=== PATIENT | female | born 1940 | race Caucasian/White ===

== ENCOUNTER 2023-11-09 14:50 | Inpatient (IN) | payer OTHER, SELFPAY ==
[2023-11-09] VITALS (10 sets, daily range): BP systolic 97–133; BP diastolic 51–82; PULSE 80–92; RESP 11–20; TEMP 36.6–36.7; O2SAT 96–99; BMI 36.8; BMI 36.7
--- NOTE | ~2023-11-09 | MR_ITS ---
EXAMINATION: MR abdomen wo/w con DATE: 11/12/2023 12:44 CDT INDICATION: Abnormal CAT scan TECHNIQUE: Magnetic resonance imaging (MRI) of the abdomen was performed with and without intravenous contrast. Sequences included coronal T2-weighted SS-FSE, coronal and axial FS 2D-FIESTA, axial STIR FSE, axial T2-weighted SS-FSE, axial T2-weighted FS SS-FSE, axial diffusion-weighted SE, axial dual- echo T1-weighted FSPGR, and axial and coronal T1-weighted LAVA. Postcontrast axial T1-weighted LAVA i mages were obtained in a time course. Postcontrast coronal T1-weighted LAVA images were obtained. COMPARISON: CT examination dated 11/09/2023 FINDINGS: Within the area of prior imaging concern (the periphery of segment 6/7 of the liver) non peripheral a rterial phase enhancement is appreciated which becomes isointense to the liver parenchyma on delayed views, without signal washout. This abnormal focus measures 27 x 18 x 24 mm (anterior to posterior x medial to lateral x cranial to caudal dimension). No additional abnormal contrast enhancement is appreciated within the remainder of the hepatic parenc hyma The liver displays a nodular contour consistent with cirrhosis, but is normal in size measuring 15 cm in longitudinal dimension. The spleen is borderline enlarged, measuring 9.4 cm in longitudinal dimension. Multiple stones are present within the gallbladder. The portal vein is patent. The abdominal aorta is nonaneurysmal. IMPRESSION: 1. Abnormal lesion within segment 6/7 measuring greater than 2 cm which demonstrate nonrim arterial p hase enhancement. In this high-risk patient, MR designates this lesion as a LIRADS 4 - probably HCC for which multidisc iplinary discussion for further workup is recommended (interval imaging versus biopsy for definitive diagnosis) Cholelithiasis. Splenomegaly. Reviewed, dictated and finalized at location A. IMPRESSION: 1. Abnormal lesion within segment 6/7 measuring greater than 2 cm which demonst rate nonrim arterial phase enhancement. In this high-risk patient, MR designates this lesion as a LIRADS 4 - probably H CC for which multidisciplinary discussion for further workup is recommended (in terval imaging versus biopsy for definitive diagnosis) Cholelithiasis. Splenomegaly.
--- NOTE | ~2023-11-09 | CT_ITS ---
EXAMINATION: CT abdomen pelvis w con DATE: 11/09/2023 17:27 INDICATION: Right abdominal pain. TECHNIQUE: Computed tomography (CT) of the abdomen and pelvis was performed with 100 mL Omnipaque 350 intravenous contrast. Automated exposure control and iterative reconstruction technique were employe d. The dose-length product was 1049.89 mGy-cm. COMPARISON: None. FINDINGS: The visualized portions of the lung bases demonstrate mild atelectasis. There is a 6 mm nod ule in left lower lobe. No pleural effusion. Cardiomegaly is noted. No pericardial effusion. There ar e coronary artery calcifications. There is liver surface nodularity, consistent with cirrhosis. There is a 2.5 cm arterial enhancing mass in right hepatic lobe. Calcifications in the spleen are consiste nt with old granulomatous disease. There are gallstones in the gallbladder, which is normal in size. The pancreas and adrenal glands are normal. There are cysts in the kidneys measuring up to 5 mm. Ther e are scattered diverticula in the colon. There is a 3.1 x 2.6 x 2.6 cm abscess in the wall of the si gmoid colon. There is fat stranding around the sigmoid colon. The appendix is normal. There are no di lated loops of bowel. There are no pathologically enlarged lymph nodes. There is no ascites. There is lumbar dextroscoliosis and severe spondylosis. IMPRESSION: 1. Sigmoid diverticulitis with intramural sigmoid abscess. 2. Cirrhosis of the liver. 3. 2.5 cm hyperenhancing mass in right hepatic lobe, which is indeterminate for hepatocellular carcin maximo. 4. 6 mm pulmonary nodule, probably benign. Consider noncontrast low-dose chest CT in 6-12 months. Reviewed, dictated and finalized at location A. IMPRESSION: 1. Sigmoid diverticulitis with intramural sigmoid abscess. 2. Cirrhosis of the liver. 3. 2.5 cm hyperenhancing mass in right hepatic lobe, which is indeterminate for hepatocellular carcinoma. 4. 6 mm pulmonary nodule, probably benign. Consider noncontrast low-dose chest CT in 6-12 months.
[2023-11-09 15:11] LABS: Basophils Absolute Auto 0.1 K/mm3 (0.0-0.1); Basophils Percent Auto 0.6 % (0.2-1.2); Eosinophils Absolute Auto 0.2 K/mm3 (0-0.3); Eosinophils Percent Auto 1.9 % (0-4.4); Hematocrit 42.3 % (37.0-47.0); Hemoglobin 14.2 g/dL (12.0-15.0); Immature Granulocyte Absolute 0.03 K/mm3 (0.00-0.031); Immature Granulocyte Percent A 0.3 % (0-0.5); Lymphocytes Absolute Auto 0.96 K/mm3 (0.9-3.2); Lymphocytes Percent Auto 9.3 % (18.3-44.2); Mean Corpuscular HGB Conc 33.6 g/dl (32-36); Mean Corpuscular Hemoglobin 31.5 pg (26-34); Mean Corpuscular Volume 93.8 fl (80-100); Mean Platelet Volume 10.8 fl (7.4-10.4); Monocytes Absolute Auto 1.1 K/mm3 (0.1-0.6); Monocytes Percent Auto 10.3 % (2.6-8.5); Neutrophils Percent Auto 77.6 % (45.5-73.1); Platelet Count Result 221 k/mm3 (150-375); Red Blood Count 4.51 M/mm3 (4.2-5.4); White Blood Count 10.3 K/mm3 (4.5-10.0)
[2023-11-09 15:16] LABS: Add Urine Microscopic? NO; Appearance Urine Clear (Clear); Bilirubin Urine Negative (Negative); Blood Urine Negative (Negative); Color Urine Yellow (Yellow); Glucose Urine UA 2+ mg/dL (Negative); Ketones Urine Negative (Negative); Leukocyte Esterase Ur Negative LEU/UL (Negative); Nitrate Urine Negative (Negative); Protein Urine Negative (Negative); Specific Grav Ur 1.007 (1.001-1.035); Urobilinogen Urine 0.2 mg/dL (<2.0); pH Urine 7.5 (5.0-9.0)
[2023-11-09 15:24] LABS: Alanine Aminotransferase 16 U/L (6-35); Albumin Level 4.6 g/dL (3.5-5.1); Alkaline Phosphatase 108 U/L (38-126); Anion Gap 9 mmol/L (4-12); Aspartate Amino Transferase 23 U/L (14-36); Bilirubin,Total 0.7 mg/dL (0.2-1.3); Blood Urea Nitrogen 20 mg/dL (7-17); Calcium 9.9 mg/dL (8.4-10.2); Carbon Dioxide 31 mmol/L (22-30); Chloride 94 mmol/L (98-107); Estimated CRCL calculation 38 ml/min; Estimated Glomerular Filt Rate 48; Glucose 114 mg/dL (65-110); Lipase 164 U/L (23-300); Sodium 134 mmol/L (137-145)
--- NOTE | 2023-11-09 16:01 | ED.ABDPAIN ---
HPI - Abdominal Pain General Chief Complaint: Abdominal Pain Stated Complaint: abdominal pain Time Seen by Provider: 11/09/23 16:01 Source: patient and family Mode of arrival: ambulatory History of Present Illness HPI narrative: 83 years old white female came to the ED complaining of right lower quadrant pain for the last 5 days. Associated with diarrhea, on average 4 times a day liquidy/soft. She denies any fever, chills, vomiting, diarrhea or nausea. History of recurrent diverticulitis Related Data Home Medications Medication Instructions Recorded Confirmed CoQ10 100 mg PO HS 11/05/23 11/09/23 allopurinol 300 mg tablet 300 mg PO DAILY 11/05/23 11/09/23 cholecalciferol (vitamin D3) 50 50 mcg PO HS 11/05/23 11/09/23 mcg (2,000 unit) capsule citracal See Rx Instructions .Route .COMPLEX 11/05/23 11/09/23 colchicine 0.6 mg tablet 0.3 mg PO DAILY PRN gout 11/05/23 11/09/23 dapagliflozin propanediol 10 mg 10 mg PO DAILY 11/05/23 11/09/23 tablet (Farxiga) lactobacillus combination no.9 4 4,000 mmu cells PO DAILY 11/05/23 11/09/23 billion cell capsule (Adult 50 Plus Probiotic) magnesium 500 mg PO BID 11/05/23 11/09/23 metformin 500 mg tablet 500 mg PO TID 11/05/23 11/09/23 potassium chloride 10 mEq 10 meq PO DAILY 11/05/23 11/09/23 tablet,extended release pravastatin 40 mg tablet 40 mg PO HS 11/05/23 11/09/23 prednisone 20 mg tablet 20 mg PO DAILY PRN gout 11/05/23 11/09/23 rivaroxaban 20 mg tablet (Xarelto) 20 mg PO HS 11/05/23 11/09/23 spironolactone 25 mg tablet 25 mg PO DAILY 11/05/23 11/09/23 torsemide 20 mg tablet 20 mg PO QAM 11/05/23 11/09/23 metoprolol succinate 100 mg 100 mg PO DAILY 11/06/23 11/09/23 tablet,extended release 24 hr glucosamine sulfate 1,000 mg 1,000 mg PO BID 11/09/23 11/09/23 capsule metoprolol succinate 50 mg 50 mg PO HS 11/09/23 11/09/23 tablet,extended release 24 hr Allergies Allergy/AdvReac Type Severity Reaction Status Date / Time Penicillins Allergy Severe Unknown Verified 11/09/23 18:28 meperidine [From Demerol] AdvReac Intermediate Unknown Verified 11/09/23 18:28 morphine AdvReac Intermediate Unknown Verified 11/09/23 18:28 Sulfa (Sulfonamide AdvReac Intermediate Unknown Verified 11/09/23 18:28 Antibiotics) Review of Systems Review of Systems: All systems reviewed & are unremarkable except as noted in HPI and below PMFSH Past Medical History Medical History BMI 37.0-37.9, adult Breast cancer, left s/p tamoxifen, radiation, and lumpectomy CHF (congestive heart failure) Colon cancer screening Diabetes Diverticulitis Dry eyes Gout HTN (hypertension) Hx of skin malignancy Hyperlipidemia Insomnia On intermediate drug therapy KRIS treated with BiPAP Paroxysmal A-fib Pulmonary hypertension Surgical History Surgical History History of lumpectomy of left breast Hx of breast biopsy Social History Social History Smoking status: Never smoker Alcohol intake: current Substance use: never Substance use type: does not use Do You Feel Safe in your Home?: Yes Lack of Transportation: No Lack of Food: Never True Current Housing: I Have Housing Concerned About Future Housing: No Difficulty Paying Gas/Electric Bills: No Difficulty Paying for Meds: No Currently Unemployed: No Education: Master's Degree or Higher Difficulty w/ Childcare or Family Care: No Spiritual care concerns: No Exam Narrative: General appearance: Well-developed, well-nourished Skin: Normal color Head: Normocephalic, nontraumatic Eyes: Clear conjunctiva ENT: Oropharynx normal, ears normal, nose normal Neck: Supple, nontender Chest and respiratory: Airway patent, no respiratory distress, no accessory muscle use Heart: Regular rate/rhythm Abdomen: Soft, diffuse lower abdominal tenderness, no guarding or bubba
[2023-11-09] MEDS: SODIUM CHLORIDE 0.9% IV 1,000 ML 999 ML IV CONT (16:35)
[2023-11-09 16:55] LABS: INR 1.6; Prothrombin Time 19.6 Seconds (11.1-14.7)
[2023-11-09 16:56] LABS: Partial Thromboplastin Time 39.7 Seconds (22.3-36.8)
[2023-11-09] MEDS: ONDANSETRON INJ 4 MG/2 ML VIAL IV PUSH (18:29)
--- NOTE | 2023-11-09 18:54 | PC.NURSE ---
Report given to Rosa SOLER, all questions answered
--- NOTE | 2023-11-09 19:07 | PM.IMHP ---
H&P: HPI History of Present Illness Date/Time: 11/09/23 19:07 Chief Complaint: Abdominal Pain, Diarrhea Narrative: 83 y/o F presents here with abdominal pain and diarrhea with PMH of diverticulitis, HLD, skin cancer (forehead, s/p excision), left breast cancer (s/p lumpectomy, hormon neha x5 years, and radiation), KRIS, paroxysmal AFib, and pulmonary hypertension. The patient presents here from home for further evaluation of abdominal pain and diarrhea. Initially started feeling fatigued, diarrhea, and weakness on Sunday (10/03). She reports onset approximately 4 days ago of lower abdominal pain, more so on the right. She describes the pain as cramping/knotted, nonradiating, intermittent, aggravated by eating, and no alleviating factors. She estimates she was having liquidy to semi-formed bowel movements per day. Reports mild nausea x1 day, has since resolved. She denies associated fever, chills, body aches, vomiting, nausea, or shortness of breath. She has a history of recurrent diverticulitis with last episode 2-3 years ago and no hx of surgical intervention needed or abscess formation to her knowledge. Initial VS at presentation: 98.1? F, HR 92, RR 20, 133/77, and 98% on RA. ED workup showed: WBC 10.3, no anemia, INR 1.6, sodium 134, creatinine 1.1 and GFR 48, and UA showed 2+ glucose. CT of the abdomen/pelvis showed sigmoid diverticulitis with intramural sigmoid abscess, cirrhosis of the liver, 2.5 cm hyperenhancing mass in the right hepatic lobe, and a 6 mm pulmonary nodule probably benign. Review of Systems Review of Systems: All systems reviewed & are unremarkable except as noted in HPI and below [facility] Past Medical History Medical History (Updated 11/09/23 @ 21:30 by Zoraida Roman APRN) BMI 37.0-37.9, adult Breast cancer, left s/p tamoxifen, radiation, and lumpectomy CHF (congestive heart failure) Colon cancer screening Diabetes Diverticulitis Dry eyes Gout HTN (hypertension) Hx of skin malignancy Hyperlipidemia Insomnia On intermediate frame tender drug therapy KRIS treated with BiPAP Paroxysmal A-fib Pulmonary hypertension Surgical History Surgical History (Updated 11/09/23 @ 21:27 by Zoraida Roman APRN) History of lumpectomy of left breast Hx of breast biopsy Social History Social History Smoking status: Never smoker Alcohol intake: current Substance use: never Substance use type: does not use Do You Feel Safe in your Home?: Yes Lack of Transportation: No Lack of Food: Never True Current Housing: I Have Housing Concerned About Future Housing: No Difficulty Paying Gas/Electric Bills: No Difficulty Paying for Meds: No Currently Unemployed: No Education: Master's Degree or Higher Difficulty w/ Childcare or Family Care: No Spiritual care concerns: No Meds Home Medications and Allergies Home Medications Medication Instructions Recorded Confirmed Type CoQ10 100 mg PO HS 11/05/23 11/09/23 History allopurinol 300 mg tablet 300 mg PO DAILY 11/05/23 11/09/23 History cholecalciferol (vitamin D3) 50 50 mcg PO HS 11/05/23 11/09/23 History mcg (2,000 unit) capsule citracal See Rx Instructions .Route .COMPLEX 11/05/23 11/09/23 History colchicine 0.6 mg tablet 0.3 mg PO DAILY PRN gout 11/05/23 11/09/23 History dapagliflozin propanediol 10 mg 10 mg PO DAILY 11/05/23 11/09/23 History tablet (Farxiga) lactobacillus combination no.9 4 4,000 mmu cells PO DAILY 11/05/23 11/09/23 History billion cell capsule (Adult 50 Plus Probiotic) magnesium 500 mg PO BID 11/05/23 11/09/23 History metformin 500 mg tablet 500 mg PO TID 11/05/23 11/09/23 History potassium chloride 10 mEq 10 meq PO DAILY 11/05/23 11/09/23 History tablet,extended release pravastatin 40 mg tablet 40 mg PO HS 11/05/23 11/09/23 History prednisone 20 mg tablet 20 mg PO DAILY PRN gout 11/05/23 11/09/23 History rivaroxaban 20 mg tablet (Xarelto) 20 m
[2023-11-09] MEDS: metroNIDAZOLE 500 MG/ISO 100ML 500 MG/100 ML BAG 100 MG IVPB (19:24)
--- NOTE | 2023-11-09 20:10 | ADMGEN ---
This patient, Nadja Garcia, was admitted to 2 Medical Room 260-. Patient/family oriented to hospital policies and general routines including ID bracelet, bed and alarms, visiting hours, pain management, procedures, bathroom and other care routines, personal items, smoking policy, room service/diet, and visiting hours. Information on how to activate the Rapid Response Team has been discussed. Patient/Family are encouraged to report perceived risks to care and to ask questions if they do not understand what they are told or what they should do.
[2023-11-09] MEDS: levoFLOXacin 750 MG/D5W 150 ML 750 MG/150 ML BAG 100 MG IVPB (21:01)
[2023-11-09] MEDS: LACTATED RINGERS 1,000 ML 125 ML IV CONT (22:44)
[2023-11-09] MEDS: PRAVASTATIN SODIUM 20 MG TABLET 40 MG PO (22:45)
[2023-11-09] MEDS: RIVAROXABAN 20 MG TABLET PO (22:45)
[2023-11-09] MEDS: MELATONIN 3 MG TABLET PO (23:37)
[2023-11-10] VITALS (11 sets, daily range): BP systolic 87–118; BP diastolic 33–66; PULSE 62–77; RESP 16–20; TEMP 36.4–37.1; O2SAT 94–99
[2023-11-10] MEDS: ACETAMINOPHEN 325 MG TABLET 650 MG PO ×2 (03:40→09:15)
[2023-11-10] MEDS: metroNIDAZOLE 500 MG/ISO 100ML 500 MG/100 ML BAG 100 MG IVPB ×3 (03:41→20:41)
[2023-11-10 05:17] LABS: Basophils Absolute Auto 0.1 K/mm3 (0.0-0.1); Basophils Percent Auto 0.8 % (0.2-1.2); Eosinophils Absolute Auto 0.2 K/mm3 (0-0.3); Eosinophils Percent Auto 2.6 % (0-4.4); Hematocrit 37.2 % (37.0-47.0); Hemoglobin 12.3 g/dL (12.0-15.0); Immature Granulocyte Absolute 0.04 K/mm3 (0.00-0.031); Immature Granulocyte Percent A 0.5 % (0-0.5); Lymphocytes Percent Auto 10.3 % (18.3-44.2); Mean Corpuscular HGB Conc 33.1 g/dl (32-36); Mean Corpuscular Hemoglobin 31.3 pg (26-34); Mean Corpuscular Volume 94.7 fl (80-100); Mean Platelet Volume 11.4 fl (7.4-10.4); Monocytes Percent Auto 12.3 % (2.6-8.5); Neutrophils Absolute Auto 5.7 K/mm3 (1.3-6.7); Neutrophils Percent Auto 73.5 % (45.5-73.1); Platelet Count Result 178 k/mm3 (150-375); Red Blood Count 3.93 M/mm3 (4.2-5.4); Red Cell Distribution Width 14.8 % (11.5-14.5); White Blood Count 7.8 K/mm3 (4.5-10.0)
[2023-11-10 05:25] LABS: Hemoglobin A1C 5.8 % (<5.7)
[2023-11-10 05:31] LABS: Alanine Aminotransferase 13 U/L (6-35); Albumin Level 3.7 g/dL (3.5-5.1); Alkaline Phosphatase 93 U/L (38-126); Anion Gap 7 mmol/L (4-12); Aspartate Amino Transferase 19 U/L (14-36); Bilirubin,Total 0.7 mg/dL (0.2-1.3); Blood Urea Nitrogen 19 mg/dL (7-17); Carbon Dioxide 27 mmol/L (22-30); Chloride 99 mmol/L (98-107); Estimated CRCL calculation 42 ml/min; Estimated Glomerular Filt Rate 53; Glucose 94 mg/dL (65-110); Potassium 3.9 mmol/L (3.4-5.0); Sodium 133 mmol/L (137-145)
[2023-11-10] MEDS: SODIUM CHLORIDE 0.9% IV 500 ML IV CONT (05:58)
[2023-11-10 08:01] LABS: Glucose Point of Care 102 mg/dl (65-105)
--- NOTE | 2023-11-10 08:38 | PM.IMPN ---
Progress Note: A&P Assessment and Plan (1) Diverticulitis large intestine: Qualifiers: Diverticulitis bleeding: without bleeding Diverticulitis complication: with abscess Qualified Code(s): K57.20 - Diverticulitis of large intestine with perforation and abscess without bleeding Code(s): K57.32 - Diverticulitis of large intestine without perforation or abscess without bleeding Status: Acute (2) HTN (hypertension): Qualifiers: Hypertension type: primary hypertension Qualified Code(s): I10 - Essential (primary) hypertension Code(s): I10 - Essential (primary) hypertension Status: Acute (3) Diabetes: Qualifiers: Diabetes mellitus complication status: without complication Diabetes mellitus assistant terminal manager insulin use: without [facility] use Diabetes mellitus type: type 2 Qualified Code(s): E11.9 - Type 2 diabetes mellitus without complications Code(s): E11.9 - Type 2 diabetes mellitus without complications Status: Acute (4) Liver mass: Code(s): R16.0 - Hepatomegaly, not elsewhere classified Status: Acute (5) Pulmonary nodule: Code(s): R91.1 - Solitary pulmonary nodule Status: Acute Plan Diverticulitis large intestine: Qualifiers: Diverticulitis bleeding: without bleeding Diverticulitis complication: with abscess Qualified Code(s): K57.20 - Diverticulitis of large intestine with perforation and abscess without bleeding Code(s): K57.32 - Diverticulitis of large intestine without perforation or abscess without bleeding - CT abdomen/pelvis: 1. Sigmoid diverticulitis with intramural sigmoid abscess. 2. Cirrhosis of the liver. 3. 2.5 cm hyperenhancing mass in right hepatic lobe, which is indeterminate for hepatocellular carcinoma. 4. 6 mm pulmonary nodule, probably benign. Consider noncontrast low-dose chest CT in 6-12 months. - started on Levaquin and Flagyl on 11/08, allergy to PCN and sulfa clear diet - analgesics and antipyretics p.r.n. change 125 mL/hour of LR, to NS 100ml/h because of hyponatremia Monitor I&Os. -[facility] Resume when appropriate. - general surgery consulted, awaiting formal recs hyponatremia, dehydration, CKD stage 3 133 which is trending down Change to normal saline IV 100 mL/hour dehydration is partially corrected Liver mass: Code(s): R16.0 - Hepatomegaly, not elsewhere classified Status: Acute Assessment and Plan: - CT showed a 2.5 cm hyperenhancing mass in the right hepatic lobe which is indeterminate for hepato cellular carcinoma - will need outpatient follow-up, discussed at length with the patient and her daughter Pulmonary nodule: Code(s): R91.1 - Solitary pulmonary nodule Status: Acute Assessment and Plan: - CT showed a 6 mm pulmonary nodule, probably benign. - Consider a non con low-dose chest CT in 6-12 months, defer to primary post-discharge Diabetes: Qualifiers: Diabetes mellitus type: type 2 Diabetes mellitus assistant terminal manager insulin use: without assistant terminal manager use Diabetes mellitus complication status: without complication Qualified Code(s): E11.9 - Type 2 diabetes mellitus without complications Code(s): E11.9 - Type 2 diabetes mellitus without complications Status: Acute Assessment and Plan: hypoglycemia protocol - POC blood glucose ACHS - home medication: hold metformin, continue Farixga - correct regimen ordered - low dose TIDWM, based off TDD - A1C ordered HTN (hypertension): Qualifiers: Hypertension type: primary hypertension Qualified Code(s): I10 - Essential (primary) hypertension Code(s): I10 - Essential (primary) hypertension Status: Acute Assessment and Plan: blood pressure low decrease metoprolol to 50 mg daily p.o. KRIS treated with BiPAP: Code(s): G47.33 - Obstructive sleep apnea (adult) (pediatric) St
[2023-11-10] MEDS: allopurinoL 300 MG TABLET PO (08:53)
[2023-11-10] MEDS: EMPAGLIFLOZIN 25 MG TABLET BY MOUTH (08:53)
[2023-11-10] MEDS: SODIUM CHLORIDE 0.9% IV 1,000 ML 100 ML IV CONT ×2 (10:12→23:30)
[2023-11-10 11:06] LABS: Toxigenic C. Diff NEGATIVE (NEGATIVE)
[2023-11-10 12:04] LABS: Glucose Point of Care 87 mg/dl (65-105)
--- NOTE | 2023-11-10 12:38 | WPDCN ---
Assessment and Plan Assessment and plan (1) Diverticulitis large intestine: Qualifiers: Diverticulitis bleeding: without bleeding Diverticulitis complication: with abscess Qualified Code(s): K57.20 - Diverticulitis of large intestine with perforation and abscess without bleeding Code(s): K57.32 - Diverticulitis of large intestine without perforation or abscess without bleeding Status: Acute Assessment and Plan: Patient has recurrent sigmoid diverticulitis with an intramural abscess which is about 3cm. No free perforation or extra luminal abscess is noted. Patient has had 1 prior admission to the hospital for diverticulitis when she was living in [place]. She has also had multiple other episodes which did not require hospitalization. At this point she seems to be improving. I would continue on IV antibiotics and bowel rest for today. Keep her NPO today except for medications with a sip of water. Tomorrow if she is still feeling well and white blood count remains normal then we can start advancing diet starting with clear liquids. We will hold her Xarelto for now just in case she gets worse and needs any emergent surgery. Will start on some subcutaneous heparin and SCDs. Assuming she resolved with non operative management I would recommend getting a colonoscopy performed in 4 to 6 weeks. If no neoplasm is seen causing the current picture then I would discuss with her and her family the possibility of elective sigmoid colon surgery but she does have multiple medical conditions that may increase morbidity and possibly mortality and so an elective sigmoid colon surgery may or may not be in her best interest. Continue IV antibiotics for now with supportive management. Continue serial abdominal exams. (2) Liver mass: Code(s): R16.0 - Hepatomegaly, not elsewhere classified Status: Acute Assessment and Plan: Right liver lobe mass. Indeterminate for hepatoma at this time. Further workup with dedicated MRI with Eovist contrast to further evaluate the liver mass would be indicated as an outpatient. HPI Data of Consult Date/Time: 11/10/23 12:38 Requesting Physician: Savannah Orozco MD Primary Care Provider: Thomas Antonio MD Consult Narrative Reason for consult: Acute sigmoid diverticulitis with me intramural abscess Narrative: Nadja Garcia is a 83 year old female who was admitted through the emergency room yesterday with having a was 1 week long history of lower abdominal pain which was actually a little worse on the right side. Patient moved to the area from [place] about 2 months ago to be with family. She states she had previously had episodes of diverticulitis and was hospitalized once a couple years ago. She denies any surgical management at that time was treated non operatively. She has not had a colonoscopy in more than 5 years. Her previous colonoscopy showed just some benign polyps. She was not instructed at that time to get another colonoscopy. 3 to 4 days ago she started having some nonbloody diarrhea. The pain worsened and she eventually came to the emergency room where her white blood cell count was 10,300. She had no fever and no tachycardia. There were no signs of sepsis. CT scan abdomen pelvis was then performed showing acute sigmoid diverticulitis without perforation or free pelvic abscess. Patient did have approximately 3cm area of intramural abscess in the sigmoid colon. No free air. Patient was admitted to the [facility] she is allergic to penicillin. Stool was negative for C diff. Today she states her pain is better. She actually had formed bowel movement today. It was nonbloody. She has no nausea. White blood cell count decreased to normal today. Her other medical conditions include prediabetes, hypertension, gout, atrial fibrillation on systemic anticoagulation with Xarelto, secondary pulmonary hypertension. She jatinder
[2023-11-10 17:20] LABS: Glucose Point of Care 90 mg/dl (65-105)
[2023-11-10] MEDS: METOPROLOL SUCCINATE EXT REL 50 MG TABCR PO (18:13)
[2023-11-10 20:09] LABS: Glucose Point of Care 88 mg/dl (65-105)
[2023-11-10] MEDS: PRAVASTATIN SODIUM 20 MG TABLET 40 MG PO (20:52)
[2023-11-10] MEDS: HEPARIN SODIUM 5,000 UNITS/ML VIAL 5000 UNITS SUB-Q (20:52)
[2023-11-10] MEDS: MELATONIN 3 MG TABLET PO (20:52)
[2023-11-11] VITALS (7 sets, daily range): BP systolic 103–125; BP diastolic 58–67; PULSE 82–95; RESP 16–18; TEMP 36.2–36.6; O2SAT 97–99
[2023-11-11 05:05] LABS: Basophils Absolute Auto 0.1 K/mm3 (0.0-0.1); Basophils Percent Auto 0.8 % (0.2-1.2); Eosinophils Absolute Auto 0.1 K/mm3 (0-0.3); Eosinophils Percent Auto 1.8 % (0-4.4); Hematocrit 37.5 % (37.0-47.0); Hemoglobin 11.8 g/dL (12.0-15.0); Immature Granulocyte Absolute 0.03 K/mm3 (0.00-0.031); Immature Granulocyte Percent A 0.4 % (0-0.5); Lymphocytes Absolute Auto 0.93 K/mm3 (0.9-3.2); Lymphocytes Percent Auto 11.7 % (18.3-44.2); Mean Corpuscular HGB Conc 31.5 g/dl (32-36); Mean Corpuscular Hemoglobin 30.5 pg (26-34); Mean Corpuscular Volume 96.9 fl (80-100); Mean Platelet Volume 10.6 fl (7.4-10.4); Monocytes Absolute Auto 0.8 K/mm3 (0.1-0.6); Monocytes Percent Auto 9.6 % (2.6-8.5); Neutrophils Percent Auto 75.7 % (45.5-73.1); Platelet Count Result 170 k/mm3 (150-375); Red Blood Count 3.87 M/mm3 (4.2-5.4); Red Cell Distribution Width 15.1 % (11.5-14.5); White Blood Count 7.9 K/mm3 (4.5-10.0)
[2023-11-11] MEDS: metroNIDAZOLE 500 MG/ISO 100ML 500 MG/100 ML BAG 100 MG IVPB ×3 (05:08→20:42)
[2023-11-11 05:27] LABS: Alanine Aminotransferase 13 U/L (6-35); Albumin Level 3.8 g/dL (3.5-5.1); Alkaline Phosphatase 93 U/L (38-126); Anion Gap 10 mmol/L (4-12); Aspartate Amino Transferase 21 U/L (14-36); Bilirubin,Total 0.5 mg/dL (0.2-1.3); Blood Urea Nitrogen 17 mg/dL (7-17); Calcium 9.1 mg/dL (8.4-10.2); Carbon Dioxide 24 mmol/L (22-30); Chloride 104 mmol/L (98-107); Estimated CRCL calculation 46 ml/min; Estimated Glomerular Filt Rate 60; Glucose 72 mg/dL (65-110); Potassium 4.1 mmol/L (3.4-5.0); Sodium 138 mmol/L (137-145)
[2023-11-11 07:52] LABS: Glucose Point of Care 74 mg/dl (65-105)
--- NOTE | 2023-11-11 08:43 | PM.IMPN ---
Progress Note: A&P Assessment and Plan (1) Diverticulitis large intestine: Qualifiers: Diverticulitis bleeding: without bleeding Diverticulitis complication: with abscess Qualified Code(s): K57.20 - Diverticulitis of large intestine with perforation and abscess without bleeding Code(s): K57.32 - Diverticulitis of large intestine without perforation or abscess without bleeding Status: Acute (2) HTN (hypertension): Qualifiers: Hypertension type: primary hypertension Qualified Code(s): I10 - Essential (primary) hypertension Code(s): I10 - Essential (primary) hypertension Status: Acute (3) Diabetes: Qualifiers: Diabetes mellitus complication status: without complication Diabetes mellitus long term care social worker insulin use: without [facility] use Diabetes mellitus type: type 2 Qualified Code(s): E11.9 - Type 2 diabetes mellitus without complications Code(s): E11.9 - Type 2 diabetes mellitus without complications Status: Acute (4) Liver mass: Code(s): R16.0 - Hepatomegaly, not elsewhere classified Status: Acute (5) Pulmonary nodule: Code(s): R91.1 - Solitary pulmonary nodule Status: Acute Plan Diverticulitis large intestine: Qualifiers: Diverticulitis bleeding: without bleeding Diverticulitis complication: with abscess Qualified Code(s): K57.20 - Diverticulitis of large intestine with perforation and abscess without bleeding Code(s): K57.32 - Diverticulitis of large intestine without perforation or abscess without bleeding - CT abdomen/pelvis: 1. Sigmoid diverticulitis with intramural sigmoid abscess. 2. Cirrhosis of the liver. 3. 2.5 cm hyperenhancing mass in right hepatic lobe, which is indeterminate for hepatocellular carcinoma. 4. 6 mm pulmonary nodule, probably benign. Consider noncontrast low-dose chest CT in 6-12 months. - started on Levaquin and Flagyl on 11/08, allergy to PCN and sulfa clear diet - analgesics and antipyretics p.r.n. change 125 mL/hour of LR, to NS 100ml/h because of hyponatremia Monitor I&Os. -[facility] Resume when appropriate. -general surgery is consulted, appreciate surgical consultation, continue antibiotics and supportive management hyponatremia, dehydration, CKD stage 3 133 which is trending down Change to normal saline IV 100 mL/hour dehydration is partially corrected Liver mass: Code(s): R16.0 - Hepatomegaly, not elsewhere classified Status: Acute Assessment and Plan: - CT showed a 2.5 cm hyperenhancing mass in the right hepatic lobe which is indeterminate for hepato cellular carcinoma - will need outpatient follow-up, discussed at length with the patient and her daughter paroxysmal AFib hold Xarelto now because of possible pending surgical procedure now patient has sinus rhythm follow EKG Pulmonary nodule: Code(s): R91.1 - Solitary pulmonary nodule Status: Acute Assessment and Plan: - CT showed a 6 mm pulmonary nodule, probably benign. - Consider a non con low-dose chest CT in 6-12 months, defer to primary post-discharge Diabetes: Qualifiers: Diabetes mellitus type: type 2 Diabetes mellitus long term care social worker insulin use: without long term care social worker use Diabetes mellitus complication status: without complication Qualified Code(s): E11.9 - Type 2 diabetes mellitus without complications Code(s): E11.9 - Type 2 diabetes mellitus without complications Status: Acute Assessment and Plan: hypoglycemia protocol - POC blood glucose ACHS - home medication: hold metforminand Farixga - correct regimen ordered - low dose TIDWM, based off TDD - A1C ordered HTN (hypertension): Qualifiers: Hypertension type: primary hypertension Qualified Code(s): I10 - Essential (primary) hypertension Code(s): I10 - Essential (primary) hypertension Status: Acute Asses
[2023-11-11] MEDS: allopurinoL 300 MG TABLET PO (08:47)
[2023-11-11] MEDS: TORSEMIDE 20 MG TABLET PO (08:47)
[2023-11-11] MEDS: POTASSIUM CHLORIDE 10 MEQ ER TABLET PO (08:48)
[2023-11-11] MEDS: PANTOPRAZOLE 40 MG TABLET PO (08:48)
[2023-11-11] MEDS: SPIRONOLACTONE 25 MG TABLET PO (08:48)
[2023-11-11] MEDS: METOPROLOL SUCCINATE EXT REL 50 MG TABCR PO (08:48)
[2023-11-11] MEDS: HEPARIN SODIUM 5,000 UNITS/ML VIAL 5000 UNITS SUB-Q ×2 (08:48→20:42)
[2023-11-11] MEDS: SODIUM CHLORIDE 0.9% IV 1,000 ML 100 ML IV CONT (08:48)
--- NOTE | 2023-11-11 08:48 | ECG_ITS ---
Test Date: 2023-11-11 09:13:10 Measurements Intervals [place] Rate: 88 P: 0 MD: 0 QRS: -2 QRSD: 100 T: 31 QT: 393 QTc: 478 Interpretive Statements ATRIAL FIBRILLATION LOW QRS VOLTAGE [QRS DEFLECTION < 0.5/1.0 mV IN LIMB/CHEST LEADS] INCOMPLETE RIGHT BUNDLE BRANCH BLOCK [90+ ms QRS DURATION, TERMINAL R IN V1/V2, 40+ ms S IN I/aVL/V4/V5/V6] ANTEROSEPTAL MYOCARDIAL INFARCTION [40+ ms Q WAVE IN V1-V4], OF INDETERMINATE AGE No previous ECG available for comparison Electronically Signed On 11-11-2023 11:40:07 CDT by Chava Stroud M.D.
[2023-11-11 09:31] LABS: Glucose Point of Care 121 mg/dl (65-105)
--- NOTE | 2023-11-11 11:35 | WPDPN ---
Progress Note: A&P Assessment and Plan (1) Diverticulitis large intestine: Qualifiers: Diverticulitis bleeding: without bleeding Diverticulitis complication: with abscess Qualified Code(s): K57.20 - Diverticulitis of large intestine with perforation and abscess without bleeding Code(s): K57.32 - Diverticulitis of large intestine without perforation or abscess without bleeding Status: Acute Assessment and Plan: Recurrent sigmoid diverticulitis with intramural abscess seems to be resolving with non operative management. Continue IV antibiotics for today. Can go ahead advanced diet to full liquids today as tolerated. Hopefully can advanced to solid food tomorrow and oral antibiotics. Continue supportive management (2) Liver mass: Code(s): R16.0 - Hepatomegaly, not elsewhere classified Status: Acute Assessment and Plan: Patient has questionable right liver mass on initial CT scan done on admission for her diverticulitis. Will get a dedicated MRI of the abdomen and to evaluate the liver with IV contrast. Subjective Date/time seen: 11/11/23 11:35 Interval history: Patient is doing well today. Complaining of any abdominal pain. No nausea. White blood cell count remains normal. Started on clear liquids this morning which she is tolerating. Exam GI: Other: Abdomen is soft and nondistended. Minimal to any tenderness in the lower abdomen. Essentially benign. Objective Data Vital Signs Vital Signs: Vital Signs - 24 hr 11/10/23 12:04 11/10/23 14:00 11/10/23 18:12 Temperature 36.4 C Pulse Rate 77 77 Respiratory Rate 16 16 Blood Pressure 102/64 113/56 L 118/66 Pulse Oximetry 97 99 Oxygen Delivery 11/10/23 18:13 11/10/23 20:48 11/10/23 20:52 Temperature 37.1 C Pulse Rate 75 74 Respiratory Rate 18 Blood Pressure 116/33 L Pulse Oximetry 96 Oxygen Delivery Room Air 11/10/23 22:35 11/11/23 05:59 11/11/23 08:47 Temperature 36.6 C Pulse Rate 72 82 95 Respiratory Rate 18 16 Blood Pressure 122/59 L 125/67 Pulse Oximetry 97 98 99 Oxygen Delivery CPAP 11/11/23 08:48 Temperature Pulse Rate 95 Respiratory Rate Blood Pressure Pulse Oximetry Oxygen Delivery Intake/Output Intake/Output: Intake & Output 11/08/23 11/09/23 11/10/23 11/11/23 23:59 23:59 23:59 23:59 Intake Total 1250 1300 1510 Balance 1250 1300 1510 Meds/Results Medications: Active Medications Generic Name Dose Route Start Last Admin Trade Name Freq PRN Reason Stop Dose Admin Acetaminophen 650 mg 11/09/23 19:31 11/10/23 09:15 Acetaminophen 325 Mg Tablet PO 650 mg Q4H PRN Administration Mild Pain (1-3) or Fever Allopurinol 300 mg 11/10/23 08:00 11/11/23 08:47 Allopurinol 300 Mg Tablet PO 300 mg DAILY@0800 BRITTANY Administration Colchicine 0.3 mg 11/09/23 21:24 Colchicine 0.3 Mg Tablet PO DAILY PRN gout Dextrose 12.5 gm 11/09/23 21:29 Dextrose 50% 25 Gm/50 Ml Syringe IV PUSH PRN PRN Hypoglycemia Protocol Dicyclomine HCl 20 mg 11/09/23 19:31 Dicyclomine Hcl 10 Mg Capsule PO QID PRN Abdominal Cramping Empagliflozin 25 mg 11/10/23 09:00 11/11/23 08:45 Empagliflozin 25 Mg Tablet BY MOUTH Not Given DAILY BRITTANY Glucagon 1 mg 11/09/23 21:29 Glucagon For Inj 1 Mg Vial IM PRN PRN Hypoglycemia Protocol Glucose 15 gm 11/09/23 21:29 Glucose Oral Gel 15 Gm Of Glucse In 37.5 Gm Tube PO PRN PRN Hypoglycemia Protocol Heparin Sodium (Porcine) 5,000 units 11/10/23 21:00 11/11/23 08:48 Heparin Sodium 5,000 Units/Ml Vial SUB-Q 5,000 units Q12HR BRITTANY Administration Metronidazole 500 mg in 100 mls @ 100 mls/hr 11/09/23 20:00 11/11/23 06:08 Flagyl 500 Mg/Iso Soln 100 Ml IVPB Infused Q8H BRITTANY Infusion Levofloxacin/Dextrose 750 mg in 150 mls @ 100 mls/hr 11/09/23 21:00 11/09/23 22:31 Levaquin 750 Mg/D5w 15
[2023-11-11 11:44] LABS: Glucose Point of Care 133 mg/dl (65-105)
[2023-11-11 17:03] LABS: Glucose Point of Care 87 mg/dl (65-105)
[2023-11-11 20:11] LABS: Glucose Point of Care 157 mg/dl (65-105)
[2023-11-11] MEDS: MELATONIN 3 MG TABLET PO (20:42)
[2023-11-11] MEDS: PRAVASTATIN SODIUM 20 MG TABLET 40 MG PO (20:43)
[2023-11-11] MEDS: levoFLOXacin 750 MG/D5W 150 ML 750 MG/150 ML BAG 100 MG IVPB (21:52)
[2023-11-12] MEDS: SODIUM CHLORIDE 0.9% IV 1,000 ML 75 ML IV CONT (01:56)
[2023-11-12] MEDS: metroNIDAZOLE 500 MG/ISO 100ML 500 MG/100 ML BAG 100 MG IVPB ×2 (04:00→12:20)
[2023-11-12 06:00] VITALS: BP 113/62; PULSE 76; RESP 16; TEMP 36.4; O2SAT 100
[2023-11-12 07:01] LABS: Basophils Absolute Auto 0.1 K/mm3 (0.0-0.1); Basophils Percent Auto 0.9 % (0.2-1.2); Eosinophils Absolute Auto 0.2 K/mm3 (0-0.3); Eosinophils Percent Auto 3.7 % (0-4.4); Hematocrit 35.5 % (37.0-47.0); Hemoglobin 11.7 g/dL (12.0-15.0); Immature Granulocyte Absolute 0.02 K/mm3 (0.00-0.031); Immature Granulocyte Percent A 0.4 % (0-0.5); Lymphocytes Absolute Auto 0.82 K/mm3 (0.9-3.2); Lymphocytes Percent Auto 15.3 % (18.3-44.2); Mean Corpuscular Volume 94.2 fl (80-100); Mean Platelet Volume 10.8 fl (7.4-10.4); Monocytes Absolute Auto 0.6 K/mm3 (0.1-0.6); Monocytes Percent Auto 11.2 % (2.6-8.5); Neutrophils Absolute Auto 3.7 K/mm3 (1.3-6.7); Neutrophils Percent Auto 68.5 % (45.5-73.1); Platelet Count Result 170 k/mm3 (150-375); Red Blood Count 3.77 M/mm3 (4.2-5.4); Red Cell Distribution Width 15.1 % (11.5-14.5); White Blood Count 5.4 K/mm3 (4.5-10.0)
[2023-11-12 07:15] LABS: Alanine Aminotransferase 13 U/L (6-35); Albumin Level 3.6 g/dL (3.5-5.1); Alkaline Phosphatase 91 U/L (38-126); Anion Gap 9 mmol/L (4-12); Aspartate Amino Transferase 21 U/L (14-36); Bilirubin,Total 0.5 mg/dL (0.2-1.3); Blood Urea Nitrogen 15 mg/dL (7-17); Calcium 8.6 mg/dL (8.4-10.2); Carbon Dioxide 23 mmol/L (22-30); Chloride 102 mmol/L (98-107); Estimated CRCL calculation 46 ml/min; Estimated Glomerular Filt Rate 60; Glucose 109 mg/dL (65-110); Potassium 3.4 mmol/L (3.4-5.0); Sodium 134 mmol/L (137-145)
--- NOTE | 2023-11-12 07:37 | PM.IMPN ---
Progress Note: A&P Assessment and Plan (1) Diverticulitis large intestine: Qualifiers: Diverticulitis bleeding: without bleeding Diverticulitis complication: with abscess Qualified Code(s): K57.20 - Diverticulitis of large intestine with perforation and abscess without bleeding Code(s): K57.32 - Diverticulitis of large intestine without perforation or abscess without bleeding Status: Acute Assessment and Plan: - did not meet SIRS criteria, HR only - CT abdomen/pelvis: 1. Sigmoid diverticulitis with intramural sigmoid abscess. 2. Cirrhosis of the liver. 3. 2.5 cm hyperenhancing mass in right hepatic lobe, which is indeterminate for hepatocellular carcinoma. 4. 6 mm pulmonary nodule, probably benign. Consider noncontrast low-dose chest CT in 6-12 months. - started on Levaquin and Flagyl on 11/08, allergy to PCN and sulfa - low fiber diet - analgesics and antipyretics p.r.n. - IV fluids: 125 mL/hour of LR, assess daily for appropriateness to discontinue. Monitor I&Os. -hold home Xarelto, at [facility]. Resume when appropriate. - general surgery consulted, awaiting formal recs Continue supportive management. Advance diet as tolerated. (2) Liver mass: Code(s): R16.0 - Hepatomegaly, not elsewhere classified Status: Acute Assessment and Plan: - LFTs WNL - CT showed a 2.5 cm hyperenhancing mass in the right hepatic lobe which is indeterminate for hepato cellular carcinoma - MRI: Abnormal lesion within segment 6/7 measuring greater than 2 cm which demonstrate nonrim arterial phase enhancement. In this high-risk patient, MR designates this lesion as a LIRADS 4 - probably HCC for which multidisciplinary discussion for further workup is recommended (interval imaging versus biopsy for definitive diagnosis) - will need outpatient follow-up, discussed at length with the patient and her daughter (3) Pulmonary nodule: Code(s): R91.1 - Solitary pulmonary nodule Status: Acute Assessment and Plan: - CT showed a 6 mm pulmonary nodule, probably benign. - Consider a non con low-dose chest CT in 6-12 months, defer to primary post-discharge (4) HTN (hypertension): Qualifiers: Hypertension type: primary hypertension Qualified Code(s): I10 - Essential (primary) hypertension Code(s): I10 - Essential (primary) hypertension Status: Acute Assessment and Plan: - chronic, well controlled on home medications - continue home medications: metoprolol (history of AFib) - monitor (5) Diabetes: Qualifiers: Diabetes mellitus complication status: without complication Diabetes mellitus detention insulin use: without detention use Diabetes mellitus type: type 2 Qualified Code(s): E11.9 - Type 2 diabetes mellitus without complications Code(s): E11.9 - Type 2 diabetes mellitus without complications Status: Acute Assessment and Plan: - hypoglycemia protocol - POC blood glucose ACHS - home medication: hold metformin, continue Farixga - correct regimen ordered - low dose TIDWM, based off TDD - A1C 5.8 on 11/09 (6) KRIS treated with BiPAP: Code(s): G47.33 - Obstructive sleep apnea (adult) (pediatric) Status: Acute Assessment and Plan: - continue home BiPAP Time Spent With Patient Time with patient: 25 - 35 minutes Subjective Date/time seen: 11/12/23 07:37 Interval history: 83 y/o F presents here with abdominal pain and diarrhea with PMH of diverticulitis, HLD, skin cancer (forehead, s/p excision), left breast cancer (s/p lumpectomy, hormon neha x5 years, and radiation), KRIS, paroxysmal AFib, and pulmonary hypertension. Patient is pleasant lying comfortably in bed and seen ambulating throughout her room. She is tolerating her full liquid diet well and was advanced to low-fiber diet by surgery. She denies nausea / vomiting increased abdominal pain. Patient also denies chest pain, shortness a breath and palpitations
[2023-11-12 08:26] LABS: Glucose Point of Care 109 mg/dl (65-105)
[2023-11-12 08:34] VITALS: PULSE 76
[2023-11-12] MEDS: PANTOPRAZOLE 40 MG TABLET PO (08:34)
[2023-11-12] MEDS: TORSEMIDE 20 MG TABLET PO (08:34)
[2023-11-12] MEDS: METOPROLOL SUCCINATE EXT REL 50 MG TABCR PO (08:34)
[2023-11-12] MEDS: EMPAGLIFLOZIN 25 MG TABLET BY MOUTH (08:34)
[2023-11-12] MEDS: SPIRONOLACTONE 25 MG TABLET PO (08:34)
[2023-11-12] MEDS: POTASSIUM CHLORIDE 10 MEQ ER TABLET PO (08:35)
[2023-11-12] MEDS: allopurinoL 300 MG TABLET PO (08:35)
[2023-11-12] MEDS: HEPARIN SODIUM 5,000 UNITS/ML VIAL 5000 UNITS SUB-Q ×2 (08:35→21:20)
[2023-11-12 11:41] LABS: Glucose Point of Care 129 mg/dl (65-105)
[2023-11-12 14:00] VITALS: BP 116/72; PULSE 88; RESP 16; TEMP 36.7; O2SAT 99
[2023-11-12 16:45] LABS: Glucose Point of Care 94 mg/dl (65-105)
--- NOTE | 2023-11-12 19:32 | PM.PNGS ---
Progress Note: A&P Assessment and Plan (1) Diverticulitis large intestine: Qualifiers: Diverticulitis bleeding: without bleeding Diverticulitis complication: with abscess Qualified Code(s): K57.20 - Diverticulitis of large intestine with perforation and abscess without bleeding Code(s): K57.32 - Diverticulitis of large intestine without perforation or abscess without bleeding Status: Acute Assessment and Plan: Continues to improve with nonoperative management for recurrent sigmoid diverticulitis with intramural abscess. Will advance to a low fiber diet. If she is tolerating solid foods, then it is okay from a surgical standpoint to transition her to oral antibiotics and discharge home on a low fiber diet. We will have her follow-up with Dr. Ma in 1-2 weeks. (2) Liver mass: Code(s): R16.0 - Hepatomegaly, not elsewhere classified Status: Acute Assessment and Plan: Patient has questionable right liver mass on initial CT scan. MRI of the abdomen pending. Plan I have discussed the patient's case and plan of care with Dr. Ma. Subjective Subjective Date/Time Seen: 11/12/23 19:32 Interval history: Patient denies abdominal pain, nausea, or vomiting. She has had a few loose bowel movements today. She had a headache earlier this morning, but no other issues. Denies blood in stool. Exam GI: Inspection: distended GI Palp: Yes Soft to palpation, No Tenderness to palpation present (GI), No Guarding due to palpation present (GI) and No Rebound tenderness present Auscultation: normal bowel sounds Objective Data Vital Signs Vital Signs: Vital Signs - 24 hr 11/11/23 20:57 11/11/23 20:43 11/11/23 20:40 Temperature 97.1 F L Pulse Rate 90 84 Respiratory Rate 16 Blood Pressure 118/65 Pulse Oximetry 97 97 97 Oxygen Delivery BiPAP CPAP Oxygen Flow Rate 3 11/12/23 02:20 11/12/23 06:00 11/12/23 08:34 Temperature 97.6 F Pulse Rate 76 76 Respiratory Rate 16 Blood Pressure 113/62 Pulse Oximetry 100 Oxygen Delivery CPAP Oxygen Flow Rate 11/12/23 08:35 11/12/23 14:00 Temperature 98.1 F Pulse Rate 88 Respiratory Rate 16 Blood Pressure 116/72 Pulse Oximetry 99 Oxygen Delivery Room Air Oxygen Flow Rate Intake/Output Intake/Output: Intake & Output 11/09/23 11/10/23 11/11/23 11/12/23 23:59 23:59 23:59 23:59 Intake Total 1250 1300 3435 3235 Balance 1250 1300 3435 3235 Meds/Results Medications: Active Medications Generic Name Dose Route Start Last Admin Trade Name Freq PRN Reason Stop Dose Admin Acetaminophen 650 mg 11/09/23 19:31 11/10/23 09:15 Acetaminophen 325 Mg Tablet PO 650 mg Q4H PRN Administration Mild Pain (1-3) or Fever Allopurinol 300 mg 11/10/23 08:00 11/12/23 08:35 Allopurinol 300 Mg Tablet PO 300 mg DAILY@0800 BRITTANY Administration Colchicine 0.3 mg 11/09/23 21:24 Colchicine 0.3 Mg Tablet PO DAILY PRN gout Dextrose 12.5 gm 11/09/23 21:29 Dextrose 50% 25 Gm/50 Ml Syringe IV PUSH PRN PRN Hypoglycemia Protocol Dicyclomine HCl 20 mg 11/09/23 19:31 Dicyclomine Hcl 10 Mg Capsule PO QID PRN Abdominal Cramping Empagliflozin 25 mg 11/10/23 09:00 11/12/23 08:34 Empagliflozin 25 Mg Tablet BY MOUTH 25 mg DAILY BRITTANY Administration Glucagon 1 mg 11/09/23 21:29 Glucagon For Inj 1 Mg Vial IM PRN PRN Hypoglycemia Protocol Glucose 15 gm 11/09/23 21:29 Glucose Oral Gel 15 Gm Of Glucse In 37.5 Gm Tube PO PRN PRN Hypoglycemia Protocol Heparin Sodium (Porcine) 5,000 units 11/10/23 21:00 11/12/23 08:35 Heparin Sodium 5,000 Units/Ml Vial SUB-Q 5,000 units Q12HR BRITTANY Administration Dextrose 1,000 mls @ 100 mls/hr 11/09/23 21:29 Dextrose 5% 1,000 Ml IVPB PRN PRN Hypoglycemia Protocol Insulin Aspart 2 - 5 units 11/10/23 08:00 11/12/23 17:06 Insulin Aspart (*Bkc)
[2023-11-12 21:10] LABS: Glucose Point of Care 151 mg/dl (65-105)
[2023-11-12] MEDS: WATER FOR IRRIGATION, STERILE 1,000 ML BOTTLE 1000 ML (21:19)
[2023-11-12 21:20] VITALS: O2SAT 98
[2023-11-12] MEDS: PRAVASTATIN SODIUM 20 MG TABLET 40 MG PO (21:20)
[2023-11-12] MEDS: MELATONIN 3 MG TABLET PO (21:20)
[2023-11-12] MEDS: metroNIDAZOLE 500 MG TABLET PO (21:20)
[2023-11-12 22:00] VITALS: BP 133/79; PULSE 99; RESP 12; TEMP 36.4; O2SAT 98
[2023-11-13 05:15] VITALS: BP 139/73; PULSE 84; RESP 20; TEMP 36.4; O2SAT 97
[2023-11-13] MEDS: metroNIDAZOLE 500 MG TABLET PO ×2 (05:16→13:16)
--- NOTE | 2023-11-13 05:26 | PC.NURSE ---
0517, patient c/o tightness in chest and upper shoulder blades was aching. Vital signs were stable BP 139/73, P 84, R 20, T 97.5F oral, and pulse ox 97%. Dr. Singh notified about symptoms. Continue monitoring pt of symptoms getting worse. She will up to see patient to assess. Call light in reach, bed alarm put on for fall safety.
[2023-11-13 06:13] LABS: Basophils Absolute Auto 0.1 K/mm3 (0.0-0.1); Eosinophils Absolute Auto 0.2 K/mm3 (0-0.3); Eosinophils Percent Auto 3.7 % (0-4.4); Hematocrit 38.3 % (37.0-47.0); Hemoglobin 12.6 g/dL (12.0-15.0); Immature Granulocyte Absolute 0.04 K/mm3 (0.00-0.031); Immature Granulocyte Percent A 0.6 % (0-0.5); Lymphocytes Absolute Auto 0.95 K/mm3 (0.9-3.2); Lymphocytes Percent Auto 15.3 % (18.3-44.2); Mean Corpuscular HGB Conc 32.9 g/dl (32-36); Mean Corpuscular Hemoglobin 30.4 pg (26-34); Mean Corpuscular Volume 92.5 fl (80-100); Mean Platelet Volume 11.1 fl (7.4-10.4); Monocytes Absolute Auto 0.7 K/mm3 (0.1-0.6); Monocytes Percent Auto 10.5 % (2.6-8.5); Neutrophils Absolute Auto 4.3 K/mm3 (1.3-6.7); Neutrophils Percent Auto 68.9 % (45.5-73.1); Platelet Count Result 215 k/mm3 (150-375); Red Blood Count 4.14 M/mm3 (4.2-5.4); Red Cell Distribution Width 14.9 % (11.5-14.5); White Blood Count 6.2 K/mm3 (4.5-10.0)
[2023-11-13 06:22] LABS: Alanine Aminotransferase 19 U/L (6-35); Albumin Level 4.1 g/dL (3.5-5.1); Alkaline Phosphatase 109 U/L (38-126); Anion Gap 10 mmol/L (4-12); Aspartate Amino Transferase 32 U/L (14-36); Bilirubin,Total 0.4 mg/dL (0.2-1.3); Blood Urea Nitrogen 15 mg/dL (7-17); Calcium 9.1 mg/dL (8.4-10.2); Carbon Dioxide 24 mmol/L (22-30); Chloride 101 mmol/L (98-107); Estimated CRCL calculation 42 ml/min; Estimated Glomerular Filt Rate 53; Glucose 128 mg/dL (65-110); Potassium 3.2 mmol/L (3.4-5.0); Sodium 135 mmol/L (137-145)
[2023-11-13 08:25] LABS: Glucose Point of Care 119 mg/dl (65-105)
[2023-11-13 08:28] VITALS: PULSE 84
[2023-11-13] MEDS: EMPAGLIFLOZIN 25 MG TABLET BY MOUTH (08:28)
[2023-11-13] MEDS: METOPROLOL SUCCINATE EXT REL 50 MG TABCR PO (08:28)
[2023-11-13] MEDS: POTASSIUM CHLORIDE 10 MEQ ER TABLET PO (08:29)
[2023-11-13] MEDS: PANTOPRAZOLE 40 MG TABLET PO (08:29)
[2023-11-13] MEDS: HEPARIN SODIUM 5,000 UNITS/ML VIAL 5000 UNITS SUB-Q (08:29)
[2023-11-13] MEDS: allopurinoL 300 MG TABLET PO (08:29)
[2023-11-13] MEDS: TORSEMIDE 20 MG TABLET PO (08:29)
[2023-11-13] MEDS: SPIRONOLACTONE 25 MG TABLET PO (08:29)
[2023-11-13 12:02] LABS: Glucose Point of Care 114 mg/dl (65-105)
[2023-11-13 14:00] VITALS: BP 111/67; PULSE 94; RESP 20; TEMP 36.3; O2SAT 99
--- NOTE | 2023-11-13 14:54 | WPDPN ---
Progress Note: A&P Assessment and Plan (1) Liver mass: Code(s): R16.0 - Hepatomegaly, not elsewhere classified Status: Acute Assessment and Plan: Patient has a 2.7cm right liver lobe mass near segment 6 and 7. It is suggestive of possible neoplasm. She is high risk patient because she does have cirrhosis. Will refer her to see Surgical Oncology or hepatobiliary surgery [facility] as an outpatient. (2) Diverticulitis large intestine: Qualifiers: Diverticulitis bleeding: without bleeding Diverticulitis complication: with abscess Qualified Code(s): K57.20 - Diverticulitis of large intestine with perforation and abscess without bleeding Code(s): K57.32 - Diverticulitis of large intestine without perforation or abscess without bleeding Status: Acute Assessment and Plan: Resolved with non operative management. We will continue a course of oral antibiotics for another 10 days home. We will see her back in the office in 1 to 2 weeks. Patient stated low-fiber diet for now. Subjective Date/time seen: 11/13/23 14:54 Interval history: Patient is doing well. No abdominal pain. Tolerating low-fiber diet. She is being discharged today for the hospitalist service. That is fine since her diverticulitis has resolved with non operative management. She can be discharged home on oral antibiotics for another 10 days. The MRI of the abdomen yesterday showed that the right lobe liver mass is concerning for possible malignant neoplasm. Had a discussion with the patient today and her daughter and will plan on refer her to Surgical Oncology or hepatobiliary surgeon at [facility]. Exam GI: Other: Soft obese. Nontender. Benign. Objective Data Vital Signs Vital Signs: Vital Signs - 24 hr 11/12/23 22:00 11/12/23 21:20 11/13/23 05:15 Temperature 36.4 C 36.4 C L Pulse Rate 99 84 Respiratory Rate 12 20 Blood Pressure 133/79 139/73 Pulse Oximetry 98 98 97 Oxygen Delivery BiPAP Oxygen Flow Rate 3 11/13/23 08:28 11/13/23 08:30 11/13/23 14:00 Temperature 36.3 C L Pulse Rate 84 94 Respiratory Rate 20 Blood Pressure 111/67 Pulse Oximetry 99 Oxygen Delivery Room Air Oxygen Flow Rate Intake/Output Intake/Output: Intake & Output 11/10/23 11/11/23 11/12/23 11/13/23 23:59 23:59 23:59 23:59 Intake Total 1300 3435 3235 770 Balance 1300 3435 3235 770 Meds/Results Radiology Results: ITS Impressions Abdomen/Pelvis CT 11/09/23 17:31 IMPRESSION: 1. Sigmoid diverticulitis with intramural sigmoid abscess. 2. Cirrhosis of the liver. 3. 2.5 cm hyperenhancing mass in right hepatic lobe, which is indeterminate for hepatocellular carcinoma. 4. 6 mm pulmonary nodule, probably benign. Consider noncontrast low-dose chest CT in 6-12 months. Abdomen MRI 11/12/23 12:41 IMPRESSION: 1. Abnormal lesion within segment 6/7 measuring greater than 2 cm which demonstrate nonrim arterial phase enhancement. In this high-risk patient, MR designates this lesion as a LIRADS 4 - probably HCC for which multidisciplinary discussion for further workup is recommended (interval imaging versus biopsy for definitive diagnosis) Cholelithiasis. Splenomegaly. Labs Labs: Laboratory Results - last 24 hr 11/12/23 11/12/23 11/13/23 16:37 20:58 05:34 WBC 6.2 RBC 4.14 L Hgb 12.6 Hct 38.3 MCV 92.5 MCH 30.4 MCHC 32.9 RDW 14.9 H Plt Count 215 MPV 11.1 H Immature Gran % (Auto) 0.6 H Neut % (Auto) 68.9 Lymph % (Auto) 15.3 L [place] % (Auto) 10.5 H Eos % (Auto) 3.7 Baso % (Auto) 1.0 Lymph # (Auto) 0.95 [place] # (Auto) 0.7 H Eos # (Auto) 0.2 Baso # (Auto) 0.1 Abs Immat Gran (auto) 0.04 H Absolute Neuts (auto) 4.3 Absolute Nucleated RBC 0.000 Nucleated RBC % 0.0 Sodium 135 L Potassium 3.2 L Chloride 101 Carbon Dioxide 24 Anion Gap 10 BUN 15 Creatinine 1.00 Estim Creat Clear C
--- NOTE | 2023-11-13 17:09 | PM.DS ---
DS: Admitting Diagnosis Discharge Date 11/13/23 Admitting Diagnosis Diverticulitis of the large intestine liver mass pulmonary nodule hypertension diabetes mellitus KRIS DS: Discharge Diagnosis Discharge Diagnosis (1) Diverticulitis large intestine: Qualifiers: Diverticulitis bleeding: without bleeding Diverticulitis complication: with abscess Qualified Code(s): K57.20 - Diverticulitis of large intestine with perforation and abscess without bleeding Code(s): K57.32 - Diverticulitis of large intestine without perforation or abscess without bleeding Status: Acute (2) Liver mass: Code(s): R16.0 - Hepatomegaly, not elsewhere classified Status: Acute (3) Pulmonary nodule: Code(s): R91.1 - Solitary pulmonary nodule Status: Acute (4) HTN (hypertension): Qualifiers: Hypertension type: primary hypertension Qualified Code(s): I10 - Essential (primary) hypertension Code(s): I10 - Essential (primary) hypertension Status: Acute (5) Diabetes: Qualifiers: Diabetes mellitus complication status: without complication Diabetes mellitus salvage determiner insulin use: without alf use Diabetes mellitus type: type 2 Qualified Code(s): E11.9 - Type 2 diabetes mellitus without complications Code(s): E11.9 - Type 2 diabetes mellitus without complications Status: Acute (6) KRIS treated with BiPAP: Code(s): G47.33 - Obstructive sleep apnea (adult) (pediatric) Status: Acute DS: Summary Hospital Course Reason for hospitalization: Diverticulitis of the large intestine liver mass pulmonary nodule hypertension diabetes mellitus KRIS Hospital Course: 83 y/o F with PMH of diverticulitis, HLD, skin cancer (forehead, s/p excision), left breast cancer (s/p lumpectomy, hormone neha x5 years, and radiation), KRIS, paroxysmal AFib, and pulmonary hypertension presents to the hospital with abdominal pain and diarrhea. She was not meeting SIRS criteria on admission. A CT abdomen/pelvis showed sigmoid diverticulitis with intramural sigmoid abscess. Patient was started on antibiotics and IV fluids at that time. Surgery was consulted and recommended continued IV antibiotics for now with supportive management. Prior to discharge patient was no longer having abdominal pain and was tolerating a low fat diet. She was discharged home on oral antibiotics to complete the course. The CT also showed Cirrhosis of the liver and 2.5 cm hyperenhancing mass in right hepatic lobe, which is indeterminate for hepatocellular carcinoma. An MRI was obtained and showed an abnormal lesion within segment 6/7 measuring greater than 2 cm which demonstrate nonrim arterial phase enhancement. In this high-risk patient, MR designates this lesion as a LIRADS 4 - probably HCC for which multidisciplinary discussion for further workup is recommended (interval imaging versus biopsy for definitive diagnosis). Patient also had a 6 mm pulmonary nodule, probably benign on the CT. Per radiology, consider noncontrast low-dose chest CT in 6-12 months. These findings were discussed with the patient and her daughter for plan to follow up in the outpatient setting. Surgery referred her to see Surgical Oncology or hepatobiliary surgery [facility] as an outpatient. Prior to discharge patient had no complaints, denying chest pain, shortness of breath, nausea/vomiting and abdominal pain. Patient discharged home in stable condition. She is to follow up with her PCP in 1week and complete her antibiotics as prescribed. Patient will follow up with surgery as scheduled. Status at Discharge Functional status at discharge: uses cane/walker Time Spent with Patient Time attestation: Total time spent providing and/or coordinating discharge services: Time spent: Greater than 30 minutes Exam Narrative: AF HR 94 RR 20 SPO2 99 BP 111/67 General: female in no acute respiratory distress who is nontoxic appearing, lyin
== END 2023-11-13 14:45 | disposition home or self-care (01) | DRG 392 ==
LOC: ANHED 18:47 → ANH2MED 19:13
PROVIDERS: Internal Medicine; Preventive Medicine Aerospace Medicine; Student in an Organized Health Care Education/Training Program; Surgery; Admitting Provider Internal Medicine; Emergency Provider Emergency Medicine; PCP Internal Medicine; Visit Provider Student in an Organized Health Care Education/Training Program
DX: K57.20 Diverticulitis of large intestine with perforation and abscess without bleeding (principal); I13.0 Hypertensive heart and chronic kidney disease with heart failure and stage 1 through stage 4 chronic kidney disease, or unspecified chronic kidney disease; E87.1 Hypo-osmolality and hyponatremia; E11.22 Type 2 diabetes mellitus with diabetic chronic kidney disease; N18.30 Chronic kidney disease, stage 3 unspecified; R16.0 Hepatomegaly, not elsewhere classified; R91.1 Solitary pulmonary nodule; E11.9 Type 2 diabetes mellitus without complications; G47.33 Obstructive sleep apnea (adult) (pediatric); I48.0 Paroxysmal atrial fibrillation; E78.5 Hyperlipidemia, unspecified; I50.9 Heart failure, unspecified; E86.0 Dehydration; Z85.3 Personal history of malignant neoplasm of breast; Z85.828 Personal history of other malignant neoplasm of skin; Z79.01 Long term (current) use of anticoagulants
CPT/HCPCS: 36415; 74177; 74183; 80053; 81003; 82948; 83036; 83605; 83690; 85025; 85610; 85730; 87493; 93005; 96360; 96361; 99285; A9270; A9577; J1644; J1836; J1956; J2405; J7030; J7040; J7120; Q9967

== ENCOUNTER 2023-11-20 10:51 | Outpatient (CLI) | payer OTHER, SELFPAY ==
[2023-11-20 11:44] LABS: Basophils Absolute Auto 0.1 K/mm3 (0.0-0.1); Basophils Percent Auto 0.8 % (0.2-1.2); Eosinophils Absolute Auto 0.1 K/mm3 (0-0.3); Eosinophils Percent Auto 1.4 % (0-4.4); Hematocrit 45.1 % (37.0-47.0); Hemoglobin 14.8 g/dL (12.0-15.0); Immature Granulocyte Absolute 0.06 K/mm3 (0.00-0.031); Immature Granulocyte Percent A 0.7 % (0-0.5); Lymphocytes Absolute Auto 0.96 K/mm3 (0.9-3.2); Lymphocytes Percent Auto 10.9 % (18.3-44.2); Mean Corpuscular HGB Conc 32.8 g/dl (32-36); Mean Corpuscular Volume 94.4 fl (80-100); Mean Platelet Volume 10.9 fl (7.4-10.4); Monocytes Absolute Auto 0.9 K/mm3 (0.1-0.6); Neutrophils Absolute Auto 6.8 K/mm3 (1.3-6.7); Neutrophils Percent Auto 76.2 % (45.5-73.1); Platelet Count Result 307 k/mm3 (150-375); Red Blood Count 4.78 M/mm3 (4.2-5.4); Red Cell Distribution Width 15.5 % (11.5-14.5); White Blood Count 8.8 K/mm3 (4.5-10.0)
[2023-11-20 11:53] LABS: Anion Gap 11 mmol/L (4-12); Blood Urea Nitrogen 36 mg/dL (7-17); Calcium 9.8 mg/dL (8.4-10.2); Carbon Dioxide 28 mmol/L (22-30); Chloride 97 mmol/L (98-107); Estimated Glomerular Filt Rate 36; Glucose 122 mg/dL (65-110); Potassium 3.9 mmol/L (3.4-5.0); Sodium 136 mmol/L (137-145)
== END 2023-11-20 10:52 | disposition home or self-care (01) ==
LOC: ANHLAB 10:55
PROVIDERS: PCP Internal Medicine; Visit Provider Internal Medicine
DX: K57.32 Diverticulitis of large intestine without perforation or abscess without bleeding (principal); R53.1 Weakness; Z79.899 Other long term (current) drug therapy
CPT/HCPCS: 36415; 80048; 85025

== ENCOUNTER 2023-11-27 12:15 | Outpatient (CLI) | payer OTHER, SELFPAY ==
--- NOTE | ~2023-11-27 | PE_ITS ---
EXAMINATION: PET skull to mid thigh DATE: 11/27/2023 14:23 INDICATION: Hepatomegaly, not elsewhere classified. TECHNIQUE: Blood glucose level was 100 mg/dL. 9.635 mCi of 18-fluorodeoxyglucose (18-FDG) was adminis tered i.v. Low dose computed tomography (CT) images were acquired from the base of the brain to the p roximal thighs for attenuation correction and anatomic localization. Automated exposure control was e mployed. Dose-length product (DLP) was 1209 mGy-cm. Positron emission tomography (PET) images were ac quired in the same distribution. COMPARISON: Abdomen MRI 11/12/2023, CT abdomen and pelvis 11/09/2023 FINDINGS: Head/neck: There are likely changes of ocular lens replacement surgeries. There are no pathologically enlarged lymph nodes. Chest: The lungs demonstrate mild atelectasis. There are a few nodules in the lungs measuring up to 5 mm, likely benign. Calcified left hilar lymph nodes are consistent with old granulomatous disease. N o pleural effusion. Cardiomegaly is noted. There are coronary artery calcifications. No pericardial e ffusion. Abdomen/pelvis/proximal thighs: Calcifications in the liver and spleen are consistent with old granul omatous disease. There are gallstones in the gallbladder, which is normal in size. The pancreas, adre nal glands, and kidneys are normal. There is diverticulosis of the colon without evidence of divertic ulitis. The appendix is normal. There are no pathologically enlarged lymph nodes. There is no free in traperitoneal fluid. There is no osseous malignancy. IMPRESSION: 1. No evidence of malignancy. Reviewed, dictated and finalized at location A.
[2023-11-27 12:41] LABS: Glucose Point of Care 100 mg/dl (65-105)
== END 2023-11-27 12:16 | disposition home or self-care (01) ==
PROVIDERS: PCP Internal Medicine; Visit Provider Internal Medicine
DX: R16.0 Hepatomegaly, not elsewhere classified (principal); R91.1 Solitary pulmonary nodule
CPT/HCPCS: 78815; A9552

== ENCOUNTER 2023-12-10 00:08 | Day surgery (SDC) | payer OTHER, SELFPAY ==
[2023-12-05 13:28] VITALS: BMI 35.5
--- NOTE | 2023-12-05 14:26 | PC.NURSE ---
Spoke with PATIENT AND DAUGHTER RAH regarding medication XARELTO. Pt. verbalizes understanding that the last dose of XARETLO is to be taken on _12/06/2023 and the Endoscopist will instruct them when to restart after the procedure.
--- NOTE | 2023-12-05 14:28 | PC.NURSE ---
Verified with office- Dr. Anil bonilla for pt to hold Xarelto for 3 days prior and no need for cardiac clearance.
[2023-12-10 08:18] VITALS: BP 135/71; PULSE 89; RESP 18; TEMP 36.1; O2SAT 98; BMI 35.0
--- NOTE | 2023-12-10 08:35 | P.PNAN_ITS ---
Anes - Initial Pre Proc Eval Procedure: Operation Date: 12/10/23 10:30 Proposed Procedures p Colonoscopy - Edouard Dia DO Date/Time: 12/10/23 08:35 Surgeon: Edouard Dia DO Pre Op Diagnosis: Diverticulitis Patient Data Age: 83 Gender: F Height: 1.6 m Weight: 89.7 kg Last Vital Signs Temp 36.1 C L 12/10/23 08:18 Pulse 89 12/10/23 08:18 Resp 18 12/10/23 08:18 BP 135/71 12/10/23 08:18 Pulse Ox 98 12/10/23 08:18 O2 Del Method Room Air 12/10/23 08:18 Allergies Allergy/AdvReac Type Severity Reaction Status Date / Time Penicillins Allergy Severe Swelling Verified 12/10/23 08:30 of Lip/Tongue/Throat morphine Allergy Intermediate Migraine Verified 12/10/23 08:30 Sulfa (Sulfonamide Allergy Intermediate Rash Verified 12/10/23 08:30 Antibiotics) meperidine [From Demerol] AdvReac Intermediate Gastrointestinal Verified 12/10/23 08:30 Upset Home Medications Medication Instructions Recorded Confirmed Type CoQ10 100 mg PO HS 11/05/23 12/10/23 History allopurinol 300 mg tablet 300 mg PO DAILY 11/05/23 12/10/23 History cholecalciferol (vitamin D3) 50 50 mcg PO HS 11/05/23 12/10/23 History mcg (2,000 unit) capsule citracal See Rx Instructions .Route .COMPLEX 11/05/23 12/10/23 History colchicine 0.6 mg tablet 0.6 mg PO DAILY PRN gout 11/05/23 12/10/23 History dapagliflozin propanediol 10 mg 10 mg PO DAILY 11/05/23 12/10/23 History tablet (Farxiga) lactobacillus combination no.9 4 4,000 mmu cells PO HS 11/05/23 12/10/23 History billion cell capsule (Adult 50 Plus Probiotic) magnesium 500 mg PO BID 11/05/23 12/10/23 History metformin 500 mg tablet 500 mg PO TID 11/05/23 12/10/23 History pravastatin 40 mg tablet 40 mg PO HS 11/05/23 12/10/23 History prednisone 20 mg tablet 20 mg PO DAILY PRN gout 11/05/23 12/10/23 History rivaroxaban 20 mg tablet (Xarelto) 20 mg PO HS 11/05/23 12/10/23 History spironolactone 25 mg tablet 25 mg PO DAILY 11/05/23 12/10/23 History metoprolol succinate 100 mg 100 mg PO DAILY 11/06/23 12/10/23 History tablet,extended release 24 hr glucosamine sulfate 1,000 mg 1,000 mg PO BID 11/09/23 12/10/23 History capsule metoprolol succinate 50 mg 50 mg PO HS 11/09/23 12/10/23 History tablet,extended release 24 hr pantoprazole 40 mg tablet,delayed 40 mg PO QAM #30 tabs 11/13/23 12/10/23 Rx release [place] 3 Fish Oil 1 cap PO DAILY 12/05/23 12/10/23 History mecobalamin (vitamin B12) 1,500 mcg PO DAILY 12/05/23 12/10/23 History metoprolol succinate 50 mg 50 mg PO HS 12/05/23 12/10/23 History tablet,extended release 24 hr multivit with minerals-iron 18 1 tablet PO DAILY 12/05/23 12/10/23 History mg-folic ac 400 mcg-vit K 25 mcg tablet (Adults Multivitamin) potassium chloride 10 mEq 10 meq PO DAILY 12/05/23 12/10/23 History tablet,extended release thiamine HCl (vitamin B1) 100 mg 100 mg PO DAILY 12/05/23 12/10/23 History tablet torsemide 20 mg tablet 40 mg PO QAM 12/05/23 12/10/23 History Patient hx anesthesia problems: none Family hx anesthesia problems: none Results Review: All pre-operative results and documents have been reviewed as part of the pre- operative evaluation. 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 Paroxysmal A-fib Pulmonary hypertension UTI (urinary tract infection) Surgical History Surgical History History of lumpectomy of left breast Hx of breast biopsy Social History Social History Smoking status: Never smoker Alcohol intake: current Substance use: never Substance use type: does not use Do You Feel Safe in your Home?: Yes Lack of Transportation: No Lack of Food: Never True Current Housing: I Have Housing Concerned About Future Housing: No Difficulty Paying Gas/Electric Bills: No Difficulty Paying for Meds: No Currently Unemployed: No Education: Master's Degree or Higher Difficulty w/ Childcare or Family Care: No Living arrangements: with family Spiritual care concerns: No Anes - Eval Final PreProcedure Day of Procedure 12/10/23 08:35 Patient weight: obese Heart: regular rate and rhythm Lungs: clear to auscultation Airway: Mallampati scale class II Neurological: alert and oriented Last oral intake: >/= 8 hours ASA classification: III Emergent: no Anesthetic plan: proceed Anesthesia type and monitoring: general GIVS and standard monitoring Results Review: All pre-operative results and documents have been reviewed as part of the pre- operative evaluation. Informed Consent: The patient's anesthetic plan and its attendant risks and benefits were discussed with the patient/family/POA. Questions were solicited and answers provided to the satisfaction of the patient/family/POA.
[2023-12-10] MEDS: LACTATED RINGERS 1,000 ML 150 ML IV CONT (08:47)
[2023-12-10 08:48] LABS: Glucose Point of Care 102 mg/dl (65-105)
--- NOTE | 2023-12-10 08:48 | P.HP_ITS ---
H&P: HPI History of Present Illness Date/Time: 12/10/23 08:48 Chief Complaint: Diverticulitis Narrative: 83-year-old woman presents for colonoscopy. She was recently hospitalized for diverticulitis has recovered. It has been about 10 years since her last colonoscopy. She denies any hematochezia or melena. Review of Systems Review of Systems: All systems reviewed & are unremarkable except as noted in HPI and below Constitutional: Constitutional: Denies chills, Denies fever(s), Denies headache(s) and Denies weight loss Eyes: Eyes: Denies change in vision ENT: Denies dizziness, Denies headache(s), Denies neck mass and Denies throat swelling Cardiovascular: Cardiovascular: Denies chest pain, Denies lightheadedness and Denies dyspnea Respiratory: Respiratory: Denies cough, Denies dyspnea and Denies wheezing Gastrointestinal: Gastrointestinal: Denies abdominal pain, Denies change in bowel habits, Denies nausea and Denies vomiting Genitourinary: Genitourinary: Denies hematuria and Denies dysuria Musculoskeletal: Musculoskeletal: Reports as per HPI Integumentary/Breasts: Skin/Breast: Reports as per HPI Neurologic: Denies dizziness and Denies headache(s) Allergic/Immunologic: Allergic/Immunologic: Denies throat swelling and Denies wheezing PMFSH Past Medical History Medical History A-fib BMI 35.0-35.9,adult BMI 37.0-37.9, adult Breast cancer, left s/p tamoxifen, radiation, and lumpectomy CHF (congestive heart failure) Colon cancer screening Diabetes Diverticulitis Dry eyes Follow up Frozen shoulder Gout Hospital discharge follow-up HTN (hypertension) Hx of skin malignancy Hyperlipidemia Insomnia 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 KRIS treated with BiPAP Paroxysmal A-fib Pulmonary hypertension UTI (urinary tract infection) Surgical History Surgical History History of lumpectomy of left breast Hx of breast biopsy Social History Social History Smoking status: Never smoker Alcohol intake: current Substance use: never Substance use type: does not use Do You Feel Safe in your Home?: Yes Lack of Transportation: No Lack of Food: Never True Current Housing: I Have Housing Concerned About Future Housing: No Difficulty Paying Gas/Electric Bills: No Difficulty Paying for Meds: No Currently Unemployed: No Education: Master's Degree or Higher Difficulty w/ Childcare or Family Care: No Living arrangements: with family Spiritual care concerns: No Meds Home Medications and Allergies Home Medications Medication Instructions Recorded Confirmed Type CoQ10 100 mg PO HS 11/05/23 12/10/23 History allopurinol 300 mg tablet 300 mg PO DAILY 11/05/23 12/10/23 History cholecalciferol (vitamin D3) 50 50 mcg PO HS 11/05/23 12/10/23 History mcg (2,000 unit) capsule citracal See Rx Instructions .Route .COMPLEX 11/05/23 12/10/23 History colchicine 0.6 mg tablet 0.6 mg PO DAILY PRN gout 11/05/23 12/10/23 History dapagliflozin propanediol 10 mg 10 mg PO DAILY 11/05/23 12/10/23 History tablet (Farxiga) lactobacillus combination no.9 4 4,000 mmu cells PO HS 11/05/23 12/10/23 History billion cell capsule (Adult 50 Plus Probiotic) magnesium 500 mg PO BID 11/05/23 12/10/23 History metformin 500 mg tablet 500 mg PO TID 11/05/23 12/10/23 History pravastatin 40 mg tablet 40 mg PO HS 11/05/23 12/10/23 History prednisone 20 mg tablet 20 mg PO DAILY PRN gout 11/05/23 12/10/23 History rivaroxaban 20 mg tablet (Xarelto) 20 mg PO HS 11/05/23 12/10/23 History spironolactone 25 mg tablet 25 mg PO DAILY 11/05/23 12/10/23 History metoprolol succinate 100 mg 100 mg PO DAILY 11/06/23 12/10/23 History tablet,extended release 24 hr glucosamine sulfate 1,000 mg 1,000 mg PO BID 11/09/23 12/10/23 History capsule metoprolol succinate 50 mg 50 mg PO HS 11/09/23 12/10/23 History tablet,extended release 24 hr pantoprazole 40 mg tablet,delayed 40 mg PO QAM #30 tabs 11/13/23 12/10/23 Rx release [place] 3 Fish Oil 1 cap PO DAILY 12/05/23 12/10/23 History mecobalamin (vitamin B12) 1,500 mcg PO DAILY 12/05/23 12/10/23 History metoprolol succinate 50 mg 50 mg PO HS 12/05/23 12/10/23 History tablet,extended release 24 hr multivit with minerals-iron 18 1 tablet PO DAILY 12/05/23 12/10/23 History mg-folic ac 400 mcg-vit K 25 mcg tablet (Adults Multivitamin) potassium chloride 10 mEq 10 meq PO DAILY 12/05/23 12/10/23 History tablet,extended release thiamine HCl (vitamin B1) 100 mg 100 mg PO DAILY 12/05/23 12/10/23 History tablet torsemide 20 mg tablet 40 mg PO QAM 12/05/23 12/10/23 History Allergies Allergy/AdvReac Type Severity Reaction Status Date / Time Penicillins Allergy Severe Swelling Verified 12/10/23 08:30 of Lip/Tongue/Throat morphine Allergy Intermediate Migraine Verified 12/10/23 08:30 Sulfa (Sulfonamide Allergy Intermediate Rash Verified 12/10/23 08:30 Antibiotics) meperidine [From Demerol] AdvReac Intermediate Gastrointestinal Verified 12/10/23 08:30 Upset Vital Signs Vital Signs - 24 hr 12/10/23 08:18 Temperature 97.0 F L Pulse Rate 89 Respiratory Rate 18 Blood Pressure 135/71 Pulse Oximetry 98 Oxygen Delivery Room Air Exam Const: General: no acute distress and alert Orientation/consciousness: patient oriented x3 HENMT: Head: normocephalic and atraumatic Ears: hearing grossly normal bilaterally Face/Nose/Sinus: Normal nares present Mouth: Yes Normal oral and palatal mucosa present Eyes: Periorbital: periorbital findings normal Sclera: sclerae normal EOM: EOMs intact bilaterally Neck: Neck: normal visual inspection, no lymphadenopathy and trachea midline Chest: Chest palpation & inspection: normal inspection of the chest Resp: Effort & Inspection: normal respiratory effort Auscultation: clear to auscultation bilaterally Cardio: Jugular venous distension: no JVD Rate: regular rate Rhythm: regular rhythm Heart sounds: S1 normal heart sound present and S2 normal heart sound present Peripheral pulses: Peripheral pulses 2+ throughout GI: Inspection: normal to inspection GI Palp: Yes Soft to palpation, No Tenderness to palpation present (GI), No Guarding due to palpation present (GI) and No Rebound tenderness present Percussion: Yes normal to percussion Auscultation: normal bowel sounds : General: Yes no CVA tenderness Back/Spine/Pelvis: Back: no CVA tenderness Neuro: General: patient oriented x3, no focal motor deficits and CN's II-XI intact bilaterally Cognition (Neuro): normal cognition Speech: normal speech Motor exam (neuro): 5/5 motor strength present throughout Extrem: General: capillary refill normal and no clubbing, cyanosis or edema Assessment and Plan Assessment and plan (1) Diverticulitis large intestine: Qualifiers: Diverticulitis bleeding: without bleeding Diverticulitis complication: with abscess Qualified Code(s): K57.20 - Diverticulitis of large intestine with perforation and abscess without bleeding Code(s): K57.32 - Diverticulitis of large intestine without perforation or abscess without bleeding Status: Acute Assessment and Plan: I have recommended colonoscopy. I have discussed the procedure, risks, benefits, and alternatives. Questions were answered. Patient is agreeable to proceed.
[2023-12-10 09:28] VITALS: BP 102/60; PULSE 76; RESP 18; O2SAT 95
[2023-12-10 09:38] VITALS: BP 119/65; PULSE 76; RESP 18; O2SAT 98
[2023-12-10 09:48] VITALS: BP 142/99; PULSE 79; RESP 18; O2SAT 97
== END 2023-12-10 09:57 | disposition home or self-care (01) ==
PROVIDERS: PCP Internal Medicine; Visit Provider Surgery
PROC: 0DJD8ZZ Inspection of Lower Intestinal Tract, Via Natural or Artificial Opening Endoscopic (ICD-10-PCS; CPT 45378; principal; 2023-12-10 10:30)
DX: Z09 Encounter for follow-up examination after completed treatment for conditions other than malignant neoplasm (principal); K57.30 Diverticulosis of large intestine without perforation or abscess without bleeding; E78.5 Hyperlipidemia, unspecified; E11.9 Type 2 diabetes mellitus without complications; I48.0 Paroxysmal atrial fibrillation; I27.20 Pulmonary hypertension, unspecified; I11.0 Hypertensive heart disease with heart failure; I50.9 Heart failure, unspecified; G47.00 Insomnia, unspecified; E66.9 Obesity, unspecified; Z68.35 Body mass index [BMI] 35.0-35.9, adult; Z79.84 Long term (current) use of oral hypoglycemic drugs; Z79.52 Long term (current) use of systemic steroids; Z79.01 Long term (current) use of anticoagulants; Z98.890 Other specified postprocedural states; Z85.3 Personal history of malignant neoplasm of breast; Z85.828 Personal history of other malignant neoplasm of skin; Z87.19 Personal history of other diseases of the digestive system
CPT/HCPCS: 45378; 82948; J2003; J2704; J7120

== ENCOUNTER 2024-01-08 11:56 | Outpatient (CLI) | payer OTHER, SELFPAY ==
[2024-01-08 12:28] LABS: Add Urine Microscopic? NO; Appearance Urine Clear (Clear); Bilirubin Urine Negative (Negative); Blood Urine Negative (Negative); Color Urine Yellow (Yellow); Glucose Urine UA 1+ mg/dL (Negative); Ketones Urine Negative (Negative); Leukocyte Esterase Ur Negative LEU/UL (Negative); Nitrate Urine Negative (Negative); Protein Urine Negative (Negative); Specific Grav Ur 1.007 (1.001-1.035); Urobilinogen Urine 0.2 mg/dL (<2.0); pH Urine 7.5 (5.0-9.0)
== END 2024-01-08 11:57 | disposition home or self-care (01) ==
PROVIDERS: PCP Internal Medicine; Visit Provider Internal Medicine
DX: R35.0 Frequency of micturition (principal)
CPT/HCPCS: 81003

== ENCOUNTER 2024-02-28 10:22 | Outpatient (CLI) | payer OTHER, SELFPAY ==
--- NOTE | ~2024-02-28 | XR_ITS ---
EXAMINATION: XR lumbar spine 6V w bending DATE: 02/28/2024 10:48 INDICATION: Radiculopathy, site unspecified. TECHNIQUE: 7 views of lumbar spine including flexion and extension views were obtained. COMPARISON: CT abdomen and pelvis 11/09/2023 FINDINGS: There is 25 degrees dextroscoliosis of thoracolumbar spine. There is 4 mm retrolisthesis of L2 on L3. The spine is hypomobile with flexion and extension. There is mild chronic anterior wedging of T11-T12 vertebral bodies. There is mildly decreased disc height at T12-L1 and severely decreased disc height from L1-L2 through L5-S1. There is multilevel severe facet joint osteoarthritis. IMPRESSION: 1. Severe lumbar spondylosis. 2. Thoracolumbar dextroscoliosis. Reviewed, dictated and finalized at location B. [employer]
== END 2024-02-28 10:23 | disposition home or self-care (01) ==
PROVIDERS: PCP Internal Medicine; Visit Provider Internal Medicine
DX: M47.816 Spondylosis without myelopathy or radiculopathy, lumbar region (principal); M41.85 Other forms of scoliosis, thoracolumbar region
CPT/HCPCS: 72114

== ENCOUNTER 2024-03-14 10:28 | Outpatient (NON) | payer OTHER, SELFPAY ==
--- OUTSIDE RECORDS SUMMARY | 2024-03-14 11:13 | XMS_ITS | Encounter Summary ---
Author Organization [facility] Healthcare Address [address] [place] [address] Care Team Providers Care Emt Basic Name Role Phone Emily Vigil RN Unavailable [phone] Thomas Antonio MD Primary Care Provider [phone] Yoselyn Nicolas NP Unavailable [phone] Reason for Referral * MRI/CAT/PET Scan (Routine) - Closed Specialty Diagnoses / Procedures Referred By Serenity campbell Referred To Contact Radiology Diagnoses Liver mass Procedures MRI Abdomen W WO Contrast Melissa Albright MD [address] [address] Phone: tel: fax: [address] [address] Referral ID Status Reason Start Date Expiration Date Visits Re quested Visits Authorized [id number] Closed 12/21/2023 01/19/2025 1 1 AL POSITION SYSTEM TECHNICIAN Reason for Visit * MRI/CAT/PET Scan (Routine) - Closed Specialty Diagnoses / Procedures Referred By Contac t Referred To Contact Radiology Diagnoses Liver mass Procedures MRI Abdomen W WO Contrast Melissa Albright MD [address] [place] [address] Phone: tel: fax: [address] [place] [address] Referral ID Status Reason Start Date Expiration Date Visits Re quested Visits Authorized [id number] Closed 12/21/2023 01/19/2025 1 1 Encounter Details Date Type Department Care Team (Latest Contact Info) Description 03/12/2024 9:20 AM GLOBAL POSITION SYSTEM TECHNICIAN - 03/12/2024 11:59 PM GLOBAL POSITION SYSTEM TECHNICIAN Hospital Encounter [facility] Replaced by [facility] [place] [address] Melissa Albright MD [address] [place] [address] Liver mass Discharge Disposition: Discharge to home or self care Social History Tobacco Use Types Packs/Day Years Used Date Smoking Tobacco: Never Smokeless Tobacco: Never Comments Unknown Sex and Gender Information Value Date Recorded Sex Assigned at Not on file Legal Sex Female 5:37 AM GLOBAL POSITION SYSTEM TECHNICIAN Gender Identity Not on file Sexual Orientation Not on file documented as of this encounter Medications at Time of Discharge allopurinoL (ZYLOPRIM) 300 mg tablet Take 1 tablet (300 mg total) by mouth daily amiodarone (PACERONE) 200 mg tablet Take 1 tablet (200 mg total) by mouth daily anastrozole (ARIMIDEX) 1 mg tablet Take 1 tablet (1 mg total) by mouth daily azithromycin (ZITHROMAX) 250 mg tablet TAKE 2 TABLETS BY MOUTH FOR 1 DAY THEN TAKE 1 TABLET BY MOUTH FOR 4 DAYS benzonatate (TESSALON) 100 mg capsule TAKE 1 TO 2 CAPSULES BY MOUTH UP TO THREE TIMES DAILY FOR cough hansa [id number] endoscopy -man-bor 250-40-125 mg-mg-unit tablet Take by mouth 2 (two) times a day calcium carbonate (OS-HANSA) 1,500 mg (600 mg elemental) tablet Take 600 mg by mouth daily calcium carbonate-vitamin D3 1,500 mg (600mg elemental) -800 unit per tablet Take 1 tablet by mouth daily calcium citrate/vitamin D3 (CITRACAL REGULAR ORAL) Take by mouth cephalexin (KEFLEX) 500 mg capsule Take 1 capsule (500 mg total) by mouth 3 (three) times a day cholecalciferol (VITAMIN D-3) 2000 unit capsule Take 1 capsule (2,000 Units total) by mouth daily clobetasoL (TEMOVATE) 0.05 % external solution APPLY TO SCALP TWICE DAILY FOR 2 WEEKS, OKAY TO REPEAT FOR FLARES colchicine (COLCRYS) 0.6 mg tablet cyanocobalamin (Vitamin B-12) 1,000 mcg tablet Take 1 tablet (1,000 mcg total) by mouth daily dexAMETHasone (DECADRON) 6 mg tablet TAKE 1 TABLET BY MOUTH DAILY FOR 2 DAYS FOR THROAT PAIN estrogens, conjugated, (Premarin) vaginal cream Farxiga 10 mg tablet Take 1 tablet (10 mg total) 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 12/18/2022 fluticasone propion-salmetero L (ADVAIR DISKUS) 250-50 mcg/dose diskus inhaler Inhale 1 puff 2 (two) times a day guaiFENesin-codei ne (GUAITUSS AC) liquid 100-10 mg/5 mL TAKE 10mL BY MOUTH EVERY 6 HOURS NEEDED FOR cough ipratropium (ATROVENT) 21 mcg (0.03 %) nasal spray USE 1 TO 2 SPRAYS IN EACH NOSTRIL THREE TIMES DAILY Lactobacillus acidophilus 10 billion cell capsule Take 1 tablet by mouth daily 11/17/2015 levoFLOXacin (LEVAQUIN) 750 mg tablet TAKE 1 TABLET BY MOUTH DAILY FOR 10 DAYS 11/12/2023 magnesium oxide (MAG-OX) 415 mg (250 mg elemental) tablet Take 500 mg by mouth 2 (two) times a day metFORMIN XR (GLUCOPHAGE XR) 500 mg 24 hr tablet Take 1 tablet (500 mg total) by mouth 3 (three) times a day metOLazone (ZAROXOLYN) 2.5 mg tablet metoprolol XL (TOPROL-XL) 100 mg 24 hr tablet Take 1 tablet (100 mg total) by mouth daily 07/24/2023 metoprolol XL (TOPROL-XL) 50 mg extended release tablet TAKE 1 TABLET BY MOUTH DAILY. MAY TAKE AN ADDITIONAL IF ENTERING IN ATRIAL FIBRILLATION metroNIDAZOLE (FLAGYL) 500 mg tablet TAKE 1 TABLET BY MOUTH EVERY 8 HOURS FOR 10 DAYS 11/12/[address] (PROTONIX) 40 mg EC tablet Take 1 tablet (40 mg total) by mouth every morning potassium chloride ER 10 mEq CR tablet 1 tablet/capsule (10 mEq total) NEEDED FOR WEIGHT GAIN 12/02/2021 pravastatin (PRAVACHOL) 40 mg tablet Take 1 tablet (40 mg total) by mouth daily 01/12/2012 predniSONE (DELTASONE) 20 mg tablet Take 1 tablet (20 mg) by mouth as needed sertraline (ZOLOFT) 50 mg tablet Take 1 tablet every day by oral route. 04/28/2010 spironolactone (ALDACTONE) 25 mg tablet Take 1 tablet (25 mg total) by mouth daily 08/21/2016 thiamine (vitamin B-1) 100 mg tablet Take 1 tablet (100 mg total) by mouth daily torsemide (DEMADEX) 20 mg tablet Take 2 tablets (40 mg total) by mouth daily as needed (PRN SWELLING OR WT GAIN OVER 5 LB) 180 tablet 3 01/14/2024 Xarelto 20 mg tablet Take 1 tablet (20 mg total) by mouth daily documented as of this encounter Discharge Disposition Disposition Code Departure Means Destination Discharge to home or self care documented in this encounter Plan of Treatment Not on file documented as of this encounter Procedures Procedure Name Priority Date/Time Associated Diagnosis Comments MRI ABDOMEN W WO CONTRAST Schedule Routine, Read Routine (OP Routine) 03/12/2024 11:55 AM GLOBAL POSITION SYSTEM TECHNICIAN Liver mass documented in this encounter Results * MRI Abdomen W WO Contrast (03/12/2024 11:55 AM GLOBAL POSITION SYSTEM TECHNICIAN) Anatomical Region Laterality Modality Body N/A Magnetic Resonan ce 03/12/2024 12:5 7 PM GLOBAL POSITION SYSTEM TECHNICIAN Impressions 03/12/2024 12:57 PM GLOBAL POSITION SYSTEM TECHNICIAN 1. Cirrhosis with 2.1 cm vague wedge-shaped/triangular-shaped mildly arterially enhancing lesion in the right hepatic lobe, which appears less conspicuous compared to the previous MR. 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 Attention on follow-up study. Electronically signed by: Pratibha Arreaga M.D. Narrative 03/12/2024 12:57 PM GLOBAL POSITION SYSTEM TECHNICIAN EXAMINATION: MAGNETIC RESONANCE IMAGING OF THE ABDOMEN WITH AND WITHOUT CONTRAST HISTORY: Liver lesion, Cirrhosis TECHNIQUE: Magnetic resonance imaging of the abdomen was performed prior to and following the uneventful administration of intravenous Gadolinium contrast. Protocol: Liver Dual Contrast Contrast: Gadoterate 18 mL; Eovist 9 mL COMPARISON: MR abdomen 11/12/2023 FINDINGS: Liver: Cirrhotic liver morphology. No significant steatosis or iron deposition. - Bile ducts: No intrahepatic or extra hepatic biliary ductal dilatation - Focal liver lesions: There is a 2.1 cm vague wedge-shaped/triangular mildly arterially enhancing lesion in the right hepatic lobe, which appears overall less conspicuous/less robustly enhancing compared to previous exam with use of gadoterate contrast, that equilibrates with background liver on subsequent phases of contrast, and is without significant enhancing correlate on 5 minute delay, and is without a definitive correlate on 20 minute hepatobiliary phase after administration of Eovist. There is no T1 or T2 correlate or diffusion correlate. 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 Conventional hepatic arterial anatomy. Gallbladder: Unremarkable Pancreas: Normal Spleen: Normal Adrenals: Unchanged mild thickening of the adrenals Kidneys: Small cysts without suspicious renal lesion or hydronephrosis. Other Findings: No upper abdominal lymphadenopathy or ascites. Degenerative changes in spine Procedure Note Pratibha Arreaga MD - 03/12/2024 EXAMINATION: MAGNETIC RESONANCE IMAGING OF THE ABDOMEN WITH AND WITHOUT CONTRAST HISTORY: Liver lesion, Cirrhosis TECHNIQUE: Magnetic resonance imaging of the abdomen was performed prior to and following the uneventful administration of intravenous Gadolinium contrast. Protocol: Liver Dual Contrast Contrast: Gadoterate 18 mL; Eovist 9 mL COMPARISON: MR abdomen 11/12/2023 FINDINGS: Liver: Cirrhotic liver morphology. No significant steatosis or iron deposition. - Bile ducts: No intrahepatic or extra hepatic biliary ductal dilatation - Focal liver lesions: There is a 2.1 cm vague wedge-shaped/triangular mildly arterially enhancing lesion in the right hepatic lobe, which appears overall less conspicuous/less robustly enhancing compared to previous exam with use of gadoterate contrast, that equilibrates with background liver on subsequent phases of contrast, and is without significant enhancing correlate on 5 minute delay, and is without a definitive correlate on 20 minute hepatobiliary phase after administration of Eovist. There is no T1 or T2 correlate or diffusion correlate. 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 Conventional hepatic arterial anatomy. Gallbladder: Unremarkable Pancreas: Normal Spleen: Normal Adrenals: Unchanged mild thickening of the adrenals Kidneys: Small cysts without suspicious renal lesion or hydronephrosis. Other Findings: No upper abdominal lymphadenopathy or ascites. Degenerative changes in spine IMPRESSION: 1. Cirrhosis with 2.1 cm vague wedge-shaped/triangular-shaped mildly arterially enhancing lesion in the right hepatic lobe, which appears less conspicuous compared to the previous MR. 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 Attention on follow-up study. Electronically signed by: Pratibha Arreaga M.D. Melissa Albright MD [facility] MRI PROCEDURES Final Result documented in this encounter Visit Diagnoses Diagnosis Liver mass Unspecified disorder of liver documented in this encounter Administered Medications Inactive Administered Medications - up to 3 most recent administrations Medication Order MAR Action Action Date Dose Rate Site gadoterate meglumine injection 18 mL 18 mL, intravenous, Once in imaging, contrast, Starting on Sun03/12/24 at 1155, For 1 dose Contrast Given 03/12/2024 11:56 AM GLOBAL POSITION SYSTEM TECHNICIAN 18 mL gadoxetate (EOVIST) injection 9 mL 9 mL, intravenous, Once in imaging, contrast, Starting on Sun03/12/24 at 1155, For 1 dose Contrast Given 03/12/2024 11:56 AM GLOBAL POSITION SYSTEM TECHNICIAN 9 mL documented in this encounter Care Teams Emt Basic Relationship Specialty Start Date End Date Thomas Antonio MD [address] [facility] [address] [facility] [place], [place] [id number] PCP - General Internal Medicine 01/11/24 Emily Vigil RN [address] [facility] [address] [place] [address] 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 [address] [place] [address] Family Medicine 01/11/24 documented as of this encounter
--- OUTSIDE RECORDS SUMMARY | 2024-03-14 11:13 | XMS_ITS | Patient Health Summary ---
Author Organization [facility] Address [address] [place] [address] Care Team Providers Care Dental Sales Representative Name Role Phone Thomas Antonio MD Primary Care Provider [phone] Note from [facility] - [place]non-owned Affiliates and Associated Physician Practices is amultiple site organization consisting of ambulatory clinics and hospital sitesin [place], [place], [place] and [place]. This disclosure is being madepursuant to the Care Everywhere program and may not contain all information available regarding this patient. Last updated 17.[facility] [employer] Allergies * Meperidine(Other) * Morphine(Nausea and/or Vomiting,Unknown) -High Criticality * Penicillins(Unknown) -High Criticality * Sulfa Antibiotics(Swelling,Unknown) -High Criticality Medications * Be aware that medications may not be up to date on this document. Alwaysverify current medications with the patient. * torsemide (Demadex) 20 MG tablet TAKE 2 TABLETS EVERY MORNING AND 2 TABLETS EVERY EVENING NEEDED FOR WEIGHT INCREASE OVER 5 POUNDS * metoprolol succinate XL 24hr (Toprol XL) 100 MG tablet(Started 07/24/2023) Take 1 (one) tablet by mouth once daily * spironolactone (Aldactone) 25 MG tablet TAKE 1 TABLET BY MOUTH EVERY DAY WITH FOOD * metFORMIN ER 24hr (Glucophage XR) 500 MG tablet * potassium chloride ER 10 MEQ tablet * allopurinol (Zyloprim) 300 MG tablet Take 1 (one) tablet by mouth once daily * Farxiga 10 MG tablet(Started 12/18/2022) Take 1 (one) tablet by mouth every morning * pantoprazole EC (Protonix) 40 MG tablet(Started 11/13/2023) Take 1 (one) tablet by mouth every morning * MAGNESIUM PO Take 500 mg by mouth 2 times daily * Glucosamine Sulfate 1000 MG Take 1 capsule by mouth 2 times daily * Cyanocobalamin 1000 MCG Take 1,000 mcg by mouth once daily * Xarelto 20 MG tablet Take 1 (one) tablet by mouth once daily * pravastatin (Pravachol) 40 MG tablet Take 1 (one) tablet by mouth once daily * coenzyme Q10 100 MG capsule Take 100 (one hundred) mg by mouth once daily Social History Tobacco Use Types Packs/Day Years Used Date Smoking Tobacco: Never Smokeless Tobacco: Never Tobacco Cessation:Counseling Given: Not Answered Sex and Gender Information Value Date Recorded Sex Assigned at Not on file Gender Identity Not on file Sexual Orientation Not on file Last Filed Vital Signs Vital Sign Reading Time Taken Comments Blood Pressure 108/71 12/06/2023 8:56 AM CDT Pulse 86 12/06/2023 8:56 AM CDT Temperature 36.7 C (98 F) 12/06/2023 8:56 AM CDT Respiratory Rate - - Oxygen Saturation 96% 12/06/2023 8:56 AM CDT Inhaled Oxygen Concentration - - Weight 92.4 kg (203 lb 9.6 oz) 12/06/2023 8:56 A M CDT Height 160 cm (5' 3 ) 12/06/2023 8:56 AM CDT Body Mass Index 36.07 12/06/2023 8:56 AM CDT Procedures * COLONOSCOPY(Performed 12/10/2023) * ALPHA FETOPROTEIN BLOOD TUMOR MARKER(Performed 12/06/2023) Performed for Liver mass, Need for hepatitis C screening test * PT-INR [facility](Performed 12/06/2023) Performed for Liver mass, Need for hepatitis C screening test * HEPATITIS C ANTIBODY(Performed 12/06/2023) Performed for Liver mass, Need for hepatitis C screening test * COMPREHENSIVE METABOLIC PANEL(Performed 12/06/2023) Performed for Liver mass * CBC W AUTO DIFFERENTIAL(Performed 12/06/2023) Performed for Liver mass * CANCER ANTIGEN (CA) 19-9(Performed 12/06/2023) Performed for Liver mass * CEA BLOOD(Performed 12/06/2023) Performed for Liver mass * CERULOPLASMIN(Performed 12/06/2023) Performed for Liver mass, Need for hepatitis C screening test * HEPATITIS C GENOTYPE(Performed 12/06/2023) Performed for Liver mass, Need for hepatitis C screening test * HEPATITIS B SURFACE ANTIBODY(Performed 12/06/2023) Performed for Liver mass, Need for hepatitis C screening test * HEPATITIS B SURFACE ANTIGEN W RFLX CONFIRMATION(Performed 12/06/2023) Performed for Liver mass, Need for hepatitis C screening test * HEPATITIS B CORE ANTIBODY TOTAL(Performed 12/06/2023) Performed for Liver mass, Need for hepatitis C screening test * HEPATITIS A ANTIBODY(Performed 12/06/2023) Performed for Liver mass, Need for hepatitis C screening test * [id number] BLOOD(Performed 12/06/2023) Performed for Liver mass, Need for hepatitis C screening test Results * COLONOSCOPY (12/10/2023 2:24 PM CLERICAL ASSISTANT) Historical Provider MD SCANNING ONLY * (ABNORMAL) PT-INR [facility] (12/06/2023 9:55 AM CDT) PT 19.6(H) 12.1 - 14.8 Seconds 12/06/2023 10:28 AM CDT [facility] INR 1.7 See Comment 12/06/2023 10:28 AM CDT [facility] Comment:The suggested therap eutic range for standard coumadin (warfarin) therapy is an INR of 2.0-3.0. For high-risk patients (Mechanical Mitral Valve Prosthesis, etc.), the suggested prophylactic therapeutic range is an INR of 2.5-3.5. Blood BLOOD SPECIMEN / Unknown Lab Venipuncture / Unknown 12/06/2023 9:55 AM CDT 12/06/2023 10:01 AM CDT Chio Gonzalez MD LAB - COAGULATION OR DERABLES [address] [address], [facility] [phone] * HEPATITIS C GENOTYPE (12/06/2023 9:55 AM CDT) Hepatitis C Genotype Indeterminate 12/11/2023 11:16 AM CLERICAL ASSISTANT [employer] [facility]) Comment: Hepatitis C GENOTYPING IS INDETERMINATE. This test may be unsuccessful if the HCV RNA viral load is less than log 3.6 or 4000 IU per mL. Repeat testing may be appropriate if and when the viral load becomes greater than log 3.6 or 4000 IU/mL. In addition to low viral load, other conditions, such as PCR inhibitors, viral genetic variation, etc., may cause RT-PCR failure resulting in an indeterminate result. INTERPRETIVE INFORMATION: Hepatitis C Genotyping Hepatitis C viral RNA is tested using reverse jira administrator polymerase chain reaction (RT-PCR) to amplify a specific portion of the 5' untranslated region (5' UTR) of the viral genome. The amplified nucleic acid is sequenced bidirectionally using dye-terminator chemistry (MDVIP). Sequencing data is compared to a database of characterized sequences. Isolates of hepatitis C virus are grouped into six major genotypes (1-6). These genotypes are subtyped according to sequence characteristics. Due to high conservation of the 5' untranslated region of the HCV genome, this test has limitations in differentiating subtype 1a from 1b. Therefore, these subtypes will be reported as 1a or 1b. In rare instances, type 6 virus may be misclassified as type 1. This test was developed and its performance characteristics determined by [facility]. It has not been cleared or approved by the U.S. Food and Drug Administration. This test was performed in a CLIA-certified laboratory and is intended for clinical purposes. Performed By: [facility] [address] [place] [address] [employer] D[employer]: Parker Cope MD, PhD CLIA Number: [id number] Blood BLOOD SPECIMEN / Unknown Lab Venipuncture / Unknown 12/06/2023 9:55 AM CDT 12/06/2023 10:01 AM CDT Chio Gonzalez MD LAB - CHEMISTRY ZACKERY MARCELO [facility] Organization Address City/State/ZIP Co de Phone Number [facility] [employer] [facility]) [address] [place] [address] * CANCER ANTIGEN (CA) 19-9 (12/06/2023 9:55 AM CDT) CA 19-9 15 <=35 U/mL 12/08/2023 6:30 PM CDT [facility] Comment: INTERPRETIVE INFORMATION: Cancer Antigen-GI (CA 19-9) This test uses Natali CA 19-9 electrochemiluminescent immunoassay. Results obtained with different test methods or kits cannot be used interchangeably. CA 19-9 value is useful in monitoring pancreatic, hepatobiliary, gastric, hepatocellular, and colorectal cancer. CA 19-9 value, regardless of level, should not be interpreted as absolute evidence of the presence or absence of malignant disease. Performed By: [place] [address] [employer] D[employer]: Parker Cope MD, PhD CLIA Number: [id number] Blood BLOOD SPECIMEN / Unknown Lab Venipuncture / Unknown 12/06/2023 9:55 AM CDT 12/06/2023 10:01 AM CDT Chio Gonzalez MD LAB - CHEMISTRY ZACKERY MARCELO Performing Organization Address City/[facility]/ZIP Co de Phone Number [facility]) [address] [place] [id number] * CERULOPLASMIN (12/06/2023 9:55 AM CDT) Ceruloplasmin 30 20 - 60 mg/dL 12/06/2023 11:21 AM CDT [facility] Blood BLOOD SPECIMEN / Unknown Lab Venipuncture / Unknown 12/06/2023 9:55 AM CDT 12/06/2023 10:01 AM CDT Chio Gonzalez MD LAB - CHEMISTRY ZACKERY MARCELO [facility] [address] [place] [phone], [facility] [phone] * ALPHA FETOPROTEIN BLOOD TUMOR MARKER (12/06/2023 9:55 AM CDT) Alpha-Fetoprote in Tumor Marker 3.6 <=8.3 ng/mL 12/06/2023 10:54 AM CDT [facility] Comment: AFP values will vary depending on testing procedure used. Results are not comparable across different methods. AFP values obtained by [facility] using an Neville Alinity Immunoassay. Blood BLOOD SPECIMEN / Unknown Lab Venipuncture / Unknown 12/06/2023 9:55 AM CDT 12/06/2023 10:04 AM CDT Chio Gonzalez MD LAB - CHEMISTRY ZACKERY MARCELO [facility] [address] [place] [phone], [facility] [phone] * [id number] BLOOD (12/06/2023 9:55 AM CDT) Pathologist [facility] Oexqn-7-Omzomz ypsin 114 90 - 200 mg/dL 12/06/2023 11:21 AM CDT [facility] Blood BLOOD SPECIMEN / Unknown Lab Venipuncture / Unknown 12/06/2023 9:55 AM CDT 12/06/2023 10:01 AM CDT Chio Gonzalez MD LAB - CHEMISTRY ZACKERY MARCELO [facility] [address] [place] [phone], [facility] [phone] * (ABNORMAL) CBC W/ DIFFERENTIAL (12/06/2023 9:55 AM CDT) Pathologist [facility] WBC 7.2 4.0 - 10.7 x10E9/L 12/06/2023 10:11 AM [facility] RBC Count 4.49 3.90 - 5.20 x10E12/L 12/06/2023 10:11 AM [facility] Hemoglobin 13.6 11.9 - 15.8 g/dL 12/06/2023 10:11 AM [facility] Hematocrit 40.6 34.8 - 46.1 % 12/06/2023 10:11 AM [facility] MCV 90.4 80.0 - 98.0 fL 12/06/2023 10:11 AM [facility] MCH 30.3 26.7 - 33.6 pg 12/06/2023 10:11 AM [facility] MCHC 33.5 31.7 - 36.3 g/dL 12/06/2023 10:11 AM [facility] RDW-CV 15.1(H) 11.3 - 14.8 % 12/06/2023 10:11 AM [facility] Platelet Count 201 150 - 420 x10E9/L 12/06/2023 10:11 AM [facility] MPV 11.1 7.8 - 11.4 fL 12/06/2023 10:11 AM [facility] Neutrophil % 70.6 41.0 - 74.0 % 12/06/2023 10:11 AM [facility] Lymphocyte % 13.5(L) 17.0 - 47.0 % 12/06/2023 10:11 AM [facility] Monocyte % 11.1(H) 3.0 - 11.0 % 12/06/2023 10:11 AM [facility] Eosinophil % 3.6 0.0 - 7.0 % 12/06/2023 10:11 AM [facility] Basophil % 0.8 0.0 - 1.6 % 12/06/2023 10:11 AM [facility] Immature Granulocytes % 0.4 0.0 - 1.0 % 12/06/2023 10:11 AM [facility] Neutrophil Absolute 5.06 1.60 - 7.50 x10E9/L 12/06/2023 10:11 AM [facility] Lymphocyte Absolute 0.97(L) 1.00 - 4.40 x10E9/L 12/06/2023 10:11 AM [facility] Monocyte Absolute 0.80 0.15 - 1.00 x10E9/L 12/06/2023 10:11 AM [facility] Eosinophil Absolute 0.26 0.00 - 0.60 x10E9/L 12/06/2023 10:11 AM [facility] Basophil Absolute 0.06 0.00 - 0.13 x10E9/L 12/06/2023 10:11 AM [facility] Blood BLOOD SPECIMEN / Unknown Lab Venipuncture / Unknown 12/06/2023 9:55 AM CDT 12/06/2023 10:04 AM CDT Chio Gonzalez MD LAB - HEMATOLOGY ORD ERABLES [facility] [address] [place] [address], [facility] [phone] * (ABNORMAL) COMPREHENSIVE METABOLIC PANEL (12/06/2023 9:55 AM CDT) BUN 25 7 - 26 mg/dL 12/06/2023 10:43 AM [facility] Creatinine 0.96 0.56 - 0.96 mg/dL 12/06/2023 10:43 AM [facility] Sodium 138 136 - 145 mmol/L 12/06/2023 10:43 AM [facility] Potassium 3.7 3.5 - 4.5 mmol/L 12/06/2023 10:43 AM [facility] Chloride 97(L) 98 - 107 mmol/L 12/06/2023 10:43 AM [facility] CO2 27 22 - 29 mmol/L 12/06/2023 10:43 AM [facility] Glucose 100(H) 70 - 99 mg/dL 12/06/2023 10:43 AM [facility] Calcium 10.2 8.4 - 10.2 mg/dL 12/06/2023 10:43 AM [facility] Protein Total 7.2 6.0 - 8.3 g/dL 12/06/2023 10:43 AM [facility] Albumin 4.0 3.4 - 5.0 g/dL 12/06/2023 10:43 AM [facility] Bilirubin Total 0.6 0.2 - 1.2 mg/dL 12/06/2023 10:43 AM [facility] Alkaline Phosphatase 81 40 - 150 U/L 12/06/2023 10:43 AM [facility] ALT 17 5 - 55 U/L 12/06/2023 10:43 AM [facility] AST 19 5 - 34 U/L 12/06/2023 10:43 AM CDT [facility] Anion Gap 14 6 - 16 12/06/2023 10:43 AM T [facility] BUN/Creatinine Ratio 26(H) 7 - 23 12/06/2023 10:43 AM [facility] Osmolality Calculated 290 275 - 295 mOsm/kg 12/06/2023 10:43 AM [facility] Albumin/Globulin Ratio 1.3 1.1 - 2.3 12/06/2023 10:43 AM [facility] eGFR by CKD-EPI 59(L) >=90 mL/min/1.7 3 m2 12/06/2023 10:43 AM [facility] Blood BLOOD SPECIMEN / Unknown Lab Venipuncture / Unknown 12/06/2023 9:55 AM CDT 12/06/2023 10:05 AM CDT Chio Gonzalez MD LAB - CHEMISTRY ZACKERY MARCELO Performing Organization Address City/[facility]/ZIP Co de Phone Number [address] [address], [facility] [phone] * HEPATITIS B SURFACE ANTIBODY (12/06/2023 9:55 AM CDT) Hepatitis B Virus Surface Antibody Non-react roslyn Non-react roslyn 12/06/2023 10:57 AM [facility] Comment: < 8 mIU/mL Hepatitis B surface Antibody (HBsAb). Nonreactive for HBsAb - individual is considered not immune to Hepatitis B Virus infection. Hepatitis B Surface Antibody Quantitative 1.0 <8.0 mIU/mL 12/06/2023 10:57 AM [facility] Comment: Hepatitis B Surface Antibody Numeric Result Interpretation: Nonreactive: <8.0 mIU/mL Indeterminate: 8.0 - 12.0 mIU/mL Reactive: >12.0 mIU/mL Blood BLOOD SPECIMEN / Unknown Lab Venipuncture / Unknown 12/06/2023 9:55 AM CDT 12/06/2023 10:01 AM CDT Chio Gonzalez MD LAB - CHEMISTRY ZACKERY MARCELO [address] [place] [address], [place] [phone] * HEPATITIS B CORE ANTIBODY (12/06/2023 9:55 AM CDT) HBc Antibody Total Non-reacti ve Non-reacti ve 12/06/2023 10:57 AM CDT [facility] Blood BLOOD SPECIMEN / Unknown Lab Venipuncture / Unknown 12/06/2023 9:55 AM CDT 12/06/2023 10:01 AM CDT Chio Gonzalez MD LAB - CHEMISTRY ZACKERY MARCELO [address] [address], [place] [phone] * HEPATITIS B SURFACE ANTIGEN W RFLX CONFIRMATION (12/06/2023 9:55 AM CDT) Hepatitis B Virus Surface Antigen Non-reacti ve Non-reacti ve 12/06/2023 10:57 AM CDT [facility] Blood BLOOD SPECIMEN / Unknown Lab Venipuncture / Unknown 12/06/2023 9:55 AM CDT 12/06/2023 10:01 AM CDT Chio Gonzalez MD LAB - CHEMISTRY ZACKERY MARCELO [address] [address], [place] [phone] * HEPATITIS C ANTIBODY ([facility]/External) (12/06/2023 9:55 AM CDT) Hepatitis C Antibody Non-react roslyn Non-reac tive 12/06/2023 10:57 AM CDT [facility] Comment:Hepatitis C Antibody screen indicates no serologic evidence of past or current infection with Hepatitis C Virus. Patients with unexplained liver disease who are immunocompromised or suspected of having acute Hepatitis C infection may benefit from Nucleic Acid Test (AIME) for Hepatitis C Viral RNA to confirm Hepatitis C status. Blood BLOOD SPECIMEN / Unknown Lab Venipuncture / Unknown 12/06/2023 9:55 AM CDT 12/06/2023 10:01 AM CDT Chio Gonzalez MD LAB - CHEMISTRY ZACKERY MARCELO [facility] [address] [place] [address], [place] [phone] * (ABNORMAL) HEPATITIS A ANTIBODY (12/06/2023 9:55 AM CDT) Pathologist [facility] Hepatitis A Virus Antibody Total Positive( A) Negative 12/08/2023 1:03 PM CDT [email or web address] ([facility]) Comment: The positive anti-HAV is consistent with recent or remote Hepatitis A infection or antibody response to HAV vaccination. False positive anti-HAV can occur. Performed By: [facility] [address] [place] [address] [employer]: Parker Cope MD, PhD CLIA Number: [id number] Blood BLOOD SPECIMEN / Unknown Lab Venipuncture / Unknown 12/06/2023 9:55 AM CDT 12/06/2023 10:01 AM CDT Chio Gonzalez MD LAB - CHEMISTRY ZACKERY MARCELO Performing Organization Address City/[facility] Co de Phone Number [facility] [employer] ([facility]) [address] [place], [place] [address] * CEA BLOOD (12/06/2023 9:55 AM CDT) Pathologist [facility] CEA <3.0 <=5.0 ng/mL 12/06/2023 10:51 AM CDT [facility] Comment:CEA values will vary depending on testing procedure used. Results are not comparable across different methods. CEA values obtained by [facility] using an Neville Alinity immunoassay. Blood BLOOD SPECIMEN / Unknown Lab Venipuncture / Unknown 12/06/2023 9:55 AM CDT 12/06/2023 10:05 AM CDT Chio Gonzalez MD LAB - CHEMISTRY ZACKERY MARCELO [facility] [address] [place] [address], [facility] [phone] Care Teams Dental Sales Representative Relationship Specialty Start Date End Date Thomas Antonio MD [address] [place] [address] PCP - General Internal Medicine 12/06/23
--- OUTSIDE RECORDS SUMMARY | 2024-03-14 11:13 | XMS_ITS | Clinical Summary ---
Author Organization [facility] [address] Address [address] [place] [address] Care Team Providers Care Division Plant Engineer Name Role Phone Emily Vigil RN Unavailable [phone] Thomas Antonio MD Primary Care Provider [phone] Yoselyn Nicolas NP Unavailable [phone] Allergies Active Allergy Reactions Criticality Noted Date Comments Adhesive Itching,Rash Medium 12/19/2023 Meperidine Nausea only,Other (See comments),Unknown High 07/16/2015 Other reaction(s): HYPEREMESIS - unknown Morphine Nausea And Vomiting,Unknown High 06/08/2016 Other reaction(s): Nausea and vomitin - Other reaction(s): Nausea and vomitin - Other reaction(s): Nausea and vomitin - Penicillins Anaphylaxis,Unknown High 07/16/2015 Other reaction(s): TONGUE SWELLS - Other reaction(s): TONGUE SWELLS - Other reaction(s): TONGUE SWELLS - Rivaroxaban Other (See comments),Unknown Low 07/16/2015 Reaction: Other - - Sulfa (Sulfonamide Antibiotics) Swelling,Unknown,Ra sh High 07/16/2015 Other reaction(s): TONGUE SWELLS - Other reaction(s): TONGUE SWELLS - Other reaction(s): TONGUE SWELLS - Medications spironolactone (ALDACTONE) 25 mg tablet Take 1 tablet (25 mg total) by mouth daily 7 Active Xarelto 20 mg tablet Take 1 tablet (20 mg total) by mouth daily Active pravastatin (PRAVACHOL) 40 mg tablet Take 1 tablet (40 mg total) by mouth daily 2 Active potassium chloride ER 10 mEq CR tablet 1 tablet/capsule (10 mEq total) NEEDED FOR WEIGHT GAIN 2 Active metoprolol XL (TOPROL-XL) 100 mg 24 hr tablet Take 1 tablet (100 mg total) by mouth daily 4 Active metoprolol XL (TOPROL-XL) 50 mg extended release tablet TAKE 1 TABLET BY MOUTH DAILY. MAY TAKE AN ADDITIONAL IF ENTERING IN ATRIAL FIBRILLATION Active metFORMIN XR (GLUCOPHAGE XR) 500 mg 24 hr tablet Take 1 tablet (500 mg total) by mouth 3 (three) times a day Active Farxiga 10 mg tablet Take 1 tablet (10 mg total) by mouth marble mason before breakfast 3 Active cyanocobalamin (Vitamin B-12) 1,000 mcg tablet Take 1 tablet (1,000 mcg total) by mouth daily Active cholecalciferol (VITAMIN D-3) 2000 unit capsule Take 1 capsule (2,000 Units total) by mouth daily Active allopurinoL (ZYLOPRIM) 300 mg tablet Take 1 tablet (300 mg total) by mouth daily Active magnesium oxide (MAG-OX) 415 mg (250 mg elemental) tablet Take 500 mg by mouth 2 (two) times a day Active pantoprazole DR (PROTONIX) 40 mg EC tablet Take 1 tablet (40 mg total) by mouth every morning Active thiamine (vitamin B-1) 100 mg tablet Take 1 tablet (100 mg total) by mouth daily Active john frr-vge-T0-Zn-c op-man-bor 250-40-125 mg-mg-unit tablet Take by mouth 2 (two) times a day Active amiodarone (PACERONE) 200 mg tablet Take 1 tablet (200 mg total) by mouth daily Active anastrozole (ARIMIDEX) 1 mg tablet Take 1 tablet (1 mg total) by mouth daily Active azithromycin (ZITHROMAX) 250 mg tablet TAKE 2 TABLETS BY MOUTH FOR 1 DAY THEN TAKE 1 TABLET BY MOUTH FOR 4 DAYS Active benzonatate (TESSALON) 100 mg capsule TAKE 1 TO 2 CAPSULES BY MOUTH UP TO THREE TIMES DAILY FOR cough Active calcium carbonate (OS-JOHN) 1,500 mg (600 mg elemental) tablet Take 600 mg by mouth daily Active calcium carbonate-vitam in D3 1,500 mg (600mg elemental) -800 unit per tablet Take 1 tablet by mouth daily Active cephalexin (KEFLEX) 500 mg capsule Take 1 capsule (500 mg total) by mouth 3 (three) times a day Active clobetasoL (TEMOVATE) 0.05 % external solution APPLY TO SCALP TWICE DAILY FOR 2 WEEKS, OKAY TO REPEAT FOR FLARES Active guaiFENesin-cod eine (GUAITUSS AC) liquid 100-10 mg/5 mL TAKE 10mL BY MOUTH EVERY 6 HOURS NEEDED FOR cough Active colchicine (COLCRYS) 0.6 mg tablet Active dexAMETHasone (DECADRON) 6 mg tablet TAKE 1 TABLET BY MOUTH DAILY FOR 2 DAYS FOR THROAT PAIN Active estrogens, conjugated, (Premarin) vaginal cream Active fluticasone propion-salmete roL (ADVAIR DISKUS) 250-50 mcg/dose diskus inhaler Inhale 1 puff 2 (two) times a day Active ipratropium (ATROVENT) 21 mcg (0.03 %) nasal spray USE 1 TO 2 SPRAYS IN EACH NOSTRIL THREE TIMES DAILY Active Lactobacillus acidophilus 10 billion cell capsule Take 1 tablet by mouth daily 6 Active levoFLOXacin (LEVAQUIN) 750 mg tablet TAKE 1 TABLET BY MOUTH DAILY FOR 10 DAYS 4 Active metOLazone (ZAROXOLYN) 2.5 mg tablet Active metroNIDAZOLE (FLAGYL) 500 mg tablet TAKE 1 TABLET BY MOUTH EVERY 8 HOURS FOR 10 DAYS 4 Active predniSONE (DELTASONE) 20 mg tablet Take 1 tablet (20 mg) by mouth as needed Active sertraline (ZOLOFT) 50 mg tablet Take 1 tablet every day by oral route. 1 Active calcium citrate/vitamin D3 (CITRACAL REGULAR ORAL) Take by mouth Ac tive torsemide (DEMADEX) 20 mg tablet Take 2 tablets (40 mg total) by mouth daily as needed (PRN SWELLING OR WT GAIN OVER 5 LB) 180 tablet 3 4 Active Active Problems Problem Noted Date Diagnosed Date Severe obesity 01/14/2024 Anxiety 12/19/2023 Chronic kidney disease 12/19/2023 Disease due to severe acute respiratory syndrome coronavirus 2 (SARS-CoV-2) 12/19/2023 Diverticulitis of sigmoid colon 12/19/2023 Diverticulitis 12/19/2023 Incontinence 12/19/2023 Hemorrhoids 12/19/2023 Neoplasm of breast 12/19/2023 Arthritis 12/19/2023 Osteopenia 12/19/2023 Pneumonia 12/19/2023 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 12/19/2023 Sleep apnea 12/19/2023 Hematologic abnormality 07/06/2022 Bleeding on Coumadin 05/15/2022 Borderline diabetes 05/15/2022 Depressive disorder 05/15/2022 Edema of extremities 05/15/2022 Overview (12/19/2023): Updated per IMO upload [id number] Hypokalemia 05/15/2022 HLD (hyperlipidemia) 05/15/2022 Lower GI bleed 05/15/2022 Migraines 05/15/2022 Osteoarthritis 05/15/2022 Shortness of breath 05/15/2022 Disease of thyroid gland 05/15/2022 Calculus of gallbladder 02/08/2020 Right flank pain 02/08/2020 Gout 12/17/2017 Pulmonary hypertension 04/05/2017 Overview (12/19/2023): I think this is group to pulmonary hypertension secondary to moderate mitral regurgitation, HFpEF and she also has obesity therefore I don't think that primary treatment is going to make sense. Heart failure with preserved left ventricular function (HFpEF) (CMS/[facility]) 04/05/2017 Thyroiditis, unspecified 09/27/2016 Overview (12/19/2023): DX update IMO 11/05 content release Obstructive sleep apnea syndrome 11/17/2015 Multiple pulmonary nodules 09/16/2014 Disorder of lung 08/13/2014 Persistent atrial fibrillation 07/08/2014 Essential hypertension 07/08/2014 Obesity with body mass index 30 or greater 09/05 Diabetes mellitus 11/04/2012 Obstructive sleep apnea syndrome 11/04/2012 Resolved Problems Problem Noted Date Diagnosed Date Resolved Date Dysrhythmia 12/19/2023 01/14/2024 Overview (12/19/2023): a fib Hypercholesterolemia 12/19/2023 024 Varicose veins of both lower extremities 12/19/2023 01/14/2024 Hypertensive disorder 12/19/20232023 SVT (supraventricular tachycardia) 05/15/2022 01/14/2024 Overview (12/19/2023): age 14 Congestive heart failure (CMS/HCC) 06/16/2016 01/14/2024 Acute on chronic diastolic c ongestive heart failure (CMS/HCC) 06/08/2016 01/14/2024 Heart failure 01/21/2015 01/14/2024 Atrial fibrillation (CMS/HCC) 11/04/2012 01/14/2024 Hypertension 11/04/2012 01/14/2024 Obesity 11/04/2012 12/19/2023 Encounters Date Type Department Care Team Description 03/12/2024 2:15 PM TRIMMING CASER Lab [facility] [address] [place] [phone] Liver mass; Cirrhosis of liver without ascites, unspecified hepatic cirrhosis type (HCC) 03/12/2024 9:20 AM TRIMMING CASER - 03/12/2024 11:59 PM TRIMMING CASER Hospital Encounter [facility] Rad[facility] [place] [facility] [address] [place] [phone] Melissa Albright MD Liver mass Discharge Disposition: Discharge to home or self care 03/12/2024 8:30 AM TRIMMING CASER Office Visit [facility] Advanced Medicine 12th [place] [address] [place] [address] Neelam Morrison MD Liver mass (Primary Dx); Alcoholic cirrhosis of liver without ascites (CMS/HCC) (HCC); Cirrhosis of liver without ascites, unspecified hepatic cirrhosis type (HCC) 01/21/2024 1:30 PM TRIMMING CASER Ancillary Procedure [facility] Cardiology [address] [place] [address] Persistent atrial fibrillation (HCC) 01/14/2024 1:30 PM TRIMMING CASER Office Visit [facility] Cardiology [address] [place] [address] Alin Gorman MD Persistent atrial fibrillation (HCC) (Primary Dx); PAF (paroxysmal atrial fibrillation) (CMS/HCC) (HCC); Pulmonary hypertension, unspecified (HCC); Heart failure with preserved left ventricular function (HFpEF) (CMS/HCC) (HCC); Essential hypertension; Mixed hyperlipidemia; Pulmonary hypertension (HCC); Obstructive sleep apnea syndrome; Severe obesity (HCC) 01/14/2024 Telephone [facility] Cardiology [address] [facility] [address] [place] [address] Alin Gorman MD 12/26/[address] [facility] and [facility] Transplant Liver [address] [facility] [address] Mailstop -[phone] [place] [address] Antonieta Campuzano 12/25/[address] [facility] and [facility] Transplant Liver [address] [facility] [address] Mailstop [facility] [place] [address] Antonieta Campuzano 12/25/[address] [facility] and [facility] Transplant Liver [address] [facility] [address] Mailstop [phone] [place] [address] Emily Vigil, RN 12/21/[address] [facility] and [facility] Transplant Liver [address] [facility] [address] Mailstop [facility] [place] [address] Antonieta Campuzano 12/21/[address] [facility] and [facility] Transplant Liver [address] [facility] [address] [place] [address] Emily Vigil, RN 12/20/[address] [facility] [address] [facility] 12th [place] [address] [place] [address] Melissa Albright MD 12/19/2023 3:40 PM TRIMMING CASER Lab [facility] [address] [place] [address] Liver mass 12/19/2023 1:00 PM TRIMMING CASER - 12/19/2023 11:59 PM TRIMMING CASER Hospital Encounter [facility] [address] [place] [address] Neelam Morrison MD Liver mass Discharge Disposition: Discharge to home or self care 12/19/2023 11:00 AM TRIMMING CASER Office Visit [facility] Radiology, Interventional Radiology [address] [facility] [address] [place] [phone] Kane Sweeney MD Diagnosis unknown (Primary Dx); Liver mass; Heart failure, unspecified HF chronicity, unspecified heart failure type (HCC) 12/19/2023 9:30 AM TRIMMING CASER Office Visit [facility] Surgery [address] [facility] 12th [place] [address] [place] [address] Arabella Garg MD Liver mass (Primary Dx); Diverticulitis of large intestine with perforation and abscess without bleeding 12/19/2023 8:30 AM TRIMMING CASER Office [facility] [address] [facility] 12th [place] [address] [place] [address] Melissa Albright MD Liver mass (Primary Dx); Abnormal liver diagnostic imaging from Last 3 Months Medical History Medical History Date Comments Gout Hypertension Heart failure with preserved ejection fraction ( CMS/HCC) (HCC) Paroxysmal A-fib (CMS/HCC) (HCC) Family History Medical History Relation Name Comments Hypertension Brother Family history of hypertension - (Added by TW Conv) Hypertension Daughter Family history of hypertension - (Added by TW Conv) Hypertension Father Family history of hypertension - (Added by TW Conv) Sudden Cardiac Father Family history of sudden cardiac - (Added by TW Conv) Heart failure Mother Family history of heart failure - (Added by TW Conv) Hypertension Mother Family history of pulmonary hypertension - (Added by TW Conv) Relation Name Status Comments Brother Daughter Father Mother Social History Tobacco Use Types Packs/Day Years Used Date Smoking Tobacco: Never Smokeless Tobacco: Never Tobacco Cessation:Counseling Given: Not Answered Comments Unknown Sex and Gender Information Value Date Recorded Sex Assigned at Not on file Legal Sex Female 5:37 AM TRIMMING CASER Gender Identity Not on file Sexual Orientation Not on file Obstetrics History Last Filed Vital Signs Vital Sign Reading Time Taken Comments Blood Pressure 118/76 03/12/2024 8:31 AM TRIMMING CASER Pulse 109 03/12/2024 8:31 AM TRIMMING CASER Temperature 36.2 C (97.1 F) 03/12/2024 8:31 AM TRIMMING CASER Respiratory Rate - - Oxygen Saturation 96% 01/14/2024 1:12 PM TRIMMING CASER Inhaled Oxygen Concentration - - Weight 90.9 kg (200 lb 6.4 oz) 03/12/2024 8:31 A M TRIMMING CASER Height 160 cm (5' 3 ) 03/12/2024 8:31 AM TRIMMING CASER Body Mass Index 35.5 03/12/2024 8:31 AM TRIMMING CASER Plan of Treatment Health Maintenance Due Date Last Done Comments Albumin Creatinine Ratio, Urine 1941 Depression Screening 1941 Fall Risk Assessment 1941 Osteoporosis Screening-Bone Density Scan 1941 Dilated Eye Exam 1941 Foot Exam 1941 Zoster Vaccine (1 of 2) 02/26/1960 DTaP/Tdap/Td Vaccine (1 - Tdap) 08/12/2004 5 Well Visit 65+ 2006 Lipid Panel 08/01/2014 08/01/2013 Pneumococcal vaccine 65+ (4 of 4 - PPSV23 or PCV20) 06/21/2017 06/21/2016, 12/12/2000, 12/01/1991 Hemoglobin A1C 06/17/2024 12/19/2023 eGFR 03/12/2025 03/12/2024, 12/19/2023 Influenza Vaccine Completed 10/03/2023, , 11/20/2016 Procedures Procedure Name Priority Date/Time Associated Diagnosis Comments EGFR Routine 03/12/2024 12:30 PM TRIMMING CASER Liver mass Cirrhosis of liver without ascites, unspecified hepatic cirrhosis type (HCC) DIFFERENTIAL AUTO Routine 03/12/2024 12:30 PM TRIMMING CASER Liver mass Cirrhosis of liver without ascites, unspecified hepatic cirrhosis type (HCC) [id number], TUMOR MARKER Routine 03/12/2024 12:30 PM TRIMMING CASER Liver mass Cirrhosis of liver without ascites, unspecified hepatic cirrhosis type (HCC) BILIRUBIN, DIRECT Routine 03/12/2024 12:30 PM TRIMMING CASER Liver mass Cirrhosis of liver without ascites, unspecified hepatic cirrhosis type (HCC) CBC WITH AUTO DIFFERENTIAL Routine 03/12/2024 12:30 PM TRIMMING CASER Liver mass Cirrhosis of liver without ascites, unspecified hepatic cirrhosis type (HCC) COMPREHENSIVE METABOLIC PANEL Routine 03/12/2024 12:30 PM TRIMMING CASER Liver mass Cirrhosis of liver without ascites, unspecified hepatic cirrhosis type (HCC) PROTIME-INR Routine 03/12/2024 12:30 PM TRIMMING CASER Liver mass Cirrhosis of liver without ascites, unspecified hepatic cirrhosis type (HCC) MRI ABDOMEN W WO CONTRAST Schedule Routine, Read Routine (OP Routine) 03/12/2024 11:55 AM TRIMMING CASER Liver mass HOLTER MONITOR 24 HR Routine 01/21/2024 3:12 PM TRIMMING CASER Persistent atrial fibrillation (HCC) CT CHEST WO CONTRAST Schedule Routine, Read Routine (OP Routine) 12/19/2023 2:53 PM TRIMMING CASER Liver mass EGFR Routine 12/19/2023 1:08 PM TRIMMING CASER Liver mass DIFFERENTIAL AUTO Routine 12/19/2023 1:08 PM TRIMMING CASER Liver mass CANCER ANTIGEN 19-9 Routine 12/19/2023 1:08 PM TRIMMING CASER Liver mass JAYNA QUALITATIVE WITH REFLEX TO JAYNA QUANTITATIVE Routine 12/19/2023 1:08 PM TRIMMING CASER Liver mass [id number] Routine 12/19/2023 1:08 PM TRIMMING CASER Liver mass CBC WITH AUTO DIFFERENTIAL Routine 12/19/2023 1:08 PM TRIMMING CASER Liver mass COMPREHENSIVE METABOLIC PANEL Routine 12/19/2023 1:08 PM TRIMMING CASER Liver mass PROTIME-INR Routine 12/19/2023 1:08 PM TRIMMING CASER Liver mass IRON PROFILE W/ IBC Routine 12/19/2023 1:08 PM TRIMMING CASER Liver mass HEMOCHROMATOSIS HFE GENE ANALYSIS Routine 12/19/2023 1:08 PM TRIMMING CASER Liver mass FERRITIN Routine 12/19/2023 1:08 PM TRIMMING CASER Liver mass THYROID FUNCTION CASCADE Routine 024 1:08 PM TRIMMING CASER Liver mass SMOOTH MUSCLE ANTIBODY, QUANTITATIVE Routine 12/19/2023 1:08 PM TRIMMING CASER Liver mass PHOSPHATIDYLETHANOL Routine 12/19/2023 1:08 PM TRIMMING CASER Liver mass [id number], TUMOR MARKER Routine 12/19/2023 1:08 PM TRIMMING CASER Liver mass MITOCHONDRIAL ANTIBODIES, QUALITATIVE Routine 12/19/2023 1:08 PM TRIMMING CASER Liver mass HEMOGLOBIN A1C Routine 12/19/2023 1:08 PM TRIMMING CASER Liver mass SERUM LIPID PANEL Routine 08/01/2013 9:43 PM CDT from Last 3 Months or Most Recently Relevant to Health Maintenance Results * (ABNORMAL) eGFR (03/12/2024 12:30 PM TRIMMING CASER) eGFR 40(L) >=60 mL/min/1. 73 m2 Comment: Interpretive Data Reference Interval Normal >/= 90 mL/min/1.73m2 Mildly decreased* 60 - 89 mL/min/1.73m2 Mildly to moderately decreased 45 - 59 mL/min/1.73m2 Moderately to severely decreased 30 - 44 mL/min/1.73m2 Severely decreased 15 - 29 mL/min/1.73m2 Kidney Failure < 15 mL/min/1.73m2 *Relative to young adult level Estimated glomerular filtration rate is determined by the 2020 CKD-EPI equation recommended by the National Kidney Foundation (A Unifying Approach to GFR Estimation: Recommendations of the NKF-ASK Task Force on Reassessing the Inclusion of Race in Diagnosing Kidney Disease, JASN 2020). The CKD-EPI equation should not be used for patients with unstable renal function and has not been validated in children and those over 70. Current interpretive data was last reviewed 2020. Blood 03/12/2024 12:3 0 PM TRIMMING CASER 03/12/2024 12:50 PM TRIMMING CASER us Neelam Morrison MD LAB BLOOD ORDERABLES Final Result [facility] [address] [facility] [place] [address] * Differential, auto (03/12/2024 12:30 PM TRIMMING CASER) Pathologist [facility] Neutrophil abs 4.8 1.5 - 6.5 K/cumm Imm gran abs 0.0 0.0 - 0.1 K/cumm [facility] Lymphocyte abs 1.4 0.8 - 3.3 K/cumm [facility] Monocyte abs 0.8 0.2 - 0.8 K/cumm [facility] Eosinophil abs 0.3 0.0 - 0.5 K/cumm [facility] Basophil abs 0.1 0.0 - 0.1 K/cumm [facility] Neutrophil pct 65.7 % [facility] Comment: Interpretive Data Percent cell count reference ranges are not reported, since discordance with absolute values may lead to misinterpretation of CBC data. Current Interpretive Data was last revised on 2017. Imm gran pct 0.3 % [facility] Comment: Interpretive Data Percent cell count reference ranges are not reported, since discordance with absolute values may lead to misinterpretation of CBC data. Current Interpretive Data was last revised on 2017. Lymphocyte pct 18.5 % [facility] Comment: Interpretive Data Percent cell count reference ranges are not reported, since discordance with absolute values may lead to misinterpretation of CBC data. Current Interpretive Data was last revised on 2017. Monocyte pct 11.2 % [facility] Comment: Interpretive Data Percent cell count reference ranges are not reported, since discordance with absolute values may lead to misinterpretation of CBC data. Current Interpretive Data was last revised on 2017. Eosinophil pct 3.5 % [facility] Comment: Interpretive Data Percent cell count reference ranges are not reported, since discordance with absolute values may lead to misinterpretation of CBC data. Current Interpretive Data was last revised on 2017. Basophil pct 0.8 % [facility] Comment: Interpretive Data Percent cell count reference ranges are not reported, since discordance with absolute values may lead to misinterpretation of CBC data. Current Interpretive Data was last revised on 2017. Blood 03/12/2024 12:3 0 PM TRIMMING CASER 03/12/2024 12:50 PM TRIMMING CASER Neelam Morrison MD LAB BLOOD ORDERABLES Final Result [facility] [address] [facility] [place] [address] * CBC with auto differential (03/12/2024 12:30 PM TRIMMING CASER) WBC 7.3 3.8 - 9.9 K/cumm Hgb 14.5 11.9 - 15.5 g/dL [facility] Hct 42.7 35.6 - 45.5 % [facility] Plt 221 150 - 400 K/cumm [facility] MPV 10.9 9.1 - 12.3 fL [facility] RBC 4.76 3.90 - 5.20 M/cumm [facility] MCV 89.7 81.3 - 96.4 fL [facility] MCH 30.5 27.1 - 33.3 pg [facility] MCHC 34.0 32.3 - 35.7 g/dL [facility] RDW CV 14.3 11.1 - 14.9 % [facility] RDW SD 46.5 35.7 - 48.1 fL [facility] NRBC abs 0.00 0.00 - 0.01 K/cumm [facility] Blood 03/12/2024 12:3 0 PM TRIMMING CASER 03/12/2024 12:50 PM TRIMMING CASER Neelam Morrison MD LAB BLOOD ORDERABLES Final Result Performing Organization Address [facility] de Phone Number [facility] [place] [address] * [id number], Tumor Marker (03/12/2024 12:30 PM TRIMMING CASER) [facility] alpha Fetoprotein <2.0 <=8.3 ng/mL Comment: Interpretive Data The Natali AFP assay procedure was used. Results from different manufacturers or methods may not be comparable. Serial testing should be performed using the same method. 0-1 month. AFP concentrations may reach or exceed 100,000 ng/mL after depending on gestational age and weight. 1-3 months 50 1000 ng/ml 3-6 months 10 500 ng/ml 6-12 months 3.0 100 ng/ml >1 year 0.0 8.3 ng/ml References Tiana Y. et al. J. Ped Surg 1978;13:155-156 Eloise Louie et al. Clin Chem Lab Med 2018;57:783-797 Christel Pratt et al. Clin Chem 2014;9766-2369. Current interpretive data was last revised 2021. Blood 03/12/2024 12:3 0 PM TRIMMING CASER 03/12/2024 12:50 PM TRIMMING CASER Neelam Morrison MD LAB BLOOD ORDERABLES Final Result Performing Organization Address [facility] Co de Phone Number [facility] Department [place] [address] * (ABNORMAL) Protime-INR (03/12/2024 12:30 PM TRIMMING CASER) [facility] PT 22.9(H) 9.7 - 13.0 sec INR 2.09(H) 0.90 - 1.20 [facility] Comment: Interpretive data Oral anticoagulant therapeutic ranges: Venous thromboembolism prophylaxis or treatment: 2.0-3.0 CARDIOLOGY Standard range: 2.0-3.0 High-intensity range: 2.5-3.5 Refer to indication-specific guidelines for appropriate target ranges for prosthetic heart valve replacement. Current interpretive data was last revised on 2019. Blood 03/12/2024 12:3 0 PM TRIMMING CASER 03/12/2024 12:40 PM TRIMMING CASER Neelam Morrison MD LAB BLOOD ORDERABLES Final Result Performing Organization Address [facility] Co de Phone Number [facility] [place] [address] * Bilirubin, direct (03/12/2024 12:30 PM TRIMMING CASER) [facility] Bilirubin, direct 0.3 0.1 - 0.3 mg/dL Blood 03/12/2024 12:3 0 PM TRIMMING CASER 03/12/2024 12:50 PM TRIMMING CASER Neelam Morrison MD LAB BLOOD ORDERABLES Final Result Performing Organization Address [facility] Co de Phone Number [facility] [place] [address] * (ABNORMAL) Comprehensive metabolic panel (03/12/2024 12:30 PM TRIMMING CASER) [facility] Sodium 137 135 - 145 mmol/L Potassium, pl 4.3 3.3 - 4.9 mmol/L [facility] Chloride 96(L) 97 - 110 mmol/L [facility] CO2 31 22 - 32 mmol/L [facility] Anion gap 10 2 - 15 mmol/L [facility] BUN 27(H) 6 - 25 mg/dL [facility] Creatinine 1.31(H) 0.60 - 1.10 mg/dL [facility] Glucose 106 70 - 199 mg/dL [facility] Comment: Interpretive Data Fasting glucose >/= 126 mg/dl is diagnostic for diabetes. Fasting is defined as no caloric intake for at least 8 hours. Fasting glucose between 100 mg/dl to 125 mg/dl is diagnostic of prediabetes. In a patient with classic symptoms of hyperglycemia or hyperglycemic crisis, a random glucose >/= 200 mg/dl is diagnostic for diabetes. In the absence of unequivocal hyperglycemia, results should be confirmed by repeat testing. The classification and Diagnosis of Diabetes Diabetes Care 2021; 46: S19-S40. Current interpretive data was last revised 2022. Calcium 10.4(H) 8.5 - 10.3 mg/dL [facility] Bilirubin, total 0.7 0.1 - 1.2 mg/dL [facility] Protein, pl 7.9 6.5 - 8.5 g/dL [facility] Albumin 4.6 3.5 - 5.0 g/dL [facility] Alk phos 143(H) 40 - 130 Units/L [facility] ALT 20 7 - 45 Units/L [facility] AST 23 10 - 45 Units/L [facility] Blood 03/12/2024 12:3 0 PM TRIMMING CASER 03/12/2024 12:50 PM TRIMMING CASER us Neelam Morrison MD LAB BLOOD ORDERABLES Final Result [facility] [place] [address] * MRI Abdomen W WO Contrast (03/12/2024 11:55 AM TRIMMING CASER) Anatomical Region Laterality Modality Body N/A Magnetic Resonan ce 03/12/2024 12:5 7 PM TRIMMING CASER Impressions 03/12/2024 12:57 PM TRIMMING CASER 1. Cirrhosis with 2.1 cm vague wedge-shaped/triangular-shaped mildly arterially enhancing lesion in the right hepatic lobe, which appears less conspicuous compared to the previous MR. 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 Attention on follow-up study. Electronically signed by: Pratibha Arreaga M.D. Narrative 03/12/2024 12:57 PM TRIMMING CASER EXAMINATION: MAGNETIC RESONANCE IMAGING OF THE ABDOMEN [...] by: Pratibha Arreaga M.D. Melissa Albright MD IM MRI PROCEDURES Final Result * 24 HR Holter Monitor (01/21/2024 3:12 PM TRIMMING CASER) Anatomical Region Laterality Modality Electrocardiogra phy Narrative 02/14/2024 2:26 PM TRIMMING CASER Images from the original result were not included. 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 Date of Interpretation: 02/14/24 Type of Monitor: 24 Hour Monitor Date of the Study / Enrollment Period: 01/21/2024 to 01/22/2024 Indication: Persistent atrial fibrillation Quality of the Study: Average. Total analysis time of 24 hours. Interpretation: Predominant rhythm is atrial fibrillation with a burden of 100%. The average heart rate was 85 beats per minute. The minimum heart rate was 43 beats per minute. The maximum heart rate was 126 beats per minute. No evidence of SVT, pauses, heart block, or ventricular tachycardia. The PVC burden is <1%. Patient reported no symptoms during the monitoring period. Conclusions: Atrial fibrillation with a burden of 100%. Average heart rate of 85 beats per minute. PVC burden <1%. No patient reported symptoms. Tiffanie Marroquin M.D., [facility] 02/14/24 Procedure Note Tiffanie Marroquin MD - 02/14/2024 Images from the original note were not included. 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 Date of Interpretation: 02/14/24 Type of Monitor: 24 Hour Monitor Date of the Study / Enrollment Period: 01/21/2024 to 01/22/2024 Indication: Persistent atrial fibrillation Quality of the Study: Average. Total analysis time of 24 hours. Interpretation: Predominant rhythm is atrial fibrillation with a burden of 100%. Theaverage heart rate was 85 beats per minute. The minimum heart rate was 43beats per minute. The maximum heart rate was 126 beats per minute. No evidence of SVT, pauses, heart block, or ventricular tachycardia. The PVC burden is <1%. Patient reported no symptoms during the monitoring period. Conclusions: Atrial fibrillation with a burden of 100%. Average heart rate of 85 beatsper minute. PVC burden <1%. No patient reported symptoms. Tiffanie Marroquin M.D., [facility] 02/14/24 Alin Gorman MD [facility] CARD[facility]AC SERVICES PROCEDURES Final Result * CT Chest WO Contrast (12/19/2023 2:53 PM TRIMMING CASER) Anatomical Region Laterality Modality Body N/A Computed Tomogra phy 12/19/2023 3:40 PM TRIMMING CASER Impressions 12/19/2023 7:43 PM TRIMMING CASER Scattered small (sub-6 mm) pulmonary nodules in both lungs which are indeterminate. Dictated by: Chao Calles M.D. The radiology attending physician has personally reviewed this study, and had reviewed and/or edited this written report and agrees with it. Electronically signed by: Lexx Mike M.D. Narrative 12/19/2023 7:43 PM TRIMMING CASER EXAMINATION: Computed tomography of the chest without intravenous contrast HISTORY: 83-year-old woman with newly identified hepatic segment 7 lesion TECHNIQUE: Transaxial computed tomographic images of the chest were obtained without intravenous contrast according to the standard protocol. COMPARISON: None FINDINGS: Central airways are clear. No pleural effusion or pneumothorax. No pulmonary edema or consolidation. Mild bibasilar atelectasis. There are multiple sub-6 mm pulmonary nodules in both lungs. For example, there is a 5 mm pulmonary nodule in the left lower lobe (series 3, image 103). Heart size is normal and no pericardial effusion. The aorta and main pulmonary artery are normal in course and caliber. Mild atherosclerotic calcifications of the aortic arch and of the coronary arteries. No supraclavicular, axillary, hilar, or mediastinal lymphadenopathy. Small calcified nodule in the right thyroid. Partially imaged upper abdomen reveals no acute process. Cirrhotic morphology of the liver. Known hepatic segment 7 lesion is better characterized on the recent MR exam. Scattered calcified granulomas in the liver and spleen. No suspicious osseous lesion. Procedure Note Lexx Mike MD - 12/19/2023 EXAMINATION: Computed tomography of the chest without intravenous contrast HISTORY: 83-year-old woman with newly identified hepatic segment 7 lesion TECHNIQUE: Transaxial computed tomographic images of the chest were obtained without intravenous contrast according to the standard protocol. COMPARISON: None FINDINGS: Central airways are clear. No pleural effusion or pneumothorax. No pulmonary edema or consolidation. Mild bibasilar atelectasis. There are multiple sub-6 mm pulmonary nodules in both lungs. For example, there is a 5 mm pulmonary nodule in the left lower lobe (series 3, image 103). Heart size is normal and no pericardial effusion. The aorta and main pulmonary artery are normal in course and caliber. Mild atherosclerotic calcifications of the aortic arch and of the coronary arteries. No supraclavicular, axillary, hilar, or mediastinal lymphadenopathy. Small calcified nodule in the right thyroid. Partially imaged upper abdomen reveals no acute process. Cirrhotic morphology of the liver. Known hepatic segment 7 lesion is better characterized on the recent MR exam. Scattered calcified granulomas in the liver and spleen. No suspicious osseous lesion. IMPRESSION: Scattered small (sub-6 mm) pulmonary nodules in both lungs which are indeterminate. Dictated by: Chao Calles M.D. The radiology attending physician has personally reviewed this study, and had reviewed and/or edited this written report and agrees with it. Electronically signed by: Lexx Mike M.D. us Neelam Morrison MD IMG CT PROCEDURES Fi nal Result * Phosphatidylethanol (12/19/2023 1:08 PM TRIMMING CASER) PHOSPHATIDYLETHANOL Negative . [facility] Comment: ADDITIONAL INFORMATION This report is intended for use in clinical monitoring and management of patients. It is not intended for use in employment-related testing. This test was developed and its performance characteristics determined by [facility] in a manner consistent with CLIA requirements. This test has not been cleared or approved by the U.S. Food and Drug Administration. Test Performed by: [place] [address] Stock Drier Tender: Geovani Price Ph.D.; CLIA# [id number] PEth 16:0/18:1 (POPEth)by LC-MS/MS <10 Cutoff: 10 ng/mL [facility] Comment: Phosphatidylethanol (PEth) homologues result interpretation PEth 16:0/18:1 (POPEth) Less than 10 ng/mL: Not detected 10 - 19 ng/mL: Abstinence or light alcohol consumption (<2 drinks per day for several days a week) 20 - 200 ng/mL: Moderate alcohol consumption (up to 4 drinks per day for several days a week) Greater than 200 ng/mL: Heavy alcohol consumption or chronic alcohol use (at least 4 drinks per day several days a week) (Reference: Ángel Garcia and Renny Fields 2018 J. Forensic Sci) Phosphatidylethanol 16:0/18:2 (PLPEth) by LC-MS/MS <10 Cutoff: 10 ng/mL [facility] Comment: PEth 16:0/18:2 (PLPEth) Reference ranges are not well established Blood 12/19/2023 1:08 PM TRIMMING CASER 12/19/2023 2:01 PM TRIMMING CASER Result [facility] Melissa Albright MD LAB BLOOD ORDERABLES Final Resul t Performing Organization Address [facility] Co de Phone Number [facility] Department [place] [address] [facility] * JAYNA ab ql w/rflx to JAYNA qn (12/19/2023 1:08 PM TRIMMING CASER) JAYNA Negative Comment: Interpretive Data Normal range for JAYNA Qualitative Antibody = Negative. 1. JAYNA is performed using indirect immunofluorescence against HEp-2 cells 2. JAYNA titers are performed on all positive qualitative results. 3. A significantly positive JAYNA result is defined as a positive nuclear fluorescence at a titer of 1:80 or greater. 4. 15% of normal people above age 65 have significantly positive JAYNA results. 5% or less of normal people age 65 or under have significantly positive JAYNA results. Current interpretive data was last revised on 2019. Blood 12/19/2023 1:08 PM TRIMMING CASER 12/19/2023 1:33 PM TRIMMING CASER Result [facility] us Melissa Albright MD LAB BLOOD ORDERABLES Final Resul t Performing Organization Address [facility] de Phone Number [facility] Department [place] [address] * Smooth muscle antibody, quantitative (12/19/2023 1:08 PM TRIMMING CASER) Anti-smooth muscle, quant Negative Negative Comment: Interpretive Data Negative: Titers equal to or less than 1:20. Titers greater than 1:20 may be present in acute viral hepatitis, lupoid hepatitis, infectious mononucleosis, and malignancy. Titers greater than 1:80 highly suggestive of chronic active hepatitis. Current interpretive data was last revised on 2014. Blood 12/19/2023 1:08 PM TRIMMING CASER 12/19/2023 1:33 PM TRIMMING CASER Result [facility] us Melissa Albright MD LAB BLOOD ORDERABLES Final Resul t Performing Organization Address [facility] de Phone Number [facility] Department [place] [address] * (ABNORMAL) eGFR (12/19/2023 1:08 PM TRIMMING CASER) eGFR 48(L) >=60 mL/min/1. 73 m2 Comment: Interpretive Data Reference Interval Normal >/= 90 mL/min/1.73m2 Mildly decreased* 60 - 89 mL/min/1.73m2 Mildly to moderately decreased 45 - 59 mL/min/1.73m2 Moderately to severely decreased 30 - 44 mL/min/1.73m2 Severely decreased 15 - 29 mL/min/1.73m2 Kidney Failure < 15 mL/min/1.73m2 *Relative to young adult level Estimated glomerular filtration rate is determined by the 2020 CKD-EPI equation recommended by the National Kidney Foundation (A Unifying Approach to GFR Estimation: Recommendations of the NKF-ASK Task Force on Reassessing the Inclusion of Race in Diagnosing Kidney Disease, JASN 2020). The CKD-EPI equation should not be used for patients with unstable renal function and has not been validated in children and those over 70. Current interpretive data was last reviewed 2020. Blood 12/19/2023 1:08 PM TRIMMING CASER 12/19/2023 1:40 PM TRIMMING CASER us Melissa Albright MD LAB BLOOD ORDERABLES Final Resul t Performing Organization Address [facility] Co de Phone Number [facility] Department [place] [address] * Differential, auto (12/19/2023 1:08 PM TRIMMING CASER) Neutrophil abs 4.6 1.5 - 6.5 K/cumm Imm gran abs 0.0 0.0 - 0.1 K/cumm [facility] Lymphocyte abs 1.3 0.8 - 3.3 K/cumm [facility] Monocyte abs 0.7 0.2 - 0.8 K/cumm [facility] Eosinophil abs 0.2 0.0 - 0.5 K/cumm [facility] Basophil abs 0.1 0.0 - 0.1 K/cumm [facility] Neutrophil pct 67.0 % [facility] Comment: Interpretive Data Percent cell count reference ranges are not reported, since discordance with absolute values may lead to misinterpretation of CBC data. Current Interpretive Data was last revised on 2017. Imm gran pct 0.3 % [facility] Comment: Interpretive Data Percent cell count reference ranges are not reported, since discordance with absolute values may lead to misinterpretation of CBC data. Current Interpretive Data was last revised on 2017. Lymphocyte pct 18.7 % [facility] Comment: Interpretive Data Percent cell count reference ranges are not reported, since discordance with absolute values may lead to misinterpretation of CBC data. Current Interpretive Data was last revised on 2017. Monocyte pct 10.0 % [facility] Comment: Interpretive Data Percent cell count reference ranges are not reported, since discordance with absolute values may lead to misinterpretation of CBC data. Current Interpretive Data was last revised on 2017. Eosinophil pct 2.7 % [facility] Comment: Interpretive Data Percent cell count reference ranges are not reported, since discordance with absolute values may lead to misinterpretation of CBC data. Current Interpretive Data was last revised on 2017. Basophil pct 1.3 % [facility] Comment: Interpretive Data Percent cell count reference ranges are not reported, since discordance with absolute values may lead to misinterpretation of CBC data. Current Interpretive Data was last revised on 2017. Blood 12/19/2023 1:08 PM TRIMMING CASER 12/19/2023 1:33 PM TRIMMING CASER us Melissa Albright MD LAB BLOOD ORDERABLES Final Resul t [facility] [place] [address] * Thyroid Function [place] (12/19/2023 1:08 PM TRIMMING CASER) TSH 2.78 0.30 - 4.20 mcIUnit/mL Blood 12/19/2023 1:08 PM TRIMMING CASER 12/19/2023 1:33 PM TRIMMING CASER Result Negro Albright MD LAB BLOOD ORDERABLES Final Resul t Performing Organization Address [facility] de Phone Number [facility] Department [place] [address] * Mitochondrial antibodies, qualitative (12/19/2023 1:08 PM TRIMMING CASER) [facility] Anti-mitochond rial Negative Negative Blood 12/19/2023 1:08 PM TRIMMING CASER 12/19/2023 1:33 PM TRIMMING CASER Result Negro Albright MD LAB BLOOD ORDERABLES Final Resul t Performing Organization Address [facility] de Phone Number [facility] Department [place] [address] * Iron profile w/ IBC (12/19/2023 1:08 PM TRIMMING CASER) [facility] Iron 72 35 - 145 mcg/dL TIBC 259 250 - 400 mcg/dL [facility] Transferrin saturation 28 20 - 50 % [facility] Blood 12/19/2023 1:08 PM TRIMMING CASER 12/19/2023 1:33 PM TRIMMING CASER Result Negro Albright MD LAB BLOOD ORDERABLES Final Resul t Performing Organization Address [facility] de Phone Number [facility] [place] [address] * (ABNORMAL) CBC with auto differential (12/19/2023 1:08 PM TRIMMING CASER) [facility] WBC 6.8 3.8 - 9.9 K/cumm Hgb 13.9 11.9 - 15.5 g/dL [facility] Hct 42.7 35.6 - 45.5 % [facility] Plt 219 150 - 400 K/cumm [facility] MPV 11.1 9.1 - 12.3 fL [facility] RBC 4.60 3.90 - 5.20 M/cumm [facility] MCV 92.8 81.3 - 96.4 fL [facility] MCH 30.2 27.1 - 33.3 pg [facility] MCHC 32.6 32.3 - 35.7 g/dL [facility] RDW CV 15.1(H) 11.1 - 14.9 % [facility] RDW SD 50.7(H) 35.7 - 48.1 fL [facility] NRBC abs 0.00 0.00 - 0.01 K/cumm [facility] Blood 12/19/2023 1:08 PM TRIMMING CASER 12/19/2023 1:33 PM TRIMMING CASER us Melissa Albright MD LAB BLOOD ORDERABLES Final Resul t [facility] [place] [address] * Hemochromatosis HFE Gene Analysis (12/19/2023 1:08 PM TRIMMING CASER) HFE Genotype Negative [facility] HFE p.C282Y Negative [facility] HFE p.H63D Negative [facility] HFE Interpretation This genotype suggests low risk of hereditary hemochromatosis (HH) but does not rule out diagnosis or risk for HH. Approximately 6% of Caucasians with HH in [place] have this genotype. The frequency in other ethnicities may vary. Correlation of clinical findings and family history with genotype results is recommended for establishing a diagnosis of HH. HH is an autosomal recessive disorder of iron metabolism that results in iron overload and potential organ failure. It is one of the most common genetic disorders in individuals of - ancestry, with an estimated carrier frequency of 10%. HH is associated with variants in the HFE gene. Most individuals with HH (60-90%) are homozygous for the p.C282Y variant. A smaller percentage of affected individuals are either compound heterozygous for the p.C282Y and p.H63D variants (3%-8%), or homozygous for the p.H63D variant (2%). Genetic counseling is recommended for discussion of the clinical implications of this result. [facility] HFE Specimen Whole Blood [facility] HFE Result Review Final report reviewed by: Rebecca Newton BA, [facility]) Brewery Technician, on 12/21/2023 13:03:29 TRIMMING CASER. [facility] Comment: Interpretive Data Method: This assay detects the two variants in the HFE gene, p.C282Y ([id number]: c.845G>A) and p.H63D (NM_000410.2: c.187C>G), that are commonly associated with HH. The variants are detected by a multiplex PCR based assay performed on the [employer] Xtract 7500 Fast Dx Real-Time PCR instrument. Limitations: Bone Marrow transplants from allogenic donors may interfere with interpretation of test results. Alternative specimen types including cultured fibroblasts may be necessary for accurate testing results. This assay does not rule out the presence of other disease-causing mutations in the HFE gene or in other genes associated with HH. Since genetic variation and additional factors can affect the accuracy of genotyping, these results should be interpreted in the context of clinical findings, family history, and other laboratory testing (e.g. serum transferrin-iron saturation and serum ferritin). This test was developed and its performance characteristics determined by the [facility] at [facility] in a manner consistent with CLIA requirements. This test has not been cleared or approved by the U.S. Food and Drug Administration. References: Navjot KJ, Franko LC, Lucho CC, et al. Fqsx-ojrwgwxv-cafvemu disease in HFE hereditary hemochromatosis. N Engl J Med. 2008;358:221 3 0. Ladnon BR, Eagle PC, Archie KV, et al. Diagnosis and management of hemochromatosis: 2011 practice guideline by the [place] Association for the Study of Liver Diseases. Hepatology. 2011;54:328 4 3. Robby TOPHER, Douglas CQ, Alex RT. HFE gene: structure, function, mutations, and associated iron abnormalities. Gene. 2015;574:179 9 2. Angel CAMACHO, Erasmo RITCHIE, Babatunde LB, et al. Clinical and biochemical abnormalities in people heterozygous for hemochromatosis. N Engl J Med. 1996;335:1799 8 05. Yen PA, Basil UPTON, Randall SARMIENTO, Luis Enrique Alvarez D, Stefanie E, Mimi SalazarK. A population- based study of the biochemical and clinical expression of the H63D hemochromatosis mutation. Gastroenterology. 2002;122:646 5 1. Franko GUAMAN, Marge NA, Shon BRANHAM, et al. HFE C282Y/H63D compound heterozygotes are at low risk of hemochromatosis-related morbidity. Hepatology. 2009;50:94 1 01. Edis BORJAS, Dario G, Gage W. HFE gene and hereditary hemochromatosis: a HuGE review. Human Genome Epidemiology. Am J Epidemiol. 2001 Sep 05; 154(3):193-206. Sahil A, Reagan C, Chas L, et al. Two novel nonsense mutations of HFE gene in five unrelated [place] patients with hemochromatosis. Gastroenterology. 2000;119:441 5 . Zeynep EP, Francesco BA, Arvizu EL, et al. Screening for hereditary hemochromatosis: a systematic review for the U.S. Preventive Services Task Force. [employer] Marker Med. 2006;145:209 2 3. This test was performed at: [facility], [facility], [facility]#[id number], Tonya Ames, Ph.D., [place], [address], [place] Current interpretive data was last revised 2021. Blood 12/19/2023 1:08 PM TRIMMING CASER 12/19/2023 2:25 PM TRIMMING CASER Melissa Albright MD LAB GENETIC TESTING Final Result [facility] Department [place] [address] [facility] * Putki-4-qexoanzxqhy (12/19/2023 1:08 PM TRIMMING CASER) alpha-1 antitrypsin 112 90 - 200 mg/dL Blood 12/19/2023 1:08 PM TRIMMING CASER 12/19/2023 1:33 PM TRIMMING CASER Melissa Albright MD LAB BLOOD ORDERABLES Final Resul t Performing Organization Address [facility] de Phone Number [place] [address] * Cancer antigen 19-9 (12/19/2023 1:08 PM TRIMMING CASER) CA 19-9 ag 17.3 <=35.0 units/mL Comment: Interpretive Data The Natali CA 19-9 assay procedure was used. Results from different manufacturers or methods may not be comparable. Serial testing should be performed using the same method. Blood 12/19/2023 1:08 PM TRIMMING CASER 12/19/2023 1:33 PM TRIMMING CASER Melissa Albright MD LAB BLOOD ORDERABLES Final Resul t Performing Organization Address [facility] Phone Number [facility] [place] [address] * [id number], Tumor Marker (12/19/2023 1:08 PM TRIMMING CASER) alpha Fetoprotein 3.1 <=8.3 ng/mL Comment: Interpretive Data The Natali AFP assay procedure was used. Results from different manufacturers or methods may not be comparable. Serial testing should be performed using the same method. 0-1 month. AFP concentrations may reach or exceed 100,000 ng/mL after depending on gestational age and weight. 1-3 months 50 1000 ng/ml 3-6 months 10 500 ng/ml 6-12 months 3.0 100 ng/ml >1 year 0.0 8.3 ng/ml References Tiana Y. et al. J. Ped Surg 1978;13:155-156 Eloise Louie et al. Clin Chem Lab Med 2018;57:783-797 Christel Pratt et al. Clin Chem 2014;3148-6598. Current interpretive data was last revised 2021. Blood 12/19/2023 1:08 PM TRIMMING CASER 12/19/2023 1:33 PM TRIMMING CASER Melissa Albright MD LAB BLOOD ORDERABLES Final Resul t Performing Organization Address [facility] de Phone Number [facility] Department [place] [address] * (ABNORMAL) Protime-INR (12/19/2023 1:08 PM TRIMMING CASER) PT 15.6(H) 9.7 - 13.0 sec INR 1.43(H) 0.90 - 1.20 [facility] Comment: Interpretive data Oral anticoagulant therapeutic ranges: Venous thromboembolism prophylaxis or treatment: 2.0-3.0 CARDIOLOGY Standard range: 2.0-3.0 High-intensity range: 2.5-3.5 Refer to indication-specific guidelines for appropriate target ranges for prosthetic heart valve replacement. Current interpretive data was last revised on 2019. Blood 12/19/2023 1:08 PM TRIMMING CASER 12/19/2023 1:33 PM TRIMMING CASER Melissa Albright MD LAB BLOOD ORDERABLES Final Resul t Performing Organization Address [facility] de Phone Number [facility] Department [place] [address] * (ABNORMAL) Hemoglobin A1c (12/19/2023 1:08 PM TRIMMING CASER) Hgb A1C 5.9(H) 4.0 - 5.6 % Estimated Average Glucose 123 mg/dL [facility] Comment: The ADA recommends reporting an estimated Average Glucose (eAG) with all Hemoglobin A1c results using the equation derived from a study of 507 normal and diabetic adults. Minority populations were underrepresented and children were not included. (Diabetes Care 2020; 43(S1): S66-S76). The eAG is not equivalent to a fasting glucose. Blood 12/19/2023 1:08 PM TRIMMING CASER 12/19/2023 1:33 PM TRIMMING CASER Melissa Albright MD LAB BLOOD ORDERABLES Final Resul t Performing Organization Address City/[facility]/ZIP Co de Phone Number [facility] [place] [address] * Ferritin (12/19/2023 1:08 PM TRIMMING CASER) Pathologist [facility] Ferritin 130 13 - 150 ng/mL Blood 12/19/2023 1:08 PM TRIMMING CASER 12/19/2023 1:33 PM TRIMMING CASER Melissa Albright MD LAB BLOOD ORDERABLES Final Resul t Performing Organization Address [facility] de Phone Number [facility] [place] [address] * (ABNORMAL) Comprehensive metabolic panel (12/19/2023 1:08 PM TRIMMING CASER) [facility] Sodium 142 135 - 145 mmol/L Potassium, pl 4.4 3.3 - 4.9 mmol/L [facility] Chloride 98 97 - 110 mmol/L [facility] CO2 31 22 - 32 mmol/L [facility] Anion gap 13 2 - 15 mmol/L [facility] BUN 24 6 - 25 mg/dL [facility] Creatinine 1.15(H) 0.60 - 1.10 mg/dL [facility] Glucose 95 70 - 199 mg/dL [facility] Comment: Interpretive Data Fasting glucose >/= 126 mg/dl is diagnostic for diabetes. Fasting is defined as no caloric intake for at least 8 hours. Fasting glucose between 100 mg/dl to 125 mg/dl is diagnostic of prediabetes. In a patient with classic symptoms of hyperglycemia or hyperglycemic crisis, a random glucose >/= 200 mg/dl is diagnostic for diabetes. In the absence of unequivocal hyperglycemia, results should be confirmed by repeat testing. The classification and Diagnosis of Diabetes Diabetes Care 2021; 46: S19-S40. Current interpretive data was last revised 2022. Calcium 10.7(H) 8.5 - 10.3 mg/dL [facility] Bilirubin, total 0.4 0.1 - 1.2 mg/dL [facility] Protein, pl 7.4 6.5 - 8.5 g/dL [facility] [place] Albumin 4.4 3.5 - 5.0 g/dL [facility] Alk phos 104 40 - 130 Units/L [facility] ALT 20 7 - 45 Units/L [facility] AST 20 10 - 45 Units/L [facility] Blood 12/19/2023 1:08 PM TRIMMING CASER 12/19/2023 1:33 PM TRIMMING CASER us Melissa Albright MD LAB BLOOD ORDERABLES Final Resul t [facility] [place] [address] * Serum lipid panel (08/01/2013 9:43 PM CDT) Cholesterol 126 0 - 200 mg/dl HISTORICAL RESULTS Comment: Interpretive Data Desirable: <200 mg/dL Borderline high: 200-239 mg/dL High: >240 mg/dL Literature Reference: National Cholesterol Education Program (NCEP) Expert Panel on Detection, Evaluation, and Treatment of High Blood Cholesterol in Adults (Adult Treatment Panel III). Circulation 2004; 110:227. Current interpretive data was last revised on 2005. Triglycerides 73 0 - 150 mg/dl HISTORICAL RESULTS Comment: Interpretive Data Desirable: < 150 mg/dL Borderline High: 150 - 199 mg/dL High: > 200 mg/dL Literature Reference: See Cholesterol Current interpretive data was last revised on 06. HDL 58 40 - 199 mg/dl HISTORICAL RESULTS Comment: Interpretive Data Less than 40 mg/dL - low; A major risk factor for heart disease. Greater than or equal to 60 mg/dL - High; considered protective of heart disease. Literature Reference: See Cholesterol Current interpretive data was last revised on 2007. LDL 53 0 - 129 mg/dl HISTORICAL RESULTS Comment: Interpretive Data Optimal: < 100 mg/dL Near Optimal: 100 - 129 mg/dL Borderline High: 130 - 159 mg/dL High: > 160 mg/dL Literature Reference: See Cholesterol Current interpretive data was last revised on 06. Non-HDL cholesterol, calculated 68 mg/dl HISTORICAL RESULTS Comment: Interpretive Data When triglycerides are >200 mg/dL, non-HDL C is a secondary target of therapy, with a goal 30 mg/dL higher than the identified LDL-C goal. Reference: See Cholesterol Reference. Current interpretive data was last revised 2011. Serum 08/01/2013 9:43 PM CDT Errol Rowland MD LAB BLOOD ORDERABLES Final R esult HISTORICAL RESULTS from Last 3 Months or Most Recently Relevant to Health Maintenance Insurance [facility] Advance Directives For more information, please contact: [phone] Documents on File Type Date Recorded Patient Home Care Administrator Expl anation ADVANCE DIRECTIVE 12/17/2023 7:15 PM Aydt [email or web address] Care Teams Division Plant Engineer Relationship Specialty Start Date End Date Thomas Antonio MD [address] [facility] [address] [place], [place] [id number] PCP - General Internal Medicine 01/11/24 Emily Vigil, RN [address] [address] Furnace Stock Inspector 11/26/23 Yoselyn Nicolas NP [address] [place] [address] [address] [place] [address] Family Medicine 01/11/24
--- OUTSIDE RECORDS SUMMARY | 2024-03-14 11:13 | XMS_ITS | Continuity of Care Document ---
Author Organization [facility] Address [address] [place] [address] Phone Care Team Providers Care Admissions Manager Rn Name Role Phone No Information Unavailable Unavailable Medications Medication Instructions Dosage Effective Dates (start - stop) Status Comments Voltaren Gel/3 Pack Apply 2g to affected Hand 4 x's daily - Active Medrol Dose Pack DIRECTED - Active flector patch APPLY ONE EVERY 12 HOURS TO AFFECTED AREA - Active Medrol Dose Pack DIRECTED - Active DARVOCET-N 100 100-650 MGTABLET Take 1 tablet by mouth qhs - Active Ultram 50 mg Tab Take 1 or 2 tablets by mouth every 4-6 hrs prn for pain. - Active Procedures Procedure Date X-ray exam of foot, complete Partial removal of foot bone Revision of hand/foot nerve Revision of hand/foot nerve PA At Surgery PA At Surgery PA At Surgery Surgical Boot/shoe, Each Walker,Folding Gait training therapy Office/outpatient visit,est, mod 2010 Office/outpatient visit,est, mod 2010 [facility], W/O Joint(s), Prefabricated, Inclu tamar Fittin Ultrasonic guide needle plcmnt S/I Mar- Office/outpatient visit,est, mod 2010 X-ray exam of foot, complete Office/outpatient visit,est, low 2010 Physical Tx excercises each 15 min Ultrasound, each 15 minutes Electrical Muscle Stimulation 0 Manual therapy 1+ regions, ea 15 mn Ultrasound, each 15 minutes Electrical Muscle Stimulation 0 Physical Tx excercises each 15 min Ultrasound, each 15 minutes Electrical Muscle Stimulation 0 Manual therapy 1+ regions, ea 15 mn Ultrasound, each 15 minutes Physical therapy evaluation Ultrasound, each 15 minutes Electrical Muscle Stimulation 0 Electrical Muscle Stimulation 0 Ultrasound, each 15 minutes Physical Tx excercises each 15 min Ultrasound, each 15 minutes Electrical Muscle Stimulation 0 Office/outpatient visit,est, mod 2009 X-ray exam of finger(s),2+ views 2009 Office/outpatient visit,est, mod 2008 Drain/inject major jointor bursa 2008 Kenalog Office/outpatient visit,est, min 2008 Physical Tx excercises each 15 min Ultrasound, each 15 minutes Physical Tx excercises each 15 min Ultrasound, each 15 minutes Physical Tx excercises each 15 min Ultrasound, each 15 minutes Physical Tx excercises each 15 min Ultrasound, each 15 minutes Physical Tx excercises each 15 min Ultrasound, each 15 minutes Physical therapy evaluation Physical Tx excercises each 15 min Office/outpatient visit,est, mod 2008 Drain/inject major jointor bursa 2008 Kenalog X-ray exam of pelvis, 1-2 views 009 X-ray exam of hip, 1 view Electrical Muscle Stimulation Feb-13-200 9 Physical Tx excercises each 15 min Feb-1 -2008 Electrical Muscle Stimulation Feb-16-200 9 Physical Tx excercises each 15 min b-1 -2008 Electrical Muscle Stimulation Feb-18-200 9 Physical Tx excercises each 15 min b1 -2008 Electrical Muscle Stimulation Feb-20-200 9 Ultrasound, each 15 minutes Ultrasound, each 15 minutes Ultrasound, each 15 minutes Electrical Muscle Stimulation Feb-11-200 9 Physical Tx excercises each 15 min Physical therapy evaluation Ultrasound, each 15 minutes Ultrasound, each 15 minutes Ultrasound, each 15 minutes Ultrasound, each 15 minutes Manual therapy 1+ regions, ea 15 mn Ultrasound, each 15 minutes Manual therapy 1+ regions, ea 15 mn Ultrasound, each 15 minutes Manual therapy 1+ regions, ea 15 mn Ultrasound, each 15 minutes Manual therapy 1+ regions, ea 15 mn Ultrasound, each 15 minutes Manual therapy 1+ regions, ea 15 mn Ultrasound, each 15 minutes Manual therapy 1+ regions, ea 15 mn Ultrasound, each 15 minutes Manual therapy 1+ regions, ea 15 mn Ultrasound, each 15 minutes Office/outpatient visit,est, mod 2007 Biofreeze Roll On Office/outpatient visit,est, mod 2007 Inject tndn sheath/lgmnt/gangl cyst Kenalog Manual therapy 1+ regions, ea 15 mn Ultrasound, each 15 minutes Biofreeze Roll On Manual therapy 1+ regions, ea 15 mn Ultrasound, each 15 minutes Manual therapy 1+ regions, ea 15 mn Ultrasound, each 15 minutes Manual therapy 1+ regions, ea 15 mn Ultrasound, each 15 minutes Manual therapy 1+ regions, ea 15 mn Ultrasound, each 15 minutes Manual therapy 1+ regions, ea 15 mn Ultrasound, each 15 minutes Manual therapy 1+ regions, ea 15 mn Ultrasound, each 15 minutes Manual therapy 1+ regions, ea 15 mn Ultrasound, each 15 minutes Physical therapy evaluation Ultrasound, each 15 minutes Drain/inject major jointor bursa 2006 Kenalog X-ray exam of pelvis, 1-2 views 007 X-ray exam of hip, 1 view Tendon sheath incision, finger 05 Office consultation, moderate-high X-ray exam of finger(s),2+ views 2004 Advance Directives Directive Yes / No Effective Date File Name No Information Encounters Encounter Description Practice Location Reason(s) For Visit Diagnoses Date Provider Providers Copied on Encounter [facility], [address] [place] [address], [id number], tel:[phone] No Information June-0 1 No Information [facility], [address] [place] [address], [id number], tel:[phone] [facility] No Information 1 Juanjo Negron. [address] [place] [address], [id number], . tel:[phone] Referring Provider: Steven Galvez, [facility] [address], [place], [address] . tel:[phone] [facility], [address] [place] [address], [id number], tel:[phone] [facility] No Information [address], [place], [place], [id number], . tel:[phone] [facility], [address] [place] [address], [id number], tel:[phone] [facility] No Information Apr-1 5- 1 Jimmy Blanco [address], [place], [place], [id number], . tel:[phone] Referring Provider: Steven Galvez, [address], [place], [address] . tel:[phone] [facility], [address] [place] [address], [id number], tel:[phone] [facility] No Information Apr-0 8-201 1 Jimmy Blanco [address], [place], [place], [id number], . tel:[phone] Office/outpat ient visit,[facility], [facility], [address] [place] [address], [id number], tel:[phone] [facility] No Information Mar-1 0- 1 Jimmy Blanco [address], [place], [place], [id number], [place]. tel:[phone] Referring Provider: [address], [place], [address]. tel:[phone] Office/outpat ient visit,[facility], [address] [place] [address], [id number], tel:[phone] [facility] No Information Mar-0 3-201 1 Alice Bowman. [address], [place], [id number], [place]. tel:[phone] Referring Provider: [address], [place], [address]. tel:[phone] [facility], [address] [place] [address], [id number], tel:[phone] [facility] No Information Mar-0 3-201 1 Jeffrey De. [address] [place] [address], [id number], . tel:[phone] Referring Provider: Santino Yan, [address] [place] [address], [id number] . tel:[phone] [facility], [address] [place] [address], [id number], tel:[phone] [facility] No Information 1 Sandra Miller. [address] [place] [address], [id number], . tel:[phone] Referring Provider: Lelia Mitchell, [address], [place], [address]. tel:[phone] Office/outpat ient visit,est, [facility], [address] [place] [address], [id number], tel:[phone] [facility] No Information 1 [facility]. [facility] [address], [place], [place], [id number], . tel:[phone] Referring Provider: Lelia Mitchell, [address], [place], [address]. tel:[phone] Office/outpat ient visit,est, [facility], [address] [place] [address], [id number], tel:[phone] [facility] No Information 1 Jeffrey De. [address] [place] [address], [id number], . tel:[phone] Referring Provider: Lelia Mitchell, [address], [place], [address]. tel:[phone] [facility], [address] [place] [address], [id number], tel:[phone] [facility] No Information 0 Jeffrey De. [address] [place] [address], [id number], . tel:[phone] [facility], [address] [place] [address], [id number], tel:[phone] [facility] No Information Dec-1 0-201 0 Jeffrey Santino. [address] [place] [address], [id number], . tel:[phone] Office/outpat ient visit,[facility], [facility], [address] [place] [address], [id number], tel:[phone] [facility] No Information Dec-0 8-201 0 Alice Bowman. [address], [place], [id number], [place]. tel:[phone] Referring Provider: [address], [place], [address]. tel:[phone] Office/outpat ient visit,[facility], [facility], [address] [place] [address], [id number], tel:[phone] [facility] No Information Nov-0 7-200 9 Nichol Wise. [address] [place] [address], [id number], [place]. tel:[phone] Referring Provider: [address], [place], [address]. tel:[phone] Office/outpat ient visit,[facility], [facility], [address] [place] [address], [id number], tel:[phone] [facility] No Information Oct-0 9-200 9 Nicholbrenton Wise. [address] [place] [address], [id number], . tel:[phone] Referring Provider: [address], [place], [address]. tel:[phone] [facility], [address] [place] [address], [id number], tel:[phone] [facility] No Information Sep-2 7-200 9 Melyssa Garner. [address] [place] [address], [id number], . tel:[phone] [facility], [address] [place] [address], [id number], tel:[phone] [facility] No Information 9 Melyssa Garner. [address] [place] [address], [id number], . tel:[phone] [facility], [address] [place] [address], [id number], tel:[phone] [facility] No Information 0 200 9 Melyssa Garner. [address] [place] [address], [id number], . tel:[phone] [facility], [address] [place] [address], [id number], tel:[phone] [facility] No Information 9 Melyssa Garner. [address] [place] [address], [id number], . tel:[phone] Office/outpat ient visit,est, mod [facility], [address] [place] [address], [id number], tel:[phone] [facility] No Information 9 Nichol Wise. [address] [place] [address], [id number], . tel:[phone] Referring Provider: Lelia Mitchell, [address], [place], [address]. tel:[phone] [facility], [address] [place] [address], [id number], tel:[phone] [facility] No Information 9 Cipriano Acevedo. [address], [place], [address], [place]. tel:[phone] Referring Provider: Lexx Cardoso, [address], [place], [address]. tel:[phone] [facility], [address] [place] [address], [id number], [place] tel:[phone] [facility] No Information 9 Cipriano Acevedo. [address] [place], [address], [place]. tel:[phone] Referring Provider: Lexx Cardoso, [address], [place], [address]. tel:[phone] [facility], [address] [place] [address], [id number], tel:[phone] [facility] No Information 9 Cipriano Acevedo. [address] [place], [address], [place]. tel:[phone] Referring Provider: Lexx Cardoso, [address] [place] [address] [address], [place], [address]. tel:[phone] [facility], [address] [place] [address], [id number], tel:[phone] [facility] No Information Sep-2 200 8 Melyssa Garner. [address] [place] [address], [id number], [place]. tel:[phone] [facility], [address] [place] [address], [id number], tel:[phone] [facility] No Information Oct-1 200 8 Melyssa Garner. [address] [place] [address], [id number], . tel:[phone] [facility], [address] [place] [address], [id number], tel:[phone] [facility] No Information Sep-0 3200 8 Cota Curtis. [address] [place], [address], [place]. tel:[phone] Referring Provider: Pascual Salazar, [address] [place] [address], [id number] . tel:[phone] Office/outpat ient visit,est, mod [facility], [address] [place] [address], [id number], [place] tel:[phone] [facility] No Information 7200 8 Golz Pascual. [address] [place] [address], [id number], . tel:[phone] [facility], [address] [place] [address], [id number], tel:[phone] [facility] No Information 8 Golz Pascual. [address] [place] [address], [id number], [place]. tel:[phone] [facility], [address] [place] [address], [id number], tel:[phone] [facility] No Information 8 Jesus Pammela. [address] [place] [address], [id number], . tel:[phone] Office/outpat ient visit,est, mod [facility], [address] [place] [address], [id number], tel:[phone] [facility] No Information 2200 8 Golz Pascual. [address] [place] [address], [id number], . tel:[phone] [facility], [address] [place] [address], [id number], tel:[phone] [facility] No Information 200 7 Golz Pascual. [address] [place] [address], [id number], [place]. tel:[phone] [facility], [address] [place] [address], [id number], tel:[phone] [facility] No Information 2 7 Jesus Pammela. [address] [place] [address], [id number], . tel:[phone] [facility], [address] [place] [address], [id number], tel:[phone] [facility] No Information 200 7 Melyssa Garner. [address] [place] [address], [id number], . tel:[phone] [facility], [address] [place] [address], [id number], tel:[phone] [facility] No Information Jan-0 4-200 7 Melyssa Garner. [address] [place] [address], [id number], . tel:[phone] [facility], [address] [place] [address], [id number], tel:[phone] [facility] No Information 200 7 Melyssa Garner. [address] [place] [address], [id number], . tel:[phone] [facility], [address] [place] [address], [id number], tel:[phone] [facility] No Information 0200 7 Melyssa Garner. [address] [place] [address], [id number], [place]. tel:[phone] [facility], [address] [place] [address], [id number], tel:[phone] [facility] No Information 7 Nichol Wise. [address] [place] [address], [id number], . tel:[phone] [facility], [address] [place] [address], [id number], tel:[phone] [facility] No Information 5 Jeffrey De. [address] [place] [address], [id number], . tel:[phone] Office consultation, moderate-high [facility], [address] [place] [address], [id number], tel:[phone] [facility] No Information 200 5 Narayan Schafer. [address] , [place], [address], [place]. tel:[phone] Family History Family Member Type Diagnosis Age At Onset No Information Payers Payer name Insurance type Covered green party ID Mark storey(s[id number] Social History Type Description Quantity Date Captured Comments Sex Female Smoking Status No Information Chief Complaint And Reason For Visit No Information Reason For Referral Reason For Referral No Information History Of Present Illness Encounter Date Complaint History Of Prese nt Illness No Information Functional Status Date Functional Assessmen t No Information Instructions Date Instruction Additional Infor mation No Information Assessments Type Assessment Date No Information Patient Care Teams Name Effective Dates (start - stop) Status Members No Information
--- OUTSIDE RECORDS SUMMARY | 2024-03-14 11:13 | XMS_ITS | Referral Summary ---
Author Organization [facility] Address [address] [facility] [place] [address] Care Team Providers Care Hand Tube Bender Name Role Phone Thomas Antonio MD Primary Care Provider [phone] Source Comments [facility],non-owned Affiliates and Associated Physician Practices is amultiple site organization consisting of ambulatory clinics and hospital sitesin [place], [place], [place]. This disclosure is being madepursuant to the Care Everywhere program and may not contain all information available regarding this patient. Last updated 17.[facility] Allergies Active Allergy Reactions Criticality Noted Date Comments Meperidine Other 12/06/2023 unknown Morphine Nausea and/or Vomiting,Unknown High 06/08/2016 Other reaction(s): Nausea and vomitin - Other reaction(s): Nausea and vomitin - Penicillins Unknown High 07/16/2015 Other reaction(s): TONGUE SWELLS - Other reaction(s): TONGUE SWELLS - Sulfa Antibiotics Swelling,Unknown High 07/16/2015 Other reaction(s): TONGUE SWELLS - Medications * Be aware that medications may not be up to date on this document. Alwaysverify current medications with the patient. Medication Sig Dispensed Refills Start Date End Date Status torsemide (Demadex) 20 MG tablet TAKE 2 TABLETS EVERY MORNING AND 2 TABLETS EVERY EVENING NEEDED FOR WEIGHT INCREASE OVER 5 POUNDS Active metoprolol succinate XL 24hr (Toprol XL) 100 MG tablet Take 1 (one) tablet by mouth once daily 07/24/2023 Active spironolactone (Aldactone) 25 MG tablet TAKE 1 TABLET BY MOUTH EVERY DAY WITH FOOD Active metFORMIN ER 24hr (Glucophage XR) 500 MG tablet Active potassium chloride ER 10 MEQ tablet Active allopurinol (Zyloprim) 300 MG tablet Take 1 (one) tablet by mouth once daily Active Farxiga 10 MG tablet Take 1 (one) tablet by mouth every morning 12/18/2022 Active pantoprazole EC (Protonix) 40 MG tablet Take 1 (one) tablet by mouth every morning 11/13/2023 Active MAGNESIUM PO Take 500 mg by mouth 2 times daily Active Glucosamine Sulfate 1000 MG Take 1 capsule by mouth 2 times daily Active Cyanocobalamin 1000 MCG Take 1,000 mcg by mouth once daily Active Xarelto 20 MG tablet Take 1 (one) tablet by mouth once daily Active pravastatin (Pravachol) 40 MG tablet Take 1 (one) tablet by mouth once daily Active coenzyme Q10 100 MG capsule Take 100 (one hundred) mg by mouth once daily Active Social History Tobacco Use Types Packs/Day Years [...] Mass Index 36.07 12/06/2023 8:56 AM CDT Plan of Treatment Not on file Care Teams Hand Tube Bender Relationship Specialty Start Date End Date Thomas Antonio MD [address] [facility] [address] [place] [address] PCP - General Internal Medicine 12/06/23
--- OUTSIDE RECORDS SUMMARY | 2024-03-14 11:13 | XMS_ITS | Encounter Summary ---
Author Organization [facility] Address [facility] [place] [address] Care Team Providers Care Publishing Systems Analyst Name Role Phone Valentin Mitchell MD Primary Care Provider [phone] Vasquez Akins MD Unavailable Unavailable Encounter Details Date Type Department Care Team (Late st Contact Info) Description 03/16/2015 Abstract [facility] [address] [place] [address] Mary Ríos MD Social History Tobacco Use Types Packs/Day Years Used Date Smoking Tobacco: Never Alcohol Use Standard Drinks/Week Comments No 0 (1 standard drink = 0.6 oz pur e alcohol) Comments Unknown Sex and Gender Information Value Date Recorded Sex Assigned at Not on file Legal Sex Female 9:47 PM CDT Gender Identity Not on file Sexual Orientation Not on file Occupation Industry Job Start Date Job 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 Not on file Not on file No t on file documented as of this encounter Plan of Treatment Not on file documented as of this encounter Visit Diagnoses Not on filedocumented in this encounter Care Teams Publishing Systems Analyst Relationship Specialty Start Date End Date Valentin Mitchell MD [address] [place] [address] PCP - General INTERNAL MEDICINE 06/08/16 Vasquez Akins MD [facility] [place] [address] Kehinde Buttonholer Electrophysiology 02/13/17 documented as of this encounter
--- OUTSIDE RECORDS SUMMARY | 2024-03-14 11:13 | XMS_ITS ---
Author Organization [facility] [address] [place] [address] Care Team Providers Care Assistant Fitness Manager Name Role Phone Emily Vigil RN Unavailable [phone] Thomas Antonio MD Primary Care Provider [phone] Yoselyn Nicolas NP Unavailable [phone] Transplant Episode Liver Candidate [facility] ([place], [place]) - [facility] Evaluation began on 11/27/2023 Marked as Active on 11/27/2023 Reason: Evaluation - Hepatoma Liver CoordinatorEmily Vigil RN Fax: N/A Email: N/A Scores Score Value Updated Expires Exceptions/[place]clave sons CPRA Not available UNOS MELD Not available MELD (Calc) 17 03/12/2024 [place] Organ Diagnosis Organ Primary Contributory Liver Other, Specify - liver mass Care Team Name Role Phone Fax Email Emily Vigil RN Liver Coordinator [phone] N/A N/A Antonieta Campuzano Primary Parts Department Supervisor N/A N/A N/A Emily Ann RN Secondary Coordinator N/A N/A N/A Anne-Marie Cummings Pharmaceutical Sales Specialist [phone] N/A N/A Events Pre-Transplant Referred: 11/26/2023 Evaluation began: 11/27/2023 Appointments (02/12/2024 - 04/11/2024) When With Visit Type Description 03/12/2024 Radiology - Anais Albright MRI Imaging Visit Li calista mass 03/12/2024 Transplant - Martin Morrison Return Liver mass (Primary Dx); Alcoholic cirrhosis of liver without ascites (CMS/HCC) (HCC); Cirrhosis of liver without ascites, unspecified hepatic cirrhosis type (HCC)
--- OUTSIDE RECORDS SUMMARY | 2024-03-14 11:13 | XMS_ITS ---
Author Organization [facility] [address] [place] [address] Care Team Providers Care Blurb Writer Name Role Phone Emily Vigil RN Unavailable [phone] Thomas Antonio MD Primary Care Provider [phone] Yoselyn Nicolas NP Unavailable [phone] Active Problems Problem Noted Date Diagnosed Date [...] 05/15/2022 Overview (12/19/2023): Updated per IMO upload [id number] Hypokalemia 05/15/2022 HLD (hyperlipidemia) 05/15/2022 Lower GI [...] failure with preserved left ventricular function (HFpEF) ([facility]) 04/05/2017 Thyroiditis, unspecified 09/27/2016 Overview (12/19/2023): DX update IMO 11/05 content release Obstructive sleep apnea syndrome 11/17/2015 Multiple pulmonary nodules 09/16/2014 Disorder of lung 08/13/2014 Persistent atrial fibrillation 07/08/2014 Essential hypertension 07/08/2014 Obesity with body mass index 30 or greater 09/05 Diabetes mellitus 11/04/2012 Obstructive sleep apnea syndrome 11/04/2012 Current Oncology Plans No current plan information found. Past Plans No past plan information found. Radiation Treatments * No radiation treatments are documented for this patient in Epic. Treatments may have been administered in another system. Lifetime Dose Tracking * Chemical Lifetime Dose Automatic Entry Manual Entr y DLP 258 mGycm 258 mGycm 0 mGycm Resolved Problems Problem Noted Date Diagnosed Date Resolved Date Dysrhythmia 12/19/2023 01/14/2024 Overview (12/19/2023): a fib Hypercholesterolemia 12/19/2023 024 Varicose veins of both lower extremities 12/19/2023 01/14/2024 Hypertensive disorder 12/19/20232023 SVT (supraventricular tachycardia) 05/15/2022 01/14/2024 Overview (12/19/2023): age 14 Congestive heart failure ([facility]) 06/16/2016 01/14/2024 Acute on chronic diastolic c ongestive heart failure ([facility]) 06/08/2016 01/14/2024 Heart failure 01/21/2015 01/14/2024 Atrial fibrillation (CMS/HCC) 11/04/2012 01/14/2024 Hypertension 11/04/2012 01/14/2024 Obesity 11/04/2012 12/19/2023
--- OUTSIDE RECORDS SUMMARY | 2024-03-14 11:13 | XMS_ITS | Clinical Summary ---
Author Organization [facility] Address [facility] [place] [address] Care Team Providers Care Precision Dancer Name Role Phone Valentin Mitchell MD Primary Care Provider [phone] Vasquez Akins MD Unavailable Unavailable Allergies Active Allergy Reactions Criticality Noted Date Comments Meperidine Unknown 07/16/2015 Morphine Nausea and Vomiting 06/08/2016 Other reaction(s): Nausea and vomitin - Penicillins Unknown 07/16/2015 Sulfa Antibiotics Unknown 07/16/2015 Rivaroxaban Unknown 07/16/2015 - Medications Multiple Vitamins-Minera ls (CENTRUM SILVER) Tab Take 1 tablet by mouth daily. 09/02/2010 Active pravastatin (PRAVACHOL) 40 MG tablet Take 1 tablet by mouth daily. 01/12/2012 Active sertraline (ZOLOFT) 50 MG tablet Take 1 tablet by mouth daily. 04/28/2010 Active Coenzyme Q10 (CO Q-10) 100 MG Cap Active probiotic capsule Take 1 capsule by mouth 3 (three) times daily with meals. Active calcium carb-cholecalci ferol (CALTRATE 600+D) 600-800 MG-UNIT tablet Take 1 tablet by mouth daily. Active furosemide 40 MG tablet Takes 1 tablet twice a day 90 tablet 3 11/14/2016 Active spironolactone 25 MG tablet Take 1 tablet (25 mg total) by mouth daily. 11/14/2016 Active omega-3 fatty acid 1000 MG capsule Take 1 capsule (1,000 mg total) by mouth 2 (two) times daily. 11/14/2016 Active lisinopril 5 MG tablet Take 1 tablet (5 mg total) by mouth daily. 90 tablet 3 12/26/2016 Active warfarin 6 MG tablet Take 6 mg by mouth daily. Active Magnesium 500 MG Tab Take by mouth 2 (two) times daily. Active Active Problems Problem Noted Date Diagnosed Date Atrial fibrillation, persistent ([facility] ) 07/04/2016 Long-term (current) use of anticoagulants 2016 Acute on chronic diastolic c ongestive heart failure ([facility]) 06/08/2016 SVT (supraventricular tachycardia) ([facility]) Overview (06/07/2016): age 14 Obstructive sleep apnea sergo letty with bilevel positive airway pressure (BiPAP) Obesity OA (osteoarthritis) Migraines HTN (hypertension) HLD (hyperlipidemia) Depression Bleeding on Coumadin Borderline diabetes Persistent atrial fibrillation ([facility]) CHF (congestive heart failure) ([facility]) Atrial fibrillation ([facility]) Family History Medical History Relation Comments Sudden Father Relation Status Comments Father Social History Tobacco Use Types Packs/Day Years Used Date Smoking Tobacco: Never Smokeless Tobacco: Never Alcohol Use Standard Drinks/Week Comments No 0 (1 standard drink = 0.6 oz pur e alcohol) Comments Unknown Sex and Gender Information Value Date Recorded Sex Assigned at Not on file Legal Sex Female 9:47 PM CDT Gender Identity Not on file Sexual Orientation Not on file Occupation Industry Job Start Date Job End Date 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 Not on file Not on file No t on file Last Filed Vital Signs Vital Sign Reading Time Taken Comments Blood Pressure 108/68 02/23/2017 10:17 AM SEWING ROOM SUPERVISOR Pulse 83 02/23/2017 10:17 AM SEWING ROOM SUPERVISOR Temperature - - Respiratory Rate 18 12/26/2016 9:26 AM SEWING ROOM SUPERVISOR Oxygen Saturation 97% 02/23/2017 10:17 AM SEWING ROOM SUPERVISOR Inhaled Oxygen Concentration - - Weight 112.5 kg (248 lb) 02/23/2017 10:17 AM SEWING ROOM SUPERVISOR Height 162.6 cm (5' 4 ) 02/23/2017 10:17 AM SEWING ROOM SUPERVISOR Body Mass Index 42.57 02/23/2017 10:17 AM SEWING ROOM SUPERVISOR Plan of Treatment Health Maintenance Due Date Last Done Comments Pneumococcal Vaccine: 65+ Ye ars (1 of 2 - PCV) 1946 DTaP, Tdap and Td Vaccines ( 1 - Tdap) 02/26/1960 Zoster Vaccines (1 of 2) 1991 Dexa Scan (General) 2006 RSV Immunization or 60+ Years (1 - 1-dose 75+ series) 02/26/2016 COVID-19 Vaccine ( - 2023-2 5 season) 2023 Influenza Adult (#1) 2023 Meningococcal B Vaccine Aged Out No l onger eligible based on patient's age to complete this topic Meningococcal Vaccine Aged Out No екатерина molina eligible based on patient's age to complete this topic RSV Immunizations Under 20 Months Aged Out No longer eligible based on patient's age to complete this topic Insurance [employer] OPEN ACCESS [facility] Care Teams Precision Dancer Relationship Specialty Start Date End Date Valentin Mitchell MD [address] [place] [address] PCP - General INTERNAL MEDICINE 06/08/16 Vasquez Akins MD [address] [place] [address] Kehinde Certified Income Tax Preparer Electrophysiology 02/13/17
--- OUTSIDE RECORDS SUMMARY | 2024-03-14 11:13 | XMS_ITS | Clinical Summary ---
Author Organization [facility] [employer] [facility] [employer] Address [address] [facility] [place] [address] Care Team Providers Care Surveillance Monitor Name Role Phone Thomas Antonio MD Primary Care Provider [phone] Source Comments [facility] [employer] [facility] [employer],non-owned Affiliates and Associated Physician Practices is amultiple site organization consisting of ambulatory clinics and hospital sitesin [place] and [place]. This disclosure is being madepursuant to the Care Everywhere program and may not contain all information available regarding this patient. Last updated 17.[facility] [employer] [facility] [employer] Allergies Active Allergy Reactions Criticality Noted Date [...] 12/06/2023 8:56 AM CDT Plan of Treatment Health Maintenance Due Date Last Done Comments BONE DENSITY TESTING 1941 DTAP/TDAP/TD VACCINES (1 - Tdap) 02/26/1960 PNEUMOCOCCAL VACCINE 50+ (1 of 1 - PCV) 1991 ZOSTER VACCINE (1 of 2) 1991 Respiratory Syncytial Virus (RSV) Vaccine Pt: or over 60 yrs (1 - 1-dose 75+ series) 02/26/2016 COVID-19 VACCINE ( - 2023-2 5 season) 2023 INFLUENZA VACCINE (#1) 2023 11/06/2019 DEPRESSION SCREENING 02/06/2024 HEPATITIS B VACCINE Aged Out No longe r eligible based on patient's age to complete this topic HIB VACCINE Aged Out No longer eligi ble based on patient's age to complete this topic HPV VACCINE Aged Out No longer eligi ble based on patient's age to complete this topic MENINGOCOCCAL (Group B) VACCINE Aged Out No longer eligible based on patient's age to complete this topic MENINGOCOCCAL VACCINE Aged Out No екатерина molina eligible based on patient's age to complete this topic Care Teams Surveillance Monitor Relationship Specialty Start Date End Date Thomas Antonio MD [address] [facility] [address] [place] [address] PCP - General Internal Medicine 12/06/23
--- OUTSIDE RECORDS SUMMARY | 2024-03-14 11:14 | XMS_ITS | Referral Summary ---
Author Organization [facility] [address] [place] [address] Care Team Providers Care Scrap Sorter Name Role Phone Emily Vigil RN Unavailable [phone] Thomas Antonio MD Primary Care Provider [phone] Yoselyn Nicolas NP Unavailable [phone] Encounters Date Type Department Care Team Description 03/12/2024 2:15 PM CRYSTAL GRINDER Lab [facility] Advanced [facility] ([facility]) [address] [place] [phone] Liver mass; Cirrhosis of liver without ascites, unspecified hepatic cirrhosis type (HCC) 03/12/2024 9:20 AM CRYSTAL GRINDER - 03/12/2024 11:59 PM CRYSTAL GRINDER Hospital Encounter [facility]iology [facility] ([facility]) [address] [place] [address] Melissa Albright MD Liver mass Discharge Disposition: Discharge to home or self care 03/12/2024 8:30 AM CRYSTAL GRINDER Office Visit [facility] Gasteroenterology [address] [place] [address] Advanced Medicine 12th [place] [address] [place] [address] Neelam Morrison MD Liver mass (Primary Dx); Alcoholic cirrhosis of liver without ascites (CMS/HCC) (HCC); Cirrhosis of liver without ascites, unspecified hepatic cirrhosis type (HCC) 01/21/2024 1:30 PM CRYSTAL GRINDER Ancillary Procedure [facility] Cardiology [address] [facility] [address] [place] [address] Persistent atrial fibrillation (HCC) 01/14/2024 Telephone [facility] Cardiology [address] [facility] [facility] [address] [place] [address] Alin Gorman MD 01/14/2024 1:30 PM CRYSTAL GRINDER Office Visit [facility] Cardiology [address] [place] [address] [address] [place] [address] Alin Gorman MD Persistent atrial fibrillation (HCC) (Primary Dx); PAF (paroxysmal atrial fibrillation) (CMS/HCC) (HCC); Pulmonary hypertension, unspecified (HCC); Heart failure with preserved left ventricular function (HFpEF) (CMS/HCC) (HCC); Essential hypertension; Mixed hyperlipidemia; Pulmonary hypertension (HCC); Obstructive sleep apnea syndrome; Severe obesity (HCC) 12/26/2023 Telephone [facility] Transplant Liver [address] [facility] [address] [facility] [place] [address] Antonieta Campuzano 12/25/2023 Telephone [facility] Transplant Liver [address] [facility] [address] [facility] [place] [address] Antonieta Campuzano 12/25/2023 Documentation [facility] Transplant Liver [address] [facility] [address] [facility] [place] [address] Emily Vigil, RN 12/21/2023 Telephone [facility] Transplant Liver [address] [facility] [address] [place] [address] Antonieta Campuzano 12/21/2023 Telephone [facility] Transplant Liver [address] [facility] [address] [place] [address] Emiyl Vigil, RN 12/20/2023 Telephone [facility] Gasteroenterology [address] [place] [address] 12th [place] [address] [place] [address] Melissa Albrihgt MD 12/19/2023 3:40 PM CRYSTAL GRINDER Lab [facility] ([facility]) [address] [place] [address] Liver mass 12/19/2023 9:30 AM CRYSTAL GRINDER Office Visit [facility] Surgery [address] [place] [address] 12th [place] [address] [place] [address] Arabella Garg MD Liver mass (Primary Dx); Diverticulitis of large intestine with perforation and abscess without bleeding 12/19/2023 8:30 AM CRYSTAL GRINDER Office Visit [facility] Gasteroenterology [address] [place] [address] 12th [place] [address] [place] [address] Melissa Albright MD Liver mass (Primary Dx); Abnormal liver diagnostic imaging 12/19/2023 11:00 AM CRYSTAL GRINDER Office Visit [facility] Radiology, Interventional Radiology [address] [facility] [address] [place] [address] Kane Sweeney MD Diagnosis unknown (Primary Dx); Liver mass; Heart failure, unspecified HF chronicity, unspecified heart failure type (HCC) 12/19/2023 1:00 PM CRYSTAL GRINDER - 12/19/2023 11:59 PM CRYSTAL GRINDER Hospital Encounter [facility] ([facility]) [address] [place] [address] Neelam Morrison MD Liver mass Discharge Disposition: Discharge to home or self care from Last 3 Months Allergies Active Allergy Reactions Criticality Noted Date [...] 1 tablet (10 mg total) 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 3 Active cyanocobalamin (Vitamin B-12) [...] mg total) by mouth daily Active john [id number]-c op-man-bor 250-40-125 mg-mg-unit tablet Take by mouth [...] 05/15/2022 Overview (12/19/2023): Updated per IMO upload [id number] Hypokalemia 05/15/2022 HLD (hyperlipidemia) 05/15/2022 Lower GI [...] with preserved left ventricular function (HFpEF) (CMS/HCC) 04/05/2017 Thyroiditis, unspecified 09/27/2016 Overview (12/19/2023): DX [...] Overview (12/19/2023): age 14 Congestive heart failure ([facility]) 06/16/2016 01/14/2024 Acute on chronic diastolic c ongestive heart failure ([facility]) 06/08/2016 01/14/2024 Heart failure 01/21/2015 01/14/2024 Atrial fibrillation ([facility]) 11/04/2012 01/14/2024 Hypertension 11/04/2012 01/14/2024 Obesity 11/04/2012 12/19/2023 Social History Tobacco Use Types Packs/Day Years Used Date Smoking Tobacco: Never Smokeless Tobacco: Never Tobacco Cessation:Counseling Given: Not Answered Comments Unknown Sex and Gender Information Value Date Recorded Sex Assigned at Not on file Legal Sex Female 5:37 AM CRYSTAL GRINDER Gender Identity Not on file Sexual Orientation Not on file Last Filed Vital Signs Vital Sign Reading Time Taken Comments Blood Pressure 118/76 03/12/2024 8:31 AM CRYSTAL GRINDER Pulse 109 03/12/2024 8:31 AM CRYSTAL GRINDER Temperature 36.2 C (97.1 F) 03/12/2024 8:31 AM CRYSTAL GRINDER Respiratory Rate - - Oxygen Saturation 96% 01/14/2024 1:12 PM CRYSTAL GRINDER Inhaled Oxygen Concentration - - Weight 90.9 kg (200 lb 6.4 oz) 03/12/2024 8:31 A M CRYSTAL GRINDER Height 160 cm (5' 3 ) 03/12/2024 8:31 AM CRYSTAL GRINDER Body Mass Index 35.5 03/12/2024 8:31 AM CRYSTAL GRINDER Plan of Treatment Not on file Procedures Procedure Name Priority Date/Time Associated Diagnosis Comments EGFR Routine 03/12/2024 12:30 PM CRYSTAL GRINDER Liver mass Cirrhosis of liver without ascites, unspecified hepatic cirrhosis type (HCC) DIFFERENTIAL AUTO Routine 03/12/2024 12:30 PM CRYSTAL GRINDER Liver mass Cirrhosis of liver without ascites, unspecified hepatic cirrhosis type (HCC) [id number], TUMOR MARKER Routine 03/12/2024 12:30 PM CRYSTAL GRINDER Liver mass Cirrhosis of liver without ascites, unspecified hepatic cirrhosis type (HCC) BILIRUBIN, DIRECT Routine 03/12/2024 12:30 PM CRYSTAL GRINDER Liver mass Cirrhosis of liver without ascites, unspecified hepatic cirrhosis type (HCC) CBC WITH AUTO DIFFERENTIAL Routine 03/12/2024 12:30 PM CRYSTAL GRINDER Liver mass Cirrhosis of liver without ascites, unspecified hepatic cirrhosis type (HCC) COMPREHENSIVE METABOLIC PANEL Routine 03/12/2024 12:30 PM CRYSTAL GRINDER Liver mass Cirrhosis of liver without ascites, unspecified hepatic cirrhosis type (HCC) PROTIME-INR Routine 03/12/2024 12:30 PM CRYSTAL GRINDER Liver mass Cirrhosis of liver without ascites, unspecified hepatic cirrhosis type (HCC) MRI ABDOMEN W WO CONTRAST Schedule Routine, Read Routine (OP Routine) 03/12/2024 11:55 AM CRYSTAL GRINDER Liver mass HOLTER MONITOR 24 HR Routine 01/21/2024 3:12 PM CRYSTAL GRINDER Persistent atrial fibrillation (HCC) CT CHEST WO CONTRAST Schedule Routine, Read Routine (OP Routine) 12/19/2023 2:53 PM CRYSTAL GRINDER Liver mass EGFR Routine 12/19/2023 1:08 PM CRYSTAL GRINDER Liver mass DIFFERENTIAL AUTO Routine 12/19/2023 1:08 PM CRYSTAL GRINDER Liver mass CANCER ANTIGEN 19-9 Routine 12/19/2023 1:08 PM CRYSTAL GRINDER Liver mass JAYNA QUALITATIVE WITH REFLEX TO JAYNA QUANTITATIVE Routine 12/19/2023 1:08 PM CRYSTAL GRINDER Liver mass [id number] Routine 12/19/2023 1:08 PM CRYSTAL GRINDER Liver mass CBC WITH AUTO DIFFERENTIAL Routine 12/19/2023 1:08 PM CRYSTAL GRINDER Liver mass COMPREHENSIVE METABOLIC PANEL Routine 12/19/2023 1:08 PM CRYSTAL GRINDER Liver mass PROTIME-INR Routine 12/19/2023 1:08 PM CRYSTAL GRINDER Liver mass IRON PROFILE W/ IBC Routine 12/19/2023 1:08 PM CRYSTAL GRINDER Liver mass HEMOCHROMATOSIS HFE GENE ANALYSIS Routine 12/19/2023 1:08 PM CRYSTAL GRINDER Liver mass FERRITIN Routine 12/19/2023 1:08 PM CRYSTAL GRINDER Liver mass THYROID FUNCTION CASCADE Routine 024 1:08 PM CRYSTAL GRINDER Liver mass SMOOTH MUSCLE ANTIBODY, QUANTITATIVE Routine 12/19/2023 1:08 PM CRYSTAL GRINDER Liver mass PHOSPHATIDYLETHANOL Routine 12/19/2023 1:08 PM CRYSTAL GRINDER Liver mass [id number], TUMOR MARKER Routine 12/19/2023 1:08 PM CRYSTAL GRINDER Liver mass MITOCHONDRIAL ANTIBODIES, QUALITATIVE Routine 12/19/2023 1:08 PM CRYSTAL GRINDER Liver mass HEMOGLOBIN A1C Routine 12/19/2023 1:08 PM CRYSTAL GRINDER Liver mass SERUM LIPID PANEL Routine 08/01/2013 9:43 PM CDT from Last 3 Months or Most Recently Relevant to Health Maintenance Results * (ABNORMAL) eGFR (03/12/2024 12:30 PM CRYSTAL GRINDER) Pathologist [facility] eGFR 40(L) >=60 mL/min/1. 73 m2 Comment: [...] Inclusion of Race in Diagnosing Kidney Disease, [employer]UES[employer]cides 2020). The CKD-EPI equation should not be used for patients with unstable renal function and has not been validated in children and those over 70. Current interpretive data was last reviewed 2020. Blood 03/12/2024 12:3 0 PM CRYSTAL GRINDER 03/12/2024 12:50 PM CRYSTAL GRINDER us Neelam Morrison MD LAB BLOOD ORDERABLES Final Result [facility] [place] [address] * Differential, auto (03/12/2024 12:30 PM CRYSTAL GRINDER) Pathologist [facility] Neutrophil abs 4.8 1.5 - 6.5 K/cumm Imm gran abs 0.0 0.0 - 0.1 K/cumm [facility] Lymphocyte abs 1.4 0.8 - 3.3 K/cumm [facility] Monocyte abs 0.8 0.2 - 0.8 K/cumm [facility] Eosinophil abs 0.3 0.0 - 0.5 K/cumm [facility] Basophil abs 0.1 0.0 - 0.1 K/cumm [facility] Neutrophil pct 65.7 % [facility] Comment: Interpretive Data Percent cell count reference ranges are not reported, since discordance with absolute values may lead to misinterpretation of CBC data. Current Interpretive Data was last revised on 2017. Imm gran pct 0.3 % [facility] Comment: Interpretive Data Percent cell count reference ranges are not reported, since discordance with absolute values may lead to misinterpretation of CBC data. Current Interpretive Data was last revised on 2017. Lymphocyte pct 18.5 % [facility] Comment: Interpretive Data Percent cell count reference ranges are not reported, since discordance with absolute values may lead to misinterpretation of CBC data. Current Interpretive Data was last revised on 2017. Monocyte pct 11.2 % [facility] Comment: Interpretive Data Percent cell count reference ranges are not reported, since discordance with absolute values may lead to misinterpretation of CBC data. Current Interpretive Data was last revised on 2017. Eosinophil pct 3.5 % [facility] Comment: Interpretive Data Percent cell count reference ranges are not reported, since discordance with absolute values may lead to misinterpretation of CBC data. Current Interpretive Data was last revised on 2017. Basophil pct 0.8 % [facility] Comment: Interpretive Data Percent cell count reference ranges are not reported, since discordance with absolute values may lead to misinterpretation of CBC data. Current Interpretive Data was last revised on 2017. Blood 03/12/2024 12:3 0 PM CRYSTAL GRINDER 03/12/2024 12:50 PM CRYSTAL GRINDER us Neelam Morrison MD LAB BLOOD ORDERABLES Final Result [facility] Department [place] [address] * CBC with auto differential (03/12/2024 12:30 PM CRYSTAL GRINDER) WBC 7.3 3.8 - 9.9 K/cumm Hgb 14.5 11.9 - 15.5 g/dL [facility] Hct 42.7 35.6 - 45.5 % [facility] Plt 221 150 - 400 K/cumm [facility] MPV 10.9 9.1 - 12.3 fL [facility] RBC 4.76 3.90 - 5.20 M/cumm [facility] MCV 89.7 81.3 - 96.4 fL [facility] MCH 30.5 27.1 - 33.3 pg [facility] MCHC 34.0 32.3 - 35.7 g/dL [facility] RDW CV 14.3 11.1 - 14.9 % [facility] RDW SD 46.5 35.7 - 48.1 fL [facility] NRBC abs 0.00 0.00 - 0.01 K/cumm [facility] Blood 03/12/2024 12:3 0 PM CRYSTAL GRINDER 03/12/2024 12:50 PM CRYSTAL GRINDER Neelam Morrison MD LAB BLOOD ORDERABLES Final Result [facility] [place] [address] * [id number]-[id number], Tumor Marker (03/12/2024 12:30 PM CRYSTAL GRINDER) alpha Fetoprotein <2.0 <=8.3 ng/mL Comment: Interpretive [...] >1 year 0.0 8.3 ng/ml References Tiana Yu et al. J. Ped Surg 1978;13:155-156 Eloise Louie et al. Clin Chem Lab Med 2018;57:783-797 Christel Pratt et al. Clin Chem 2014;6628-5525. Current interpretive data was last revised 2021. Blood 03/12/2024 12:3 0 PM CRYSTAL GRINDER 03/12/2024 12:50 PM CRYSTAL GRINDER Neelam Morrison MD LAB BLOOD ORDERABLES Final Result Performing Organization Address [facility] Co de Phone Number [facility] [place] [address] * (ABNORMAL) Protime-INR (03/12/2024 12:30 PM CRYSTAL GRINDER) PT 22.9(H) 9.7 - 13.0 sec INR 2.09(H) 0.90 - 1.20 [facility] Comment: Interpretive data Oral anticoagulant therapeutic ranges: Venous thromboembolism prophylaxis or treatment: 2.0-3.0 CARDIOLOGY Standard range: 2.0-3.0 High-intensity range: 2.5-3.5 Refer to indication-specific guidelines for appropriate target ranges for prosthetic heart valve replacement. Current interpretive data was last revised on 2019. Blood 03/12/2024 12:3 0 PM CRYSTAL GRINDER 03/12/2024 12:40 PM CRYSTAL GRINDER us Neelam Morrison MD LAB BLOOD ORDERABLES Final Result Performing Organization Address [facility] Co de Phone Number [facility] Department [place] [address] * Bilirubin, direct (03/12/2024 12:30 PM CRYSTAL GRINDER) Bilirubin, direct 0.3 0.1 - 0.3 mg/dL Blood 03/12/2024 12:3 0 PM CRYSTAL GRINDER 03/12/2024 12:50 PM CRYSTAL GRINDER Neelam Morrison MD LAB BLOOD ORDERABLES Final Result Performing Organization Address [facility] Co de Phone Number [facility] [place] [address] * (ABNORMAL) Comprehensive metabolic panel (03/12/2024 12:30 PM CRYSTAL GRINDER) Sodium 137 135 - 145 mmol/L Potassium, pl 4.3 3.3 - 4.9 mmol/L [facility] Chloride 96(L) 97 - 110 mmol/L [facility] CO2 31 22 - 32 mmol/L [facility] Anion gap 10 2 - 15 mmol/L [facility] BUN 27(H) 6 - 25 mg/dL [facility] Creatinine 1.31(H) 0.60 - 1.10 mg/dL [facility] Glucose 106 70 - 199 mg/dL [facility] Comment: Interpretive Data Fasting glucose >/= 126 [...] 2022. Calcium 10.4(H) 8.5 - 10.3 mg/dL [facility] Bilirubin, total 0.7 0.1 - 1.2 mg/dL [facility] Protein, pl 7.9 6.5 - 8.5 g/dL [facility] Albumin 4.6 3.5 - 5.0 g/dL [facility] Alk phos 143(H) 40 - 130 Units/L [facility] ALT 20 7 - 45 Units/L [facility] AST 23 10 - 45 Units/L [facility] Blood 03/12/2024 12:3 0 PM CRYSTAL GRINDER 03/12/2024 12:50 PM CRYSTAL GRINDER Neelam Morrison MD LAB BLOOD ORDERABLES Final Result [facility] [place] [address] * MRI Abdomen W WO Contrast (03/12/2024 11:55 AM CRYSTAL GRINDER) Anatomical Region Laterality Modality Body N/A Magnetic Resonan ce 03/12/2024 12:5 7 PM CRYSTAL GRINDER Impressions 03/12/2024 12:57 PM CRYSTAL GRINDER 1. Cirrhosis with 2.1 cm vague wedge-shaped/triangular-shaped mildly arterially enhancing lesion in the right hepatic lobe, which appears less conspicuous compared to the previous MR. 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 Attention on follow-up study. Electronically signed by: Pratibha Arreaga M.D. Narrative 03/12/2024 12:57 PM CRYSTAL GRINDER EXAMINATION: MAGNETIC RESONANCE IMAGING OF THE ABDOMEN [...] 24 HR Holter Monitor (01/21/2024 3:12 PM CRYSTAL GRINDER) Anatomical Region Laterality Modality Electrocardiogra phy Narrative 02/14/2024 2:26 PM CRYSTAL GRINDER Images from the original result were not included. AMBULATORY CHANNELER INSOLE REPORT Patient Name: Nadja Garcia Date of [...] No patient reported symptoms. Tiffanie Marroquin M.D., MERGED WITH [facility] 02/14/24 Procedure Note Tiffanie Marroquin MD - 02/14/2024 Images from the original note were not included. AMBULATORY CHANNELER INSOLE REPORT Patient Name: Nadja Garcia Date of [...] No patient reported symptoms. Tiffanie Marroquin M.D., [facility]ED WITH [facility] 02/14/24 Alin Gorman MD CV CARDIAC SERVICES PROCEDURES Final Result * CT Chest WO Contrast (12/19/2023 2:53 PM CRYSTAL GRINDER) Anatomical Region Laterality Modality Body N/A Computed Tomogra phy 12/19/2023 3:40 PM CRYSTAL GRINDER Impressions 12/19/2023 7:43 PM CRYSTAL GRINDER Scattered small (sub-6 mm) pulmonary nodules in both lungs which are indeterminate. Dictated by: Chao Calles M.D. The radiology attending physician has personally reviewed this study, and had reviewed and/or edited this written report and agrees with it. Electronically signed by: Lexx Mike M.D. Narrative 12/19/2023 7:43 PM CRYSTAL GRINDER EXAMINATION: Computed tomography of the chest without [...] Lexx Mike M.D. us Neelam Morrison MD IM CT PROCEDURES Fi nal Result * Phosphatidylethanol (12/19/2023 1:08 PM CRYSTAL GRINDER) PHOSPHATIDYLETHANOL Negative . [facility] Comment: ADDITIONAL INFORMATION This report is intended for use in clinical monitoring and management of patients. It is not intended for use in employment-related testing. This test was developed and its performance characteristics determined by [facility] in a manner consistent with CLIA requirements. This test has not been cleared or approved by the U.S. Food and Drug Administration. Test Performed by: [facility] [address] [place] [address] Freezer Machine Operator: Geovani Price Ph.D.; CLIA# [id number] PEth 16:0/18:1 (POPEth)by LC-MS/MS <10 Cutoff: 10 ng/mL [facility] Comment: Phosphatidylethanol (PEth) homologues result interpretation PEth [...] (PLPEth) by LC-MS/MS <10 Cutoff: 10 ng/mL [facility] Comment: PEth 16:0/18:2 (PLPEth) Reference ranges are not well established Blood 12/19/2023 1:08 PM CRYSTAL GRINDER 12/19/2023 2:01 PM CRYSTAL GRINDER Melissa Albright MD LAB BLOOD ORDERABLES Final Resul t Performing Organization Address [facility] de Phone Number [facility] [place] [address] [place] ref Lab * JAYNA ab ql w/rflx to JAYNA qn (12/19/2023 1:08 PM CRYSTAL GRINDER) JAYNA Negative Comment: Interpretive Data Normal range [...] revised on 2019. Blood 12/19/2023 1:08 PM CRYSTAL GRINDER 12/19/2023 1:33 PM CRYSTAL GRINDER Melissa Albright MD LAB BLOOD ORDERABLES Final Resul t Performing Organization Address [facility] de Phone Number [facility] [place] [address] * Smooth muscle antibody, quantitative (12/19/2023 1:08 PM CRYSTAL GRINDER) Anti-smooth muscle, quant Negative Negative Comment: Interpretive Data Negative: Titers equal to or less than 1:20. Titers greater than 1:20 may be present in acute viral hepatitis, lupoid hepatitis, infectious mononucleosis, and malignancy. Titers greater than 1:80 highly suggestive of chronic active hepatitis. Current interpretive data was last revised on 2014. Blood 12/19/2023 1:08 PM CRYSTAL GRINDER 12/19/2023 1:33 PM CRYSTAL GRINDER Melissa Albright MD LAB BLOOD ORDERABLES Final Resul t TAWANDA [facility] [place] [address] * (ABNORMAL) eGFR (12/19/2023 1:08 PM CRYSTAL GRINDER) eGFR 48(L) >=60 mL/min/1. 73 m2 Comment: [...] last reviewed 2020. Blood 12/19/2023 1:08 PM CRYSTAL GRINDER 12/19/2023 1:40 PM CRYSTAL GRINDER Melissa Albright MD LAB BLOOD ORDERABLES Final Resul t [facility]DA RICHEY [facility] [place] [address] * Differential, auto (12/19/2023 1:08 PM CRYSTAL GRINDER) Neutrophil abs 4.6 1.5 - 6.5 K/cumm Imm gran abs 0.0 0.0 - 0.1 K/cumm [facility] Lymphocyte abs 1.3 0.8 - 3.3 K/cumm [facility] Monocyte abs 0.7 0.2 - 0.8 K/cumm [facility] Eosinophil abs 0.2 0.0 - 0.5 K/cumm [facility] Basophil abs 0.1 0.0 - 0.1 K/cumm [facility] Neutrophil pct 67.0 % [facility] Comment: Interpretive Data Percent cell count reference ranges are not reported, since discordance with absolute values may lead to misinterpretation of CBC data. Current Interpretive Data was last revised on 2017. Imm gran pct 0.3 % [facility] Comment: Interpretive Data Percent cell count reference ranges are not reported, since discordance with absolute values may lead to misinterpretation of CBC data. Current Interpretive Data was last revised on 2017. Lymphocyte pct 18.7 % [facility] Comment: Interpretive Data Percent cell count reference ranges are not reported, since discordance with absolute values may lead to misinterpretation of CBC data. Current Interpretive Data was last revised on 2017. Monocyte pct 10.0 % [facility] Comment: Interpretive Data Percent cell count reference ranges are not reported, since discordance with absolute values may lead to misinterpretation of CBC data. Current Interpretive Data was last revised on 2017. Eosinophil pct 2.7 % [facility] Comment: Interpretive Data Percent cell count reference ranges are not reported, since discordance with absolute values may lead to misinterpretation of CBC data. Current Interpretive Data was last revised on 2017. Basophil pct 1.3 % [facility] Comment: Interpretive Data Percent cell count reference ranges are not reported, since discordance with absolute values may lead to misinterpretation of CBC data. Current Interpretive Data was last revised on 2017. Blood 12/19/2023 1:08 PM CRYSTAL GRINDER 12/19/2023 1:33 PM CRYSTAL GRINDER Result Negro Albright MD LAB BLOOD ORDERABLES Final Resul t Performing Organization Address [facility] Co de Phone Number [facility] [place] [address] * Thyroid Function [place] (12/19/2023 1:08 PM CRYSTAL GRINDER) TSH 2.78 0.30 - 4.20 mcIUnit/mL Blood 12/19/2023 1:08 PM CRYSTAL GRINDER 12/19/2023 1:33 PM CRYSTAL GRINDER Result Negro Albright MD LAB BLOOD ORDERABLES Final Resul t Performing Organization Address [facility] de Phone Number [facility] [place] [address] * Mitochondrial antibodies, qualitative (12/19/2023 1:08 PM CRYSTAL GRINDER) Anti-mitochond rial Negative Negative Blood 12/19/2023 1:08 PM CRYSTAL GRINDER 12/19/2023 1:33 PM CRYSTAL GRINDER Result Negro Albright MD LAB BLOOD ORDERABLES Final Resul t Performing Organization Address [facility] de Phone Number [facility] [place] [address] * Iron profile w/ IBC (12/19/2023 1:08 PM CRYSTAL GRINDER) Pathologist [facility] Iron 72 35 - 145 mcg/dL TIBC 259 250 - 400 mcg/dL [facility] Transferrin saturation 28 20 - 50 % [facility] Blood 12/19/2023 1:08 PM CRYSTAL GRINDER 12/19/2023 1:33 PM CRYSTAL GRINDER Result Negro Albright MD LAB BLOOD ORDERABLES Final Resul t Performing Organization Address [facility] Co de Phone Number [facility] Department [place] [address] * (ABNORMAL) CBC with auto differential (12/19/2023 1:08 PM CRYSTAL GRINDER) Pathologist [facility] WBC 6.8 3.8 - 9.9 K/cumm Hgb 13.9 11.9 - 15.5 g/dL [facility] Hct 42.7 35.6 - 45.5 % [facility] Plt 219 150 - 400 K/cumm [facility] MPV 11.1 9.1 - 12.3 fL [facility] RBC 4.60 3.90 - 5.20 M/cumm [facility] MCV 92.8 81.3 - 96.4 fL [facility] MCH 30.2 27.1 - 33.3 pg [facility] MCHC 32.6 32.3 - 35.7 g/dL [facility] RDW CV 15.1(H) 11.1 - 14.9 % [facility] RDW SD 50.7(H) 35.7 - 48.1 fL [facility] NRBC abs 0.00 0.00 - 0.01 K/cumm [facility] Blood 12/19/2023 1:08 PM CRYSTAL GRINDER 12/19/2023 1:33 PM CRYSTAL GRINDER Melissa Albright MD LAB BLOOD ORDERABLES Final Resul t Performing Organization Address [facility] Co de Phone Number [facility] [place] [address] * Hemochromatosis HFE Gene Analysis (12/19/2023 1:08 PM CRYSTAL GRINDER) HFE Genotype Negative [facility] HFE p.C282Y Negative [facility] HFE p.H63D Negative [facility] HFE Interpretation This genotype suggests low risk [...] of the clinical implications of this result. [facility] HFE Specimen Whole Blood [facility] HFE Result Review Final report reviewed by: Rebecca Newton BA, MB([facility]) Director Community Organization, on 12/21/2023 13:03:29 CRYSTAL GRINDER. [facility] Comment: Interpretive Data Method: This assay detects the two variants in the HFE gene, p.C282Y (NM_[id number]: c.845G>A) and p.H63D ([id number]: c.187C>G), that are commonly associated with HH. The variants are detected by a multiplex PCR based assay performed on the [employer] 7500 Fast Dx Real-Time PCR instrument. Limitations: [...] determined by the Molecular Diagnostics Laboratory at [facility] in a manner consistent with CLIA requirements. This test has not been cleared or approved by the U.S. Food and Drug Administration. References: Navjot IBRAHIM, Franko LC, Lucho CC, et al. Tdja-affpjtsb-clhkfzn disease in HFE hereditary hemochromatosis. N Engl J Med. 2008;358:221 3 0. Landon BR, Eagle PC, Archie KV, et al. Diagnosis and management of hemochromatosis: 2011 practice guideline by the [employer] Association for the Study of Liver Diseases. Hepatology. 2011;54:328 4 3. Robby TOPHER, Misael CQ, Alex RT. HFE gene: structure, function, mutations, and associated iron abnormalities. Gene. 2015;574:179 9 2. Angel FranciscoJ, Erasmo RITCHIE, Babatunde BENTON, et al. Clinical and biochemical abnormalities in people heterozygous for hemochromatosis. N Engl J Med. 1996;335:1799 8 05. Yen PA, Basil LW, Randall DJ, Luis Enrique Alvarez D, Stefanie E, Mimi SalazarK. A population- based study of the biochemical and clinical expression of the H63D hemochromatosis mutation. Gastroenterology. 2002;122:646 5 1. Franko LC, Marge NA, Shon GW, et al. HFE C282Y/H63D compound heterozygotes are at low risk of hemochromatosis-related morbidity. Hepatology. 2009;50:94 1 01. Edis EH, Dario G, Gage W. HFE gene and hereditary hemochromatosis: a HuGE review. Human Genome Epidemiology. Am J Epidemiol. 2001 Aug ; 154(3):193-206. Sahil A, Reagan C, Chas L, et al. Two novel nonsense mutations of HFE gene in five unrelated [place] patients with hemochromatosis. Gastroenterology. 2000;119:441 5 . Zeynep EP, Francesco BA, Arvizu EL, et al. Screening for hereditary hemochromatosis: a systematic review for the U.S. Preventive Services Task Force. [employer] Strategist Med. 2006;145:209 2 3. This test was performed at: [facility], [facility]#[id number], Tonya Ames, Ph.D., [place], [address], [place] Current interpretive data was last revised 2021. Blood 12/19/2023 1:08 PM CRYSTAL GRINDER 12/19/2023 2:25 PM CRYSTAL GRINDER Result Negro Albright MD LAB GENETIC TESTING Final Result Performing Organization Address [facility] Co de Phone Number [facility] [place] [address] [facility] * [id number] (12/19/2023 1:08 PM CRYSTAL GRINDER) alpha-1 antitrypsin 112 90 - 200 mg/dL Blood 12/19/2023 1:08 PM CRYSTAL GRINDER 12/19/2023 1:33 PM CRYSTAL GRINDER Result Negro Albright MD LAB BLOOD ORDERABLES Final Resul t Performing Organization Address [facility] Phone Number [facility] [place] [address] * Cancer antigen 19-9 (12/19/2023 1:08 PM CRYSTAL GRINDER) CA 19-9 ag 17.3 <=35.0 units/mL Comment: Interpretive Data The Natali CA 19-9 assay procedure was used. Results from different manufacturers or methods may not be comparable. Serial testing should be performed using the same method. Blood 12/19/2023 1:08 PM CRYSTAL GRINDER 12/19/2023 1:33 PM CRYSTAL GRINDER Result Negro Albright MD LAB BLOOD ORDERABLES Final Resul t Performing Organization Address [facility] Co de Phone Number [facility] [place] [address] * Rafub-8-Hgoiaqyxhgb, Tumor Marker (12/19/2023 1:08 PM CRYSTAL GRINDER) alpha Fetoprotein 3.1 <=8.3 ng/mL Comment: Interpretive [...] >1 year 0.0 8.3 ng/ml References Tiana Yu et al. J. Ped Surg 1978;13:155-156 Eloise Louie et al. Clin Chem Lab Med 2018;57:783-797 Christel Pratt et al. Clin Chem 2014;3933-9274. Current interpretive data was last revised 2021. Blood 12/19/2023 1:08 PM CRYSTAL GRINDER 12/19/2023 1:33 PM CRYSTAL GRINDER Melissa Albright MD LAB BLOOD ORDERABLES Final Resul t Performing Organization Address [facility] de Phone Number [facility] [place] [address] * (ABNORMAL) Protime-INR (12/19/2023 1:08 PM CRYSTAL GRINDER) PT 15.6(H) 9.7 - 13.0 sec INR 1.43(H) 0.90 - 1.20 [facility] Comment: Interpretive data Oral anticoagulant therapeutic ranges: Venous thromboembolism prophylaxis or treatment: 2.0-3.0 CARDIOLOGY Standard range: 2.0-3.0 High-intensity range: 2.5-3.5 Refer to indication-specific guidelines for appropriate target ranges for prosthetic heart valve replacement. Current interpretive data was last revised on 2019. Blood 12/19/2023 1:08 PM CRYSTAL GRINDER 12/19/2023 1:33 PM CRYSTAL GRINDER us Melissa Albright MD LAB BLOOD ORDERABLES Final Resul t Performing Organization Address [facility] de Phone Number [facility] [place] [address] * (ABNORMAL) Hemoglobin A1c (12/19/2023 1:08 PM CRYSTAL GRINDER) [facility] Hgb A1C 5.9(H) 4.0 - 5.6 % Estimated Average Glucose 123 mg/dL [facility] Comment: The ADA recommends reporting an estimated Average Glucose (eAG) with all Hemoglobin A1c results using the equation derived from a study of 507 normal and diabetic adults. Minority populations were underrepresented and children were not included. (Diabetes Care 2020; 43(S1): S66-S76). The eAG is not equivalent to a fasting glucose. Blood 12/19/2023 1:08 PM CRYSTAL GRINDER 12/19/2023 1:33 PM CRYSTAL GRINDER us Melissa Albright MD LAB BLOOD ORDERABLES Final Resul t Performing Organization Address City/[facility]/ZIP Co de Phone Number [facility] [place] [address] * Ferritin (12/19/2023 1:08 PM CRYSTAL GRINDER) [facility] Ferritin 130 13 - 150 ng/mL Blood 12/19/2023 1:08 PM CRYSTAL GRINDER 12/19/2023 1:33 PM CRYSTAL GRINDER us Melissa Albright MD LAB BLOOD ORDERABLES Final Resul t Performing Organization Address [facility] Co de Phone Number [facility] [place] [address] * (ABNORMAL) Comprehensive metabolic panel (12/19/2023 1:08 PM CRYSTAL GRINDER) [facility] Sodium 142 135 - 145 mmol/L Potassium, pl 4.4 3.3 - 4.9 mmol/L [facility] Chloride 98 97 - 110 mmol/L [facility] CO2 31 22 - 32 mmol/L [facility] Anion gap 13 2 - 15 mmol/L [facility] BUN 24 6 - 25 mg/dL [facility] Creatinine 1.15(H) 0.60 - 1.10 mg/dL [facility] Glucose 95 70 - 199 mg/dL [facility] Comment: Interpretive Data Fasting glucose >/= 126 [...] 2022. Calcium 10.7(H) 8.5 - 10.3 mg/dL [facility] Bilirubin, total 0.4 0.1 - 1.2 mg/dL [facility] Protein, pl 7.4 6.5 - 8.5 g/dL [facility] Albumin 4.4 3.5 - 5.0 g/dL [facility] Alk phos 104 40 - 130 Units/L [facility] ALT 20 7 - 45 Units/L [facility] AST 20 10 - 45 Units/L [facility] Blood 12/19/2023 1:08 PM CRYSTAL GRINDER 12/19/2023 1:33 PM CRYSTAL GRINDER us Melissa Albright MD LAB BLOOD ORDERABLES Final Resul t [facility] [place] [address] * Serum lipid panel (08/01/2013 9:43 PM CDT) [facility] Cholesterol 126 0 - 200 mg/dl HISTORICAL [...] revised 2011. Serum 08/01/2013 9:43 PM CDT us Errol Rowland MD LAB BLOOD ORDERABLES Final R esult HISTORICAL RESULTS from Last 3 Months or Most Recently Relevant to Health Maintenance Insurance [facility] Advance Directives For more information, please contact: [phone] Documents on File Type Date Recorded Patient Correspondence Section Supervisor Expl anation ADVANCE DIRECTIVE 12/17/2023 7:15 PM Robbie _[email or web address]_Living Will.pdf Care Teams Scrap Sorter Relationship Specialty Start Date End Date Thomas Antonio MD [address] [place] [address] PCP - General Internal Medicine 01/11/24 Emily Vigil, RN [address] [address] Car Dropper 11/26/23 Yoselyn Nicolas NP [facility] [address] [place] [address] Family Medicine 01/11/24
--- OUTSIDE RECORDS SUMMARY | 2024-03-14 11:14 | XMS_ITS | Clinical Summary ---
Author Organization [facility] Address [address] [place] [address] Care Team Providers Care Bpm Architect Name Role Phone Ugo Villa MD Primary Care Provider [phone] Source Comments PLEASE NOTE, if this patient is a minor, it may be UNLAWFUL to discuss sensitive information that is contained in these records (such as FAMILY PLANNING, MENTAL HEALTH or SUBSTANCE ABUSE) with the minor patient's parent or other person without the patient's specific authorization.[facility] Active Problems Problem Noted Date Diagnosed Date Right flank pain (Problem) 02/08/2020 Gallstone (Problem) 02/08/2020 Covid-19 (Problem) 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 (Problem) Gout (Problem) Atrial fibrillation (Problem) Congestive heart failure (disorder) (Problem) Hypertensive disorder (Problem) Diverticulitis of sigmoid colon (Problem) Sleep apnea (Problem) Diverticulitis (Problem) Incontinence (Problem) Depressive disorder (Problem) Osteoarthritis (Problem) Varicose veins of bilateral lower limbs (Problem ) Osteopenia (Problem) Chronic kidney disease (Problem) Hemorrhoids (Problem) Pulmonary hypertension (Problem) Immunizations Name Administration Dates Next Due INFLUENZA, SEASONAL, INJECTABLE 11/06/2019 Social History Tobacco Use Types Packs/Day Years Used Date Smoking Tobacco: Never Assessed Social Connections Answer Date Recorded Connectedness 0 10/22/2023 Financial Resource Strain Answer Date R ecorded Financial Resource Strain 0 2023 Stress Answer Date Recorded Stress 0 06/25/2023 Physical Activity Answer Date Recorded Physical Activity 0 06/25/2023 Food Insecurity Answer Date Recorded Food 0 11/01/2023 Transportation Needs Answer Date Record ed Transportation 0 06/25/2023 Housing Stability Answer Date Recorded Housing 0 06/25/2023 Safety and Environment Answer Date Joce rded Safety 0 06/25/2023 Utilities Answer Date Recorded Utilities 0 06/25/2023 Employment Answer Date Recorded Stress 0 10/22/2023 Comments Unknown Sex and Gender Information Value Date Recorded Sex Assigned at Not on file Legal Sex Female 7:35 PM PDT Gender Identity Female 07/29/2023 6:28 PM PDT Sexual Orientation Not on file Last Filed Vital Signs Vital Sign Reading Time Taken Comments Blood Pressure 139/76 02/19/2021 1:15 PM PST Pulse 112 02/19/2021 1:15 PM PST Temperature 36.3 C (97.3 F) 02/19/2021 1:15 PM PST Respiratory Rate 22 02/19/2021 1:15 PM PST Oxygen Saturation 96% 02/19/2021 1:15 PM PST Inhaled Oxygen Concentration - - Weight 104.5 kg (230 lb 6.1 oz) 02/19/2021 1:15 PM PST Height 165.1 cm (5' 5 ) 02/19/2021 1:15 PM PST Body Mass Index 38.34 02/19/2021 1:15 PM PST Plan of Treatment Health Maintenance Due Date Last Done Comments Depression Monitoring 1941 Tobacco Screening 1941 Advanced Care Planning 1941 Imm-DTaP/Tdap/Td (1 - Tdap) 02/26/1960 Imm-Pneumococcal 65+ (1 of 2 - PCV) 02/26/1960 Imm-Zoster, Recombinant (1 of 2) 1991 Bone Density Screening 2006 Falls Prevention 2006 Dza-DARRT-90 ( season) 2023 021, 03/30/2020 Imm-Influenza (#1) 2023 11/06/2019 Alcohol and Drug Screen 02/06/2024 Insurance [employer] Care Teams Bpm Architect Relationship Specialty Start Date End Date Ugo Villa MD [address] [place] [address] PCP - General 07/29/23
[2024-03-14 11:57] LABS: Toxigenic C. Diff NEGATIVE (NEGATIVE)
== END 2024-03-14 10:29 | disposition home or self-care (01) ==
LOC: ANHLAB 10:29
PROVIDERS: PCP Internal Medicine; Visit Provider Internal Medicine
DX: R19.7 Diarrhea, unspecified (principal)
CPT/HCPCS: 83993; 87045; 87177; 87209; 87427; 87449; 87493; 89055

== ENCOUNTER 2024-04-07 15:34 | Outpatient (CLI) | payer OTHER, SELFPAY ==
[2024-04-07 15:59] LABS: Add Urine Microscopic? NO; Appearance Urine Clear (Clear); Bilirubin Urine Negative (Negative); Blood Urine Negative (Negative); Color Urine Yellow (Yellow); Glucose Urine UA 2+ mg/dL (Negative); Ketones Urine Negative (Negative); Leukocyte Esterase Ur Negative LEU/UL (Negative); Nitrate Urine Negative (Negative); Protein Urine Negative (Negative); Specific Grav Ur 1.019 (1.001-1.035); Urobilinogen Urine 0.2 mg/dL (<2.0)
[2024-04-07 16:32] LABS: Influenza A QL RT-PCR Negative (Negative); Influenza B QL RT-PCR Negative (Negative); SARS-CoV-2 RNA PCR Negative (Negative)
== END 2024-04-07 15:35 | disposition home or self-care (01) ==
LOC: ANHLAB 15:38
PROVIDERS: PCP Internal Medicine; Visit Provider Internal Medicine
DX: R50.9 Fever, unspecified (principal)
CPT/HCPCS: 81003; 87636

== ENCOUNTER 2024-04-23 15:11 | Outpatient (CLI) | payer OTHER, SELFPAY ==
[2024-04-23 16:06] LABS: Hemoglobin A1C 5.9 % (<5.7)
[2024-04-23 16:31] LABS: Alanine Aminotransferase 18 U/L (6-35); Albumin Level 4.6 g/dL (3.5-5.1); Alkaline Phosphatase 116 U/L (38-126); Anion Gap 8 mmol/L (4-12); Aspartate Amino Transferase 24 U/L (14-36); Bilirubin,Total 0.6 mg/dL (0.2-1.3); Blood Urea Nitrogen 28 mg/dL (7-17); Calcium 9.9 mg/dL (8.4-10.2); Carbon Dioxide 33 mmol/L (22-30); Chloride 96 mmol/L (98-107); Cholesterol 156 mg/dL (0-200); Estimated Glomerular Filt Rate 43; Glucose 97 mg/dL (65-110); HDL Direct 62 mg/dL; Potassium 4.2 mmol/L (3.4-5.0); Sodium 137 mmol/L (137-145); Triglycerides 98 mg/dL (<150); Uric Acid 4.9 mg/dL (2.5-7.5)
--- OUTSIDE RECORDS SUMMARY | 2024-04-23 16:45 | XMS_ITS | Clinical Summary ---
Author Organization [facility] Address [address] [place] [address] Care Team Providers Care Manager Treasury Name Role Phone Ugo Villa MD Primary Care Provider + [phone] Source Comments PLEASE NOTE, if this patient [...] Bone Density Screening 2006 Falls Prevention 2006 Evq-TQLKR-90 ( season) 2023 021, 03/30/2020 Imm-Influenza (#1) 2023 11/06/2019 Alcohol and Drug Screen 02/06/2024 Insurance [employer] Care Teams Manager Treasury Relationship Specialty Start Date End Date Ugo Villa MD [address] [place] [address] PCP - General 07/29/23
--- OUTSIDE RECORDS SUMMARY | 2024-04-23 16:45 | XMS_ITS | Referral Summary ---
Author Organization [facility] [address] [place] [address] Care Team Providers Care Tissue Inserter Name Role Phone Thomas Antonio MD Primary Care Provider [phone] Yoselyn Nicolas FIELD MECHANICAL METER TESTER Unavailable [phone] Encounters Date Type Department Care Team Description 03/20/2024 Telephone [facility] Transplant Liver [address] [facility] [address] Mailstop [id number] [place] [address] Emily Vigil RN 03/17/2024 Telephone [facility] Gastroenterology [address] [place] [address] [facility] 12th [place] [address] [place] [address] Rosa Everett LPN 03/12/2024 2:15 PM AIRCRAFT GENERAL REPAIR MECHANIC Lab [facility] ([facility]) [address] [place] [id number] Liver mass; Cirrhosis of liver without ascites, unspecified hepatic cirrhosis type (HCC) 03/12/2024 9:20 AM AIRCRAFT GENERAL REPAIR MECHANIC - 03/12/2024 11:59 PM AIRCRAFT GENERAL REPAIR MECHANIC Hospital Encounter [facility]) [address] [place] [address] Melissa Albright MD Liver mass Discharge Disposition: Discharge to home or self care 03/12/2024 8:30 AM AIRCRAFT GENERAL REPAIR MECHANIC Office Visit [facility] Gasteroenterology [address] [place] [address] 12th [place] [address] [place] [address] Neelam Morrison MD Liver mass (Primary Dx); Alcoholic cirrhosis of liver without ascites (HCC); Cirrhosis of liver without ascites, unspecified hepatic cirrhosis type (HCC) from Last 3 Months Allergies Active Allergy [...] 1 tablet (10 mg total) by mouth data collection associate before breakfast 3 Active cyanocobalamin (Vitamin B-12) [...] mg total) by mouth daily Active john [id number] op-man-bor 250-40-125 mg-mg-unit tablet Take by mouth [...] 05/15/2022 Overview (12/19/2023): Updated per IMO upload [id number] Hypokalemia 05/15/2022 HLD (hyperlipidemia) 05/15/2022 Lower GI [...] failure with preserved left ventricular function (HFpEF) 04/05/2017 Thyroiditis, unspecified 09/27/2016 Overview (12/19/2023): DX [...] Overview (12/19/2023): age 14 Congestive heart failure 06/16/201610/2023 Acute on chronic diastolic c ongestive heart failure 06/08/2016 01/14/2024 Heart failure 01/21/2015 01/14/2024 Atrial fibrillation 11/04/2012 01/14/20 24 Hypertension 11/04/2012 01/14/2024 Obesity 11/04/2012 12/19/2023 Social History Tobacco Use Types Packs/Day Years Used Date Smoking Tobacco: Never Smokeless Tobacco: Never Tobacco Cessation:Counseling Given: Not Answered Comments Unknown Sex and Gender Information Value Date Recorded Sex Assigned at Not on file Legal Sex Female 5:37 AM AIRCRAFT GENERAL REPAIR MECHANIC Gender Identity Not on file Sexual Orientation Not on file Last Filed Vital Signs Vital Sign Reading Time Taken Comments Blood Pressure 118/76 03/12/2024 8:31 AM AIRCRAFT GENERAL REPAIR MECHANIC Pulse 109 03/12/2024 8:31 AM AIRCRAFT GENERAL REPAIR MECHANIC Temperature 36.2 C (97.1 F) 03/12/2024 8:31 AM AIRCRAFT GENERAL REPAIR MECHANIC Respiratory Rate - - Oxygen Saturation 96% 01/14/2024 1:12 PM AIRCRAFT GENERAL REPAIR MECHANIC Inhaled Oxygen Concentration - - Weight 90.9 kg (200 lb 6.4 oz) 03/12/2024 8:31 A M AIRCRAFT GENERAL REPAIR MECHANIC Height 160 cm (5' 3 ) 03/12/2024 8:31 AM AIRCRAFT GENERAL REPAIR MECHANIC Body Mass Index 35.5 03/12/2024 8:31 AM AIRCRAFT GENERAL REPAIR MECHANIC Plan of Treatment Not on file Procedures Procedure Name Priority Date/Time Associated Diagnosis Comments EGFR Routine 03/12/2024 12:30 PM AIRCRAFT GENERAL REPAIR MECHANIC Liver mass Cirrhosis of liver without ascites, unspecified hepatic cirrhosis type (HCC) DIFFERENTIAL AUTO Routine 03/12/2024 12: 30 PM AIRCRAFT GENERAL REPAIR MECHANIC Liver mass Cirrhosis of liver without ascites, unspecified hepatic cirrhosis type (HCC) [id number], TUMOR MARKER Routine 03/12/2024 12:30 PM AIRCRAFT GENERAL REPAIR MECHANIC Liver mass Cirrhosis of liver without ascites, unspecified hepatic cirrhosis type (HCC) BILIRUBIN, DIRECT Routine 03/12/2024 12: 30 PM AIRCRAFT GENERAL REPAIR MECHANIC Liver mass Cirrhosis of liver without ascites, unspecified hepatic cirrhosis type (HCC) CBC WITH AUTO DIFFERENTIAL Routine 03/12/2024 12:30 PM AIRCRAFT GENERAL REPAIR MECHANIC Liver mass Cirrhosis of liver without ascites, unspecified hepatic cirrhosis type (HCC) COMPREHENSIVE METABOLIC PANEL Routine 03/12/2024 12:30 PM AIRCRAFT GENERAL REPAIR MECHANIC Liver mass Cirrhosis of liver without ascites, unspecified hepatic cirrhosis type (HCC) PROTIME-INR Routine 03/12/2024 12:30 PM AIRCRAFT GENERAL REPAIR MECHANIC Liver mass Cirrhosis of liver without ascites, unspecified hepatic cirrhosis type (HCC) MRI ABDOMEN W WO CONTRAST Schedule Routine, Read Routine (OP Routine) 03/12/2024 11:55 AM AIRCRAFT GENERAL REPAIR MECHANIC Liver mass HEMOGLOBIN A1C Routine 12/19/2023 1:08 PM AIRCRAFT GENERAL REPAIR MECHANIC Liver mass SERUM LIPID PANEL Routine 08/01/2013 9:4 3 PM CDT from Last 3 Months or Most Recently Relevant to Health Maintenance Results * (ABNORMAL) eGFR (03/12/2024 12:30 PM AIRCRAFT GENERAL REPAIR MECHANIC) eGFR 40(L) >=60 mL/min/1. 73 m2 Comment: [...] reviewed 2020. Blood 03/12/2024 12:3 0 PM AIRCRAFT GENERAL REPAIR MECHANIC 03/12/2024 12:50 PM AIRCRAFT GENERAL REPAIR MECHANIC us Neelam Morrison MD LAB BLOOD ORDERABLES Final Result [facility] Department of [place] [address] * Differential, auto (03/12/2024 12:30 PM AIRCRAFT GENERAL REPAIR MECHANIC) Neutrophil abs 4.8 1.5 - 6.5 K/cumm Imm gran abs 0.0 0.0 - 0.1 K/cumm [facility] Lymphocyte abs 1.4 0.8 - 3.3 K/cumm [facility] Monocyte abs 0.8 0.2 - 0.8 K/cumm [facility] Eosinophil abs 0.3 0.0 - 0.5 K/cumm [facility] Basophil abs 0.1 0.0 - 0.1 K/cumm [facility] Neutrophil pct 65.7 % [facility] Comment: Interpretive Data Percent cell count reference ranges are not reported, since discordance with absolute values may lead to misinterpretation of CBC data. Current Interpretive Data was last revised on 2017. Imm gran pct 0.3 % [facility] Comment: Interpretive Data Percent cell count reference ranges are not reported, since discordance with absolute values may lead to misinterpretation of CBC data. Current Interpretive Data was last revised on 2017. Lymphocyte pct 18.5 % [facility] Comment: Interpretive Data Percent cell count reference ranges are not reported, since discordance with absolute values may lead to misinterpretation of CBC data. Current Interpretive Data was last revised on 2017. Monocyte pct 11.2 % [facility] Comment: Interpretive Data Percent cell count reference ranges are not reported, since discordance with absolute values may lead to misinterpretation of CBC data. Current Interpretive Data was last revised on 2017. Eosinophil pct 3.5 % [facility] Comment: Interpretive Data Percent cell count reference ranges are not reported, since discordance with absolute values may lead to misinterpretation of CBC data. Current Interpretive Data was last revised on 2017. Basophil pct 0.8 % [facility] Comment: Interpretive Data Percent cell count reference ranges are not reported, since discordance with absolute values may lead to misinterpretation of CBC data. Current Interpretive Data was last revised on 2017. Blood 03/12/2024 12:3 0 PM AIRCRAFT GENERAL REPAIR MECHANIC 03/12/2024 12:50 PM AIRCRAFT GENERAL REPAIR MECHANIC Neelam Morrison MD LAB BLOOD ORDERABLES Final Result Performing Organization Address [facility] Co de Phone Number [facility] [place] [address] * CBC with auto differential (03/12/2024 12:30 PM AIRCRAFT GENERAL REPAIR MECHANIC) [facility] WBC 7.3 3.8 - 9.9 K/cumm Hgb 14.5 11.9 - 15.5 g/dL [facility] Hct 42.7 35.6 - 45.5 % [facility] Plt 221 150 - 400 K/cumm [facility] MPV 10.9 9.1 - 12.3 fL [facility] RBC 4.76 3.90 - 5.20 M/cumm [facility] MCV 89.7 81.3 - 96.4 fL [facility] MCH 30.5 27.1 - 33.3 pg [facility] MCHC 34.0 32.3 - 35.7 g/dL [facility] RDW CV 14.3 11.1 - 14.9 % [facility] RDW SD 46.5 35.7 - 48.1 fL [facility] NRBC abs 0.00 0.00 - 0.01 K/cumm [facility] Blood 03/12/2024 12:3 0 PM AIRCRAFT GENERAL REPAIR MECHANIC 03/12/2024 12:50 PM AIRCRAFT GENERAL REPAIR MECHANIC Neelam Morrison MD LAB BLOOD ORDERABLES Final Result Performing Organization Address [facility] Co de Phone Number [facility] Department [place] [address] * [id number], Tumor Marker (03/12/2024 12:30 PM AIRCRAFT GENERAL REPAIR MECHANIC) [facility] alpha Fetoprotein <2.0 <=8.3 ng/mL Comment: Interpretive [...] 2018;57:[id number] Christel Pratt et al. Clin Chem 2014;5124-4280. Current interpretive data was last revised 2021. Blood 03/12/2024 12:3 0 PM AIRCRAFT GENERAL REPAIR MECHANIC 03/12/2024 12:50 PM AIRCRAFT GENERAL REPAIR MECHANIC Neelam Morrison MD LAB BLOOD ORDERABLES Final Result Performing Organization Address [facility] de Phone Number [facility] [employer] [address] * (ABNORMAL) Protime-INR (03/12/2024 12:30 PM AIRCRAFT GENERAL REPAIR MECHANIC) PT 22.9(H) 9.7 - 13.0 sec INR 2.09(H) 0.90 - 1.20 [facility] Comment: Interpretive data Oral anticoagulant therapeutic ranges: Venous thromboembolism prophylaxis or treatment: 2.0-3.0 CARDIOLOGY Standard range: 2.0-3.0 High-intensity range: 2.5-3.5 Refer to indication-specific guidelines for appropriate target ranges for prosthetic heart valve replacement. Current interpretive data was last revised on 2019. Blood 03/12/2024 12:3 0 PM AIRCRAFT GENERAL REPAIR MECHANIC 03/12/2024 12:40 PM AIRCRAFT GENERAL REPAIR MECHANIC Neelam Morrison MD LAB BLOOD ORDERABLES Final Result Performing Organization Address [facility] de Phone Number [facility] [employer] [address] * Bilirubin, direct (03/12/2024 12:30 PM AIRCRAFT GENERAL REPAIR MECHANIC) Bilirubin, direct 0.3 0.1 - 0.3 mg/dL Blood 03/12/2024 12:3 0 PM AIRCRAFT GENERAL REPAIR MECHANIC 03/12/2024 12:50 PM AIRCRAFT GENERAL REPAIR MECHANIC Neelam Morrison MD LAB BLOOD ORDERABLES Final Result [facility] [place] [address] * (ABNORMAL) Comprehensive metabolic panel (03/12/2024 12:30 PM AIRCRAFT GENERAL REPAIR MECHANIC) Pathologist [facility] Sodium 137 135 - 145 mmol/L Potassium, pl 4.3 3.3 - 4.9 mmol/L [facility] Chloride 96(L) 97 - 110 mmol/L [facility] CO2 31 22 - 32 mmol/L [facility] Anion gap 10 2 - 15 mmol/L [facility] BUN 27(H) 6 - 25 mg/dL [facility] Creatinine 1.31(H) 0.60 - 1.10 mg/dL [facility] Glucose 106 70 - 199 mg/dL [facility] Comment: Interpretive Data Fasting glucose >/= [...] classification and Diagnosis of Diabetes Diabetes Care 202; 46: S19-S40. Current interpretive data was last revised 2022. Calcium 10.4(H) 8.5 - 10.3 mg/dL [facility] Bilirubin, total 0.7 0.1 - 1.2 mg/dL [facility] Protein, pl 7.9 6.5 - 8.5 g/dL [facility] Albumin 4.6 3.5 - 5.0 g/dL [facility] Alk phos 143(H) 40 - 130 Units/L [facility] ALT 20 7 - 45 Units/L [facility] AST 23 10 - 45 Units/L [facility] Blood 03/12/2024 12:3 0 PM AIRCRAFT GENERAL REPAIR MECHANIC 03/12/2024 12:50 PM AIRCRAFT GENERAL REPAIR MECHANIC us Neelam Morrison MD LAB BLOOD ORDERABLES Final Result [facility] [place] [address] * MRI Abdomen W WO Contrast (03/12/2024 11:55 AM AIRCRAFT GENERAL REPAIR MECHANIC) Anatomical Region Laterality Modality Body N/A Magnetic Resonan ce 03/12/2024 12:5 7 PM AIRCRAFT GENERAL REPAIR MECHANIC Impressions 03/12/2024 12:57 PM AIRCRAFT GENERAL REPAIR MECHANIC 1. Cirrhosis with 2.1 cm vague wedge-shaped/triangular-shaped mildly arterially enhancing lesion in the right hepatic lobe, which appears less conspicuous compared to the previous MR. 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 Attention on follow-up study. Electronically signed by: Pratibha Arreaga M.D. Narrative 03/12/2024 12:57 PM AIRCRAFT GENERAL REPAIR MECHANIC EXAMINATION: MAGNETIC RESONANCE IMAGING OF THE ABDOMEN [...] by: Pratibha Arreaga M.D. Melissa Albright MD IMG MRI PROCEDURES Final Result * (ABNORMAL) Hemoglobin A1c (12/19/2023 1:08 PM AIRCRAFT GENERAL REPAIR MECHANIC) Pathologist [facility] Hgb A1C 5.9(H) 4.0 - 5.6 % Estimated Average Glucose 123 mg/dL [facility] Comment: The ADA recommends reporting an estimated Average Glucose (eAG) with all Hemoglobin A1c results using the equation derived from a study of 507 normal and diabetic adults. Minority populations were underrepresented and children were not included. (Diabetes Care 2020; 43(S1): S66-S76). The eAG is not equivalent to a fasting glucose. Blood 12/19/2023 1:08 PM AIRCRAFT GENERAL REPAIR MECHANIC 12/19/2023 1:33 PM AIRCRAFT GENERAL REPAIR MECHANIC Melissa Albright MD LAB BLOOD ORDERABLES Final Resul t [facility] [place] [address] * Serum lipid panel (08/01/2013 9:43 PM CDT) Pathologist [facility] Cholesterol 126 0 - 200 mg/dl HISTORICAL [...] Most Recently Relevant to Health Maintenance Insurance [facility] Advance Directives For more information, please contact: [phone] Documents on File Type Date Recorded Patient Corrosion Engineer Expl anation ADVANCE DIRECTIVE 12/17/2023 7:15 PM Robbie _[email or web address]_Living [email or web address].pdf Care Teams Tissue Inserter Relationship Specialty Start Date End Date Thomas Antonio MD [address] [facility] [address] [facility] [address] [place] [address] PCP - General Internal Medicine 01/11/24 Yoselyn Nicolas NP [address] [place] [address] [address] [place] [address] Family Medicine 01/11/24
--- OUTSIDE RECORDS SUMMARY | 2024-04-23 16:45 | XMS_ITS ---
Author Organization [facility] [address] [place] [address] Care Team Providers Care Quill Collector Name Role Phone Thomas Antonio MD Primary Care Provider [phone] Yoselyn Nicolas ABRASIVE WATER JET CUTTER OPERATOR Unavailable [phone] Active Problems Problem Noted Date Diagnosed [...] 05/15/2022 Overview (12/19/2023): Updated per IMO upload [id number] Hypokalemia 05/15/2022 HLD (hyperlipidemia) 05/15/2022 Lower GI [...] 11/04/2012 Obstructive sleep apnea syndrome 11/04/2012 Current Treatment and Therapy Plans No current plan information found. Past Treatment and Therapy Plans No past plan information found. Lifetime Dose Tracking * Chemical Lifetime Dose [...]
--- OUTSIDE RECORDS SUMMARY | 2024-04-23 16:45 | XMS_ITS | Continuity of Care Document ---
Author Organization [facility] Address [address] [place] [address] Phone Care Team Providers Care Office Worker Name Role Phone No Information Unavailable Unavailable [...] Diagnoses Date Provider Providers Copied on Encounter [facility], [address] [place] [address], [id number], tel:[phone] No Information June-0 1 No Information [facility], [address] [place] [address], [id number], tel:[phone] [place] [facility] No Information 1 Juanjo Negron. [address] [place] [address], [id number], . tel:[phone] Referring Provider: Steven Galvez, [facility] [address], [place], [address] . tel:[phone] [facility], [address] [place] [address], [id number], tel:[phone] [facility] No Information [address], [place], [place], [id number], . tel:[phone] [facility], [address] [place] [address], [id number], tel:[phone] [facility] No Information Apr-1 5- 1 Jimmy Blanco [address], [place], [place], [id number], . tel:[phone] Referring Provider: Steven Galvez, [address], [place], [address] . tel:[phone] [facility], [address] [place] [address], [id number], tel:[phone] [facility] No Information Apr-0 8-201 1 Jimmy Blanco [address], [place], [place], [id number], . tel:[phone] Office/outpat ient visit,[facility], [facility], [address] [place] [address], [id number], tel:[phone] [place] [facility] No Information Mar-1 0- 1 Jimmy Blanco [address], [place], [place], [id number], [place]. tel:[phone] Referring Provider: [address], [place], [address]. tel:[phone] Office/outpat ient visit,[facility], [address] [place] [address], [id number], tel:[phone] [facility] No Information Mar-0 3-201 1 Alice Bowman. [address] [place] [place], [place], [id number], [place]. tel:[phone] Referring Provider: [address], [place], [address]. tel:[phone] [facility], [address] [place] [address], [id number], tel:[phone] [facility] No Information Mar-0 3-201 1 Jeffrey De. [address] [place] [address], [id number], . tel:[phone] Referring Provider: Santino Yan, [address] [place] [address], [id number] . tel:[phone] [facility], [address] [place] [address], [id number], tel:[phone] [place] [facility] No Information 1 Sandra Miller. [address] [place] [address], [id number], . tel:[phone] Referring Provider: Lelia Mitchell, [address], [place], [address]. tel:[phone] Office/outpat ient visit,est, [facility], [address] [place] [address], [id number], tel:[phone] [place] [facility] No Information 1 [employer] [facility] [address], [place], [place], [id number], . tel:[phone] Referring Provider: Lelia Mitchell, [address], [place], [address]. tel:[phone] Office/outpat ient visit,est, [facility], [address] [place] [address], [id number], tel:[phone] [facility] No Information 1 Jeffrey De. [address] [place] [address], [id number], . tel:[phone] Referring Provider: Lelia Mitchell, [address], [place], [address]. tel:[phone] [facility], [address] [place] [address], [id number], tel:[phone] [place] [facility] No Information 0 Jeffrey De. [address] [place] [address], [id number], . tel:[phone] [facility], [address] [place] [address], [id number], tel:[phone] [place] [facility] No Information Dec-1 0-201 0 Jeffrey Santino. [address] [place] [address], [id number], . tel:[phone] Office/outpat ient visit,[facility], [facility], [address] [place] [address], [id number], tel:[phone] [facility] No Information Dec-0 8-201 0 Alice Bowman. [address], [place], [id number], [place]. tel:[phone] Referring Provider: Tanya [address], [place], [address]. tel:[phone] Office/outpat ient visit,[facility], [facility], [address] [place] [address], [id number], tel:[phone] [place] [facility] No Information Nov-0 7-200 9 Nichol Wise. [address] [place] [address], [id number], [place]. tel:[phone] Referring Provider: Tanya [address], [place], [address]. tel:[phone] Office/outpat ient visit,[facility], [facility], [address] [place] [address], [id number], tel:[phone] [place] [facility] No Information Oct-0 9-200 9 Nicholbrenton Wise. [address] [place] [address], [id number], . tel:[phone] Referring Provider: T[address], [place], [address]. tel:[phone] [facility], [address] [place] [address], [id number], tel:[phone] [place] [facility] No Information Sep-2 7-200 9 Melyssa Garner. [address] [place] [address], [id number], . tel:[phone] [facility], [address] [place] [address], [id number], tel:[phone] [place] [facility] No Information 9 Melyssa Garner. [address] [place] [address], [id number], . tel:[phone] [facility], [address] [place] [address], [id number], tel:[phone] [place] [facility] No Information 0 200 9 Melyssa Garner. [address] [place] [address], [id number], . tel:[phone] [facility], [address] [place] [address], [id number], tel:[phone] [place] [facility] No Information 9 Melyssa Garner. [address] [place] [address], [id number], . tel:[phone] Office/outpat ient visit,est, mod [facility], [address] [place] [address], [id number], tel:[phone] [facility] No Information 9 Nichol Wise. [address] [place] [address], [id number], . tel:[phone] Referring Provider: Lelia Mitchell, [address], [place], [address]. tel:[phone] [facility], [address] [place] [address], [id number], tel:[phone] [place] [facility] No Information 9 Cipriano Acevedo. [address], [place], [address], [place]. tel:[phone] Referring Provider: Lexx Cardoso, [address], [place], [address]. tel:[phone] [facility], [address] [place] [address], [id number], [place] tel:[phone] [place] [facility] No Information 9 Cipriano Acevedo. [address] [place], [address], [place]. tel:[phone] Referring Provider: Lexx Cardoso, [address], [place], [address]. tel:[phone] [facility], [address] [place] [address], [id number], tel:[phone] [place] [facility] No Information 9 Cipriano Acevedo. [address] [place], [address], [place]. tel:[phone] Referring Provider: Lexx Cardoso, [address] [place] [address] [address], [place], [address]. tel:[phone] [facility], [address] [place] [address], [id number], tel:[phone] [place] [facility] No Information Sep-2 200 8 Melyssa Garner. [address] [place] [address], [id number], [place]. tel:[phone] [facility], [address] [place] [address], [id number], tel:[phone] [place] [facility] No Information Oct-1 200 8 Melyssa Garner. [address] [place] [address], [id number], . tel:[phone] [facility], [address] [place] [address], [id number], tel:[phone] [place] [facility] No Information Sep-0 3200 8 Cota Curtis. [address] [place], [address], [place]. tel:[phone] Referring Provider: Pascual Salazar, [address] [place] [address], [id number] . tel:[phone] Office/outpat ient visit,est, mod [facility], [address] [place] [address], [id number], [place] tel:[phone] [place] [facility] No Information 7200 8 Golz Pascual. [address] [place] [address], [id number], . tel:[phone] [facility], [address] [place] [address], [id number], tel:[phone] [facility] No Information 8 Golz Pascual. [address] [place] [address], [id number], [place]. tel:[phone] [facility], [address] [place] [address], [id number], tel:[phone] [facility] No Information 8 Jesus Pammela. [address] [place] [address], [id number], . tel:[phone] Office/outpat ient visit,est, mod [facility], [address] [place] [address], [id number], tel:[phone] [place] [facility] No Information 2200 8 Golz Pascual. [address] [place] [address], [id number], . tel:[phone] [facility], [address] [place] [address], [id number], tel:[phone] [place] [facility] No Information 200 7 Golz Pascual. [address] [place] [address], [id number], [place]. tel:[phone] [facility], [address] [place] [address], [id number], tel:[phone] [facility] No Information 2 7 Jesus Pammela. [address] [place] [address], [id number], . tel:[phone] [facility], [address] [place] [address], [id number], tel:[phone] [place] [facility] No Information 200 7 Melyssa Garner. [address] [place] [address], [id number], . tel:[phone] [facility], [address] [place] [address], [id number], tel:[phone] [place] [facility] No Information Jan-0 4-200 7 Melyssa Garner. [address] [place] [address], [id number], . tel:[phone] [facility], [address] [place] [address], [id number], tel:[phone] [place] [facility] No Information 200 7 Melyssa Garner. [address] [place] [address], [id number], . tel:[phone] [facility], [address] [place] [address], [id number], tel:[phone] [place] [facility] No Information 0200 7 Melyssa Garner. [address] [place] [address], [id number], [place]. tel:[phone] [facility], [address] [place] [address], [id number], tel:[phone] [place] [facility] No Information 7 Nichol Wise. [address] [place] [address], [id number], . tel:[phone] [facility], [address] [place] [address], [id number], tel:[phone] [facility] No Information 5 Jeffrey De. [address] [place] [address], [id number], . tel:[phone] Office consultation, moderate-high [facility], [address] [place] [address], [id number], tel:[phone] [facility] No Information 200 5 Narayan Schafer. [address] , [place], [address], [place]. tel:[phone] Family History Family Member Type Diagnosis Age At Onset No Information Payers Payer name Insurance type Covered libertarian ID Mark storey(s) [id number] Social History Type Description Quantity Date Captured [...]
--- OUTSIDE RECORDS SUMMARY | 2024-04-23 16:45 | XMS_ITS | Clinical Summary ---
Author Organization [facility] [address] [place] [address] Care Team Providers Care Fountain Vending Mechanic Name Role Phone Thomas Antonio MD Primary Care Provider [phone] Yoselyn Nicolas TELEVISION JOURNALIST Unavailable [phone] Allergies Active Allergy Reactions Criticality Noted [...] 1 tablet (10 mg total) by mouth welding operator before breakfast 3 Active cyanocobalamin (Vitamin B-12) [...] mg total) by mouth daily Active john [id number] op-man-bor 250-40-125 mg-mg-unit tablet Take by mouth [...] 05/15/2022 Overview (12/19/2023): Updated per IMO upload [id number] Hypokalemia 05/15/2022 HLD (hyperlipidemia) 05/15/2022 Lower GI [...] 24 Hypertension 11/04/2012 01/14/2024 Obesity 11/04/2012 12/19/2023 Encounters Date Type Department Care Team Description 03/20/2024 Telephone [facility] Transplant Liver [address] [facility] [address] [id number] [place] [address] Emily Vigil RN 03/17/2024 Telephone [facility] Gastroenterology [address] [place] [address] Medicine 12th [place] [address] [place] [address] Rosa Everett LPN 03/12/2024 2:15 PM ANTISQUEAK CHALKER Lab [facility] [address] [place] [phone] Liver mass; Cirrhosis of liver without ascites, unspecified hepatic cirrhosis type (HCC) 03/12/2024 9:20 AM ANTISQUEAK CHALKER - 03/12/2024 11:59 PM ANTISQUEAK CHALKER Hospital Encounter [facility] Radiology [facility] [address] [place] [address] Melissa Albright MD Liver mass Discharge Disposition: Discharge to home or self care 03/12/2024 8:30 AM ANTISQUEAK CHALKER Office Visit [facility] Gasteroenterology [address] [place] [address] Medicine 12th [place] [address] [place] [address] Neelam Morrison MD Liver mass (Primary Dx); Alcoholic cirrhosis of liver without ascites (HCC); Cirrhosis of liver without ascites, unspecified hepatic cirrhosis type (HCC) from Last 3 Months Medical History Medical History Date Comments Gout Hypertension Heart failure with preserved ejection fraction ( HCC) Paroxysmal A-fib (HCC) Family History Medical History Relation Name [...] on file Legal Sex Female 5:37 AM ANTISQUEAK CHALKER Gender Identity Not on file Sexual Orientation Not on file Obstetrics History Last Filed Vital Signs Vital Sign Reading Time Taken Comments Blood Pressure 118/76 03/12/2024 8:31 AM ANTISQUEAK CHALKER Pulse 109 03/12/2024 8:31 AM ANTISQUEAK CHALKER Temperature 36.2 C (97.1 F) 03/12/2024 8:31 AM ANTISQUEAK CHALKER Respiratory Rate - - Oxygen Saturation 96% 01/14/2024 1:12 PM ANTISQUEAK CHALKER Inhaled Oxygen Concentration - - Weight 90.9 kg (200 lb 6.4 oz) 03/12/2024 8:31 A M ANTISQUEAK CHALKER Height 160 cm (5' 3 ) 03/12/2024 8:31 AM ANTISQUEAK CHALKER Body Mass Index 35.5 03/12/2024 8:31 AM ANTISQUEAK CHALKER Plan of Treatment Health Maintenance Due Date Last Done Comments Albumin Creatinine Ratio, Urine 1941 Depression Screening 1941 Fall Risk Assessment 1941 Osteoporosis Screening-Bone Density Scan 1941 Dilated Eye Exam 1941 Foot Exam 1941 Zoster Vaccine (1 of 2) 02/26/1960 DTaP/Tdap/Td Vaccine (1 - Tdap) 08/12/2004 5 Well Visit 65+ 2006 Lipid Panel 08/01/2014 08/01/2013 Pneumococcal vaccine 65+ (4 of 4 - PCV20 or PCV21) 06/21/2021 06/21/2016, 12/12/2000, 12/01/1991 Hemoglobin A1C 06/17/2024 12/19/2023 eGFR 03/12/2025 03/12/2024, 12/19/2023 Influenza Vaccine Completed 10/03/2023, , 11/20/2016 Procedures Procedure Name Priority Date/Time Associated Diagnosis Comments EGFR Routine 03/12/2024 12:30 PM ANTISQUEAK CHALKER Liver mass Cirrhosis of liver without ascites, unspecified hepatic cirrhosis type (HCC) DIFFERENTIAL AUTO Routine 03/12/2024 12: 30 PM ANTISQUEAK CHALKER Liver mass Cirrhosis of liver without ascites, unspecified hepatic cirrhosis type (HCC) [id number], TUMOR MARKER Routine 03/12/2024 12:30 PM ANTISQUEAK CHALKER Liver mass Cirrhosis of liver without ascites, unspecified hepatic cirrhosis type (HCC) BILIRUBIN, DIRECT Routine 03/12/2024 12: 30 PM ANTISQUEAK CHALKER Liver mass Cirrhosis of liver without ascites, unspecified hepatic cirrhosis type (HCC) CBC WITH AUTO DIFFERENTIAL Routine 03/12/2024 12:30 PM ANTISQUEAK CHALKER Liver mass Cirrhosis of liver without ascites, unspecified hepatic cirrhosis type (HCC) COMPREHENSIVE METABOLIC PANEL Routine 03/12/2024 12:30 PM ANTISQUEAK CHALKER Liver mass Cirrhosis of liver without ascites, unspecified hepatic cirrhosis type (HCC) PROTIME-INR Routine 03/12/2024 12:30 PM ANTISQUEAK CHALKER Liver mass Cirrhosis of liver without ascites, unspecified hepatic cirrhosis type (HCC) MRI ABDOMEN W WO CONTRAST Schedule Routine, Read Routine (OP Routine) 03/12/2024 11:55 AM ANTISQUEAK CHALKER Liver mass HEMOGLOBIN A1C Routine 12/19/2023 1:08 PM ANTISQUEAK CHALKER Liver mass SERUM LIPID PANEL Routine 08/01/2013 9:4 3 PM CDT from Last 3 Months or Most Recently Relevant to Health Maintenance Results * (ABNORMAL) eGFR (03/12/2024 12:30 PM ANTISQUEAK CHALKER) [facility] eGFR 40(L) >=60 mL/min/1. 73 m2 Comment: [...] reviewed 2020. Blood 03/12/2024 12:3 0 PM ANTISQUEAK CHALKER 03/12/2024 12:50 PM ANTISQUEAK CHALKER us Neelam Morrison MD LAB BLOOD ORDERABLES Final Result [facility] [place] [address] * Differential, auto (03/12/2024 12:30 PM ANTISQUEAK CHALKER) [facility] Neutrophil abs 4.8 1.5 - 6.5 K/cumm Imm gran abs 0.0 0.0 - 0.1 K/cumm [facility] Lymphocyte abs 1.4 0.8 - 3.3 K/cumm [facility] Monocyte abs 0.8 0.2 - 0.8 K/cumm [facility] Eosinophil abs 0.3 0.0 - 0.5 K/cumm [facility] Basophil abs 0.1 0.0 - 0.1 K/cumm [facility] Neutrophil pct 65.7 % [facility] Comment: Interpretive Data Percent cell count reference ranges are not reported, since discordance with absolute values may lead to misinterpretation of CBC data. Current Interpretive Data was last revised on 2017. Imm gran pct 0.3 % [facility] Comment: Interpretive Data Percent cell count reference ranges are not reported, since discordance with absolute values may lead to misinterpretation of CBC data. Current Interpretive Data was last revised on 2017. Lymphocyte pct 18.5 % [facility] Comment: Interpretive Data Percent cell count reference ranges are not reported, since discordance with absolute values may lead to misinterpretation of CBC data. Current Interpretive Data was last revised on 2017. Monocyte pct 11.2 % [facility] Comment: Interpretive Data Percent cell count reference ranges are not reported, since discordance with absolute values may lead to misinterpretation of CBC data. Current Interpretive Data was last revised on 2017. Eosinophil pct 3.5 % [facility] Comment: Interpretive Data Percent cell count reference ranges are not reported, since discordance with absolute values may lead to misinterpretation of CBC data. Current Interpretive Data was last revised on 2017. Basophil pct 0.8 % [facility] Comment: Interpretive Data Percent cell count reference ranges are not reported, since discordance with absolute values may lead to misinterpretation of CBC data. Current Interpretive Data was last revised on 2017. Blood 03/12/2024 12:3 0 PM ANTISQUEAK CHALKER 03/12/2024 12:50 PM ANTISQUEAK CHALKER us Neelam Morrison MD LAB BLOOD ORDERABLES Final Result [facility] [place] [address] * CBC with auto differential (03/12/2024 12:30 PM ANTISQUEAK CHALKER) WBC 7.3 3.8 - 9.9 K/cumm Hgb 14.5 11.9 - 15.5 g/dL [facility] Hct 42.7 35.6 - 45.5 % [facility] Plt 221 150 - 400 K/cumm [facility] MPV 10.9 9.1 - 12.3 fL [facility] RBC 4.76 3.90 - 5.20 M/cumm [facility] MCV 89.7 81.3 - 96.4 fL [facility] MCH 30.5 27.1 - 33.3 pg [facility] MCHC 34.0 32.3 - 35.7 g/dL [facility] RDW CV 14.3 11.1 - 14.9 % [facility] RDW SD 46.5 35.7 - 48.1 fL [facility] NRBC abs 0.00 0.00 - 0.01 K/cumm [facility] Blood 03/12/2024 12:3 0 PM ANTISQUEAK CHALKER 03/12/2024 12:50 PM ANTISQUEAK CHALKER Neelam Morrison MD LAB BLOOD ORDERABLES Final Result [facility] [place] [address] * [id number], Tumor Marker (03/12/2024 12:30 PM ANTISQUEAK CHALKER) alpha Fetoprotein <2.0 <=8.3 ng/mL Comment: Interpretive [...] ng/ml >1 year 0.0 8.3 ng/ml References Tsjose Y. et al. J. Ped Surg 1978;13:155-156 Eloise SJulio et al. Clin Chem Lab Med 2018;57:783-797 Christel Pratt et al. Clin Chem 2014;0741-8452. Current interpretive data was last revised 2021. Blood 03/12/2024 12:3 0 PM ANTISQUEAK CHALKER 03/12/2024 12:50 PM ANTISQUEAK CHALKER Neelam Morrison MD LAB BLOOD ORDERABLES Final Result Performing Organization Address [facility] Co de Phone Number [facility] Department [place] [address] * (ABNORMAL) Protime-INR (03/12/2024 12:30 PM ANTISQUEAK CHALKER) PT 22.9(H) 9.7 - 13.0 sec INR 2.09(H) 0.90 - 1.20 [facility] Comment: Interpretive data Oral anticoagulant therapeutic ranges: Venous thromboembolism prophylaxis or treatment: 2.0-3.0 CARDIOLOGY Standard range: 2.0-3.0 High-intensity range: 2.5-3.5 Refer to indication-specific guidelines for appropriate target ranges for prosthetic heart valve replacement. Current interpretive data was last revised on 2019. Blood 03/12/2024 12:3 0 PM ANTISQUEAK CHALKER 03/12/2024 12:40 PM ANTISQUEAK CHALKER Neelam Morrison MD LAB BLOOD ORDERABLES Final Result Performing Organization Address [facility] Co de Phone Number [facility] [place] [address] * Bilirubin, direct (03/12/2024 12:30 PM ANTISQUEAK CHALKER) Bilirubin, direct 0.3 0.1 - 0.3 mg/dL Blood 03/12/2024 12:3 0 PM ANTISQUEAK CHALKER 03/12/2024 12:50 PM ANTISQUEAK CHALKER Neelam Morrison MD LAB BLOOD ORDERABLES Final Result Performing Organization Address [facility] Co de Phone Number [facility] [place] [address] * (ABNORMAL) Comprehensive metabolic panel (03/12/2024 12:30 PM ANTISQUEAK CHALKER) Sodium 137 135 - 145 mmol/L Potassium, pl 4.3 3.3 - 4.9 mmol/L [facility] Chloride 96(L) 97 - 110 mmol/L [facility] CO2 31 22 - 32 mmol/L [facility] Anion gap 10 2 - 15 mmol/L [facility] BUN 27(H) 6 - 25 mg/dL [facility] Creatinine 1.31(H) 0.60 - 1.10 mg/dL [facility] Glucose 106 70 - 199 mg/dL [facility] Comment: Interpretive Data Fasting glucose >/= 126 [...] 2022. Calcium 10.4(H) 8.5 - 10.3 mg/dL [facility] Bilirubin, total 0.7 0.1 - 1.2 mg/dL [facility] Protein, pl 7.9 6.5 - 8.5 g/dL [facility] Albumin 4.6 3.5 - 5.0 g/dL [facility] Alk phos 143(H) 40 - 130 Units/L [facility] ALT 20 7 - 45 Units/L [facility] AST 23 10 - 45 Units/L [facility] Blood 03/12/2024 12:3 0 PM ANTISQUEAK CHALKER 03/12/2024 12:50 PM ANTISQUEAK CHALKER us Neelam Morrison MD LAB BLOOD ORDERABLES Final Result [facility] [place] [address] * MRI Abdomen W WO Contrast (03/12/2024 11:55 AM ANTISQUEAK CHALKER) Anatomical Region Laterality Modality Body N/A Magnetic Resonan ce 03/12/2024 12:5 7 PM ANTISQUEAK CHALKER Impressions 03/12/2024 12:57 PM ANTISQUEAK CHALKER 1. Cirrhosis with 2.1 cm vague wedge-shaped/triangular-shaped mildly arterially enhancing lesion in the right hepatic lobe, which appears less conspicuous compared to the previous MR. 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 Attention on follow-up study. Electronically signed by: Pratibha Arreaga M.D. Narrative 03/12/2024 12:57 PM ANTISQUEAK CHALKER EXAMINATION: MAGNETIC RESONANCE IMAGING OF THE ABDOMEN [...] by: Pratibha Arreaga M.D. Melissa Albright MD [facility] MRI PROCEDURES Final Result * (ABNORMAL) Hemoglobin A1c (12/19/2023 1:08 PM ANTISQUEAK CHALKER) Hgb A1C 5.9(H) 4.0 - 5.6 % Estimated Average Glucose 123 mg/dL [facility] Comment: The ADA recommends reporting an estimated Average Glucose (eAG) with all Hemoglobin A1c results using the equation derived from a study of 507 normal and diabetic adults. Minority populations were underrepresented and children were not included. (Diabetes Care 2020; 43(S1): S66-S76). The eAG is not equivalent to a fasting glucose. Blood 12/19/2023 1:08 PM ANTISQUEAK CHALKER 12/19/2023 1:33 PM ANTISQUEAK CHALKER us Melissa Albright MD LAB BLOOD ORDERABLES Final Resul t [facility] [place] [address] * Serum lipid panel (08/01/2013 9:43 PM [...] Most Recently Relevant to Health Maintenance Insurance [facility] Advance Directives For more information, please contact: [phone] Documents on File Type Date Recorded Patient Geology Technician Expl anation ADVANCE DIRECTIVE 12/17/2023 7:15 PM Robbie _[email or web address] [email or web address] Care Teams Fountain Vending Mechanic Relationship Specialty Start Date End Date Thomas Antonio MD [address] [place] [address] PCP - General Internal Medicine 01/11/24 Yoselyn Nicolas NP [facility] [address] [place] [address] Family Medicine 01/11/24
--- OUTSIDE RECORDS SUMMARY | 2024-04-23 16:45 | XMS_ITS | Clinical Summary ---
Author Organization [facility] Address [facility] [place] [address] Care Team Providers Care Fire Engine Pump Operator Name Role Phone Valentin Mitchell MD Primary Care Provider [phone] Vasquez Akins MD Unavailable Unavailable Allergies Active [...] Noted Date Diagnosed Date Atrial fibrillation, persistent ([facility] ) 07/04/2016 Long-term (current) use of anticoagulants 2016 Acute on chronic diastolic c ongestive heart failure ([facility]) 06/08/2016 SVT (supraventricular tachycardia) ([facility]) Overview (06/07/2016): age 14 Obstructive sleep apnea sergo letty with bilevel positive airway pressure (BiPAP) Obesity OA (osteoarthritis) Migraines HTN (hypertension) HLD (hyperlipidemia) Depression Bleeding on Coumadin Borderline diabetes Persistent atrial fibrillation ([facility]) CHF (congestive heart failure) ([facility]) Atrial fibrillation ([facility]) Family History Medical History Relation Comments Sudden [...] Job Start Date Job 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 Not on file No t on file Last Filed Vital Signs Vital Sign Reading Time Taken Comments Blood Pressure 108/68 02/23/2017 10:17 AM HEADING SAW OPERATOR Pulse 83 02/23/2017 10:17 AM HEADING SAW OPERATOR Temperature - - Respiratory Rate 18 12/26/2016 9:26 AM HEADING SAW OPERATOR Oxygen Saturation 97% 02/23/2017 10:17 AM HEADING SAW OPERATOR Inhaled Oxygen Concentration - - Weight 112.5 kg (248 lb) 02/23/2017 10:17 AM HEADING SAW OPERATOR Height 162.6 cm (5' 4 ) 02/23/2017 10:17 AM HEADING SAW OPERATOR Body Mass Index 42.57 02/23/2017 10:17 AM HEADING SAW OPERATOR Plan of Treatment Health Maintenance Due Date [...] patient's age to complete this topic Insurance [employer] OPEN ACCESS [facility] Care Teams Fire Engine Pump Operator Relationship Specialty Start Date End Date Valentin Mitchell MD [address] [place] [address] PCP - General INTERNAL MEDICINE 06/08/16 Vasquez Akins MD [address] [place] [address] Kehinde Food Safety Director Electrophysiology 02/13/17
--- OUTSIDE RECORDS SUMMARY | 2024-04-23 16:45 | XMS_ITS | Encounter Summary ---
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
--- OUTSIDE RECORDS SUMMARY | 2024-04-23 16:45 | XMS_ITS | Clinical Summary ---
Author Organization [facility] Address [address] [facility] [place] [address] Care Team Providers Care Escapement Maker Name Role Phone Thomas Antonio MD Primary Care Provider [phone] [facility],non-owned Affiliates and Associated Physician Practices is amultiple site organization consisting of ambulatory clinics and hospital sitesin [place], [place], [place] and [place]. This disclosure is being madepursuant to the Care Everywhere program and may not contain all information available regarding this patient. Last updated 17.[facility] Allergies Active Allergy Reactions Criticality Noted Date [...] to complete this topic MENINGOCOCCAL (Group B) VACC INE SHARED DECISION-MAKING Aged Out No longer eligibl e based on patient's age to complete this topic MENINGOCOCCAL GROUPS A/C/Y/W VACCINE Aged Out No longer eligible b ased on patient's age to complete this topic Care Teams Escapement Maker Relationship Specialty Start Date End Date Thomas Antonio MD [address] [facility] [address] [place] [address] PCP - General Internal Medicine 12/06/23
[2024-04-23 16:48] LABS: LDL Cholesterol Direct 54 mg/dL
[2024-04-24 04:59] LABS: GGT 37 U/L (3-65)
== END 2024-04-23 15:12 | disposition home or self-care (01) ==
PROVIDERS: PCP Internal Medicine; Visit Provider Internal Medicine
DX: Z00.00 Encounter for general adult medical examination without abnormal findings (principal); I48.20 Chronic atrial fibrillation, unspecified; F41.9 Anxiety disorder, unspecified; E11.9 Type 2 diabetes mellitus without complications; I10 Essential (primary) hypertension; M10.9 Gout, unspecified; Z68.35 Body mass index [BMI] 35.0-35.9, adult; Z79.899 Other long term (current) drug therapy
CPT/HCPCS: 36415; 80053; 80061; 82977; 83036; 84550

== ENCOUNTER 2024-05-19 14:20 | Outpatient (CLI) | payer OTHER, SELFPAY ==
--- NOTE | ~2024-05-19 | CT_ITS ---
CT Scan of the Chest without Contrast: Clinical Indication: Pulmonary nodule Technique: Contiguous sections were acquired throughout the chest without intravenous contrast. Dose reduction technique was used on this scan by utilizing automated exposure control and iterative recon struction technique. The dose-length product (DLP) was 189.23 mGy-cm. Findings: There is no evidence of any significant mediastinal, hilar or axillary lymphadenopathy. Calcified lef t hilar lymph nodes are present. There are mild coronary artery calcifications. There is no evidence of pleural or pericardial effusion. 2 mm nodule present in the superior segment right lower lobe adjacent to the fissure (axial image 48) . 5 mm right upper lobe nodule noted near the fissure (axial image 62). 3 mm right lower lobe nodule present (axial image 72). 5 mm left lower lobe nodule present (axial image 85). Images through the upper abdomen reveal no abnormalities. Impression: Subcentimeter pulmonary nodules, as above. According to Fleischner Society criteria, for a low-risk p atient, no further follow-up required. For a high-risk patient, consider one-year follow-up exam. Reviewed, dictated and finalized at location . Impression: Subcentimeter pulmonary nodules, as above. According to Fleischner Society gavin bean, for a low-risk patient, no further follow-up required. For a high-risk pa tient, consider one-year follow-up exam.
--- OUTSIDE RECORDS SUMMARY | 2024-05-19 16:06 | XMS_ITS | Clinical Summary ---
Author Organization [facility] [address] [place] [address] Care Team Providers Care Dragline Mechanic Name Role Phone Thomas Antonio MD Primary Care Provider [phone] Yoselyn Nicolas COMMUNITY HE[facility] NURSE STAFF Unavailable [phone] Allergies Active Allergy Reactions Criticality Noted [...] tablet (25 mg total) by mouth daily 08/22/19 17 Active Xarelto 20 mg tablet Take 1 tablet (20 mg total) by mouth daily Active pravastatin (PRAVACHOL) 40 mg tablet Take 1 tablet (40 mg total) by mouth daily 01/12/20 12 Active potassium chloride ER 10 mEq CR tablet 1 tablet/capsule (10 mEq total) NEEDED FOR WEIGHT GAIN 12/03/19 22 Active metoprolol XL (TOPROL-XL) 100 mg 24 hr tablet Take 1 tablet (100 mg total) by mouth daily 07/24/19 24 Active metoprolol XL (TOPROL-XL) 50 mg extended release tablet TAKE 1 TABLET BY MOUTH DAILY. MAY TAKE AN ADDITIONAL IF ENTERING IN ATRIAL FIBRILLATION Active metFORMIN XR (GLUCOPHAGE XR) 500 mg 24 hr tablet Take 1 tablet (500 mg total) by mouth 3 (three) times a day Active Farxiga 10 mg tablet Take 1 tablet (10 mg total) by mouth hotel supplies salesperson before breakfast 12/19/19 23 Active cyanocobalamin (Vitamin B-12) 1,000 mcg tablet [...] mg total) by mouth daily Active john [id number] op-man-bor 250-40-125 mg-mg-unit tablet Take by mouth [...] capsule Take 1 tablet by mouth daily 11/17/19 16 Active levoFLOXacin (LEVAQUIN) 750 mg tablet TAKE 1 TABLET BY MOUTH DAILY FOR 10 DAYS 11/12/19 24 Active metOLazone (ZAROXOLYN) 2.5 mg tablet Active metroNIDAZOLE (FLAGYL) 500 mg tablet TAKE 1 TABLET BY MOUTH EVERY 8 HOURS FOR 10 DAYS 11/12/19 24 Active predniSONE (DELTASONE) 20 mg tablet Take 1 tablet (20 mg) by mouth as needed Active calcium citrate/vitamin D3 (CITRACAL REGULAR ORAL) Take by mouth Ac tive torsemide (DEMADEX) 20 mg tablet Take 2 tablets (40 mg total) by mouth daily as needed (PRN SWELLING OR WT GAIN OVER 5 LB) 180 tablet 3 01/14/[address] (CYMBALTA) 30 mg capsule Take 1 capsule (30 mg total) by mouth daily 04/24/19 25 Active ALPRAZolam (XANAX) 0.25 mg tablet Take by mouth 3 (three) times a day as needed 03/27/19 25 Active sertraline (ZOLOFT) 50 mg tablet Take 1 tablet every day by oral route. 04/29/19 11 025 Discontin ued(Patie nt Reported) Active Problems Problem Noted Date Diagnosed Date [...] 05/15/2022 Overview (12/19/2023): Updated per IMO upload [id number] Hypokalemia 05/15/2022 HLD (hyperlipidemia) 05/15/2022 Lower GI [...] Encounters Date Type Department Care Team Description 05/19/2024 1:45 PM CDT Office Visit [facility] [address] [place] [address] Alin Gorman MD Persistent atrial fibrillation (HCC) (Primary Dx); Pulmonary hypertension (HCC); Heart failure with preserved left ventricular function (HFpEF) (HCC); Essential hypertension; Mixed hyperlipidemia 03/20/2024 Telephone [facility] Trans[facility] Liver [address] Mailstop [phone] [place] [address] Emily Vigil, KARLENE 03/17/2024 Telephone [facility] [address] [facility] 12th [place] [address] [place] [phone] Rosa Everett LPN 03/12/2024 2:15 PM SENIOR INTERNAL AUDITOR Lab [facility] [address] [place] [id number] Liver mass; Cirrhosis of liver without ascites, unspecified hepatic cirrhosis type (HCC) 03/12/2024 9:20 AM SENIOR INTERNAL AUDITOR - 03/12/2024 11:59 PM SENIOR INTERNAL AUDITOR Hospital Encounter [facility] [address] [place] [address] Melissa Albright MD Liver mass Discharge Disposition: Discharge to home or self care 03/12/2024 8:30 AM SENIOR INTERNAL AUDITOR Office Visit [facility] [address] [facility] [address]th [place] [address] [place] [address] Neelam Morrison MD Liver mass (Primary Dx); [...] on file Legal Sex Female 5:37 AM SENIOR INTERNAL AUDITOR Gender Identity Not on file Sexual Orientation Not on file Obstetrics History Last Filed Vital Signs Vital Sign Reading Time Taken Comments Blood Pressure 100/62 05/19/2024 1:54 PM CDT Pulse 86 05/19/2024 1:54 PM CDT Temperature 36.2 C (97.1 F) 03/12/2024 8:31 AM SENIOR INTERNAL AUDITOR Respiratory Rate - - Oxygen Saturation 97% 05/19/2024 1:54 PM CDT Inhaled Oxygen Concentration - - Weight 91.4 kg (201 lb 8 oz) 05/19/2024 1:54 PM CDT Height 160 cm (5' 3 ) 05/19/2024 1:54 PM CDT Body Mass Index 35.69 05/19/2024 1:54 PM CDT Plan of Treatment Health Maintenance Due [...] Diagnosis Comments EGFR Routine 03/12/2024 12:30 PM SENIOR INTERNAL AUDITOR Liver mass Cirrhosis of liver without ascites, unspecified hepatic cirrhosis type (HCC) DIFFERENTIAL AUTO Routine 03/12/2024 12: 30 PM SENIOR INTERNAL AUDITOR Liver mass Cirrhosis of liver without ascites, unspecified hepatic cirrhosis type (HCC) [id number], TUMOR MARKER Routine 03/12/2024 12:30 PM SENIOR INTERNAL AUDITOR Liver mass Cirrhosis of liver without ascites, unspecified hepatic cirrhosis type (HCC) BILIRUBIN, DIRECT Routine 03/12/2024 12: 30 PM SENIOR INTERNAL AUDITOR Liver mass Cirrhosis of liver without ascites, unspecified hepatic cirrhosis type (HCC) CBC WITH AUTO DIFFERENTIAL Routine 03/12/2024 12:30 PM SENIOR INTERNAL AUDITOR Liver mass Cirrhosis of liver without ascites, unspecified hepatic cirrhosis type (HCC) COMPREHENSIVE METABOLIC PANEL Routine 03/12/2024 12:30 PM SENIOR INTERNAL AUDITOR Liver mass Cirrhosis of liver without ascites, unspecified hepatic cirrhosis type (HCC) PROTIME-INR Routine 03/12/2024 12:30 PM SENIOR INTERNAL AUDITOR Liver mass Cirrhosis of liver without ascites, unspecified hepatic cirrhosis type (HCC) MRI ABDOMEN W WO CONTRAST Schedule Routine, Read Routine (OP Routine) 03/12/2024 11:55 AM SENIOR INTERNAL AUDITOR Liver mass HEMOGLOBIN A1C Routine 12/19/2023 1:08 PM SENIOR INTERNAL AUDITOR Liver mass SERUM LIPID PANEL Routine 08/01/2013 9:4 3 PM CDT from Last 3 Months or Most Recently Relevant to Health Maintenance Results * (ABNORMAL) eGFR (03/12/2024 12:30 PM SENIOR INTERNAL AUDITOR) eGFR 40(L) >=60 mL/min/1. 73 m2 Comment: [...] Inclusion of Race in Diagnosing Kidney Disease, TRUESN 2020). The CKD-EPI equation should not be used for patients with unstable renal function and has not been validated in children and those over 70. Current interpretive data was last reviewed 2020. Blood 03/12/2024 12:3 0 PM SENIOR INTERNAL AUDITOR 03/12/2024 12:50 PM SENIOR INTERNAL AUDITOR us Neelam Morrison MD LAB BLOOD ORDERABLES Final Result [facility] [place] [address] * Differential, auto (03/12/2024 12:30 PM SENIOR INTERNAL AUDITOR) Neutrophil abs 4.8 1.5 - 6.5 K/cumm Imm gran abs 0.0 0.0 - 0.1 K/cumm [facility] Lymphocyte abs 1.4 0.8 - 3.3 K/cumm [facility] Monocyte abs 0.8 0.2 - 0.8 K/cumm [facility] Eosinophil abs 0.3 0.0 - 0.5 K/cumm [facility] Basophil abs 0.1 0.0 - 0.1 K/cumm [facility] Neutrophil pct 65.7 % [facility] Comment: Interpretive Data Percent cell count reference ranges are not reported, since discordance with absolute values may lead to misinterpretation of CBC data. Current Interpretive Data was last revised on 2017. Imm gran pct 0.3 % [facility] Comment: Interpretive Data Percent cell count reference ranges are not reported, since discordance with absolute values may lead to misinterpretation of CBC data. Current Interpretive Data was last revised on 2017. Lymphocyte pct 18.5 % [facility] Comment: Interpretive Data Percent cell count reference ranges are not reported, since discordance with absolute values may lead to misinterpretation of CBC data. Current Interpretive Data was last revised on 2017. Monocyte pct 11.2 % [facility] Comment: Interpretive Data Percent cell count reference ranges are not reported, since discordance with absolute values may lead to misinterpretation of CBC data. Current Interpretive Data was last revised on 2017. Eosinophil pct 3.5 % [facility] Comment: Interpretive Data Percent cell count reference ranges are not reported, since discordance with absolute values may lead to misinterpretation of CBC data. Current Interpretive Data was last revised on 2017. Basophil pct 0.8 % [facility] Comment: Interpretive Data Percent cell count reference ranges are not reported, since discordance with absolute values may lead to misinterpretation of CBC data. Current Interpretive Data was last revised on 2017. Blood 03/12/2024 12:3 0 PM SENIOR INTERNAL AUDITOR 03/12/2024 12:50 PM SENIOR INTERNAL AUDITOR Neelam Morrison MD LAB BLOOD ORDERABLES Final Result Performing Organization Address [facility] de Phone Number [facility] [place] [address] * CBC with auto differential (03/12/2024 12:30 PM SENIOR INTERNAL AUDITOR) [facility] WBC 7.3 3.8 - 9.9 K/cumm Hgb 14.5 11.9 - 15.5 g/dL [facility] Hct 42.7 35.6 - 45.5 % [facility] Plt 221 150 - 400 K/cumm [facility] MPV 10.9 9.1 - 12.3 fL [facility] RBC 4.76 3.90 - 5.20 M/cumm [facility] MCV 89.7 81.3 - 96.4 fL [facility] MCH 30.5 27.1 - 33.3 pg [facility] MCHC 34.0 32.3 - 35.7 g/dL [facility] RDW CV 14.3 11.1 - 14.9 % [facility] RDW SD 46.5 35.7 - 48.1 fL [facility] NRBC abs 0.00 0.00 - 0.01 K/cumm [facility] Blood 03/12/2024 12:3 0 PM SENIOR INTERNAL AUDITOR 03/12/2024 12:50 PM SENIOR INTERNAL AUDITOR Neelam Morrison MD LAB BLOOD ORDERABLES Final Result Performing Organization Address [facility] Co de Phone Number [facility] [place] [address] * [id number], Tumor Marker (03/12/2024 12:30 PM SENIOR INTERNAL AUDITOR) [facility] alpha Fetoprotein <2.0 <=8.3 ng/mL Comment: Interpretive [...] et al. J. Ped Surg 1978;13:155-156 Eloise Kincaid. et al. Clin Chem Lab Med 2018;57:783-797 Christel Pratt et al. Clin Chem 2014;3515-6332. Current interpretive data was last revised 2021. Blood 03/12/2024 12:3 0 PM SENIOR INTERNAL AUDITOR 03/12/2024 12:50 PM SENIOR INTERNAL AUDITOR Neelam Morrison MD LAB BLOOD ORDERABLES Final Result Performing Organization Address [facility] de Phone Number [facility] [place] [address] * (ABNORMAL) Protime-INR (03/12/2024 12:30 PM SENIOR INTERNAL AUDITOR) PT 22.9(H) 9.7 - 13.0 sec INR 2.09(H) 0.90 - 1.20 [facility] Comment: Interpretive data Oral anticoagulant therapeutic ranges: Venous thromboembolism prophylaxis or treatment: 2.0-3.0 CARDIOLOGY Standard range: 2.0-3.0 High-intensity range: 2.5-3.5 Refer to indication-specific guidelines for appropriate target ranges for prosthetic heart valve replacement. Current interpretive data was last revised on 2019. Blood 03/12/2024 12:3 0 PM SENIOR INTERNAL AUDITOR 03/12/2024 12:40 PM SENIOR INTERNAL AUDITOR us Neelam Morrison MD LAB BLOOD ORDERABLES Final Result Performing Organization Address [facility] Co de Phone Number [facility] [place] [address] * Bilirubin, direct (03/12/2024 12:30 PM SENIOR INTERNAL AUDITOR) Bilirubin, direct 0.3 0.1 - 0.3 mg/dL Blood 03/12/2024 12:3 0 PM SENIOR INTERNAL AUDITOR 03/12/2024 12:50 PM SENIOR INTERNAL AUDITOR Neelam Morrison MD LAB BLOOD ORDERABLES Final Result [facility] [address] [facility] [place] [address] * (ABNORMAL) Comprehensive metabolic panel (03/12/2024 12:30 PM SENIOR INTERNAL AUDITOR) Pathologist [facility] Sodium 137 135 - 145 mmol/L Potassium, pl 4.3 3.3 - 4.9 mmol/L [facility] Chloride 96(L) 97 - 110 mmol/L [facility] CO2 31 22 - 32 mmol/L [facility] Anion gap 10 2 - 15 mmol/L [facility] BUN 27(H) 6 - 25 mg/dL [facility] Creatinine 1.31(H) 0.60 - 1.10 mg/dL [facility] Glucose 106 70 - 199 mg/dL [facility] Comment: Interpretive Data Fasting glucose >/= [...] 2022. Calcium 10.4(H) 8.5 - 10.3 mg/dL [facility] Bilirubin, total 0.7 0.1 - 1.2 mg/dL [facility] Protein, pl 7.9 6.5 - 8.5 g/dL [facility] Albumin 4.6 3.5 - 5.0 g/dL [facility] Alk phos 143(H) 40 - 130 Units/L [facility] ALT 20 7 - 45 Units/L [facility] AST 23 10 - 45 Units/L [facility] Blood 03/12/2024 12:3 0 PM SENIOR INTERNAL AUDITOR 03/12/2024 12:50 PM SENIOR INTERNAL AUDITOR us Neelam Morrison MD LAB BLOOD ORDERABLES Final Result [facility] [place] [address] * MRI Abdomen W WO Contrast (03/12/2024 11:55 AM SENIOR INTERNAL AUDITOR) Anatomical Region Laterality Modality Body N/A Magnetic Resonan ce 03/12/2024 12:5 7 PM SENIOR INTERNAL AUDITOR Impressions 03/12/2024 12:57 PM SENIOR INTERNAL AUDITOR 1. Cirrhosis with 2.1 cm vague wedge-shaped/triangular-shaped mildly arterially enhancing lesion in the right hepatic lobe, which appears less conspicuous compared to the previous MR. 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 Attention on follow-up study. Electronically signed by: Pratibha Arreaga M.D. Narrative 03/12/2024 12:57 PM SENIOR INTERNAL AUDITOR EXAMINATION: MAGNETIC RESONANCE IMAGING OF THE ABDOMEN [...] * (ABNORMAL) Hemoglobin A1c (12/19/2023 1:08 PM SENIOR INTERNAL AUDITOR) Hgb A1C 5.9(H) 4.0 - 5.6 % Estimated Average Glucose 123 mg/dL [facility] Comment: The ADA recommends reporting an estimated Average Glucose (eAG) with all Hemoglobin A1c results using the equation derived from a study of 507 normal and diabetic adults. Minority populations were underrepresented and children were not included. (Diabetes Care 2020; 43(S1): S66-S76). The eAG is not equivalent to a fasting glucose. 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
--- OUTSIDE RECORDS SUMMARY | 2024-05-19 16:06 | XMS_ITS | Encounter Summary ---
Author Organization [facility] Healthcare Address [address] [place] [address] Care Team Providers Care Fluorescent Lighting Model Maker Name Role Phone Thomas Antonio MD Primary Care Provider [phone] Yoselyn Nicolas SECURITY INSTALLER Unavailable [phone] Reason for Visit * Reason Comments Follow-up 4 mo f/u. Benitoter renée itor 01/21/24 Atrial Fibrillation Encounter Details Date Type Department Care Team (Latest Contact Info) Description 05/19/2024 1:45 PM CDT Office Visit [facility] Cardiology [address] [place] [address] Alin Gorman MD [address] [address] Persistent atrial fibrillation (HCC) (Primary Dx); Pulmonary hypertension (HCC); Heart failure with preserved left ventricular function (HFpEF) (HCC); Essential hypertension; Mixed hyperlipidemia Social History Tobacco Use Types Packs/Day Years Used Date Smoking Tobacco: Never Smokeless Tobacco: Never Comments Unknown Sex and Gender Information Value Date Recorded Sex Assigned at Not on file 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 Gender Identity Not on file Sexual Orientation Not on file documented as of this encounter Last Filed Vital Signs Vital Sign Reading Time Taken Comments Blood Pressure 100/62 05/19/2024 1:54 PM CDT Pulse 86 05/19/2024 1:54 PM CDT Temperature - - Respiratory Rate - - Oxygen Saturation 97% 05/19/2024 1:54 PM CDT Inhaled Oxygen Concentration - - Weight 91.4 kg (201 lb 8 oz) 05/19/2024 1:54 PM CDT Height 160 cm (5' 3 ) 05/19/2024 1:54 PM CDT Body Mass Index 35.69 05/19/2024 1:54 PM CDT documented in this encounter Progress Notes * Alin Gorman MD - 05/19/2024 1:45 PM CDT [facility] DATE OF VISIT: 05/19/2024 CHIEF COMPLAINT Chief Complaint Patient presents with Follow-up 4 mo f/u. Holter monitor 01/21/24 Atrial Fibrillation HPI Nadja Garcia is a 84 y.o. female with past history of persistent atrial fibrillation, mild aortic stenosis, dyslipidemia, hypertension and chronic diastolic heart failure. Also history of pulmonary hypertension uses oxygen at night. She is here accompanied by her daughter Apparently she moved from [place] to here 4 months ago. Back in October her PCP increased metoprolol from 100 daily to 150 daily and since that time she is feeling extremely tired and wiped out. She mentioned that in the past her metoprolol was increased and she felt the same and then metoprolol was reduced. Was hospitalized to [facility] November 2023 with diverticulitis. She ambulates with a walker. Denies chest pain, shortness of breath, lower extremity edema, dizziness or syncope. Never smoked and does not drink. 05/19/2024-returns for follow-up appointment. Accompanied by her daughter. Denies chest pain, shortness of breath, dizziness, syncope, lower extremity edema. Lost 5 lb compared to last visit since she moved to assisted living facility and getting more physical therapy and eating less snacks. She takes Toprol-XL at 100 mg rather than 150 mg daily because 150 mg daily made her feel tired and fatigued. MEDICAL HISTORY Past Medical History: Diagnosis Date Gout Heart failure with preserved ejection fraction (HCC) Hypertension Paroxysmal A-fib (HCC) History reviewed. No pertinent surgical history. 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UD[facility]C Frequency of Alcohol Consumption: Not on file Average Number of Drinks: Not on file Frequency of Binge Drinking: Weekly Family History Problem Relation Age of Onset Sudden Cardiac Father Family history of sudden cardiac - (Added by TW Conv) Heart failure Mother Family history of heart failure - (Added by TW Conv) Hypertension Mother Family history of hypertension - (Added by TW Conv) Hypertension Father Family history of hypertension - (Added by TW Conv) Hypertension Brother Family history of hypertension - (Added by TW Conv) Hypertension Daughter Family history of hypertension - (Added by TW Conv) Hypertension Mother Family history of pulmonary hypertension - (Added by TW Conv) MEDICATIONS Current Outpatient Medications Medication Sig Dispense Refill allopurinoL (ZYLOPRIM) 300 mg tablet Take 1 [...] TO THREE TIMES DAILY FOR cough hansa [id number] 250-40-125 mg-mg-unit tablet Take by mouth 2 (two) times a day calcium carbonate (OS-HANSA) 1,500 mg (600 mg elemental) tablet Take 600 mg by mouth daily calcium carbonate-vitamin D3 1,500 mg (600mg elemental) -800 unit per tablet Take 1 tablet by mouthdaily cephalexin (KEFLEX) 500 mg capsule Take 1 [...] 1 tablet (10 mg total) by mouth claim agent before breakfast fluticasone propion-salmeteroL (ADVAIR DISKUS) 250-50 mcg/dose diskus inhaler Inhale 1 puff 2 (two)times a day guaiFENesin-codeine (GUAITUSS AC) liquid 100-10 mg/5 mL TAKE 10mL BY MOUTH EVERY 6 HOURS NEEDED FOR cough ipratropium (ATROVENT) 21 mcg (0.03 %) nasal spray USE 1 TO 2 SPRAYS IN EACH NOSTRIL THREE TIMES DAILY Lactobacillus acidophilus 10 billion cell capsule Take 1 tablet by mouth daily levoFLOXacin (LEVAQUIN) 750 mg tablet TAKE 1 TABLET BY MOUTH DAILY FOR 10 DAYS magnesium oxide (MAG-OX) 415 mg (250 mg elemental) tablet Take 500 mg by mouth 2 (two) times a day metFORMIN XR (GLUCOPHAGE XR) 500 mg 24 hr tablet Take 1 tablet (500 mg total) by mouth 3 (three) times a day metOLazone (ZAROXOLYN) 2.5 mg tablet metoprolol XL (TOPROL-XL) 100 mg 24 hr tablet Take 1 tablet (100 mg total) by mouth daily metoprolol XL (TOPROL-XL) 50 mg extended release tablet TAKE 1 TABLET BY MOUTH DAILY. MAY TAKE AN ADDITIONAL IF ENTERING IN ATRIAL FIBRILLATION metroNIDAZOLE (FLAGYL) 500 mg tablet TAKE 1 TABLET BY MOUTH EVERY 8 HOURS FOR [address] (PROTONIX) 40 mg EC tablet Take 1 tablet (40 mg total) by mouth every morning potassium chloride ER 10 mEq CR tablet 1 tablet/capsule (10 mEq total) NEEDED FOR WEIGHT GAIN pravastatin (PRAVACHOL) 40 mg tablet Take 1 tablet (40 mg total) by mouth daily predniSONE (DELTASONE) 20 mg tablet Take 1 tablet (20 mg) by mouth as needed sertraline (ZOLOFT) 50 mg tablet Take 1 tablet every day by oral route. spironolactone (ALDACTONE) 25 mg tablet Take 1 tablet (25 mg total) by mouth daily thiamine (vitamin B-1) 100 mg tablet Take 1 tablet (100 mg total) by mouth daily torsemide (DEMADEX) 20 mg tablet TAKE 2 TABLETS EVERY MORNING AND 2 TABLETS EVERY EVENING NEEDEDFOR WEIGHT INCREASE OVER 5 POUNDS Xarelto 20 mg tablet Take 1 tablet (20 mg total) by mouth daily No current facility-administered medications for this visit. ALLERGIES Allergies Allergen Reactions Meperidine Nausea only, Other (See comments) and Unknown Other reaction(s): HYPEREMESIS - unknown Morphine Nausea And Vomiting and Unknown Other reaction(s): Nausea and vomitin - Other reaction(s): Nausea and vomitin - Other reaction(s): Nausea and vomitin - Penicillins Anaphylaxis and Unknown Other reaction(s): TONGUE SWELLS - Other reaction(s): TONGUE SWELLS - Other reaction(s): TONGUE SWELLS - Sulfa (Sulfonamide Antibiotics) Swelling, Unknown and Rash Other reaction(s): TONGUE SWELLS - Other reaction(s): TONGUE SWELLS - Other reaction(s): TONGUE SWELLS - Adhesive Itching and Rash Rivaroxaban Other (See comments) and Unknown Reaction: Other - - REVIEW OF SYSTEMS Review of Systems Constitutional: Positive for malaise/fatigue and weight loss. Negative for chills and fever. HENT: Negative for congestion and sore throat. Eyes: Negative for blurred vision and double vision. Cardiovascular: Negative for chest pain, claudication, dyspnea on exertion, leg swelling, near-syncope, orthopnea, palpitations, paroxysmal nocturnal dyspnea and syncope. Respiratory: Negative for cough, hemoptysis, shortness of breath, snoring, sputum production and wheezing. Endocrine: Negative for cold intolerance and polyuria. Hematologic/Lymphatic: Negative for bleeding problem. Does not bruise/bleed easily. Skin: Negative for itching and rash. Musculoskeletal: Positive for back pain and joint pain. Negative for joint swelling. Gastrointestinal: Negative for abdominal pain, diarrhea, nausea and vomiting. Genitourinary: Negative for dysuria, frequency and hematuria. Neurological: Positive for loss of balance. Negative for focal weakness, headaches and light-headedness. Psychiatric/Behavioral: Negative for depression. The patient is not nervous/anxious. Allergic/Immunologic: Negative for environmental allergies and hives. PHYSICAL EXAM Vitals BP 100/62 (BP Location: Left arm, Patient Position: Sitting) Pulse 86 Ht 160 cm (5' 3 ) Wt 91.4 kg (201 lb 8 oz) SpO2 97% BMI 35.69 kg/m?? Body mass index is 35.69 kg/m??. Physical Exam Constitutional: General: She is not in acute distress. Appearance: She is well-developed. HENT: Head: Normocephalic and atraumatic. Right Ear: External ear normal. Left Ear: External ear normal. Eyes: General: No scleral icterus. Left eye: No discharge. Conjunctiva/sclera: Conjunctivae normal. Neck: Thyroid: No thyromegaly. Cardiovascular: Rate and Rhythm: Normal rate. Rhythm irregular. Heart sounds: Normal heart sounds. No murmur heard. No friction rub. No gallop. Pulmonary: Effort: Pulmonary effort is normal. No respiratory distress. Breath sounds: Normal breath sounds. No wheezing or rales. Abdominal: General: There is no distension. Palpations: Abdomen is soft. Tenderness: There is no abdominal tenderness. Musculoskeletal: General: No tenderness or deformity. Cervical back: Normal range of motion and neck supple. Right lower leg: No edema. Left lower leg: No edema. Skin: General: Skin is warm. Findings: No erythema or rash. Neurological: Mental Status: She is alert and oriented to person, place, and time. Motor: No abnormal muscle tone. Psychiatric: Mood and Affect: Mood normal. LABS AND OTHER DIAGNOSTIC TESTS Lab Results Component Value Date WBC 7.3 03/12/2024 HGB 14.5 03/12/2024 HCT 42.7 03/12/2024 MCV 89.7 03/12/2024 Chemistry Component Value Date/Time SODIUM 137 03/12/2024 1230 POTASSIUM 4.3 03/12/2024 1230 CHLORIDE 96 (L) 03/12/2024 1230 CO2 31 03/12/2024 1230 BUNSER 27 (H) 03/12/2024 1230 CREATININE 1.31 (H) 03/12/2024 1230 GLUCOSE 106 03/12/2024 1230 Component Value Date/Time CALCIUM 10.4 (H) 03/12/2024 1230 ALKPHOS 143 (H) 03/12/2024 1230 AST 23 03/12/2024 1230 ALT 20 03/12/2024 1230 BILITOT 0.7 03/12/2024 1230 Lab Results Component Value Date CHOL 126 08/01/2013 Lab Results Component Value Date HDL 58 08/01/2013 No results found for: LDLCALC Lab Results Component Value Date TRIG 73 08/01/2013 No results found for: CHOLHDL Echo November 2023 ejection fraction 70%, normal LV wall thickness, moderate left atrial enlargement, severe right atrial enlargement, [id number] mitral regurgitation, mild aortic stenosis with valve area 1.66 cm2 and mean gradient 6 mm Hg, moderate tricuspid regurgitation, RVSP 52. Mild pulmonic regurgitation ASSESSMENT Diagnoses and all orders for this visit: Persistent atrial fibrillation (HCC) (Primary) Pulmonary hypertension (HCC) Heart failure with preserved left ventricular function (HFpEF) (HCC) Essential hypertension Mixed hyperlipidemia PLAN/RECOMMENDATIONS In regards to persistent atrial fibrillation, she is known to have chronic atrial fibrillation. Reports previous 2 ablations. Continue Xarelto. T 24 hour monitor showed heart rate 85 beats per minuteat average. Continue Toprol-XL at 100 mg daily. 150 mg daily could not be tolerated due to feeling tired. Echocardiogram done November 2023 showed moderate left atrial and severe right atrial enlargement and ejection fraction 70%. In regards to hypertension, blood pressure is controlled 100/62. Continue Toprol-XL. Continue spironolactone. In regards to chronic diastolic heart failure, appears to be compensated. Continue spironolactone and torsemide 40 mg daily. Continue Farxiga. In regards to pulmonary hypertension , moderate. Follows up with Pulmonary. Regards to hyperlipidemia, continue pravastatin. In regards to sleep apnea she uses CPAP at night and uses oxygen at night. Follow up with Pulmonary. Follow up in the office in in 6 months. Alin Gorman MD documented in this encounter Plan of Treatment Not on file documented as of this encounter Visit Diagnoses Diagnosis Persistent atrial fibrillation (HCC)- Primary Atrial fibrillation Pulmonary hypertension (HCC) Other chronic pulmonary heart diseases Heart failure with preserved left ventricular function (HFpEF) (HCC) Essential hypertension Unspecified essential hypertension Mixed hyperlipidemia documented in this encounter Discontinued Medications Medication Sig Discontinue Reason Start Date End Da te sertraline (ZOLOFT) 50 mg tablet Take 1 tablet every day by oral route. Patient Reported 04/28/2010 05/19/2024 documented as of this encounter Historical Medications * This list may reflect changes made after this encounter. ALPRAZolam (XANAX) 0.25 mg tablet Take by mouth 3 (three) times a day as needed 03/27/2024 DULoxetine (CYMBALTA) 30 mg capsule Take 1 capsule (30 mg total) by mouth daily 04/23/2024 added in this encounter Care Teams Fluorescent Lighting Model Maker Relationship Specialty Start Date End Date Thomas Antonio MD [address] [facility] [address] [facility] [address] [place] [address] PCP - General Internal Medicine 01/11/24 Yoselyn Nicolas NP [address] [place] [address] [address] [place] [address] Family Medicine 01/11/24 documented as of this encounter
--- OUTSIDE RECORDS SUMMARY | 2024-05-19 16:06 | XMS_ITS | Continuity of Care Document ---
Author Organization [facility] Address [address] [place] [address] Phone Care Team Providers Care Resistor Tester Name Role Phone No Information Unavailable Unavailable [...] Diagnoses Date Provider Providers Copied on Encounter [facility], [address] [place] [address], [id number], tel:[phone] No Information June-0 1 No Information [facility], [address] [place] [address], [id number], tel:[phone] [facility] No Information 1 Juanjo Negron. [address] [place] [address], [id number], . tel:[phone] Referring Provider: Steven Galvez, [facility] [address], [place], [address] . tel:[phone] [facility], [address] [place] [address], [id number], tel:[phone] [facility] No Information [address], [place], [place], [id number], . tel:[phone] [facility], [address] [place] [address], [id number], tel:[phone] [facility] No Information Apr-1 5- 1 Jimmy Blanco [address], [place], [place], [id number], . tel:[phone] Referring Provider: Steven Galvez, [address], [place], [address] . tel:[phone] [facility], [address] [place] [address], [id number], tel:[phone] [facility] No Information Apr-0 8-201 1 Jimmy Blanco [address], [place], [place], [id number], . tel:[phone] Office/outpat ient visit,[facility], [facility], [address] [place] [address], [id number], tel:[phone] [facility] No Information Mar-1 0- 1 Jimmy Blanco [address], [place], [place], [id number], [place]. tel:[phone] Referring Provider: [address], [place], [address]. tel:[phone] Office/outpat ient visit,[facility], [address] [place] [address], [id number], tel:[phone] [facility] No Information Mar-0 3-201 1 Alice Bowman. [address] [place], [place], [id number], [place]. tel:[phone] Referring Provider: [address], [place], [address]. tel:[phone] [facility], [address] [place] [address], [id number], tel:[phone] [facility] No Information Mar-0 3-201 1 Jeffrey De. [address] [place] [address], [id number], . tel:[phone] Referring Provider: Santino Yan, [address] [place] [address], [address] . tel:[phone] [facility], [address] [place] [address], [id number], tel:[phone] [facility] No Information 1 Sandra Miller. [address] [place] [address], [id number], . tel:[phone] Referring Provider: Lelia Mitchell, [address], [place], [address]. tel:[phone] Office/outpat ient visit,est, [facility], [address] [place] [address], [id number], tel:[phone] [facility] No Information 1 [facility]. [facility] [address], [place], [place], [id number], . tel:[phone] Referring Provider: Lelia Mitchell, [address], [place], [address]. tel:[phone] Office/outpat ient visit,est, [facility], [address] [place] [address], [id number], tel:[phone] [facility] No Information 1 Jeffrey De. [address] [place] [address], [id number], . tel:[phone] Referring Provider: Lelia Mitchell, [address], [place], [address]. tel:[phone] [facility], [address] [place] [address], [id number], tel:[phone] [facility] No Information 0 Jeffrey De. [address] [place] [address], [id number], . tel:[phone] [facility], [address] [place] [address], [id number], tel:[phone] [facility] No Information Dec-1 0-201 0 Jeffrey Santino. [address] [place] [address], [id number], . tel:[phone] Office/outpat ient visit,[facility], [facility], [address] [place] [address], [id number], tel:[phone] [facility] No Information Dec-0 8-201 0 Alice Bowman. [address] [place], [place], [id number], [place]. tel:[phone] Referring Provider: Tanya [address], [place], [address]. tel:[phone] Office/outpat ient visit,[facility], [facility], [address] [place] [address], [id number], tel:[phone] [facility] No Information Nov-0 7-200 9 Nichol Wise. [address] [place] [address], [id number], [place]. tel:[phone] Referring Provider: Tanya [address], [place], [address]. tel:[phone] Office/outpat ient visit,[facility], [facility], [address] [place] [address], [id number], tel:[phone] [facility] No Information Oct-0 9-200 9 Nicholbrenton Wise. [address] [place] [address], [id number], . tel:[phone] Referring Provider: Tanya [address], [place], [address]. tel:[phone] [facility], [address] [place] [address], [id number], tel:[phone] [facility] No Information Sep-2 7-200 9 Melyssa Garner. [address] [place] [address], [id number], . tel:[phone] [facility], [address] [place] [address], [id number], tel:[phone] [facility] No Information 9 Melyssa Garner. [address] [place] [address], [id number], . tel:[phone] [facility], [address] [place] [address], [id number], tel:[phone] [facility] No Information 0 200 9 Melyssa Garner. [address] [place] [address], [id number], . tel:[phone] [facility], [address] [place] [address], [id number], tel:[phone] [facility] No Information 9 Melyssa Garner. [address] [place] [address], [id number], . tel:[phone] Office/outpat ient visit,est, mod [facility], [address] [place] [address], [id number], tel:[phone] [facility] No Information 9 Nichol Wise. [address] [place] [address], [id number], . tel:[phone] Referring Provider: Lelia Mitchell, [address], [place], [address]. tel:[phone] [facility], [address] [place] [address], [id number], tel:[phone] [facility] No Information 9 Cipriano Acevedo. [address], [place], [address], [place]. tel:[phone] Referring Provider: Lexx Cardoso, [address], [place], [address]. tel:[phone] [facility], [address] [place] [address], [id number], [place] tel:[phone] [facility] No Information 9 Cipriano Acevedo. [address] [place], [address], [place]. tel:[phone] Referring Provider: Lexx Cardoso, [address], [place], [address]. tel:[phone] [facility], [address] [place] [address], [id number], tel:[phone] [facility] No Information 9 Cipriano Acevedo. [address] [place], [address], [place]. tel:[phone] Referring Provider: Lexx Cardoso, [address] [place] [address] [address], [place], [address]. tel:[phone] [facility], [address] [place] [address], [id number], tel:[phone] [facility] No Information Sep-2 200 8 Melyssa Garner. [address] [place] [address], [id number], [place]. tel:[phone] [facility], [address] [place] [address], [id number], tel:[phone] [facility] No Information Oct-1 200 8 Melyssa Garner. [address] [place] [address], [id number], . tel:[phone] [facility], [address] [place] [address], [id number], tel:[phone] [facility] No Information Sep-0 3200 8 Cota Curtis. [address] [place], [address], [place]. tel:[phone] Referring Provider: Pascual Salazar, [address] [place] [address], [id number] . tel:[phone] Office/outpat ient visit,est, mod [facility], [address] [place] [address], [id number], [place] tel:[phone] [facility] No Information 7200 8 Golz Pascual. [address] [place] [address], [id number], . tel:[phone] [facility], [address] [place] [address], [id number], tel:[phone] [facility] No Information 8 Golz Pascual. [address] [place] [address], [id number], [place]. tel:[phone] [facility], [address] [place] [address], [id number], tel:[phone] [facility] No Information 8 Jesus Pammela. [address] [place] [address], [id number], . tel:[phone] Office/outpat ient visit,est, mod [facility], [address] [place] [address], [id number], tel:[phone] [facility] No Information 2200 8 Golz Pascual. [address] [place] [address], [id number], . tel:[phone] [facility], [address] [place] [address], [id number], tel:[phone] [facility] No Information 200 7 Golz Pascual. [address] [place] [address], [id number], [place]. tel:[phone] [facility], [address] [place] [address], [id number], tel:[phone] [facility] No Information 2 7 Jesus Pammela. [address] [place] [address], [id number], . tel:[phone] [facility], [address] [place] [address], [id number], tel:[phone] [facility] No Information 200 7 Melyssa Garner. [address] [place] [address], [id number], . tel:[phone] [facility], [address] [place] [address], [id number], tel:[phone] [facility] No Information Jan-0 4-200 7 Melyssa Garner. [address] [place] [address], [id number], . tel:[phone] [facility], [address] [place] [address], [id number], tel:[phone] [facility] No Information 200 7 Melyssa Garner. [address] [place] [address], [id number], . tel:[phone] [facility], [address] [place] [address], [id number], tel:[phone] [facility] No Information 0200 7 Melyssa Garner. [address] [place] [address], [id number], [place]. tel:[phone] [facility], [address] [place] [address], [id number], tel:[phone] [facility] No Information 7 Nichol Wise. [address] [place] [address], [id number], . tel:[phone] [facility], [address] [place] [address], [id number], tel:[phone] [facility] No Information 5 Jeffrey De. [address] [place] [address], [id number], . tel:[phone] Office consultation, moderate-high [facility], [address] [place] [address], [id number], tel:[phone] [facility] No Information 200 5 Narayan Schafer. [address] , [place], [address], [place]. tel:[phone] Family History Family Member Type Diagnosis Age At Onset No Information Payers Payer name Insurance type Covered alliance party ID Mark storey(s) [facility] [id number] Social History Type Description Quantity Date Captured [...]
--- OUTSIDE RECORDS SUMMARY | 2024-05-19 16:06 | XMS_ITS | Clinical Summary ---
Author Organization [facility] Address [facility] [place] [address] Care Team Providers Care Guideman Name Role Phone Valentin Mitchell MD Primary Care Provider [phone] Vasquez Akins MD Unavailable Unavailable Allergies Active [...] Noted Date Diagnosed Date Atrial fibrillation, persistent ([facility] ) 07/04/2016 Long-term (current) use of anticoagulants 2016 Acute on chronic diastolic c ongestive heart failure ([facility]) 06/08/2016 SVT (supraventricular tachycardia) ([facility]) Overview (06/07/2016): age 14 Obstructive sleep apnea sergo letty with bilevel positive airway pressure (BiPAP) Obesity OA (osteoarthritis) Migraines HTN (hypertension) HLD (hyperlipidemia) Depression Bleeding on Coumadin Borderline diabetes Persistent atrial fibrillation ([facility]) CHF (congestive heart failure) ([facility]) Atrial fibrillation ([facility]) Family History Medical History Relation Comments Sudden [...] Job Start Date Job 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 Not on file No t on file Last Filed Vital Signs Vital Sign Reading Time Taken Comments Blood Pressure 108/68 02/23/2017 10:17 AM GUIDANCE SERVICES COORDINATOR Pulse 83 02/23/2017 10:17 AM GUIDANCE SERVICES COORDINATOR Temperature - - Respiratory Rate 18 12/26/2016 9:26 AM GUIDANCE SERVICES COORDINATOR Oxygen Saturation 97% 02/23/2017 10:17 AM GUIDANCE SERVICES COORDINATOR Inhaled Oxygen Concentration - - Weight 112.5 kg (248 lb) 02/23/2017 10:17 AM GUIDANCE SERVICES COORDINATOR Height 162.6 cm (5' 4 ) 02/23/2017 10:17 AM GUIDANCE SERVICES COORDINATOR Body Mass Index 42.57 02/23/2017 10:17 AM GUIDANCE SERVICES COORDINATOR Plan of Treatment Health Maintenance Due Date Last Done Comments Pneumococcal Vaccine: 50+ Ye ars (1 of 2 - PCV) 1947 DTaP, Tdap and Td Vaccines ( 1 - Tdap) 02/26/1960 Zoster Vaccines (1 of 2) 1991 Dexa Scan (General) 2006 RSV Immunization or 60+ Years (1 - 1-dose 75+ series) 02/26/2016 COVID-19 Vaccine (1 - 2023-2 5 season) 2023 Meningococcal B Vaccine Aged Out No l onger eligible based on patient's age to complete this topic Meningococcal Vaccine Aged Out No екатерина molina eligible based on patient's age to complete this topic RSV Immunizations Under 20 Months Aged Out No longer eligible based on patient's age to complete this topic Insurance [employer] OPEN ACCESS [facility] Care Teams Guideman Relationship Specialty Start Date End Date Valentin Mitchell MD [address] [place] [address] PCP - General INTERNAL MEDICINE 06/08/16 Vasquez Akins MD [address] [place] [address] Kehinde [employer] Fighter Pilot Electrophysiology 02/13/17
--- OUTSIDE RECORDS SUMMARY | 2024-05-19 16:06 | XMS_ITS ---
Author Organization [facility] [address] [place] [address] Care Team Providers Care Luncheonette Operator Name Role Phone Thomas Antonio MD Primary Care Provider [phone] Yoselyn Nicolas PHOTO BOOTH OPERATOR Unavailable [phone] Active Problems Problem Noted Date Diagnosed [...] 05/15/2022 Overview (12/19/2023): Updated per IMO upload [id number] Hypokalemia 05/15/2022 HLD (hyperlipidemia) 05/15/2022 Lower GI [...]
--- OUTSIDE RECORDS SUMMARY | 2024-05-19 16:06 | XMS_ITS | Encounter Summary ---
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
--- OUTSIDE RECORDS SUMMARY | 2024-05-19 16:06 | XMS_ITS | Clinical Summary ---
Author Organization [facility] Address [address] [facility] [place] [address] Care Team Providers Care Messenger Floorperson Name Role Phone Thomas Antonio MD Primary Care Provider [phone] Source Comments [facility],non-owned Affiliates and Associated Physician Practices is amultiple site organization consisting of ambulatory clinics and hospital sitesin [place], [place], [place] and [place]. This disclosure is being madepursuant to the Care Everywhere program and may not contain all information available regarding this patient. Last updated 17.[facility] Allergies Active Allergy Reactions Criticality Noted Date [...] document. Alwaysverify current medications with the patient. torsemide (Demadex) 20 MG tablet TAKE 2 [...] at Not on file Legal Sex Female 7:39 AM CDT Gender Identity Not on file Sexual [...] VACCINE ( - 2023-2 5 season) 2023 DEPRESSION SCREENING 02/06/2024 INFLUENZA VACCINE (Season Ended) 2024 11/06/19 20 HEPATITIS B VACCINE Aged Out No longe [...] patient's age to complete this topic Insurance [employer] Care Teams Messenger Floorperson Relationship Specialty Start Date End Date Thomas Antonio MD [address] [facility] [address] [place] [id number] PCP - General Internal Medicine 12/06/23
--- OUTSIDE RECORDS SUMMARY | 2024-05-19 16:07 | XMS_ITS | Referral Summary ---
Author Organization [facility] [address] [place] [address] Care Team Providers Care Supervisor Area Name Role Phone Thomas Antonio MD Primary Care Provider [phone] Yoselyn Nicolas CARROTER Unavailable [phone] Encounters Date Type Department Care Team Description 05/19/2024 1:45 PM CDT Office Visit [facility] Cardiology [address] [place] [phone] Alin Gorman MD Persistent atrial fibrillation (HCC) (Primary Dx); Pulmonary hypertension (HCC); Heart failure with preserved left ventricular function (HFpEF) (HCC); Essential hypertension; Mixed hyperlipidemia 03/20/2024 Telephone [facility] Transplant Liver [address] Mailstop [phone] [place] [address] Emily Vigil RN 03/17/2024 Telephone [facility] Gastroenterology [address] [facility] [address] Advanced Medicine 12th [place] [address] [place] [phone] Rosa Everett LPN 03/12/2024 2:15 PM DIGITAL PHOTOGRAPHIC PRINTER Lab [facility] [address] [place] [address] Liver mass; Cirrhosis of liver without ascites, unspecified hepatic cirrhosis type (HCC) 03/12/2024 9:20 AM DIGITAL PHOTOGRAPHIC PRINTER - 03/12/2024 11:59 PM DIGITAL PHOTOGRAPHIC PRINTER Hospital Encounter [facility] Radiology [facility] [address] [place] [address] Melissa Albright MD Liver mass Discharge Disposition: Discharge to home or self care 03/12/2024 8:30 AM DIGITAL PHOTOGRAPHIC PRINTER Office Visit [facility] Gasteroenterology [address] [facility] Advanced Medicine 12th [place] [address] [place] [address] Neelam Morrison MD Liver mass (Primary Dx); [...] 1 tablet (10 mg total) by mouth contract project manager before breakfast 12/19/19 23 Active cyanocobalamin (Vitamin [...] mg total) by mouth daily Active john [id number] op-man-[id number] 250-40-125 mg-mg-unit tablet Take by mouth [...] by oral route. 04/29/19 11 025 Discontin ued(Nu nt Reported) Active Problems Problem Noted Date [...] 05/15/2022 Overview (12/19/2023): Updated per IMO upload [id number] Hypokalemia 05/15/2022 HLD (hyperlipidemia) 05/15/2022 Lower GI [...] on file Legal Sex Female 5:37 AM DIGITAL PHOTOGRAPHIC PRINTER Gender Identity Not on file Sexual Orientation Not on file Last Filed Vital Signs Vital Sign Reading Time Taken Comments Blood Pressure 100/62 05/19/2024 1:54 PM CDT Pulse 86 05/19/2024 1:54 PM CDT Temperature 36.2 C (97.1 F) 03/12/2024 8:31 AM DIGITAL PHOTOGRAPHIC PRINTER Respiratory Rate - - Oxygen Saturation 97% 05/19/2024 1:54 PM CDT Inhaled Oxygen Concentration - - Weight 91.4 kg (201 lb 8 oz) 05/19/2024 1:54 PM CDT Height 160 cm (5' 3 ) 05/19/2024 1:54 PM CDT Body Mass Index 35.69 05/19/2024 1:54 PM CDT Plan of Treatment Not on file Procedures Procedure Name Priority Date/Time Associated Diagnosis Comments EGFR Routine 03/12/2024 12:30 PM DIGITAL PHOTOGRAPHIC PRINTER Liver mass Cirrhosis of liver without ascites, unspecified hepatic cirrhosis type (HCC) DIFFERENTIAL AUTO Routine 03/12/2024 12: 30 PM DIGITAL PHOTOGRAPHIC PRINTER Liver mass Cirrhosis of liver without ascites, unspecified hepatic cirrhosis type (HCC) [id number], TUMOR MARKER Routine 03/12/2024 12:30 PM DIGITAL PHOTOGRAPHIC PRINTER Liver mass Cirrhosis of liver without ascites, unspecified hepatic cirrhosis type (HCC) BILIRUBIN, DIRECT Routine 03/12/2024 12: 30 PM DIGITAL PHOTOGRAPHIC PRINTER Liver mass Cirrhosis of liver without ascites, unspecified hepatic cirrhosis type (HCC) CBC WITH AUTO DIFFERENTIAL Routine 03/12/2024 12:30 PM DIGITAL PHOTOGRAPHIC PRINTER Liver mass Cirrhosis of liver without ascites, unspecified hepatic cirrhosis type (HCC) COMPREHENSIVE METABOLIC PANEL Routine 03/12/2024 12:30 PM DIGITAL PHOTOGRAPHIC PRINTER Liver mass Cirrhosis of liver without ascites, unspecified hepatic cirrhosis type (HCC) PROTIME-INR Routine 03/12/2024 12:30 PM DIGITAL PHOTOGRAPHIC PRINTER Liver mass Cirrhosis of liver without ascites, unspecified hepatic cirrhosis type (HCC) MRI ABDOMEN W WO CONTRAST Schedule Routine, Read Routine (OP Routine) 03/12/2024 11:55 AM DIGITAL PHOTOGRAPHIC PRINTER Liver mass HEMOGLOBIN A1C Routine 12/19/2023 1:08 PM DIGITAL PHOTOGRAPHIC PRINTER Liver mass SERUM LIPID PANEL Routine 08/01/2013 9:4 3 PM CDT from Last 3 Months or Most Recently Relevant to Health Maintenance Results * (ABNORMAL) eGFR (03/12/2024 12:30 PM DIGITAL PHOTOGRAPHIC PRINTER) eGFR 40(L) >=60 mL/min/1. 73 m2 Comment: [...] reviewed 2020. Blood 03/12/2024 12:3 0 PM DIGITAL PHOTOGRAPHIC PRINTER 03/12/2024 12:50 PM DIGITAL PHOTOGRAPHIC PRINTER Neelam Morrison MD LAB BLOOD ORDERABLES Final Result [facility] [place] [address] * Differential, auto (03/12/2024 12:30 PM DIGITAL PHOTOGRAPHIC PRINTER) Neutrophil abs 4.8 1.5 - 6.5 K/cumm Imm gran abs 0.0 0.0 - 0.1 K/cumm [facility] Lymphocyte abs 1.4 0.8 - 3.3 K/cumm [facility] Monocyte abs 0.8 0.2 - 0.8 K/cumm [facility] Eosinophil abs 0.3 0.0 - 0.5 K/cumm [facility] Basophil abs 0.1 0.0 - 0.1 K/cumm [facility] Neutrophil pct 65.7 % [facility] Comment: Interpretive Data Percent cell count reference ranges are not reported, since discordance with absolute values may lead to misinterpretation of CBC data. Current Interpretive Data was last revised on 2017. Imm gran pct 0.3 % [facility] Comment: Interpretive Data Percent cell count reference ranges are not reported, since discordance with absolute values may lead to misinterpretation of CBC data. Current Interpretive Data was last revised on 2017. Lymphocyte pct 18.5 % [facility] Comment: Interpretive Data Percent cell count reference ranges are not reported, since discordance with absolute values may lead to misinterpretation of CBC data. Current Interpretive Data was last revised on 2017. Monocyte pct 11.2 % [facility] Comment: Interpretive Data Percent cell count reference ranges are not reported, since discordance with absolute values may lead to misinterpretation of CBC data. Current Interpretive Data was last revised on 2017. Eosinophil pct 3.5 % [facility] Comment: Interpretive Data Percent cell count reference ranges are not reported, since discordance with absolute values may lead to misinterpretation of CBC data. Current Interpretive Data was last revised on 2017. Basophil pct 0.8 % [facility] Comment: Interpretive Data Percent cell count reference ranges are not reported, since discordance with absolute values may lead to misinterpretation of CBC data. Current Interpretive Data was last revised on 2017. Blood 03/12/2024 12:3 0 PM DIGITAL PHOTOGRAPHIC PRINTER 03/12/2024 12:50 PM DIGITAL PHOTOGRAPHIC PRINTER Neelam Morrison MD LAB BLOOD ORDERABLES Final Result [facility] Department [place] [address] * CBC with auto differential (03/12/2024 12:30 PM DIGITAL PHOTOGRAPHIC PRINTER) WBC 7.3 3.8 - 9.9 K/cumm Hgb 14.5 11.9 - 15.5 g/dL [facility] Hct 42.7 35.6 - 45.5 % [facility] Plt 221 150 - 400 K/cumm [facility] MPV 10.9 9.1 - 12.3 fL [facility] RBC 4.76 3.90 - 5.20 M/cumm [facility] MCV 89.7 81.3 - 96.4 fL [facility] MCH 30.5 27.1 - 33.3 pg [facility] MCHC 34.0 32.3 - 35.7 g/dL [facility] RDW CV 14.3 11.1 - 14.9 % [facility] RDW SD 46.5 35.7 - 48.1 fL [facility] NRBC abs 0.00 0.00 - 0.01 K/cumm [facility] Blood 03/12/2024 12:3 0 PM DIGITAL PHOTOGRAPHIC PRINTER 03/12/2024 12:50 PM DIGITAL PHOTOGRAPHIC PRINTER Neelam Morrison MD LAB BLOOD ORDERABLES Final Result Performing Organization Address [facility] de Phone Number TAWANDA [facility] Department [place] [address] * [id number], Tumor Marker (03/12/2024 12:30 PM DIGITAL PHOTOGRAPHIC PRINTER) Pathologist [facility] alpha Fetoprotein <2.0 <=8.3 ng/mL Comment: Interpretive [...] al. Clin Chem Lab Med 2018;[id number] Christel Manzo. et al. Clin Chem [id number]. Current interpretive data was last revised 2021. Blood 03/12/2024 12:3 0 PM DIGITAL PHOTOGRAPHIC PRINTER 03/12/2024 12:50 PM DIGITAL PHOTOGRAPHIC PRINTER Neelam Morrison MD LAB BLOOD ORDERABLES Final Result Performing Organization Address [facility] de Phone Number [facility] [place] [address] * (ABNORMAL) Protime-INR (03/12/2024 12:30 PM DIGITAL PHOTOGRAPHIC PRINTER) Pathologist [facility] PT 22.9(H) 9.7 - 13.0 sec INR 2.09(H) 0.90 - 1.20 [facility] Comment: Interpretive data Oral anticoagulant therapeutic ranges: Venous thromboembolism prophylaxis or treatment: 2.0-3.0 CARDIOLOGY Standard range: 2.0-3.0 High-intensity range: 2.5-3.5 Refer to indication-specific guidelines for appropriate target ranges for prosthetic heart valve replacement. Current interpretive data was last revised on 2019. Blood 03/12/2024 12:3 0 PM DIGITAL PHOTOGRAPHIC PRINTER 03/12/2024 12:40 PM DIGITAL PHOTOGRAPHIC PRINTER Neelam Morrison MD LAB BLOOD ORDERABLES Final Result [facility] Department [place] [address] * Bilirubin, direct (03/12/2024 12:30 PM DIGITAL PHOTOGRAPHIC PRINTER) Bilirubin, direct 0.3 0.1 - 0.3 mg/dL Blood 03/12/2024 12:3 0 PM DIGITAL PHOTOGRAPHIC PRINTER 03/12/2024 12:50 PM DIGITAL PHOTOGRAPHIC PRINTER Neelam Morrison MD LAB BLOOD ORDERABLES Final Result Performing Organization Address [facility] Co de Phone Number [facility] [place] [address] * (ABNORMAL) Comprehensive metabolic panel (03/12/2024 12:30 PM DIGITAL PHOTOGRAPHIC PRINTER) Sodium 137 135 - 145 mmol/L Potassium, pl 4.3 3.3 - 4.9 mmol/L [facility] Chloride 96(L) 97 - 110 mmol/L [facility] CO2 31 22 - 32 mmol/L [facility] Anion gap 10 2 - 15 mmol/L [facility] BUN 27(H) 6 - 25 mg/dL [facility] Creatinine 1.31(H) 0.60 - 1.10 mg/dL [facility] Glucose 106 70 - 199 mg/dL [facility] Comment: Interpretive Data Fasting glucose >/= 126 [...] 2022. Calcium 10.4(H) 8.5 - 10.3 mg/dL [facility] Bilirubin, total 0.7 0.1 - 1.2 mg/dL [facility] Protein, pl 7.9 6.5 - 8.5 g/dL [facility] Albumin 4.6 3.5 - 5.0 g/dL [facility] Alk phos 143(H) 40 - 130 Units/L [facility] ALT 20 7 - 45 Units/L [facility] AST 23 10 - 45 Units/L [facility] Blood 03/12/2024 12:3 0 PM DIGITAL PHOTOGRAPHIC PRINTER 03/12/2024 12:50 PM DIGITAL PHOTOGRAPHIC PRINTER us Neelam Morrison MD LAB BLOOD ORDERABLES Final Result [facility] [place] [address] * MRI Abdomen W WO Contrast (03/12/2024 11:55 AM DIGITAL PHOTOGRAPHIC PRINTER) Anatomical Region Laterality Modality Body N/A Magnetic Resonan ce 03/12/2024 12:5 7 PM DIGITAL PHOTOGRAPHIC PRINTER Impressions 03/12/2024 12:57 PM DIGITAL PHOTOGRAPHIC PRINTER 1. Cirrhosis with 2.1 cm vague wedge-shaped/triangular-shaped mildly arterially enhancing lesion in the right hepatic lobe, which appears less conspicuous compared to the previous MR. 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 Attention on follow-up study. Electronically signed by: Pratibha Arreaga M.D. Narrative 03/12/2024 12:57 PM DIGITAL PHOTOGRAPHIC PRINTER EXAMINATION: MAGNETIC RESONANCE IMAGING OF THE ABDOMEN [...] study. Electronically signed by: Pratibha Arreaga M.D. us Melissa Albright MD IMG MRI PROCEDURES Final Result * (ABNORMAL) Hemoglobin A1c (12/19/2023 1:08 PM DIGITAL PHOTOGRAPHIC PRINTER) Pathologist [facility] Hgb A1C 5.9(H) 4.0 - 5.6 % [...] a fasting glucose. Blood 12/19/2023 1:08 PM DIGITAL PHOTOGRAPHIC PRINTER 12/19/2023 1:33 PM DIGITAL PHOTOGRAPHIC PRINTER Melissa Albright MD LAB BLOOD ORDERABLES Final Resul t [facility] [place] [address] * Serum lipid panel (08/01/2013 9:43 PM [...] Most Recently Relevant to Health Maintenance Insurance [facility] Advance Directives For more information, please contact: [phone] Documents on File Type Date Recorded Patient Shared Services Representative Expl anation ADVANCE DIRECTIVE 12/17/2023 7:15 PM Robbie _[email or web address]_Living Will.pdf Care Teams Supervisor Area Relationship Specialty Start Date End Date Thomas Antonio MD [address] [facility] [address] [facility] [address] [place] [address] PCP - General Internal Medicine 01/11/24 Yoselyn Nicolas NP [address] [place] [address] [address] [place] [address] Family Medicine 01/11/24
--- OUTSIDE RECORDS SUMMARY | 2024-05-19 16:07 | XMS_ITS | Clinical Summary ---
Author Organization [facility] Address [address] [place] [address] Care Team Providers Care Manager Order Name Role Phone Ugo Villa MD Primary Care Provider [phone] Source Comments PLEASE NOTE, if this patient [...] (Problem) Hemorrhoids (Problem) Pulmonary hypertension (Problem) Immunizations Immunization Administration Dates Next Due INFLUENZA, SEASONAL, INJECTABLE [...] Bone Density Screening 2006 Falls Prevention 2006 [id number] ( season) 2023 021, 03/30/2020 Imm-Influenza (#1) 2023 11/06/2019 Alcohol and Drug Screen 02/06/2024 Insurance [employer] Care Teams Manager Order Relationship Specialty Start Date End Date Ugo Villa MD [address] [place] [address] PCP - General 07/29/23
== END 2024-05-19 14:21 | disposition home or self-care (01) ==
PROVIDERS: PCP Internal Medicine; Visit Provider Internal Medicine
DX: R91.1 Solitary pulmonary nodule (principal)
CPT/HCPCS: 71250

== ENCOUNTER 2024-06-21 14:23 | Emergency (ER) | payer OTHER, SELFPAY ==
--- NOTE | ~2024-06-21 | CT_ITS ---
CT abdomen pelvis w con Ordering provider: Colette Conrad PA-C History: 84 years Female with . abd pain, diarrhea, hx diverticulitis . Comparison: None. Technique: CT abdomen and pelvis with IV and without oral contrast. Automated exposure control and it erative reconstruction technique were employed. The dose-length product was 801.13 mGy-cm. 100 mL Omn ipaque 350 was given IV. Findings: VISUALIZED LOWER CHEST: Nodule is seen in the left lower lobe unchanged from previous examination.. UPPER ABDOMINAL ORGANS: Liver: Liver cirrhosis is seen. Focal enhancing areas are seen in the dome of the liver segment #8 wh ich measures 4.2 x 2.5 cm and in segment #5 which measures 2.3 x 2.4 cm. Gallbladder : Cholelithiasis. Spleen: Normal. Stomach/duodenum: Normal. Pancreas: Normal. Adrenals: Prominent left adrenal gland. Kidneys: Tiny bilateral renal cysts. PELVIC ORGANS: The bladder is normal. BOWEL AND MESENTERY: Colon: No evidence of diverticulitis. Fecal material is loaded in the colon. Normal appendix. Small Bowel: Normal. No obstruction. Peritoneum/mesentery: No free air or free fluid. No mesenteric lymphadenopathy. RETROPERITONEUM: Mild atheromatous disease of the abdominal aorta. No retroperitoneal lymphadenopat hy. MUSCULOSKELETAL: Superficial soft tissues: The superficial soft tissues are normal. Bones: Age appropriate degenerative changes of the spine. Dextroscoliosis. IMPRESSION: 1. No evidence of diverticulitis, appendicitis or intestinal obstruction. 2. Nodule in the left lower lobe unchanged. Enhancing areas in the liver which are slightly more pro minent than the previous study. Hepatocellular CA cannot be excluded. Further evaluation advised. 3. Liver cirrhosis. 4. Constipation. Reviewed, dictated and finalized at location A. IMPRESSION: 1. No evidence of diverticulitis, appendicitis or intestinal obstruction. 2. Nodule in the left lower lobe unchanged. Enhancing areas in the liver which are slightly more prominent than the previous study. Hepatocellular CA cannot be excluded. Further evaluation advised. 3. Liver cirrhosis. 4. Constipation.
--- OUTSIDE RECORDS SUMMARY | 2024-06-21 14:25 | XMS_ITS | Continuity of Care Document ---
Author Organization [facility] Address [address] [place] [address] Phone Care Team Providers Care Hand Crocheter Name Role Phone No Information Unavailable Unavailable [...] Diagnoses Date Provider Providers Copied on Encounter [facility], [address] [place] [address], [id number], tel:[phone] No Information June-[address] [facility], [address] [place] [address], [id number], tel:[phone] [facility] No Information 1 Juanjo Negron. [address] [place] [address], [id number], . tel:[phone] Referring Provider: Steven Galvez, [facility] [address], [place], [address] . tel:[phone] [facility], [address] [place] [address], [id number], tel:[phone] [facility] No Information [address], [place], [place], [id number], . tel:[phone] [facility], [address] [place] [address], [id number], tel:[phone] [facility] No Information Apr-1 5- 1 Jimmy Blanco [address], [place], [place], [id number], . tel:[phone] Referring Provider: Steven Galvez, [address], [place], [address] . tel:[phone] [facility], [address] [place] [address], [id number], tel:[phone] [facility] No Information Apr-0 8-201 1 Jimmy Blanco [address], [place], [place], [id number], . tel:[phone] Office/outpat ient visit,[facility], [facility], [address] [place] [address], [id number], tel:[phone] [facility] No Information Mar-1 0- 1 Jimmy Blanco [address], [place], [place], [id number], [place]. tel:[phone] Referring Provider: Tanya [address], [place], [address]. tel:[phone] Office/outpat ient visit,[facility], [address] [place] [address], [id number], tel:[phone] [facility] No Information Mar-0 3-201 1 Alice Bowman. [address] [place], [place], [id number], [place]. tel:[phone] Referring Provider: T[address], [place], [address]. tel:[phone] [facility], [address] [place] [address], [id number], tel:[phone] [facility] No Information Mar-0 3-201 1 Jeffrey De. [address] [place] [address], [id number], . tel:[phone] Referring Provider: Santino Yan, [address] [place] [address], [address] . tel:[phone] [facility], [address] [place] [address], [id number], tel:[phone] [facility] No Information 1 Snadra Miller. [address] [place] [address], [id number], . tel:[phone] Referring Provider: Lelia Mitchell, [address], [place], [address]. tel:[phone] Office/outpat ient visit,est, [facility], [address] [place] [address], [id number], tel:[phone] [facility] No Information 1 [facility]. [facility] [address], [place], [place], [id number], . tel:[phone] Referring Provider: Lelia Mitchell, [address], [place], [address]. tel:[phone] Office/outpat ient visit,est, [facility], [address] [place] [address], [id number], tel:[phone] [facility] No Information 1 Jeffrey De. [address] [place] [address], [id number], . tel:[phone] Referring Provider: Lelia Mitchell, [address], [place], [address]. tel:[phone] [facility], [address] [place] [address], [id number], tel:[phone] [facility] No Information 0 Jeffrey De. [address] [place] [address], [id number], . tel:[phone] [facility], [address] [place] [address], [id number], tel:[phone] [facility] No Information Dec-1 0-201 0 Jeffrey Santino. [address] [place] [address], [id number], . tel:[phone] Office/outpat ient visit,[facility], [facility], [address] [place] [address], [id number], tel:[phone] [facility] No Information Dec-0 8-201 0 Alice Bowman. [address], [place], [id number], [place]. tel:[phone] Referring Provider: Tanya [address], [place], [address]. tel:[phone] Office/outpat ient visit,[facility], [facility], [address] [place] [address], [id number], tel:[phone] [facility] No Information Nov-0 7-200 9 Nichol Wise. [address] [place] [address], [id number], [place]. tel:[phone] Referring Provider: Tanya [address], [place], [address]. tel:[phone] Office/outpat ient visit,[facility], [facility], [address] [place] [address], [id number], tel:[phone] [facility] No Information Oct-0 9-200 9 Nicholbrenton Wise. [address] [place] [address], [id number], . tel:[phone] Referring Provider: Tanya [address], [place], [address]. tel:[phone] [facility], [address] [place] [address], [id number], tel:[phone] [facility] No Information Sep-2 7-200 9 Melyssa Garner. [address] [place] [address], [id number], . tel:[phone] [facility], [address] [place] [address], [id number], tel:[phone] [facility] No Information 9 Melyssa Garner. [address] [place] [address], [id number], . tel:[phone] [facility], [address] [place] [address], [id number], tel:[phone] [facility] No Information 0 200 9 Melyssa Garner. [address] [place] [address], [id number], . tel:[phone] [facility], [address] [place] [address], [id number], tel:[phone] [facility] No Information 9 Melyssa Garner. [address] [place] [address], [id number], . tel:[phone] Office/outpat ient visit,est, mod [facility], [address] [place] [address], [id number], tel:[phone] [facility] No Information 9 Nichol Wise. [address] [place] [address], [id number], . tel:[phone] Referring Provider: Lelia Mitchell, [address], [place], [address]. tel:[phone] [facility], [address] [place] [address], [id number], tel:[phone] [facility] No Information 9 Cipriano Acevedo. [address], [place], [address], [place]. tel:[phone] Referring Provider: Lexx Cardoso, [address], [place], [address]. tel:[phone] [facility], [address] [place] [address], [id number], [place] tel:[phone] [facility] No Information 9 Cipriano Acevedo. [address] [place], [address], [place]. tel:[phone] Referring Provider: Lexx Cardoso, [address], [place], [address]. tel:[phone] [facility], [address] [place] [address], [id number], tel:[phone] [facility] No Information 9 Cipriano Acevedo. [address] [place], [address], [place]. tel:[phone] Referring Provider: Lexx Cardoso, [address] [place] [address] [address], [place], [address]. tel:[phone] [facility], [address] [place] [address], [id number], tel:[phone] [facility] No Information Sep-2 200 8 Melyssa Garner. [address] [place] [address], [id number], [place]. tel:[phone] [facility], [address] [place] [address], [id number], tel:[phone] [facility] No Information Oct-1 200 8 Melyssa Garner. [address] [place] [address], [id number], . tel:[phone] [facility], [address] [place] [address], [id number], tel:[phone] [facility] No Information Sep-0 3200 8 Cota Curtis. [address] [place], [address], [place]. tel:[phone] Referring Provider: Pascual Salazar, [address] [place] [address], [id number] . tel:[phone] Office/outpat ient visit,est, mod [facility], [address] [place] [address], [id number], [place] tel:[phone] [facility] No Information 7200 8 Golz Pascual. [address] [place] [address], [id number], . tel:[phone] [facility], [address] [place] [address], [id number], tel:[phone] [facility] No Information 8 Golz Pascual. [address] [place] [address], [id number], [place]. tel:[phone] [facility], [address] [place] [address], [id number], tel:[phone] [facility] No Information 8 Jesus Pammela. [address] [place] [address], [id number], . tel:[phone] Office/outpat ient visit,est, mod [facility], [address] [place] [address], [id number], tel:[phone] [facility] No Information 2200 8 Golz Pascual. [address] [place] [address], [id number], . tel:[phone] [facility], [address] [place] [address], [id number], tel:[phone] [facility] No Information 200 7 Golz Pascual. [address] [place] [address], [id number], [place]. tel:[phone] [facility], [address] [place] [address], [id number], tel:[phone] [facility] No Information 2 7 Jesus Pammela. [address] [place] [address], [id number], . tel:[phone] [facility], [address] [place] [address], [id number], tel:[phone] [facility] No Information 200 7 Melyssa Garner. [address] [place] [address], [id number], . tel:[phone] [facility], [address] [place] [address], [id number], tel:[phone] [facility] No Information Jan-0 4-200 7 Melyssa Garner. [address] [place] [address], [id number], . tel:[phone] [facility], [address] [place] [address], [id number], tel:[phone] [facility] No Information 200 7 Melyssa Garner. [address] [place] [address], [id number], . tel:[phone] [facility], [address] [place] [address], [id number], tel:[phone] [facility] No Information 0200 7 Melyssa Garner. [address] [place] [address], [id number], [place]. tel:[phone] [facility], [address] [place] [address], [id number], tel:[phone] [facility] No Information 7 Nichol Wies. [address] [place] [address], [id number], . tel:[phone] [facility], [address] [place] [address], [id number], tel:[phone] [facility] No Information 5 Jeffrey De. [address] [place] [address], [id number], . tel:[phone] Office consultation, moderate-high [facility], [address] [place] [address], [id number], tel:[phone] [facility] No Information 200 5 Narayan Schafer. [address] , [place], [address], [place]. tel:[phone] Family History Family Member Type Diagnosis Age At Onset No Information Payers Payer name Insurance type Covered constitution party ID Mark storey(s) [facility] [place] [facility] [place] [id number] Social History Type Description Quantity Date Captured [...]
--- OUTSIDE RECORDS SUMMARY | 2024-06-21 14:25 | XMS_ITS | Encounter Summary ---
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
--- OUTSIDE RECORDS SUMMARY | 2024-06-21 14:25 | XMS_ITS | Clinical Summary ---
Author Organization [facility] Address [facility] [place] [address] Care Team Providers Care Car Attendant Name Role Phone Valentin Mitchell MD Primary Care Provider [phone] Vasquez Akins MD Unavailable Unavailable Allergies Active [...] Noted Date Diagnosed Date Atrial fibrillation, persistent ([facility] ) 07/04/2016 Long-term (current) use of anticoagulants 2016 Acute on chronic diastolic c ongestive heart failure ([facility]) 06/08/2016 SVT (supraventricular tachycardia) ([facility]) Overview (06/07/2016): age 14 Obstructive sleep apnea sergo letty with bilevel positive airway pressure (BiPAP) Obesity OA (osteoarthritis) Migraines HTN (hypertension) HLD (hyperlipidemia) Depression Bleeding on Coumadin Borderline diabetes Persistent atrial fibrillation ([facility]) CHF (congestive heart failure) ([facility]) Atrial fibrillation ([facility]) Family History Medical History Relation Comments [...] 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 Not on file No t on file Last Filed Vital Signs Vital Sign Reading Time Taken Comments Blood Pressure 108/68 02/23/2017 10:17 AM COUNSELING PSYCHOLOGIST Pulse 83 02/23/2017 10:17 AM COUNSELING PSYCHOLOGIST Temperature - - Respiratory Rate 18 12/26/2016 9:26 AM COUNSELING PSYCHOLOGIST Oxygen Saturation 97% 02/23/2017 10:17 AM COUNSELING PSYCHOLOGIST Inhaled Oxygen Concentration - - Weight 112.5 kg (248 lb) 02/23/2017 10:17 AM COUNSELING PSYCHOLOGIST Height 162.6 cm (5' 4 ) 02/23/2017 10:17 AM COUNSELING PSYCHOLOGIST Body Mass Index 42.57 02/23/2017 10:17 AM COUNSELING PSYCHOLOGIST Plan of Treatment Health Maintenance Due Date Last Done Comments DTaP, Tdap and Td Vaccines ( 1 - Tdap) 02/26/1960 Pneumococcal Vaccine: 50+ Ye ars (1 of 2 - PCV) 02/26/1960 Zoster Vaccines (1 of 2) 1991 [...] patient's age to complete this topic Insurance [employer] [facility] Care Teams Car Attendant Relationship Specialty Start Date End Date Valentin Mitchell MD [address] [place] [address] PCP - General INTERNAL MEDICINE 06/08/16 Vasquez Akins MD [address] [place] [address] Kehinde Spare Fixer Electrophysiology 02/13/17
--- OUTSIDE RECORDS SUMMARY | 2024-06-21 14:25 | XMS_ITS ---
Author Organization [facility] [address] [place] [address] Care Team Providers Care Track Laying Supervisor Name Role Phone Thomas Antonio MD Primary Care Provider Yoselyn Nicolas GEOPHYSICAL E LOGGER Unavailable [phone] Active Problems Problem Noted Date Diagnosed [...] 05/15/2022 Overview (12/19/2023): Updated per IMO upload [id number] Hypokalemia 05/15/2022 HLD (hyperlipidemia) 05/15/2022 Lower GI [...]
--- OUTSIDE RECORDS SUMMARY | 2024-06-21 14:25 | XMS_ITS | Clinical Summary ---
Author Organization [facility] Address [address] [place] [address] Care Team Providers Care Hydraulic Repairer Name Role Phone Ugo Villa MD Primary Care Provider [phone] Source Comments PLEASE NOTE, if this patient [...] Bone Density Screening 2006 Falls Prevention 2006 [id number] ( season) 2023 021, 03/30/2020 Imm-Influenza (#1) 2023 11/06/2019 Alcohol and Drug Screen 02/06/2024 Insurance [employer] Care Teams Hydraulic Repairer Relationship Specialty Start Date End Date Ugo Villa MD [address] [place] [address] PCP - General 07/29/23
--- OUTSIDE RECORDS SUMMARY | 2024-06-21 14:25 | XMS_ITS | Clinical Summary ---
Author Organization [facility] [employer] Address [address] [facility] [place] [address] Care Team Providers Care Tax Consultant Name Role Phone Thomas Antonio MD Primary Care Provider [phone] Source Comments [facility] [employer],non-owned Affiliates and Associated Physician Practices is amultiple site organization consisting of ambulatory clinics and hospital sitesin [place], [place], [place] and [place]. This disclosure is being madepursuant to the Care Everywhere program and may not contain all information available regarding this patient. Last updated 17.[facility] [employer] Allergies Active Allergy Reactions Criticality Noted Date [...] age to complete this topic Insurance [facility] Address: [facility] [id number] [place] [id number] Care Teams Tax Consultant Relationship Specialty Start Date End Date Thomas Antonio MD [address] [place] [address] PCP - General Internal Medicine 12/06/23
--- OUTSIDE RECORDS SUMMARY | 2024-06-21 14:25 | XMS_ITS | Referral Summary ---
Author Organization [facility] [address] Address [facility] [place] [address] Care Team Providers Care Assembler Filters Name Role Phone Thomas Antonio MD Primary Care Provider [phone] Yoselyn Nicolas BEHAVIORAL SCIENCES INSTRUCTOR Unavailable [phone] Encounters Date Type Department Care Team Description 05/21/2024 3:15 PM CDT Procedure visit [facility] Otolaryngology [address] [facility] Medical Office Building [address] [place] [address] Santino Fields Au.D. 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); Evaluation of hearing impairment 05/19/2024 1:45 PM CDT Office Visit [facility] Cardiology [address] [place] [address] Alin Gorman MD Persistent atrial fibrillation (HCC) (Primary Dx); Pulmonary hypertension (HCC); Heart failure with preserved left ventricular function (HFpEF) (HCC); Essential hypertension; Mixed hyperlipidemia from Last 3 Months Allergies Active Allergy [...] 1 tablet (10 mg total) by mouth early childhood education coordinator before breakfast 3 Active cyanocobalamin (Vitamin B-12) [...] (100 mg total) by mouth daily Active hansa [id number]-[id number]-Zn-c op-man-bor 250-40-125 mg-mg-unit tablet Take by mouth [...] TIMES DAILY FOR cough Active calcium carbonate (OS-HANSA) 1,500 mg (600 mg [...] 5 LB) 180 tablet [address] (CYMBALTA) 30 mg capsule Take 1 capsule (30 mg total) by mouth daily 5 Active ALPRAZolam (XANAX) 0.25 mg tablet Take by mouth 3 (three) times a day as needed 5 Active Active Problems Problem Noted Date Diagnosed [...] 05/15/2022 Overview (12/19/2023): Updated per IMO upload [id number] Hypokalemia 05/15/2022 HLD (hyperlipidemia) 05/15/2022 Lower GI [...] on file Legal Sex Female 5:37 AM INSOLVENCY CONSULTANT Gender Identity Not on file Sexual Orientation Not on file Last Filed Vital Signs Vital Sign Reading Time Taken Comments Blood Pressure 100/62 05/19/2024 1:54 PM CDT Pulse 86 05/19/2024 1:54 PM CDT Temperature 36.2 C (97.1 F) 03/12/2024 8:31 AM INSOLVENCY CONSULTANT Respiratory Rate - - Oxygen Saturation 97% 05/19/2024 1:54 PM CDT Inhaled Oxygen Concentration - - Weight 91.4 kg (201 lb 8 oz) 05/19/2024 1:54 PM CDT Height 160 cm (5' 3 ) 05/19/2024 1:54 PM CDT Body Mass Index 35.69 05/19/2024 1:54 PM CDT Plan of Treatment Not on file Procedures Procedure Name Priority Date/Time Associated Diagnosis Comments AUDBASE RESULTS 05/21/2024 2:57 PM CDT EGFR Routine 03/12/2024 12:30 PM INSOLVENCY CONSULTANT Liver mass Cirrhosis of liver without ascites, unspecified hepatic cirrhosis type (HCC) HEMOGLOBIN A1C Routine 12/19/2023 1:08 PM INSOLVENCY CONSULTANT Liver mass SERUM LIPID PANEL Routine 08/01/2013 9:4 3 PM CDT from Last 3 Months or Most Recently Relevant to Health Maintenance Results * AudBase Results (05/21/2024 2:57 PM CDT) us Provider Scanning AUDIOLOGY SERVICES ORDERABLES Final Result * (ABNORMAL) eGFR (03/12/2024 12:30 PM INSOLVENCY CONSULTANT) eGFR 40(L) >=60 mL/min/1. 73 m2 Comment: [...] reviewed 2020. Blood 03/12/2024 12:3 0 PM INSOLVENCY CONSULTANT 03/12/2024 12:50 PM INSOLVENCY CONSULTANT Neelam Morrison MD LAB BLOOD ORDERABLES Final Result Performing Organization Address [facility] de Phone Number [facility] [place] [address] * (ABNORMAL) Hemoglobin A1c (12/19/2023 1:08 PM INSOLVENCY CONSULTANT) Hgb A1C 5.9(H) 4.0 - 5.6 % Estimated Average Glucose 123 mg/dL [facility] Comment: The ADA recommends reporting an estimated Average Glucose (eAG) with all Hemoglobin A1c results using the equation derived from a study of 507 normal and diabetic adults. Minority populations were underrepresented and children were not included. (Diabetes Care 2020; 43(S1): S66-S76). The eAG is not equivalent to a fasting glucose. Blood 12/19/2023 1:08 PM INSOLVENCY CONSULTANT 12/19/2023 1:33 PM INSOLVENCY CONSULTANT Melissa Albright MD LAB BLOOD ORDERABLES Final Resul t Performing Organization Address [facility] [place] [address] * Serum lipid panel (08/01/2013 9:43 PM [...] MD LAB BLOOD ORDERABLES Final R esult Performing Organization Address City/State/[facility] Co de Phone Number HISTORICAL RESULTS from Last 3 Months or Most Recently Relevant to Health Maintenance Insurance [facility] Advance Directives For more information, please contact: [phone] Documents on File Type Date Recorded Patient Facilities Maintenance Technician Expl anation ADVANCE DIRECTIVE 12/17/2023 7:15 PM Beanangie _[email or web address] Care Teams Assembler Filters Relationship Specialty Start Date End Date Thomas Antonio MD [address] [facility] [address] [facility] [address] [place] [address] PCP - General Internal Medicine 01/11/24 Yoselyn Nicolas NP [facility] [address] [place] [address] Family Medicine 01/11/24
--- OUTSIDE RECORDS SUMMARY | 2024-06-21 14:25 | XMS_ITS | Clinical Summary ---
Author Organization [facility] [address] [place] [address] Care Team Providers Care Subcontract Manager Name Role Phone Thomas Antonio MD Primary Care Provider [phone] Yoselyn Nicolas CREEL CLERK Unavailable [phone] Allergies Active Allergy Reactions Criticality Noted [...] 1 tablet (10 mg total) by mouth fleet salesperson before breakfast 3 Active cyanocobalamin (Vitamin B-12) [...] mg total) by mouth daily Active john [id number]-[id number]-Zn-c op-man-bor 250-40-125 mg-mg-unit tablet Take by mouth [...] 05/15/2022 Overview (12/19/2023): Updated per IMO upload [id number] Hypokalemia 05/15/2022 HLD (hyperlipidemia) 05/15/2022 Lower GI [...] Description 05/21/2024 3:15 PM CDT Procedure visit [facility] Otolaryngology [id number] [place] [address] Medical Office Building [address] [place] [address] Santino Fields Au.D. 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); Evaluation of hearing impairment 05/19/2024 1:45 PM CDT Office Visit [facility] Cardiology [address] [place] [address] Alin Gorman MD Persistent atrial fibrillation (HCC) (Primary Dx); Pulmonary hypertension (HCC); Heart failure with preserved left ventricular function (HFpEF) (HCC); Essential hypertension; Mixed hyperlipidemia from Last 3 Months Medical History Medical [...] on file Legal Sex Female 5:37 AM SKEIN YARN DYER Gender Identity Not on file Sexual Orientation Not on file Obstetrics History Last Filed Vital Signs Vital Sign Reading Time Taken Comments Blood Pressure 100/62 05/19/2024 1:54 PM CDT Pulse 86 05/19/2024 1:54 PM CDT Temperature 36.2 C (97.1 F) 03/12/2024 8:31 AM SKEIN YARN DYER Respiratory Rate - - Oxygen Saturation 97% [...] PM CDT EGFR Routine 03/12/2024 12:30 PM SKEIN YARN DYER Liver mass Cirrhosis of liver without ascites, unspecified hepatic cirrhosis type (HCC) HEMOGLOBIN A1C Routine 12/19/2023 1:08 PM SKEIN YARN DYER Liver mass SERUM LIPID PANEL Routine 08/01/2013 9:4 3 PM CDT from Last 3 Months or Most Recently Relevant to Health Maintenance Results * AudBase Results (05/21/2024 2:57 PM CDT) us Provider Scanning AUDIOLOGY SERVICES ORDERABLES Final Result * (ABNORMAL) eGFR (03/12/2024 12:30 PM SKEIN YARN DYER) eGFR 40(L) >=60 mL/min/1. 73 m2 Comment: [...] reviewed 2020. Blood 03/12/2024 12:3 0 PM SKEIN YARN DYER 03/12/2024 12:50 PM SKEIN YARN DYER Neelam Morrison MD LAB BLOOD ORDERABLES Final Result [facility] Department [place] [address] * (ABNORMAL) Hemoglobin A1c (12/19/2023 1:08 PM SKEIN YARN DYER) Hgb A1C 5.9(H) 4.0 - 5.6 % [...] a fasting glucose. Blood 12/19/2023 1:08 PM SKEIN YARN DYER 12/19/2023 1:33 PM SKEIN YARN DYER us Melissa Albright MD LAB BLOOD ORDERABLES Final Resul t TAWANDA [facility] Department [place] [address] * Serum lipid panel (08/01/2013 9:43 PM [...] Most Recently Relevant to Health Maintenance Insurance [facility] Advance Directives For more information, please contact: [phone] Documents on File Type Date Recorded Patient Registered Travel Nurse Expl anation ADVANCE DIRECTIVE 12/17/2023 7:15 PM Aydt [email or web address] Care Teams Subcontract Manager Relationship Specialty Start Date End Date Thomas Antonio MD [address] [place] [address] PCP - General Internal Medicine 01/11/24 Yoselyn Nicolas NP [address] [place] [address] [address] [place] [address] Family Medicine 01/11/24
[2024-06-21 15:32] VITALS: BP 109/71; PULSE 100; RESP 18; TEMP 37.2; O2SAT 97
--- NOTE | 2024-06-21 15:58 | ED_ITS ---
HPI - Abdominal Pain General Chief Complaint: Abdominal Pain <Colette Conrad PA-C - Last Filed: 06/21/24 23:03> Stated Complaint: LLQ pain & diarrhea <Colette Conrad PA-C - Last Filed: 06/21/24 23:03> Time Seen by Provider: 06/21/24 15:58 <Colette Conrad PA-C - Last Filed: 06/21/24 23:03> Focused HPI: This is a 84 year old female that presents to the ER for diarrhea. Ongoing over the last couple of days. Reports right lower abdominal pain, history of diverticulitis with abscess. Reports generalized weakness. Denies fever, vomiting, dysuria. GENERAL: Elderly, well-nourished, and in no acute distress. HEAD: Normocephalic, atraumatic. CHEST: Clear to auscultation. No respiratory distress. HEART: Regular rate and rhythm. NEURO: Alert and oriented x3. Patient screened in triage and initial orders placed. Additional care and disposition to be based upon diagnostic testing and treatment. <Colette Conrad PA-C - Last Filed: 06/21/24 23:03> History of Present Illness HPI narrative: agree with HPI <Hannah Corrigan MD - Last Filed: 06/21/24 21:31> Related Data Home Medications: Home Medications Medication Instructions Recorded Confirmed Last Taken Type CoQ10 100 mg PO HS 11/05/23 05/21/24 12/09/23 History cholecalciferol (vitamin D3) 50 50 mcg PO HS 11/05/23 05/21/24 12/09/23 History mcg (2,000 unit) capsule citracal See Rx Instructions .Route .COMPLEX 11/05/23 05/21/24 12/09/23 History colchicine 0.6 mg tablet 0.6 mg PO DAILY PRN gout 11/05/23 05/21/24 12/09/23 History lactobacillus combination no.9 4 4,000 mmu cells PO HS 11/05/23 05/21/24 12/09/23 History billion cell capsule (Adult 50 Plus Probiotic) magnesium 500 mg PO BID 11/05/23 05/21/24 12/09/23 History prednisone 20 mg tablet 20 mg PO DAILY PRN gout 11/05/23 05/21/24 Unknown History glucosamine sulfate 1,000 mg 1,000 mg PO BID 11/09/23 05/21/24 12/09/23 History capsule [place] 3 Fish Oil 1 cap PO DAILY 12/05/23 05/21/24 12/09/23 History mecobalamin (vitamin B12) 1,500 mcg PO DAILY 12/05/23 05/21/24 12/09/23 History multivit with minerals-iron 18 1 tablet PO DAILY 12/05/23 05/21/24 12/09/23 History mg-folic ac 400 mcg-vit K 25 mcg tablet (Adults Multivitamin) thiamine HCl (vitamin B1) 100 mg 100 mg PO DAILY 12/05/23 05/21/24 12/09/23 History tablet <Colette Conrad PA-C - Last Filed: 06/21/24 23:03> Allergies/Adverse Reactions: Allergies Allergy/AdvReac Type Severity Reaction Status Date / Time Penicillins Allergy Severe Swelling Verified 06/21/24 19:25 of Lip/Tongue/Throat morphine Allergy Intermediate Migraine Verified 05/21/24 13:16 Sulfa (Sulfonamide Allergy Intermediate Rash Verified 06/21/24 19:25 Antibiotics) meperidine (From Demerol) AdvReac Intermediate Gastrointestinal Verified 06/21/24 19:25 Upset <Colette Conrad PA-C - Last Filed: 06/21/24 23:03> PMFSH Past Medical History Medical History: Medical History A-fib BMI 35.0-35.9,adult BMI 37.0-37.9, adult Breast cancer, left s/p tamoxifen, radiation, and lumpectomy CHF (congestive heart failure) Colon cancer screening Diabetes Diverticulitis Dry eyes Encounter for routine adult health examination without abnormal findings Follow up Frozen shoulder Gout Hospital discharge follow-up HTN (hypertension) Hx of skin malignancy Hyperlipidemia Insomnia Non-healing skin lesion of nose On joint 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 KRIS treated with BiPAP Paroxysmal A-fib Pulmonary hypertension UTI (urinary tract infection) <Colette Conrad PA-C - Last Filed: 06/21/24 23:03> Surgical History Surgical History: Surgical History History of lumpectomy of left breast Hx of breast biopsy <Colette Conrad PA-C - Last Filed: 06/21/24 23:03> Social History Social History: Social History Smoking status: Never smoker Alcohol intake: current Substance use: never Substance use type: does not use Do You Feel Safe in your Home?: Yes Lack of Transportation: No Lack of Food: Never True Current Housing: I Have Housing Concerned About Future Housing: No Difficulty Paying Gas/Electric Bills: No Difficulty Paying for Meds: No Currently Unemployed: No Education: Master's Degree or Higher Difficulty w/ Childcare or Family Care: No Living arrangements: with family Spiritual care concerns: No <Colette Conrad PA-C - Last Filed: 06/21/24 23:03> Exam 2 Narrative: EXAMINATION OF ORGAN SYSTEMS/BODY AREAS: Constitutional: Vital signs per nursing GENERAL:[No acute distress, non-toxic appearing.] HEAD: Normal with no signs of head trauma. EYES: EOMI, conjunctiva normal ENT: Hearing grossly intact LUNGS: Nonlabored breathing. HEART: [Regular rate and rhythm] ABD: [Soft], [nontender to palpation] EXT: Normal range of motion SKIN: [No rashes or lesions.] NEURO: [Alert and oriented x 3. No gross focal sensory or strength deficits.] PSYCH: Normal affect <Hannah Corrigan MD - Last Filed: 06/21/24 21:31> Course Vital Signs Vital signs: Vital Signs Temperature 98.9 F 06/21/24 15:32 Pulse Rate 100 06/21/24 15:32 Respiratory Rate 18 06/21/24 15:32 Blood Pressure 109/71 06/21/24 15:32 Pulse Oximetry 97 06/21/24 15:32 Temperature 97.6 F 06/21/24 19:33 Pulse Rate 79 06/21/24 22:14 Respiratory Rate 19 06/21/24 22:14 Blood Pressure 105/67 06/21/24 22:14 Pulse Oximetry 100 06/21/24 22:14 Oxygen Delivery Room Air 06/21/24 19:28 <Colette Conrad PA-C - Last Filed: 06/21/24 23:03> Vital Signs Temperature 98.9 F 06/21/24 15:32 Pulse Rate 100 06/21/24 15:32 Respiratory Rate 18 06/21/24 15:32 Blood Pressure 109/71 06/21/24 15:32 Pulse Oximetry 97 06/21/24 15:32 Temperature 97.6 F 06/21/24 19:33 Pulse Rate 79 06/21/24 22:14 Respiratory Rate 19 06/21/24 22:14 Blood Pressure 105/67 06/21/24 22:14 Pulse Oximetry 100 06/21/24 22:14 Oxygen Delivery Room Air 06/21/24 19:28 <Hannah Corrigan MD - Last Filed: 06/21/24 21:31> MDM - Abdominal Pain MDM Narrative Medical decision making narrative: Patient has been having diarrhea for last 3 days, with some slight right sided abdominal discomfort has history of diverticulitis and sent here by PCP to rule out diverticulitis. She has no nausea or vomiting, is well-appearing here without significant abdominal tenderness. CT here thankfully negative for acute abnormality, though she does have some enhancing areas in liver that may be change from prior. I discussed this with patient/family; they are aware and follow with liver specialist at [facility] and will follow up with them and PCP. Will give 1L IVF given elev BUN:Cr indicating possible dehydration. She has gatorade/pedialyte at home and will drink that, and I did add on immodium in addition to her bismuth she is taking for diarrhea. Return precautions discussed. <Hannah Corrigan MD - Last Filed: 06/21/24 21:31> Lab Data Result diagrams: 06/21/24 17:39 06/21/24 17:39 <Colette Conrad PA-C - Last Filed: 06/21/24 23:03> Labs: Lab Results 06/21/24 06/21/24 Range/Units 17:39 19:31 WBC 7.2 (4.5-10.0) K/mm3 RBC 4.63 (4.2-5.4) M/mm3 Hgb 13.9 (12.0-15.0) g/dL Hct 44.2 (37.0-47.0) % MCV 95.5 (80-100) fl MCH 30.0 (26-34) pg MCHC 31.4 L (32-36) g/dl RDW 14.8 H (11.5-14.5) % Plt Count 211 (150-375) k/mm3 MPV 11.1 H (7.4-10.4) fl Immature Gran % (Auto) 0.4 (0-0.5) % Neut % (Auto) 66.6 (45.5-73.1) % Lymph % (Auto) 17.8 L (18.3-44.2) % [place] % (Auto) 11.6 H (2.6-8.5) % Eos % (Auto) 2.9 (0-4.4) % Baso % (Auto) 0.7 (0.2-1.2) % Lymph # (Auto) 1.28 (0.9-3.2) K/mm3 [place] # (Auto) 0.8 H (0.1-0.6) K/mm3 Eos # (Auto) 0.2 (0-0.3) K/mm3 Baso # (Auto) 0.1 (0.0-0.1) K/mm3 Abs Immat Gran (auto) 0.03 (0.00-0.031) K/mm3 Absolute Neuts (auto) 4.8 (1.3-6.7) K/mm3 Absolute Nucleated RBC 0.000 (0.0-0.012) K/mm3 Nucleated RBC % 0.0 (0.0-0.2) % Sodium 136 L (137-145) mmol/L Potassium 4.1 (3.4-5.0) mmol/L Chloride 94 L (98-107) mmol/L Carbon Dioxide 33 H (22-30) mmol/L Anion Gap 9 (4-12) mmol/L BUN 52 H D (7-17) mg/dL Creatinine 1.25 H (0.7-1.0) mg/dL Estim Creat Clear Calc 32 ml/min Estimated GFR 41 L (59 - ) Glucose 93 (65-110) mg/dL Calcium 9.8 (8.4-10.2) mg/dL Total Bilirubin 0.7 (0.2-1.3) mg/dL AST 37 H (14-36) U/L ALT 25 (6-35) U/L Alkaline Phosphatase 91 (38-126) U/L Total Protein 8.0 (6.3-8.2) g/dL Albumin 4.9 (3.5-5.1) g/dL Lipase 253 (23-300) U/L Urine Color Yellow (Yellow) Urine Appearance Clear (Clear) Urine pH 6.0 (5.0-9.0) Ur Specific [place] 1.012 (1.001-1.035) Urine Protein Negative (Negative) mg/dL Urine Glucose (UA) 1+ H (Negative) mg/dL Urine Ketones Negative (Negative) mg/dL Ur Blood (Man) Negative (Negative) Urine Nitrate Negative (Negative) Urine Bilirubin Negative (Negative) Urine Urobilinogen 0.2 (<2.0) mg/dL Leukocyte Esterase Rfl Negative (Negative) MARII/UL <Colette Conrad PA-C - Last Filed: 06/21/24 23:03> Lab Results 06/21/24 06/21/24 Range/Units 17:39 19:31 WBC 7.2 (4.5-10.0) K/mm3 RBC 4.63 (4.2-5.4) M/mm3 Hgb 13.9 (12.0-15.0) g/dL Hct 44.2 (37.0-47.0) % MCV 95.5 (80-100) fl MCH 30.0 (26-34) pg MCHC 31.4 L (32-36) g/dl RDW 14.8 H (11.5-14.5) % Plt Count 211 (150-375) k/mm3 MPV 11.1 H (7.4-10.4) fl Immature Gran % (Auto) 0.4 (0-0.5) % Neut % (Auto) 66.6 (45.5-73.1) % Lymph % (Auto) 17.8 L (18.3-44.2) % [place] % (Auto) 11.6 H (2.6-8.5) % Eos % (Auto) 2.9 (0-4.4) % Baso % (Auto) 0.7 (0.2-1.2) % Lymph # (Auto) 1.28 (0.9-3.2) K/mm3 [place] # (Auto) 0.8 H (0.1-0.6) K/mm3 Eos # (Auto) 0.2 (0-0.3) K/mm3 Baso # (Auto) 0.1 (0.0-0.1) K/mm3 Abs Immat Gran (auto) 0.03 (0.00-0.031) K/mm3 Absolute Neuts (auto) 4.8 (1.3-6.7) K/mm3 Absolute Nucleated RBC 0.000 (0.0-0.012) K/mm3 Nucleated RBC % 0.0 (0.0-0.2) % Sodium 136 L (137-145) mmol/L Potassium 4.1 (3.4-5.0) mmol/L Chloride 94 L (98-107) mmol/L Carbon Dioxide 33 H (22-30) mmol/L Anion Gap 9 (4-12) mmol/L BUN 52 H D (7-17) mg/dL Creatinine 1.25 H (0.7-1.0) mg/dL Estim Creat Clear Calc 32 ml/min Estimated GFR 41 L (59 - ) Glucose 93 (65-110) mg/dL Calcium 9.8 (8.4-10.2) mg/dL Total Bilirubin 0.7 (0.2-1.3) mg/dL AST 37 H (14-36) U/L ALT 25 (6-35) U/L Alkaline Phosphatase 91 (38-126) U/L Total Protein 8.0 (6.3-8.2) g/dL Albumin 4.9 (3.5-5.1) g/dL Lipase 253 (23-300) U/L Urine Color Yellow (Yellow) Urine Appearance Clear (Clear) Urine pH 6.0 (5.0-9.0) Ur Specific [place] 1.012 (1.001-1.035) Urine Protein Negative (Negative) mg/dL Urine Glucose (UA) 1+ H (Negative) mg/dL Urine Ketones Negative (Negative) mg/dL Ur Blood (Man) Negative (Negative) Urine Nitrate Negative (Negative) Urine Bilirubin Negative (Negative) Urine Urobilinogen 0.2 (<2.0) mg/dL Leukocyte Esterase Rfl Negative (Negative) MARII/UL <Hannah Corrigan MD - Last Filed: 06/21/24 21:31> Imaging Data Radiologist's impression: ITS Impressions Abdomen/Pelvis CT 06/21/24 19:52 IMPRESSION: 1. No evidence of diverticulitis, appendicitis or intestinal obstruction. 2. Nodule in the left lower lobe unchanged. Enhancing areas in the liver which are slightly more prominent than the previous study. Hepatocellular CA cannot be excluded. Further evaluation advised. 3. Liver cirrhosis. 4. Constipation. <Colette Conrad PA-C - Last Filed: 06/21/24 23:03> ITS Impressions Abdomen/Pelvis CT 06/21/24 19:52 IMPRESSION: 1. No evidence of diverticulitis, appendicitis or intestinal obstruction. 2. Nodule in the left lower lobe unchanged. Enhancing areas in the liver which are slightly more prominent than the previous study. Hepatocellular CA cannot be excluded. Further evaluation advised. 3. Liver cirrhosis. 4. Constipation. <Hannah Corrigan MD - Last Filed: 06/21/24 21:31> Discharge Plan Discharge Clinical Impression: Dehydration Diarrhea Qualifiers: Diarrhea type: unspecified type Qualified Code(s): R19.7 - Diarrhea, unspecified <Colette Conrad PA-C - Last Filed: 06/21/24 23:03> Patient Disposition: Home <Colette Conrad PA-C - Last Filed: 06/21/24 23:03> Condition: Stable <Colette Conrad PA-C - Last Filed: 06/21/24 23:03> Instructions: Acute Diarrhea (ED) <Colette Conrad PA-C - Last Filed: 06/21/24 23:03> Additional Instructions: Please keep hydrated with gatorade/pedialyte; please follow up with your PCP and with your liver specialist for the spots on your liver. You can always return to the ER for any further issues. <Colette Conrad PA-C - Last Filed: 06/21/24 23:03> Patient Language: Swiss <Colette Conrad PA-C - Last Filed: 06/21/24 23:03> Prescriptions: New loperamide [Imodium A-D] 2 mg tablet 2 mg PO Q6H PRN (Reason: loose stool) Qty: 14 0RF No Action prednisone 20 mg tablet 20 mg PO DAILY PRN (Reason: gout) Patient Comments: X3 DAYS GOUT FLARE UP colchicine 0.6 mg tablet 0.6 mg PO DAILY PRN (Reason: gout) magnesium 500 mg PO BID Rx Instructions: Takes 500mg bid citracal See Rx Instructions .ROUTE .COMPLEX Rx Instructions: 630 MG calcium, 500 MG vitamin D, 5.5 MG zinc BID Adult 50 Plus Probiotic 4 billion cell capsule 4,000 mmu cells PO HS Rx Instructions: administer with a meal cholecalciferol (vitamin D3) 50 mcg (2,000 unit) capsule 50 mcg PO HS CoQ10 100 mg PO HS lisinopril 2.5 mg tablet 2.5 mg PO DAILY Qty: 90 1RF duloxetine 30 mg capsule,delayed release(DR/EC) 30 mg PO DAILY Qty: 90 1RF alprazolam [Xanax] 0.25 mg tablet 0.25 mg PO TID PRN (Reason: anxiety) Qty: 30 0RF glucosamine sulfate 1,000 mg Capsule 1,000 mg PO BID Rx Instructions: administer with meals thiamine HCl (vitamin B1) 100 mg Tablet 100 mg PO DAILY Adults Multivitamin 18 mg iron-400 mcg-25 mcg Tablet 1 tablet PO DAILY [place] 3 Fish Oil 1 cap PO DAILY mecobalamin (vitamin B12) 1,500 mcg PO DAILY allopurinol 300 mg tablet 300 mg PO DAILY Qty: 90 1RF torsemide 20 mg tablet 40 mg PO QAM Qty: 180 0RF dapagliflozin propanediol [Farxiga] 10 mg tablet 10 mg PO DAILY Qty: 90 1RF metformin 500 mg tablet 500 mg PO TID Qty: 300 0RF metoprolol succinate 100 mg tablet extended release 24 hr 100 mg PO DAILY Qty: 90 0RF pantoprazole 40 mg tablet,delayed release (DR/EC) 40 mg PO QAM Qty: 90 1RF pravastatin 40 mg tablet 40 mg PO HS Qty: 90 1RF Xarelto 20 mg tablet 20 mg PO QPM Qty: 90 0RF Rx Instructions: must administer with evening meal spironolactone 25 mg tablet 25 mg PO DAILY Qty: 90 0RF potassium chloride 10 mEq tablet extended release 10 meq PO DAILY Qty: 90 0RF Rx Instructions: TAKES EXTRA TAB IF TAKING EXTRA TORSEMIDE Paxlovid 150-100 mg tablets,dose pack See Rx Instructions PO PER PKG DIR Qty: 20 0RF Rx Instructions: PO PER PKG DIR <Colette Conrad PA-C - Last Filed: 06/21/24 23:03> Follow-up/Referrals: Thomas Antonio MD [Primary Care Provider] - 2 Days <Colette Conrad PA-C - Last Filed: 06/21/24 23:03>
[2024-06-21 17:56] VITALS: BP 107/64; PULSE 75; RESP 18; TEMP 36.2; O2SAT 98
[2024-06-21 17:57] LABS: Basophils Absolute Auto 0.1 K/mm3 (0.0-0.1); Basophils Percent Auto 0.7 % (0.2-1.2); Eosinophils Absolute Auto 0.2 K/mm3 (0-0.3); Eosinophils Percent Auto 2.9 % (0-4.4); Hematocrit 44.2 % (37.0-47.0); Hemoglobin 13.9 g/dL (12.0-15.0); Immature Granulocyte Absolute 0.03 K/mm3 (0.00-0.031); Immature Granulocyte Percent A 0.4 % (0-0.5); Lymphocytes Absolute Auto 1.28 K/mm3 (0.9-3.2); Lymphocytes Percent Auto 17.8 % (18.3-44.2); Mean Corpuscular HGB Conc 31.4 g/dl (32-36); Mean Corpuscular Volume 95.5 fl (80-100); Mean Platelet Volume 11.1 fl (7.4-10.4); Monocytes Absolute Auto 0.8 K/mm3 (0.1-0.6); Monocytes Percent Auto 11.6 % (2.6-8.5); Neutrophils Absolute Auto 4.8 K/mm3 (1.3-6.7); Neutrophils Percent Auto 66.6 % (45.5-73.1); Platelet Count Result 211 k/mm3 (150-375); Red Blood Count 4.63 M/mm3 (4.2-5.4); Red Cell Distribution Width 14.8 % (11.5-14.5); White Blood Count 7.2 K/mm3 (4.5-10.0)
[2024-06-21 18:08] LABS: Alanine Aminotransferase 25 U/L (6-35); Albumin Level 4.9 g/dL (3.5-5.1); Alkaline Phosphatase 91 U/L (38-126); Anion Gap 9 mmol/L (4-12); Aspartate Amino Transferase 37 U/L (14-36); Bilirubin,Total 0.7 mg/dL (0.2-1.3); Blood Urea Nitrogen 52 mg/dL (7-17); Calcium 9.8 mg/dL (8.4-10.2); Carbon Dioxide 33 mmol/L (22-30); Chloride 94 mmol/L (98-107); Estimated CRCL calculation 32 ml/min; Estimated Glomerular Filt Rate 41; Glucose 93 mg/dL (65-110); Lipase 253 U/L (23-300); Potassium 4.1 mmol/L (3.4-5.0); Sodium 136 mmol/L (137-145)
[2024-06-21 19:28] VITALS: BP 117/77; PULSE 75; RESP 16; TEMP 36.4; O2SAT 99
[2024-06-21 19:33] VITALS: BP 117/77; PULSE 81; RESP 16; TEMP 36.4; O2SAT 100
[2024-06-21 19:41] LABS: Add Urine Microscopic? NO; Appearance Urine Clear (Clear); Bilirubin Urine Negative (Negative); Blood Urine Negative (Negative); Color Urine Yellow (Yellow); Glucose Urine UA 1+ mg/dL (Negative); Ketones Urine Negative (Negative); Leukocyte Esterase Ur Negative LEU/UL (Negative); Nitrate Urine Negative (Negative); Protein Urine Negative (Negative); Specific Grav Ur 1.012 (1.001-1.035); Urobilinogen Urine 0.2 mg/dL (<2.0)
--- OUTSIDE RECORDS SUMMARY | 2024-06-21 19:48 | XMS_ITS | Clinical Summary ---
Author Organization [facility] Address [address] [place] [address] Care Team Providers Care Warehouse Logistics Manager Name Role Phone Thomas Antonio MD Primary Care Provider [phone] Source Comments [facility],non-owned Affiliates and Associated Physician Practices is amultiple site organization consisting of ambulatory clinics and hospital sitesin [place], [place], [place] and [place]. This disclosure is being madepursuant to the Care Everywhere program and may not contain all information available regarding this patient. Last updated 17.[facility] Allergies Active Allergy Reactions Criticality Noted Date [...] complete this topic Insurance [employer] Care Teams Warehouse Logistics Manager Relationship Specialty Start Date End Date Thomas Antonio MD [address] [facility] [address] [place] [id number] PCP - General Internal Medicine 12/06/23
--- OUTSIDE RECORDS SUMMARY | 2024-06-21 19:48 | XMS_ITS | Clinical Summary ---
Author Organization [facility] [address] [place] [address] Care Team Providers Care Track Repairer Name Role Phone Thomas Antonio MD Primary Care Provider [phone] Yoselyn Nicolas CIRCLE CUTTING SAW OPERATOR Unavailable [phone] Allergies Active Allergy Reactions Criticality Noted [...] 1 tablet (10 mg total) by mouth drupal web developer before breakfast 3 Active cyanocobalamin (Vitamin [...] mg total) by mouth daily Active john [id number] op-man-bor 250-40-125 mg-mg-unit tablet Take by mouth [...] 05/15/2022 Overview (12/19/2023): Updated per IMO upload [id number] Hypokalemia 05/15/2022 HLD (hyperlipidemia) 05/15/2022 Lower GI [...] Description 05/21/2024 3:15 PM CDT Procedure visit [facility] Otolaryngology [id number] [place] [address] Medical Office Building [address] [place] [address] Santino Fields Au.D. 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); Evaluation of hearing impairment 05/19/2024 1:45 PM CDT Office Visit [facility] [address] [place] [phone] Alin Gorman MD Persistent atrial fibrillation (HCC) [...] on file Legal Sex Female 5:37 AM EXTRUDER OPERATOR MULTIPLE Gender Identity Not on file Sexual Orientation Not on file Obstetrics History Last Filed Vital Signs Vital Sign Reading Time Taken Comments Blood Pressure 100/62 05/19/2024 1:54 PM CDT Pulse 86 05/19/2024 1:54 PM CDT Temperature 36.2 C (97.1 F) 03/12/2024 8:31 AM EXTRUDER OPERATOR MULTIPLE Respiratory Rate - - Oxygen Saturation 97% [...] PM CDT EGFR Routine 03/12/2024 12:30 PM EXTRUDER OPERATOR MULTIPLE Liver mass Cirrhosis of liver without ascites, unspecified hepatic cirrhosis type (HCC) HEMOGLOBIN A1C Routine 12/19/2023 1:08 PM EXTRUDER OPERATOR MULTIPLE Liver mass SERUM LIPID PANEL Routine 08/01/2013 9:4 3 PM CDT from Last 3 Months or Most Recently Relevant to Health Maintenance Results * AudBase Results (05/21/2024 2:57 PM CDT) us Provider Scanning AUDIOLOGY SERVICES ORDERABLES Final Result * (ABNORMAL) eGFR (03/12/2024 12:30 PM EXTRUDER OPERATOR MULTIPLE) eGFR 40(L) >=60 mL/min/1. 73 m2 Comment: [...] reviewed 2020. Blood 03/12/2024 12:3 0 PM EXTRUDER OPERATOR MULTIPLE 03/12/2024 12:50 PM EXTRUDER OPERATOR MULTIPLE Neelam Morrison MD LAB BLOOD ORDERABLES Final Result TAWANDA [facility] Department [place] [address] * (ABNORMAL) Hemoglobin A1c (12/19/2023 1:08 PM EXTRUDER OPERATOR MULTIPLE) Hgb A1C 5.9(H) 4.0 - 5.6 % [...] a fasting glucose. Blood 12/19/2023 1:08 PM EXTRUDER OPERATOR MULTIPLE 12/19/2023 1:33 PM EXTRUDER OPERATOR MULTIPLE us Melissa Albright MD LAB BLOOD ORDERABLES Final Resul t TAWANDA RICHEY [facility] [place] [address] * Serum lipid panel (08/01/2013 9:43 PM [...] Most Recently Relevant to Health Maintenance Insurance [facility] Advance Directives For more information, please contact: [phone] Documents on File Type Date Recorded Patient Outreach Specialist Expl anation ADVANCE DIRECTIVE 12/17/2023 7:15 PM Aydt _[email or web address] Will.pdf Care Teams Track Repairer Relationship Specialty Start Date End Date Thomas Antonio MD [address] [place] [address] PCP - General Internal Medicine 01/11/24 Yoselyn Nicolas NP [address] [place] [address] [address] [place] [address] Family Medicine 01/11/24
--- OUTSIDE RECORDS SUMMARY | 2024-06-21 19:48 | XMS_ITS | Referral Summary ---
Author Organization [facility] [address] [facility] [place] [address] Care Team Providers Care Curbing Stonecutter Name Role Phone Thomas Antonio MD Primary Care Provider [phone] Yoselyn Nicolas RADIOGRAPHER Unavailable [phone] Encounters Date Type Department Care Team Description 05/21/2024 3:15 PM CDT [facility] Otol[facility]ology [address] [facility] Medical Office Building [address] [place] [address] Santino Fields Au.D. 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); Evaluation of hearing impairment 05/19/2024 1:45 PM CDT Office Visit [facility] Cardiology [address] [place] [address] Alin Gorman MD Persistent atrial [...] 1 tablet (10 mg total) by mouth vice president education before breakfast 3 Active cyanocobalamin (Vitamin B-12) [...] mg total) by mouth daily Active hansa [id number]-[id number]-D6-Zn-c op-man-bor 250-40-125 mg-mg-unit tablet Take by mouth [...] 05/15/2022 Overview (12/19/2023): Updated per IMO upload [id number] Hypokalemia 05/15/2022 HLD (hyperlipidemia) 05/15/2022 Lower GI [...] on file Legal Sex Female 5:37 AM ERADICATOR Gender Identity Not on file Sexual Orientation Not on file Last Filed Vital Signs Vital Sign Reading Time Taken Comments Blood Pressure 100/62 05/19/2024 1:54 PM CDT Pulse 86 05/19/2024 1:54 PM CDT Temperature 36.2 C (97.1 F) 03/12/2024 8:31 AM ERADICATOR Respiratory Rate - - Oxygen Saturation 97% [...] PM CDT EGFR Routine 03/12/2024 12:30 PM ERADICATOR Liver mass Cirrhosis of liver without ascites, unspecified hepatic cirrhosis type (HCC) HEMOGLOBIN A1C Routine 12/19/2023 1:08 PM ERADICATOR Liver mass SERUM LIPID PANEL Routine 08/01/2013 9:4 3 PM CDT from Last 3 Months or Most Recently Relevant to Health Maintenance Results * AudBase Results (05/21/2024 2:57 PM CDT) us Provider Scanning AUDIOLOGY SERVICES ORDERABLES Final Result * (ABNORMAL) eGFR (03/12/2024 12:30 PM ERADICATOR) eGFR 40(L) >=60 mL/min/1. 73 m2 Comment: [...] reviewed 2020. Blood 03/12/2024 12:3 0 PM ERADICATOR 03/12/2024 12:50 PM ERADICATOR Neelam Morrison MD LAB BLOOD ORDERABLES Final Result Performing Organization Address [facility] de Phone Number [facility] [place] [address] * (ABNORMAL) Hemoglobin A1c (12/19/2023 1:08 PM ERADICATOR) Hgb A1C 5.9(H) 4.0 - 5.6 % Estimated Average Glucose 123 mg/dL [facility] Comment: The ADA recommends reporting an estimated Average Glucose (eAG) with all Hemoglobin A1c results using the equation derived from a study of 507 normal and diabetic adults. Minority populations were underrepresented and children were not included. (Diabetes Care 2020; 43(S1): S66-S76). The eAG is not equivalent to a fasting glucose. Blood 12/19/2023 1:08 PM ERADICATOR 12/19/2023 1:33 PM ERADICATOR Melissa Albright MD LAB BLOOD ORDERABLES Final Resul t Performing Organization Address [facility] [place] [address] * Serum lipid panel (08/01/2013 9:43 PM [...] ORDERABLES Final R esult Performing Organization Address City/State/[facility] de Phone Number HISTORICAL RESULTS from Last 3 Months or Most Recently Relevant to Health Maintenance Insurance [facility] Advance Directives For more information, please contact: [phone] Documents on File Type Date Recorded Patient Operations Administrator Expl anation ADVANCE DIRECTIVE 12/17/2023 7:15 PM Beanangie _Nadja_Living Will.pdf Care Teams Curbing Stonecutter Relationship Specialty Start Date End Date Thomas Antonio MD [address] [facility] [address] [facility] [address] [place] [address] PCP - General Internal Medicine 01/11/24 Yoselyn Nicolas NP [facility] [facility] [address] [place] [address] Family Medicine 01/11/24
--- OUTSIDE RECORDS SUMMARY | 2024-06-21 19:48 | XMS_ITS | Clinical Summary ---
Author Organization [facility] Address [facility] [place] [address] Care Team Providers Care Pharmacy Picking Technician Name Role Phone Valentin Mitchell MD Primary Care Provider [phone] Vasquez Akins MD Unavailable Unavailable Allergies Active [...] Noted Date Diagnosed Date Atrial fibrillation, persistent ([facility] ) 07/04/2016 Long-term (current) use of anticoagulants 2016 Acute on chronic diastolic c ongestive heart failure ([facility]) 06/08/2016 SVT (supraventricular tachycardia) ([facility]) Overview (06/07/2016): age 14 Obstructive sleep apnea sergo letty with bilevel positive airway pressure (BiPAP) Obesity OA (osteoarthritis) Migraines HTN (hypertension) HLD (hyperlipidemia) Depression Bleeding on Coumadin Borderline diabetes Persistent atrial fibrillation ([facility]) CHF (congestive heart failure) ([facility]) Atrial fibrillation ([facility]) Family History Medical History Relation [...] Job Start Date Job End Date 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 Not on file Not on file No t on file Last Filed Vital Signs Vital Sign Reading Time Taken Comments Blood Pressure 108/68 02/23/2017 10:17 AM BUS ATTENDANT Pulse 83 02/23/2017 10:17 AM BUS ATTENDANT Temperature - - Respiratory Rate 18 12/26/2016 9:26 AM BUS ATTENDANT Oxygen Saturation 97% 02/23/2017 10:17 AM BUS ATTENDANT Inhaled Oxygen Concentration - - Weight 112.5 kg (248 lb) 02/23/2017 10:17 AM BUS ATTENDANT Height 162.6 cm (5' 4 ) 02/23/2017 10:17 AM BUS ATTENDANT Body Mass Index 42.57 02/23/2017 10:17 AM BUS ATTENDANT Plan of Treatment Health Maintenance Due Date [...] patient's age to complete this topic Insurance [employer] [facility] Care Teams Pharmacy Picking Technician Relationship Specialty Start Date End Date Valentin Mitchell MD [address] [place] [address] PCP - General INTERNAL MEDICINE 06/08/16 Vasquez Akins MD [address] [place] [address] Kehinde Dairy Farmworker Electrophysiology 02/13/17
--- OUTSIDE RECORDS SUMMARY | 2024-06-21 19:48 | XMS_ITS | Continuity of Care Document ---
Author Organization [facility] Address [address] [place] [address] Phone Care Team Providers Care Aquatics Director Name Role Phone No Information Unavailable Unavailable [...] Diagnoses Date Provider Providers Copied on Encounter [facility], [address] [place] [address], [id number], tel:[phone] No Information June-0 1 No Information [facility], [address] [place] [address], [id number], tel:[phone] [facility] No Information 1 Juanjo Negron. [address] [place] [address], [id number], . tel:[phone] Referring Provider: Steven Galvez, [facility] [address], [place], [address] . tel:[phone] [facility], [address] [place] [address], [id number], tel:[phone] [facility] No Information [address], [place], [place], [id number], . tel:[phone] [facility], [address] [place] [address], [id number], tel:[phone] [facility] [place] [facility] No Information Apr-1 5- 1 Jimmy Blanco [address], [place], [place], [id number], . tel:[phone] Referring Provider: Steven Galvez, [address], [place], [address] . tel:[phone] [facility] [place] [facility], [address] [place] [address], [id number], tel:[phone] [facility] [place] [facility] No Information Apr-0 8-201 1 Jimmy Blanco [address], [place], [place], [id number], . tel:[phone] Office/outpat ient visit,[facility], [facility], [address] [place] [address], [id number], tel:[phone] [facility] No Information Mar-1 0- 1 Jimmy Blanco [address], [place], [place], [id number], [place]. tel:[phone] Referring Provider: [address], [place], [address]. tel:[phone] Office/outpat ient visit,[facility], [address] [place] [address], [id number], tel:[phone] [facility] [place] [facility] No Information Mar-0 3-201 1 Alice Bowman. [address] [place], [place], [id number], [place]. tel:[phone] Referring Provider: [address], [place], [address]. tel:[phone] [facility] [place] [facility], [address] [place] [address], [id number], tel:[phone] [facility] [place] [facility] No Information Mar-0 3-201 1 Jeffrey De. [address] [place] [address], [id number], . tel:[phone] Referring Provider: Santino Yan, [address] [place] [address], [id number] . tel:[phone] [facility] [place] [facility], [address] [place] [address], [id number], tel:[phone] [facility] No Information 1 Sandra Miller. [address] [place] [address], [id number], . tel:[phone] Referring Provider: Lelia Mitchell, [address], [place], [address]. tel:[phone] Office/outpat ient visit,est, [facility], [address] [place] [address], [id number], tel:[phone] [facility] No Information 1 [facility]. [facility] [address], [place], [place], [id number], . tel:[phone] Referring Provider: Lelia Mitchell, [address], [place], [address]. tel:[phone] Office/outpat ient visit,est, [facility], [address] [place] [address], [id number], tel:[phone] [facility] No Information 1 Jeffrey De. [address] [place] [address], [id number], . tel:[phone] Referring Provider: Lelia Mitchell, [address], [place], [address]. tel:[phone] [facility] [place] [facility], [address] [place] [address], [id number], tel:[phone] [facility] No Information 0 Jeffrey De. [address] [place] [address], [id number], . tel:[phone] [facility] [place] [facility], [address] [place] [address], [id number], tel:[phone] [facility] No Information Dec-1 0-201 0 Jeffrey Santino. [address] [place] [address], [id number], . tel:[phone] Office/outpat ient visit,[facility], [facility], [address] [place] [address], [id number], tel:[phone] [facility] [place] [facility] No Information Dec-0 8-201 0 Alice Bowman. [address] [place], [place], [id number], [place]. tel:[phone] Referring Provider: Tanya [address], [place], [address]. tel:[phone] Office/outpat ient visit,[facility], [facility], [address] [place] [address], [id number], tel:[phone] [facility] No Information Nov-0 7-200 9 Nichol Wise. [address] [place] [address], [id number], [place]. tel:[phone] Referring Provider: Tanya [address], [place], [address]. tel:[phone] Office/outpat ient visit,[facility], [facility], [address] [place] [address], [id number], tel:[phone] [facility] No Information Oct-0 9-200 9 Nicholbrenton Wise. [address] [place] [address], [id number], . tel:[phone] Referring Provider: Tanya [address], [place], [address]. tel:[phone] [facility], [address] [place] [address], [id number], tel:[phone] [facility] No Information Sep-2 7-200 9 Melyssa Garner. [address] [place] [address], [id number], . tel:[phone] [facility] [place] [facility], [address] [place] [address], [id number], tel:[phone] [facility] No Information 9 Melyssa Garner. [address] [place] [address], [id number], . tel:[phone] [facility], [address] [place] [address], [id number], tel:[phone] [facility] No Information 0 200 9 Melyssa Garner. [address] [place] [address], [id number], . tel:[phone] [facility], [address] [place] [address], [id number], tel:[phone] [facility] No Information 9 Melyssa Garner. [address] [place] [address], [id number], . tel:[phone] Office/outpat ient visit,est, mod [facility] [place] [facility], [address] [place] [address], [id number], tel:[phone] [facility] No Information 9 Nichol Wise. [address] [place] [address], [id number], . tel:[phone] Referring Provider: Lelia Mitchell, [address], [place], [address]. tel:[phone] [facility], [address] [place] [address], [id number], tel:[phone] [facility] No Information 9 Cipriano Acevedo. [address], [place], [address], [place]. tel:[phone] Referring Provider: Lexx Cardoso, [address], [place], [address]. tel:[phone] [facility], [address] [place] [address], [id number], [place] tel:[phone] [facility] No Information 9 Cipriano Acevedo. [address] [place], [address], [place]. tel:[phone] Referring Provider: Lexx Cardoso, [address], [place], [address]. tel:[phone] [facility] [place] [facility], [address] [place] [address], [id number], tel:[phone] [facility] No Information 9 Cipriano Acevedo. [address] [place], [address], [place]. tel:[phone] Referring Provider: Lexx Cardoso, [address] [place] [address] [address], [place], [address]. tel:[phone] [facility], [address] [place] [address], [id number], tel:[phone] [facility] No Information Sep-2 200 8 Melyssa Garner. [address] [place] [address], [id number], [place]. tel:[phone] [facility], [address] [place] [address], [id number], tel:[phone] [facility] No Information Oct-1 200 8 Melyssa Garner. [address] [place] [address], [id number], . tel:[phone] [facility], [address] [place] [address], [id number], tel:[phone] [facility] No Information Sep-0 3200 8 Cota Curtis. [address] [place], [address], [place]. tel:[phone] Referring Provider: Pascual Salazar, [address] [place] [address], [id number] . tel:[phone] Office/outpat ient visit,est, mod [facility] [place] [facility], [address] [place] [address], [id number], [place] tel:[phone] [facility] No Information 7200 8 Golz Pascual. [address] [place] [address], [id number], . tel:[phone] [facility] [place] [facility], [address] [place] [address], [id number], tel:[phone] [facility] [place] [facility] No Information 8 Golz Pascual. [address] [place] [address], [id number], [place]. tel:[phone] [facility] [place] [facility], [address] [place] [address], [id number], tel:[phone] [facility] [place] [facility] No Information 8 Jesus Pammela. [address] [place] [address], [id number], . tel:[phone] Office/outpat ient visit,est, mod [facility] [place] [facility], [address] [place] [address], [id number], tel:[phone] [facility] No Information 2200 8 Golz Pascual. [address] [place] [address], [id number], . tel:[phone] [facility] [place] [facility], [address] [place] [address], [id number], tel:[phone] [facility] No Information 200 7 Golz Pascual. [address] [place] [address], [id number], [place]. tel:[phone] [facility] [place] [facility], [address] [place] [address], [id number], tel:[phone] [facility] [place] [facility] No Information 2 7 Jesus Pammela. [address] [place] [address], [id number], . tel:[phone] [facility] [place] [facility], [address] [place] [address], [id number], tel:[phone] [facility] No Information 200 7 Melyssa Garner. [address] [place] [address], [id number], . tel:[phone] [facility] [place] [facility], [address] [place] [address], [id number], tel:[phone] [facility] No Information Jan-0 4-200 7 Melyssa Garner. [address] [place] [address], [id number], . tel:[phone] [facility] [place] [facility], [address] [place] [address], [id number], tel:[phone] [facility] No Information 200 7 Melyssa Garner. [address] [place] [address], [id number], . tel:[phone] [facility] [place] [facility], [address] [place] [address], [id number], tel:[phone] [facility] No Information 0200 7 Melyssa Garner. [address] [place] [address], [id number], [place]. tel:[phone] [facility] [place] [facility], [address] [place] [address], [id number], tel:[phone] [facility] No Information 7 Nichol Wise. [address] [place] [address], [id number], . tel:[phone] [facility] [place] [facility], [address] [place] [address], [id number], tel:[phone] [facility] No Information 5 Jeffrey De. [address] [place] [address], [id number], . tel:[phone] Office consultation, moderate-high [facility], [address] [place] [address], [id number], tel:[phone] [facility] [place] [facility] No Information 200 5 Narayan Schafer. [address] , [place], [address], [place]. tel:[phone] Family History Family Member Type Diagnosis Age At Onset No Information Payers Payer name Insurance type Covered alliance party ID Mark storey(s) [facility] [id number] Social History Type Description Quantity Date Captured [...]
--- OUTSIDE RECORDS SUMMARY | 2024-06-21 19:48 | XMS_ITS | Encounter Summary ---
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 Not on file Not on file No t on file documented as of this encounter Plan of Treatment Not on file documented as of this encounter Visit Diagnoses Not on filedocumented in this encounter Care Teams District Extension Service Agent Relationship Specialty Start Date End Date Valentin Mitchell MD [address] [place] [address] PCP - General INTERNAL MEDICINE 06/08/16 Vasquez Akins MD [address] [place] [address] Kehinde Account Representative Electrophysiology 02/13/17 documented as of this encounter
--- OUTSIDE RECORDS SUMMARY | 2024-06-21 19:48 | XMS_ITS ---
Author Organization [facility] [address] Address [address] [place] [address] Care Team Providers Care Tank Welder Name Role Phone Thomas Antonio MD Primary Care Provider [phone] Yoselyn Nicolas MAINTENANCE PLANNER Unavailable [phone] Active Problems Problem Noted Date Diagnosed [...] 05/15/2022 Overview (12/19/2023): Updated per IMO upload [id number] Hypokalemia 05/15/2022 HLD (hyperlipidemia) 05/15/2022 Lower GI [...]
--- OUTSIDE RECORDS SUMMARY | 2024-06-21 19:48 | XMS_ITS | Clinical Summary ---
Author Organization [facility] Address [address] [place] [address] Care Team Providers Care Bean Snapper Name Role Phone Ugo Villa MD Primary Care Provider [phone] Source Comments PLEASE NOTE, if this patient [...] Bone Density Screening 2006 Falls Prevention 2006 [id number] ( season) 2023 021, 03/30/2020 Imm-Influenza (#1) 2023 11/06/2019 Alcohol and Drug Screen 02/06/2024 Insurance [employer] Care Teams Bean Snapper Relationship Specialty Start Date End Date Ugo Villa MD [address] [place] [address] PCP - General 07/29/23
[2024-06-21] MEDS: LACTATED RINGERS 1,000 ML 999 ML IV CONT (21:05)
[2024-06-21 21:17] VITALS: BP 111/64; PULSE 75; RESP 18; O2SAT 99
[2024-06-21 22:14] VITALS: BP 105/67; PULSE 79; RESP 19; O2SAT 100
== END 2024-06-21 22:16 | disposition home or self-care (01) ==
PROVIDERS: Physician Assistant; Emergency Provider Emergency Medicine; PCP Internal Medicine
DX: E86.0 Dehydration (principal); R19.7 Diarrhea, unspecified; E11.9 Type 2 diabetes mellitus without complications; I50.9 Heart failure, unspecified; I10 Essential (primary) hypertension; E78.5 Hyperlipidemia, unspecified; G47.33 Obstructive sleep apnea (adult) (pediatric); Z99.89 Dependence on other enabling machines and devices; I48.0 Paroxysmal atrial fibrillation
CPT/HCPCS: 36415; 74177; 80053; 81003; 83690; 85025; 96360; 99284; J7120; Q9967

== ENCOUNTER 2024-06-25 08:29 | Outpatient (CLI) | payer OTHER, SELFPAY ==
--- NOTE | ~2024-06-25 | MM_ITS ---
EXAMINATION: MM screening kurt BI w allen HISTORY: Screening TECHNIQUE: Craniocaudal and mediolateral oblique 3-D tomosynthesis images were obtained and synthetic 2-D images were generated. CAD analysis was submitted and interpreted. COMPARISON: No prior mammogram is available for comparison at this institution. BREAST PARENCHYMAL COMPOSITION: Not dense: There are scattered areas of fibroglandular density. FINDINGS: There are asymmetries in the upper outer quadrant of the right breast, middle third. There is architectural distortion in the upper outer quadrant of the left breast. There are no suspicious c alcifications. IMPRESSION: 1. Right breast asymmetries. Left breast architectural distortion. Architectural distortion on the le ft may relate to prior lumpectomy for malignancy. 2. Recommend comparison to previous outside mammograms. BI-RADS Category 0: Incomplete: Needs additional imaging evaluation. Reviewed, dictated and finalized at location [] IMPRESSION: 1. Right breast asymmetries. Left breast architectural distortion. Architectura l distortion on the left may relate to prior lumpectomy for malignancy. 2. Recommend comparison to previous outside mammograms. BI-RADS Category 0: Incomplete: Needs additional imaging evaluation.
--- OUTSIDE RECORDS SUMMARY | 2024-06-25 09:12 | XMS_ITS ---
Author Organization [facility] [address] [place] [address] Care Team Providers Care Oxygraph Operator Name Role Phone Thomas Antonio MD Primary Care Provider [phone] Yoselyn Nicolas RUBBISH COLLECTION SUPERVISOR Unavailable [phone] Active Problems Problem Noted Date Diagnosed [...] 05/15/2022 Overview (12/19/2023): Updated per IMO upload [id number] Hypokalemia 05/15/2022 HLD (hyperlipidemia) 05/15/2022 Lower GI [...]
--- OUTSIDE RECORDS SUMMARY | 2024-06-25 09:12 | XMS_ITS | Referral Summary ---
Author Organization [facility] [address] Address [facility] [place] [address] Care Team Providers Care Retail Personal Banker Name Role Phone Thomas Antonio MD Primary Care Provider [phone] Yoselyn Nicolas FULL STACK NET DEVELOPER Unavailable [phone] Encounters Date Type Department Care Team Description 05/21/2024 3:15 PM CDT Procedure visit [facility] Otolaryngology [address] [facility] [address] [place] [address] Santion Fields Au.D. 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); Evaluation of hearing impairment 05/19/2024 1:45 PM CDT Office Visit [facility] Card[facility] [address] [place] [address] Alin Gorman MD Persistent atrial [...] 1 tablet (10 mg total) by mouth inspector packer before breakfast 3 Active cyanocobalamin (Vitamin B-12) [...] mg total) by mouth daily Active hansa vcg-nac-S2-Zn-c op-man-bor 250-40-125 mg-mg-unit tablet Take by mouth [...] 05/15/2022 Overview (12/19/2023): Updated per IMO upload [id number] Hypokalemia 05/15/2022 HLD (hyperlipidemia) 05/15/2022 Lower GI [...] on file Legal Sex Female 5:37 AM CHANGE MANAGEMENT ADMINISTRATOR Gender Identity Not on file Sexual Orientation Not on file Last Filed Vital Signs Vital Sign Reading Time Taken Comments Blood Pressure 100/62 05/19/2024 1:54 PM CDT Pulse 86 05/19/2024 1:54 PM CDT Temperature 36.2 C (97.1 F) 03/12/2024 8:31 AM CHANGE MANAGEMENT ADMINISTRATOR Respiratory Rate - - Oxygen Saturation 97% [...] PM CDT EGFR Routine 03/12/2024 12:30 PM CHANGE MANAGEMENT ADMINISTRATOR Liver mass Cirrhosis of liver without ascites, unspecified hepatic cirrhosis type (HCC) HEMOGLOBIN A1C Routine 12/19/2023 1:08 PM CHANGE MANAGEMENT ADMINISTRATOR Liver mass SERUM LIPID PANEL Routine 08/01/2013 9:4 3 PM CDT from Last 3 Months or Most Recently Relevant to Health Maintenance Results * [facility] Results (05/21/2024 2:57 PM CDT) us Provider Scanning AUDIOLOGY SERVICES ORDERABLES Final Result * (ABNORMAL) eGFR (03/12/2024 12:30 PM CHANGE MANAGEMENT ADMINISTRATOR) eGFR 40(L) >=60 mL/min/1. 73 m2 Comment: [...] reviewed 2020. Blood 03/12/2024 12:3 0 PM CHANGE MANAGEMENT ADMINISTRATOR 03/12/2024 12:50 PM CHANGE MANAGEMENT ADMINISTRATOR Neelam Morrison MD LAB BLOOD ORDERABLES Final Result Performing Organization Address [facility] de Phone Number [facility] [place] [address] * (ABNORMAL) Hemoglobin A1c (12/19/2023 1:08 PM CHANGE MANAGEMENT ADMINISTRATOR) Hgb A1C 5.9(H) 4.0 - 5.6 % Estimated Average Glucose 123 mg/dL [facility] Comment: The ADA recommends reporting an estimated Average Glucose (eAG) with all Hemoglobin A1c results using the equation derived from a study of 507 normal and diabetic adults. Minority populations were underrepresented and children were not included. (Diabetes Care 2020; 43(S1): S66-S76). The eAG is not equivalent to a fasting glucose. Blood 12/19/2023 1:08 PM CHANGE MANAGEMENT ADMINISTRATOR 12/19/2023 1:33 PM CHANGE MANAGEMENT ADMINISTRATOR Melissa Albright MD LAB BLOOD ORDERABLES Final Resul t Performing Organization Address [facility] [place] [address] * Serum lipid panel (08/01/2013 9:43 PM [...] ORDERABLES Final R esult Performing Organization Address City/State/[facility] Co de Phone Number HISTORICAL RESULTS from Last 3 Months or Most Recently Relevant to Health Maintenance Insurance [facility] Advance Directives For more information, please contact: [phone] Documents on File Type Date Recorded Patient Ball Warper Tender Expl anation ADVANCE DIRECTIVE 12/17/2023 7:15 PM Beanangie _Nadja_Living Will.pdf Care Teams Retail Personal Banker Relationship Specialty Start Date End Date Thomas Antonio MD [address] [facility] [address] [facility] [address] [place] [address] PCP - General Internal Medicine 01/11/24 Yoselyn Nicolas NP [facility] [address] [place] [address] Family Medicine 01/11/24
--- OUTSIDE RECORDS SUMMARY | 2024-06-25 09:12 | XMS_ITS | Clinical Summary ---
Author Organization [facility] Address [address] [place] [address] Care Team Providers Care Hall Supervisor Name Role Phone Ugo Villa MD Primary Care Provider [phone] Source Comments PLEASE NOTE, if this patient [...] Bone Density Screening 2006 Falls Prevention 2006 Eau-[id number]-27 ( season) 2023 021, 03/30/2020 Imm-Influenza (#1) 2023 11/06/2019 Alcohol and Drug Screen 02/06/2024 Insurance [employer] Care Teams Hall Supervisor Relationship Specialty Start Date End Date Ugo Villa MD [address] [place] [address] PCP - General 07/29/23
--- OUTSIDE RECORDS SUMMARY | 2024-06-25 09:12 | XMS_ITS | Continuity of Care Document ---
Author Organization [facility] Address [address] [place] [address] Phone Care Team Providers Care Bead Wrapper Name Role Phone No Information Unavailable Unavailable [...] Diagnoses Date Provider Providers Copied on Encounter [facility], [address] [place] [address], [id number], tel:[phone] No Information June-0 1 No Information [facility], [address] [place] [address], [id number], tel:[phone] [place] [facility] No Information 1 Juanjo Negron. [address] [place] [address], [id number], . tel:[phone] Referring Provider: Steven Galvez, [facility] [address], [place], [address] . tel:[phone] [facility], [address] [place] [address], [id number], tel:[phone] [facility] No Information [address], [place], [place], [id number], . tel:[phone] [facility], [address] [place] [address], [id number], tel:[phone] [facility] No Information Apr-1 5- 1 Jimmy Blanco [address], [place], [place], [id number], . tel:[phone] Referring Provider: Steven Galvez, [address], [place], [address] . tel:[phone] [facility], [address] [place] [address], [id number], tel:[phone] [facility] No Information Apr-0 8-201 1 Jimmy Blanco [address], [place], [place], [id number], . tel:[phone] Office/outpat ient visit,[facility], [facility], [address] [place] [address], [id number], tel:[phone] [place] [facility] No Information Mar-1 0- 1 Jimmy Blanco [address], [place], [place], [id number], [place]. tel:[phone] Referring Provider: [address], [place], [address]. tel:[phone] Office/outpat ient visit,[facility], [address] [place] [address], [id number], tel:[phone] [facility] No Information Mar-0 3-201 1 Alice Bowman. [address], [place], [id number], [place]. tel:[phone] Referring Provider: [address], [place], [address]. tel:[phone] [facility], [address] [place] [address], [id number], tel:[phone] [facility] No Information Mar-0 3-201 1 Jeffrey De. [address] [place] [address], [id number], . tel:[phone] Referring Provider: Santino Yan, [address] [place] [address], [id number] . tel:[phone] [facility], [address] [place] [address], [id number], tel:[phone] [place] [facility] No Information 1 Sandra Miller. [address] [place] [address], [id number], . tel:[phone] Referring Provider: Lelia Mitchell, [address], [place], [address]. tel:[phone] Office/outpat ient visit,est, [facility], [address] [place] [address], [id number], tel:[phone] [place] [facility] No Information 1 [facility]. [facility] [address], [place], [place], [id number], . tel:[phone] Referring Provider: Lelia Mitchell, [address], [place], [address]. tel:[phone] Office/outpat ient visit,est, [facility], [address] [place] [address], [id number], tel:[phone] [facility] No Information 1 Jeffrey De. [address] [place] [address], [id number], . tel:[phone] Referring Provider: Lelia Mitchell, [address], [place], [address]. tel:[phone] [facility], [address] [place] [address], [id number], tel:[phone] [facility] No Information 0 Jeffrey De. [address] [place] [address], [id number], . tel:[phone] [facility], [address] [place] [address], [id number], tel:[phone] [facility] No Information Dec-1 0-201 0 Jeffrey Santino. [address] [place] [address], [id number], . tel:[phone] Office/outpat ient visit,[facility], [facility], [address] [place] [address], [id number], tel:[phone] [facility] No Information Dec-0 8-201 0 Alice Bowman. [address] [place], [place], [id number], [place]. tel:[phone] Referring Provider: Tanya [address], [place], [address]. tel:[phone] Office/outpat ient visit,[facility], [facility], [address] [place] [address], [id number], tel:[phone] [facility] No Information Nov-0 7-200 9 Nichol Wise. [address] [place] [address], [id number], [place]. tel:[phone] Referring Provider: Tanya [address], [place], [address]. tel:[phone] Office/outpat ient visit,[facility], [facility], [address] [place] [address], [id number], tel:[phone] [facility] No Information Oct-0 9-200 9 Nicholbrenton Wise. [address] [place] [address], [id number], . tel:[phone] Referring Provider: Tanya [address], [place], [address]. tel:[phone] [facility], [address] [place] [address], [id number], tel:[phone] [facility] No Information Sep-2 7-200 9 Melyssa Garner. [address] [place] [address], [id number], . tel:[phone] [facility], [address] [place] [address], [id number], tel:[phone] [facility] No Information 9 Melyssa Garner. [address] [place] [address], [id number], . tel:[phone] [facility], [address] [place] [address], [id number], tel:[phone] [facility] No Information 0 200 9 Melyssa Garner. [address] [place] [address], [id number], . tel:[phone] [facility], [address] [place] [address], [id number], tel:[phone] [facility] No Information 9 Melyssa Garner. [address] [place] [address], [id number], . tel:[phone] Office/outpat ient visit,est, mod [facility], [address] [place] [address], [id number], tel:[phone] [facility] No Information 9 Nichol Wise. [address] [place] [address], [id number], . tel:[phone] Referring Provider: Lelia Mitchell, [address], [place], [address]. tel:[phone] [facility], [address] [place] [address], [id number], tel:[phone] [facility] No Information 9 Cipriano Acevedo. [address], [place], [address], [place]. tel:[phone] Referring Provider: Lexx Cardoso, [address], [place], [address]. tel:[phone] [facility], [address] [place] [address], [id number], [place] tel:[phone] [facility] No Information 9 Cipriano Acevedo. [address] [place], [address], [place]. tel:[phone] Referring Provider: Lexx Cardoso, [address], [place], [address]. tel:[phone] [facility], [address] [place] [address], [id number], tel:[phone] [facility] No Information 9 Cipriano Acevedo. [address] [place], [address], [place]. tel:[phone] Referring Provider: Lexx Cardoso, [address] [place] [address] [address], [place], [address]. tel:[phone] [facility], [address] [place] [address], [id number], tel:[phone] [facility] No Information Sep-2 200 8 Melyssa Garner. [address] [place] [address], [id number], [place]. tel:[phone] [facility], [address] [place] [address], [id number], tel:[phone] [facility] No Information Oct-1 200 8 Melyssa Garner. [address] [place] [address], [id number], . tel:[phone] [facility], [address] [place] [address], [id number], tel:[phone] [facility] No Information Sep-0 3200 8 Cota Curtis. [address] [place], [address], [place]. tel:[phone] Referring Provider: Pascual Salazar, [address] [place] [address], [id number] . tel:[phone] Office/outpat ient visit,est, mod [facility], [address] [place] [address], [id number], [place] tel:[phone] [place] [facility] No Information 7200 8 Golz Pascual. [address] [place] [address], [id number], . tel:[phone] [facility], [address] [place] [address], [id number], tel:[phone] [facility] No Information 8 Golz Pascual. [address] [place] [address], [id number], [place]. tel:[phone] [facility], [address] [place] [address], [id number], tel:[phone] [facility] No Information 8 Jesus Pammela. [address] [place] [address], [id number], . tel:[phone] Office/outpat ient visit,est, mod [facility], [address] [place] [address], [id number], tel:[phone] [place] [facility] No Information 2200 8 Golz Pascual. [address] [place] [address], [id number], . tel:[phone] [facility], [address] [place] [address], [id number], tel:[phone] [place] [facility] No Information 200 7 Golz Pascual. [address] [place] [address], [id number], [place]. tel:[phone] [facility], [address] [place] [address], [id number], tel:[phone] [facility] No Information 2 7 Jesus Pammela. [address] [place] [address], [id number], . tel:[phone] [facility], [address] [place] [address], [id number], tel:[phone] [facility] No Information 200 7 Melyssa Garner. [address] [place] [address], [id number], . tel:[phone] [facility], [address] [place] [address], [id number], tel:[phone] [facility] No Information Jan-0 4-200 7 Melyssa Garner. [address] [place] [address], [id number], . tel:[phone] [facility], [address] [place] [address], [id number], tel:[phone] [facility] No Information 200 7 Melyssa Garner. [address] [place] [address], [id number], . tel:[phone] [facility], [address] [place] [address], [id number], tel:[phone] [facility] No Information 0200 7 Melyssa Garner. [address] [place] [address], [id number], [place]. tel:[phone] [facility], [address] [place] [address], [id number], tel:[phone] [place] [facility] No Information 7 Nichol Wise. [address] [place] [address], [id number], . tel:[phone] [facility], [address] [place] [address], [id number], tel:[phone] [facility] No Information 5 Jeffrey De. [address] [place] [address], [id number], . tel:[phone] Office consultation, moderate-high [facility], [address] [place] [address], [id number], tel:[phone] [facility] No Information 200 5 Narayan Schafer. [address] , [place], [address], [place]. tel:[phone] Family History Family Member Type Diagnosis Age At Onset No Information Payers Payer name Insurance type Covered libertarian ID Mark storey(s) [facility] [facility] [id number] Social History Type Description Quantity Date Captured [...]
--- OUTSIDE RECORDS SUMMARY | 2024-06-25 09:12 | XMS_ITS | Clinical Summary ---
Author Organization [facility] Address [address] [facility] [place] [address] Care Team Providers Care Topline Beading Machine Tender Name Role Phone Thomas Antonio MD Primary Care Provider [phone] Source Comments [facility],non-owned Affiliates and Associated Physician Practices is amultiple site organization consisting of ambulatory clinics and hospital sitesin [place], [place], [place] and [place]. This disclosure is being madepursuant to the Care Everywhere program and may not contain all information available regarding this patient. Last updated 17.[facility] Allergies Active Allergy Reactions Criticality Noted Date [...] complete this topic Insurance [employer] Care Teams Topline Beading Machine Tender Relationship Specialty Start Date End Date Thomas Antonio MD [address] [facility] [address] [place] [address] PCP - General Internal Medicine 12/06/23
--- OUTSIDE RECORDS SUMMARY | 2024-06-25 09:12 | XMS_ITS | Clinical Summary ---
Author Organization [facility] [address] Address [address] [place] [address] Care Team Providers Care Drag Out Worker Name Role Phone Thomas Antonio MD Primary Care Provider [phone] Yoselyn Nicolas BUFFER OPERATOR Unavailable Allergies Active Allergy Reactions Criticality Noted [...] 1 tablet (10 mg total) by mouth container packer operator before breakfast 3 Active cyanocobalamin (Vitamin [...] mg total) by mouth daily Active john pgz-pwc-L1-Zn-c op-man-bor 250-40-125 mg-mg-unit tablet Take by mouth [...] 05/15/2022 Overview (12/19/2023): Updated per IMO upload [id number] Hypokalemia 05/15/2022 HLD (hyperlipidemia) 05/15/2022 Lower GI [...] Description 05/21/2024 3:15 PM CDT Procedure visit [facility] [id number] [address] Medical Office Building [address] [place] [address] Santino Fields Au.D. 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); Evaluation of hearing impairment 05/19/2024 1:45 PM CDT Office Visit [facility] [address] [place] [address] Alin Gorman MD Persistent atrial fibrillation (HCC) [...] on file Legal Sex Female 5:37 AM ELECTRONICS INSTRUCTOR Gender Identity Not on file Sexual Orientation Not on file Obstetrics History Last Filed Vital Signs Vital Sign Reading Time Taken Comments Blood Pressure 100/62 05/19/2024 1:54 PM CDT Pulse 86 05/19/2024 1:54 PM CDT Temperature 36.2 C (97.1 F) 03/12/2024 8:31 AM ELECTRONICS INSTRUCTOR Respiratory Rate - - Oxygen Saturation 97% [...] PM CDT EGFR Routine 03/12/2024 12:30 PM ELECTRONICS INSTRUCTOR Liver mass Cirrhosis of liver without ascites, unspecified hepatic cirrhosis type (HCC) HEMOGLOBIN A1C Routine 12/19/2023 1:08 PM ELECTRONICS INSTRUCTOR Liver mass SERUM LIPID PANEL Routine 08/01/2013 9:4 3 PM CDT from Last 3 Months or Most Recently Relevant to Health Maintenance Results * [facility] Results (05/21/2024 2:57 PM CDT) us Provider Scanning AUDIOLOGY SERVICES ORDERABLES Final Result * (ABNORMAL) eGFR (03/12/2024 12:30 PM ELECTRONICS INSTRUCTOR) eGFR 40(L) >=60 mL/min/1. 73 m2 Comment: [...] reviewed 2020. Blood 03/12/2024 12:3 0 PM ELECTRONICS INSTRUCTOR 03/12/2024 12:50 PM ELECTRONICS INSTRUCTOR Neelam Morrison MD LAB BLOOD ORDERABLES Final Result TAWANDA [facility] Department [place] [address] * (ABNORMAL) Hemoglobin A1c (12/19/2023 1:08 PM ELECTRONICS INSTRUCTOR) Hgb A1C 5.9(H) 4.0 - 5.6 % [...] a fasting glucose. Blood 12/19/2023 1:08 PM ELECTRONICS INSTRUCTOR 12/19/2023 1:33 PM ELECTRONICS INSTRUCTOR us Melissa Albright MD LAB BLOOD ORDERABLES Final Resul t TAWANDA RICHEY [facility] Department [place] [address] * Serum lipid panel (08/01/2013 9:43 PM [...] Most Recently Relevant to Health Maintenance Insurance [facility] Advance Directives For more information, please contact: [phone] Documents on File Type Date Recorded Patient Sugar Boiler Expl anation ADVANCE DIRECTIVE 12/17/2023 7:15 PM Aydt _Judith_Living Will.pdf Care Teams Drag Out Worker Relationship Specialty Start Date End Date Thomas Antonio MD [address] [place] [address] PCP - General Internal Medicine 01/11/24 Yoselyn Nicolas NP [address] [place] [address] [address] [place] [address] Family Medicine 01/11/24
== END 2024-06-25 08:30 | disposition home or self-care (01) ==
LOC: ANHIMG 08:30
PROVIDERS: PCP Internal Medicine; Visit Provider Internal Medicine
DX: Z12.31 Encounter for screening mammogram for malignant neoplasm of breast (principal); R92.8 Other abnormal and inconclusive findings on diagnostic imaging of breast; Z85.3 Personal history of malignant neoplasm of breast
CPT/HCPCS: 77063; 77067

== ENCOUNTER 2024-08-25 15:24 | Outpatient (CLI) | payer OTHER, SELFPAY ==
--- OUTSIDE RECORDS SUMMARY | 2024-08-25 15:28 | XMS_ITS | Clinical Summary ---
Author Organization [facility] Address [address] [facility] [place] [address] Care Team Providers Care Crusher Name Role Phone Thomas Antonio MD Primary Care Provider [phone] Source Comments [facility],non-owned Affiliates and Associated Physician Practices is amultiple site organization consisting of ambulatory clinics and hospital sitesin [place], [place], [place] and [place]. This disclosure is being madepursuant to the Care Everywhere program and may not contain all information available regarding this patient. Last updated 17.[facility] Allergies Active Allergy Reactions Criticality Noted Date [...] A M CDT Height 160 cm (5' 3) 12/06/2023 8:56 AM CDT Body Mass Index [...] season) 2023 DEPRESSION SCREENING 02/06/2024 INFLUENZA VACCINE (#1) 2024 11/06/2019 HEPATITIS B VACCINE Aged Out No longe [...] complete this topic Insurance [employer] Care Teams Crusher Relationship Specialty Start Date End Date Thomas Antonio MD [address] [facility] [address] [place] [phone] PCP - General Internal Medicine 12/06/23
--- OUTSIDE RECORDS SUMMARY | 2024-08-25 15:28 | XMS_ITS | Encounter Summary ---
Author Organization [facility] Address [facility] [place] [address] Care Team Providers Care Power Machine Operator Name Role Phone Valentin Mitchell MD Primary Care Provider [phone] Vasquez Akins MD Unavailable Unavailable Encounter Details Date Type Department Care Team (Late st Contact Info) Description 03/16/2015 Abstract [facility] [address] [place] [address] Mary Ríos MD Social History Tobacco Use [...] on filedocumented in this encounter Care Teams Power Machine Operator Relationship Specialty Start Date End Date Valentin Mitchell MD [address] [place] [address] PCP - General INTERNAL MEDICINE 06/08/16 Vasquez Akins MD [facility] [place] [address] Kehinde Jig And Fixture Maker Electrophysiology 02/13/17 documented as of this encounter
--- OUTSIDE RECORDS SUMMARY | 2024-08-25 15:28 | XMS_ITS | Clinical Summary ---
Author Organization [facility] Address [facility] [place] [address] Care Team Providers Care Business Team Leader Name Role Phone Valentin Mitchell MD Primary Care Provider [phone] Vasquez Akins MD Unavailable Unavailable Allergies Active [...] Noted Date Diagnosed Date Atrial fibrillation, persistent ([facility] ) 07/04/2016 Long-term (current) use of anticoagulants 2016 Acute on chronic diastolic c ongestive heart failure ([facility]) 06/08/2016 SVT (supraventricular tachycardia) ([facility]) Overview (06/07/2016): age 14 Obstructive sleep apnea sergo letty with bilevel positive airway pressure (BiPAP) Obesity OA (osteoarthritis) Migraines HTN (hypertension) HLD (hyperlipidemia) Depression Bleeding on Coumadin Borderline diabetes Persistent atrial fibrillation ([facility]) CHF (congestive heart failure) ([facility] Atrial fibrillation ([facility]) Family History Medical History Relation Comments Sudden [...] Job Start Date 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 Not on file Not on file No t on file Last Filed Vital Signs Vital Sign Reading Time Taken Comments Blood Pressure 108/68 02/23/2017 10:17 AM DISTRIBUTION SYSTEMS SERVICEPERSON Pulse 83 02/23/2017 10:17 AM DISTRIBUTION SYSTEMS SERVICEPERSON Temperature - - Respiratory Rate 18 12/26/2016 9:26 AM DISTRIBUTION SYSTEMS SERVICEPERSON Oxygen Saturation 97% 02/23/2017 10:17 AM DISTRIBUTION SYSTEMS SERVICEPERSON Inhaled Oxygen Concentration - - Weight 112.5 kg (248 lb) 02/23/2017 10:17 AM DISTRIBUTION SYSTEMS SERVICEPERSON Height 162.6 cm (5' 4) 02/23/2017 10:17 AM DISTRIBUTION SYSTEMS SERVICEPERSON Body Mass Index 42.57 02/23/2017 10:17 AM DISTRIBUTION SYSTEMS SERVICEPERSON Plan of Treatment Health Maintenance Due Date [...] patient's age to complete this topic Insurance [employer] [facility] Care Teams Business Team Leader Relationship Specialty Start Date End Date Valentin Mitchell MD [address] [place] [address] PCP - General INTERNAL MEDICINE 06/08/16 Vasquez Akins MD [address] [place] [address] Kehinde Jewel Hole Cornerer Electrophysiology 02/13/17
--- OUTSIDE RECORDS SUMMARY | 2024-08-25 15:28 | XMS_ITS | Clinical Summary ---
Author Organization [facility] [address] [place] [address] Care Team Providers Care Coordinating Producer Name Role Phone Thomas Antonio MD Primary Care Provider [phone] Yoselyn Nicolas VEHICLE FUEL SYSTEMS CONVERTER Unavailable [phone] Allergies Active Allergy Reactions Criticality Noted [...] 1 tablet (10 mg total) by mouth water plant operator before breakfast 3 Active cyanocobalamin (Vitamin [...] mg total) by mouth daily Active hansa [id number]-c op-man-bor 250-40-125 mg-mg-unit tablet Take by mouth [...] 05/15/2022 Overview (12/19/2023): Updated per IMO upload [id number] Hypokalemia 05/15/2022 HLD (hyperlipidemia) 05/15/2022 Lower GI [...] Encounters Date Type Department Care Team Description 07/02/2024 Telephone [facility] Gastroenterology [address] [facility] Advanced Medicine 12th [place] [address] [place] [address] Mallory Morelos, KELLEY 06/27/2024 12:53 PM CDT - 06/27/2024 11:59 PM CDT Hospital Encounter [facility]) [facility] [place] [address] Diagnosis unknown Discharge Disposition: Discharge to home or self care from Last 3 Months Medical History Medical [...] on file Legal Sex Female 5:37 AM ENGINEER BOOSTER AND EXHAUSTER Gender Identity Not on file Sexual Orientation Not on file Obstetrics History Last Filed Vital Signs Vital Sign Reading Time Taken Comments Blood Pressure 100/62 05/19/2024 1:54 PM CDT Pulse 86 05/19/2024 1:54 PM CDT Temperature 36.2 C (97.1 F) 03/12/2024 8:31 AM ENGINEER BOOSTER AND EXHAUSTER Respiratory Rate - - Oxygen Saturation 97% 05/19/2024 1:54 PM CDT Inhaled Oxygen Concentration - - Weight 91.4 kg (201 lb 8 oz) 05/19/2024 1:54 PM CDT Height 160 cm (5' 3) 05/19/2024 1:54 PM CDT Body Mass Index [...] 06/21/2016, 12/12/2000, 12/01/1991 Hemoglobin A1C 06/17/2024 12/19/2023 Influenza Vaccine (#1) 2024 4, 11/06/2019, 11/20/2016 eGFR 03/12/2025 03/12/2024, 12/19/2023 Procedures Procedure Name Priority Date/Time Associated Diagnosis Comments CT BODY OUTSIDE CONSULT Routine 06/27/2024 12:53 PM CDT Diagnosis unknown EGFR Routine 03/12/2024 12:30 PM ENGINEER BOOSTER AND EXHAUSTER Liver mass Cirrhosis of liver without ascites, unspecified hepatic cirrhosis type (HCC) HEMOGLOBIN A1C Routine 12/19/2023 1:08 PM ENGINEER BOOSTER AND EXHAUSTER Liver mass SERUM LIPID PANEL Routine 08/01/2013 9:4 3 PM CDT from Last 3 Months or Most Recently Relevant to Health Maintenance Results * CT Body Outside Consult (06/27/2024 12:53 PM CDT) Anatomical Region Laterality Modality Body N/A Computed Tomogra phy 06/27/2024 2:52 PM CDT Impressions 06/27/2024 9:10 PM CDT 1. Cirrhosis of the liver with redemonstrated wedge-shaped peripheral enhancing focus, previously characterized on MRI examination dated 03/12/2024 and not significantly changed in size or appearance from prior. 2. At least moderate right atrial enlargement. The findings, conclusions and recommendations within this report do not replace the initial findings, conclusions and recommendations made at the facility where the study was performed based upon the imaging and clinical condition at that time. Comparison with the prior report and clinical history is necessary. The provided images may or may not represent the [place] source data set and thus may contain changes that may lower the accuracy of this second-opinion interpretation. Dictated by: Rosa Alcantar M.D. The radiology attending physician has personally reviewed this study, and had reviewed and/or edited this written report and agrees with it. Electronically signed by: Baltazar Ramos M.D. Narrative 06/27/2024 9:10 PM CDT EXAMINATION: RADIOLOGY CONSULTATION ON OUTSIDE IMAGING STUDY STUDY INITIALLY PERFORMED: 06/21/2024 at [facility]. TYPE OF STUDY: Multiple CT images of the abdomen and pelvis with contrast are provided at the time of this interpretation. CONTRAST ROUTE: Contrast was administered via the intravenous route. The protocol was adequate to address the clinical question. The outside final report was not available at the time of this second opinion interpretation. TYPE OF CONSULTATION: Consult on outside imaging study with images submitted through Outside Image Sharing Service. DATE OF CONSULTATION: 06/27/2024 1:17 PM HISTORY: 84-year-old female, cirrhosis. COMPARISON: Comparison is made to MRI Abdomen dated 03/12/[address] Body dated 12/19/2023. FINDINGS: Lung bases are clear, without pleural effusion or pneumonic consolidation. There is a 6 mm nodule of the left lower lobe of the lung (4:1), similar in appearance to comparison examination dated 12/19/2023. Enlargement of the right atrium and inferior vena cava. Peripheral wedge-shaped focus of hyperattenuation of the peripheral right liver measures approximately 2.2 x 1.8 cm in transaxial dimension, also demonstrated on MRI dated 11/12/2023. Nodular contour of the liver, compatible with hepatic cirrhosis. Normal appearance of the gallbladder, with small layering calcified gallstones. No evidence of cholecystitis. Normal appearance of the pancreas, without pancreatic ductal dilatation. Punctate granulomas of the spleen. Subcentimeter bilateral hypoattenuating renal lesions, indeterminate. No hydronephrosis. Normal appearance of the urinary bladder. Diverticulosis without diverticulitis. Normal caliber of the imaged small and large bowel. Degenerative changes of the imaged lumbar spine. Procedure Note Baltazar Ramos MD PhD - 06/27/2024 EXAMINATION: RADIOLOGY CONSULTATION ON OUTSIDE IMAGING STUDY STUDY INITIALLY PERFORMED: 06/21/2024 at [facility]. TYPE OF STUDY: Multiple CT images of the abdomen and pelvis with contrast are provided at the time of this interpretation. CONTRAST ROUTE: Contrast was administered via the intravenous route. The protocol was adequate to address the clinical question. The outside final report was not available at the time of this second opinion interpretation. TYPE OF CONSULTATION: Consult on outside imaging study with images submitted through Outside Image Sharing Service. DATE OF CONSULTATION: 06/27/2024 1:17 PM HISTORY: 84-year-old female, cirrhosis. COMPARISON: Comparison is made to MRI Abdomen dated 03/12/[address] Body dated 12/19/2023. FINDINGS: Lung bases are clear, without pleural effusion or pneumonic consolidation. There is a 6 mm nodule of the left lower lobe of the lung (4:1), similar in appearance to comparison examination dated 12/19/2023. Enlargement of the right atrium and inferior vena cava. Peripheral wedge-shaped focus of hyperattenuation of the peripheral right liver measures approximately 2.2 x 1.8 cm in transaxial dimension, also demonstrated on MRI dated 11/12/2023. Nodular contour of the liver, compatible with hepatic cirrhosis. Normal appearance of the gallbladder, with small layering calcified gallstones. No evidence of cholecystitis. Normal appearance of the pancreas, without pancreatic ductal dilatation. Punctate granulomas of the spleen. Subcentimeter bilateral hypoattenuating renal lesions, indeterminate. No hydronephrosis. Normal appearance of the urinary bladder. Diverticulosis without diverticulitis. Normal caliber of the imaged small and large bowel. Degenerative changes of the imaged lumbar spine. IMPRESSION: 1. Cirrhosis of the liver with redemonstrated wedge-shaped peripheral enhancing focus, previously characterized on MRI examination dated 03/12/2024 and not significantly changed in size or appearance from prior. 2. At least moderate right atrial enlargement. The findings, conclusions and recommendations within this report do not replace the initial findings, conclusions and recommendations made at the facility where the study was performed based upon the imaging and clinical condition at that time. Comparison with the prior report and clinical history is necessary. The provided images may or may not represent the [place] source data set and thus may contain changes that may lower the accuracy of this second-opinion interpretation. Dictated by: Rosa Alcantar M.D. The radiology attending physician has personally reviewed this study, and had reviewed and/or edited this written report and agrees with it. Electronically signed by: Baltazar Ramos M.D. Neelam Morrison MD IMG CT PROCEDURES Fi nal Result * (ABNORMAL) eGFR (03/12/2024 12:30 PM ENGINEER BOOSTER AND EXHAUSTER) eGFR 40(L) >=60 mL/min/1. 73 m2 Comment: [...] reviewed 2020. Blood 03/12/2024 12:3 0 PM ENGINEER BOOSTER AND EXHAUSTER 03/12/2024 12:50 PM ENGINEER BOOSTER AND EXHAUSTER Neelam Morrison MD LAB BLOOD ORDERABLES Final Result Performing Organization Address [facility] [place] [address] * (ABNORMAL) Hemoglobin A1c (12/19/2023 1:08 PM ENGINEER BOOSTER AND EXHAUSTER) Hgb A1C 5.9(H) 4.0 - 5.6 % Estimated Average Glucose 123 mg/dL [facility] Comment: The ADA recommends reporting an estimated Average Glucose (eAG) with all Hemoglobin A1c results using the equation derived from a study of 507 normal and diabetic adults. Minority populations were underrepresented and children were not included. (Diabetes Care 2020; 43(S1): S66-S76). The eAG is not equivalent to a fasting glucose. Blood 12/19/2023 1:08 PM ENGINEER BOOSTER AND EXHAUSTER 12/19/2023 1:33 PM ENGINEER BOOSTER AND EXHAUSTER Melissa Albright MD LAB BLOOD ORDERABLES Final Resul t Performing Organization Address [facility] [place] [address] * Serum lipid panel (08/01/2013 9:43 PM [...] Most Recently Relevant to Health Maintenance Insurance [facility] Advance Directives For more information, please contact: [phone] Documents on File Type Date Recorded Patient Gaggerman Expl anation ADVANCE DIRECTIVE 12/17/2023 7:15 PM Robbie _[email or web address]_Living Will.pdf Care Teams Coordinating Producer Relationship Specialty Start Date End Date Thomas Antonio MD [address] [facility] [address] [facility] [address] [place] [address] PCP - General Internal Medicine 01/11/24 Yoselyn Nicolas NP [address] [place] [address] [address] [place] [address] Family Medicine 01/11/24
--- OUTSIDE RECORDS SUMMARY | 2024-08-25 15:29 | XMS_ITS | Referral Summary ---
Author Organization [facility] [address] [facility] [place] [address] Care Team Providers Care Blade Bender Furnace Tender Name Role Phone Thomas Antonio MD Primary Care Provider [phone] Yoselyn Nicolas STORAGE WORKER Unavailable [phone] Encounters Date Type Department Care Team Description 07/02/2024 Telephone [facility] Gastroenterology [address] [facility] Advanced Medicine 12th [place] [address] [place] [address] Mallory Morelos CMA 06/27/2024 12:53 PM CDT - 06/27/2024 11:59 PM CDT Hospital Encounter [facility] ([facility]) [address] [place] [address] Diagnosis unknown Discharge Disposition: Discharge to home [...] 1 tablet (10 mg total) by mouth patient information coordinator before breakfast 3 Active cyanocobalamin (Vitamin [...] mg total) by mouth daily Active hansa [id number]-[id number]-Zn-c op-man-bor 250-40-125 mg-mg-unit tablet Take by mouth [...] 05/15/2022 Overview (12/19/2023): Updated per IMO upload [id number] Hypokalemia 05/15/2022 HLD (hyperlipidemia) 05/15/2022 Lower GI [...] on file Legal Sex Female 5:37 AM HOME ECONOMICS EXPERT Gender Identity Not on file Sexual Orientation Not on file Last Filed Vital Signs Vital Sign Reading Time Taken Comments Blood Pressure 100/62 05/19/2024 1:54 PM CDT Pulse 86 05/19/2024 1:54 PM CDT Temperature 36.2 C (97.1 F) 03/12/2024 8:31 AM HOME ECONOMICS EXPERT Respiratory Rate - - Oxygen Saturation 97% [...] Diagnosis unknown EGFR Routine 03/12/2024 12:30 PM HOME ECONOMICS EXPERT Liver mass Cirrhosis of liver without ascites, unspecified hepatic cirrhosis type (HCC) HEMOGLOBIN A1C Routine 12/19/2023 1:08 PM HOME ECONOMICS EXPERT Liver mass SERUM LIPID PANEL Routine 08/01/2013 [...] images may or may not represent the [place] source data set and thus may contain [...] IMAGING STUDY STUDY INITIALLY PERFORMED: 06/21/2024 at [facility]. TYPE OF STUDY: Multiple CT images of [...] IMAGING STUDY STUDY INITIALLY PERFORMED: 06/21/2024 at [facility]. TYPE OF STUDY: Multiple CT images of [...] images may or may not represent the [place] source data set and thus may contain changes that may lower the accuracy of this second-opinion interpretation. Dictated by: Rosa Alcantar M.D. The radiology attending physician has personally reviewed this study, and had reviewed and/or edited this written report and agrees with it. Electronically signed by: Baltazar Ramos M.D. us Neelam Morrison MD IM CT PROCEDURES Fi nal Result * (ABNORMAL) eGFR (03/12/2024 12:30 PM HOME ECONOMICS EXPERT) eGFR 40(L) >=60 mL/min/1. 73 m2 Comment: [...] reviewed 2020. Blood 03/12/2024 12:3 0 PM HOME ECONOMICS EXPERT 03/12/2024 12:50 PM HOME ECONOMICS EXPERT Neelam Morrison MD LAB BLOOD ORDERABLES Final Result Performing Organization Address City/[facility] Co de Phone Number [facility] Department [place] [address] * (ABNORMAL) Hemoglobin A1c (12/19/2023 1:08 PM HOME ECONOMICS EXPERT) Hgb A1C 5.9(H) 4.0 - 5.6 % Estimated Average Glucose 123 mg/dL [facility] Comment: The ADA recommends reporting an estimated Average Glucose (eAG) with all Hemoglobin A1c results using the equation derived from a study of 507 normal and diabetic adults. Minority populations were underrepresented and children were not included. (Diabetes Care 2020; 43(S1): S66-S76). The eAG is not equivalent to a fasting glucose. Blood 12/19/2023 1:08 PM HOME ECONOMICS EXPERT 12/19/2023 1:33 PM HOME ECONOMICS EXPERT us Melissa Albright MD LAB BLOOD ORDERABLES Final Resul t [facility] Department [place] [address] * Serum lipid panel (08/01/2013 9:43 PM [...] Most Recently Relevant to Health Maintenance Insurance [facility] Advance Directives For more information, please contact: [phone] Documents on File Type Date Recorded Patient Soaker Meat Expl anation ADVANCE DIRECTIVE 12/17/2023 7:15 PM Robbie _[email or web address]_Living Will.pdf Care Teams Blade Bender Furnace Tender Relationship Specialty Start Date End Date Thomas Antonio MD [address] [place] [address] PCP - General Internal Medicine 01/11/24 Yoselyn Nicolas STORAGE WORKER [address] [address] Family Medicine 01/11/24
--- OUTSIDE RECORDS SUMMARY | 2024-08-25 15:29 | XMS_ITS ---
Author Organization [facility] [address] [place] [address] Care Team Providers Care Senior Sql Server Dba Name Role Phone Thomas Antonio MD Primary Care Provider [phone] Yoselyn Nicolas PRINCIPAL PRODUCT MANAGER Unavailable [phone] Active Problems Problem Noted Date Diagnosed [...] 05/15/2022 Overview (12/19/2023): Updated per IMO upload [id number] Hypokalemia 05/15/2022 HLD (hyperlipidemia) 05/15/2022 Lower GI [...]
--- OUTSIDE RECORDS SUMMARY | 2024-08-25 15:29 | XMS_ITS | Clinical Summary ---
Author Organization [facility] Address [address] [place] [address] Care Team Providers Care Hydro Technician Name Role Phone Ugo Villa MD Primary Care Provider [phone] Source Comments PLEASE NOTE, if this patient [...] 1:15 PM PST Height 165.1 cm (5' 5) 02/19/2021 1:15 PM PST Body Mass Index 38.34 02/19/2021 1:15 PM PST Plan of Treatment Health Maintenance Due Date Last Done Comments Depression Monitoring 1941 Tobacco Screening 1941 Advanced Care Planning 1941 Imm-DTaP/Tdap/Td (1 - Tdap) 02/26/1960 Imm-Pneumococcal 50+ (1 of 2 - PCV) 02/26/1960 Imm-Zoster, Recombinant (1 of 2) 1991 Bone Density Screening 2006 Falls Prevention 2006 Imm-RSV (adult) (1 - 1-dose 75+ series) 02/26/2016 Edy-QRBCX-71 ( season) 10/07/202304/20/ 021, 03/30/2020 Alcohol and Drug Screen 02/06/2024 Imm-Influenza (#1) 2024 11/06/2019 Insurance [employer] Care Teams Hydro Technician Relationship Specialty Start Date End Date Ugo Villa MD [address] [place] [address] [place] [address], [place] [address] PCP - General 07/29/23
[2024-08-25 15:56] LABS: Add Urine Microscopic? NO; Appearance Urine Clear (Clear); Glucose Urine UA 1+ mg/dL (Negative); Leukocyte Esterase Ur Negative LEU/UL (Negative); Nitrate Urine Negative (Negative); Specific Grav Ur 1.012 (1.001-1.035)
[2024-08-25 16:14] LABS: Alanine Aminotransferase 21 U/L (6-35); Albumin Level 4.4 g/dL (3.5-5.1); Alkaline Phosphatase 76 U/L (38-126); Anion Gap 8 mmol/L (4-12); Aspartate Amino Transferase 27 U/L (14-36); Bilirubin,Total 0.4 mg/dL (0.2-1.3); Blood Urea Nitrogen 44 mg/dL (7-17); Calcium 9.5 mg/dL (8.4-10.2); Carbon Dioxide 28 mmol/L (22-30); Chloride 96 mmol/L (98-107); Cholesterol 180 mg/dL (0-200); Estimated Glomerular Filt Rate 38; Glucose 95 mg/dL (65-110); HDL Direct 69 mg/dL; Potassium 4.3 mmol/L (3.4-5.0); Sodium 132 mmol/L (137-145); Total Protein 7.5 g/dL (6.3-8.2); Triglycerides 139 mg/dL (<150); Uric Acid 4.3 mg/dL (2.5-7.5)
[2024-08-25 16:24] LABS: Hemoglobin A1C 6.1 % (<5.7)
[2024-08-25 16:30] LABS: Free T4 Free Thyroxine 1.15 ng/dL (0.78-2.19)
[2024-08-25 16:50] LABS: Thyroid Stimulating Hormone 1.700 uIU/mL (0.465-4.680)
[2024-08-26 09:08] LABS: GGT 46 IU/L (0-60)
== END 2024-08-25 15:25 | disposition home or self-care (01) ==
LOC: ANHLAB 15:26
PROVIDERS: PCP Internal Medicine; Visit Provider Internal Medicine
DX: E11.9 Type 2 diabetes mellitus without complications (principal); Z79.899 Other long term (current) drug therapy; M10.9 Gout, unspecified; Z13.29 Encounter for screening for other suspected endocrine disorder; E78.5 Hyperlipidemia, unspecified; I10 Essential (primary) hypertension
CPT/HCPCS: 36415; 80053; 80061; 81003; 82977; 83036; 84439; 84443; 84550

== ENCOUNTER 2024-08-26 10:52 | Outpatient (CLI) | payer OTHER, SELFPAY ==
--- NOTE | ~2024-08-26 | XR_ITS ---
EXAMINATION: XR TMJ BI DATE: 08/26/2024 11:29 INDICATION: Nontraumatic left jaw pain TECHNIQUE: Left and right lateral views as well as frontal and open mouth frontal views of the mandib le were obtained COMPARISON: None. FINDINGS: No fracture. Normal alignment of the temporomandibular joints in the open and closed mouth positions. 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 Severe cervical spondylosis. Mastoid air cells are well aerated. No evident air-fluid levels in the paranas al sinuses. IMPRESSION: 1. 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 Reviewed, dictated and finalized at location A.
--- OUTSIDE RECORDS SUMMARY | 2024-08-26 10:59 | XMS_ITS | Clinical Summary ---
Author Organization [facility] Address [address] [facility] [place] [address] Care Team Providers Care Director Call Center Sales Name Role Phone Thomas Antonio MD Primary Care Provider [phone] Source Comments [facility],non-owned Affiliates and Associated Physician Practices is amultiple site organization consisting of ambulatory clinics and hospital sitesin [place], [place], [place] and [place]. This disclosure is being madepursuant to the Care Everywhere program and may not contain all information available regarding this patient. Last updated 17.[facility] Allergies Active Allergy Reactions Criticality Noted Date [...] complete this topic Insurance [employer] Care Teams Director Call Center Sales Relationship Specialty Start Date End Date Thomas Antonio MD [address] [facility] [address] [place] [id number] PCP - General Internal Medicine 12/06/23
--- OUTSIDE RECORDS SUMMARY | 2024-08-26 10:59 | XMS_ITS | Referral Summary ---
Author Organization [facility] [address] [facility] [place] [address] Care Team Providers Care Senior Ios Software Engineer Name Role Phone Thomas Antonio MD Primary Care Provider [phone] Yoselyn Nicolas CONCRETE VAULT MAKER Unavailable [phone] Encounters Date Type Department Care Team Description 07/02/2024 Telephone [facility] Gastroenterology [address] [facility] Advanced Medicine 12th [place] [address] [place] [address] Mallory Morelos CMA 06/27/2024 12:53 PM CDT - 06/27/2024 11:59 PM CDT Hospital Encounter [facility]) [address] [place] [address] Diagnosis unknown Discharge Disposition: Discharge to home [...] (10 mg total) by mouth early childhood associate teacher before breakfast 3 Active cyanocobalamin (Vitamin B-12) [...] mg total) by mouth daily Active hansa sms-gyb-[id number]-Zn-c op-man-bor 250-40-125 mg-mg-unit tablet Take by mouth [...] 05/15/2022 Overview (12/19/2023): Updated per IMO upload [id number] Hypokalemia 05/15/2022 HLD (hyperlipidemia) 05/15/2022 Lower GI [...] on file Legal Sex Female 5:37 AM TELECOM NETWORK MANAGER Gender Identity Not on file Sexual Orientation Not on file Last Filed Vital Signs Vital Sign Reading Time Taken Comments Blood Pressure 100/62 05/19/2024 1:54 PM CDT Pulse 86 05/19/2024 1:54 PM CDT Temperature 36.2 C (97.1 F) 03/12/2024 8:31 AM TELECOM NETWORK MANAGER Respiratory Rate - - Oxygen Saturation 97% [...] Diagnosis unknown EGFR Routine 03/12/2024 12:30 PM TELECOM NETWORK MANAGER Liver mass Cirrhosis of liver without ascites, unspecified hepatic cirrhosis type (HCC) HEMOGLOBIN A1C Routine 12/19/2023 1:08 PM TELECOM NETWORK MANAGER Liver mass SERUM LIPID PANEL Routine 08/01/2013 [...] images may or may not represent the [place] source data set and thus may contain [...] IMAGING STUDY STUDY INITIALLY PERFORMED: 06/21/[address] [facility]. TYPE OF STUDY: Multiple CT images of [...] IMAGING STUDY STUDY INITIALLY PERFORMED: 06/21/[address] [facility]. TYPE OF STUDY: Multiple CT images of [...] images may or may not represent the [place] source data set and thus may contain [...] Result * (ABNORMAL) eGFR (03/12/2024 12:30 PM TELECOM NETWORK MANAGER) eGFR 40(L) >=60 mL/min/1. 73 m2 Comment: [...] reviewed 2020. Blood 03/12/2024 12:3 0 PM TELECOM NETWORK MANAGER 03/12/2024 12:50 PM TELECOM NETWORK MANAGER Neelam Morrison MD LAB BLOOD ORDERABLES Final Result Performing Organization Address City/[facility] Co de Phone Number [facility] Department [place] [address] * (ABNORMAL) Hemoglobin A1c (12/19/2023 1:08 PM TELECOM NETWORK MANAGER) Hgb A1C 5.9(H) 4.0 - 5.6 % Estimated Average Glucose 123 mg/dL [facility] Comment: The ADA recommends reporting an estimated Average Glucose (eAG) with all Hemoglobin A1c results using the equation derived from a study of 507 normal and diabetic adults. Minority populations were underrepresented and children were not included. (Diabetes Care 2020; 43(S1): S66-S76). The eAG is not equivalent to a fasting glucose. Blood 12/19/2023 1:08 PM TELECOM NETWORK MANAGER 12/19/2023 1:33 PM TELECOM NETWORK MANAGER us Melissa Albright MD LAB BLOOD ORDERABLES Final Resul t [facility] Department [place] [address] * Serum lipid panel (08/01/2013 9:43 PM [...] Advance Directives For more information, please contact: [phone] Documents on File Type Date Recorded Patient Program Management Manager Expl anation ADVANCE DIRECTIVE 12/17/2023 7:15 PM Robbie [email or web address] [email or web address] Care Teams Senior Ios Software Engineer Relationship Specialty Start Date End Date Thomas Antonio MD [address] [place] [address] PCP - General Internal Medicine 01/11/24 Yoselyn Nicolas CONCRETE VAULT MAKER [address] [address] Family Medicine 01/11/24
--- OUTSIDE RECORDS SUMMARY | 2024-08-26 10:59 | XMS_ITS | Continuity of Care Document ---
Author Organization [facility] Address [address] [place] [address] Phone Care Team Providers Care Vamp Throater Name Role Phone No Information Unavailable Unavailable [...] Diagnoses Date Provider Providers Copied on Encounter [facility], [address] [place] [address], [id number], tel:[phone] No Information June-0 1 No Information [facility], [address] [place] [address], [id number], tel:[phone] [facility] No Information 1 Juanjo Negron. [address] [place] [address], [id number], . tel:[phone] Referring Provider: Steven Galvez, [facility] [address], [place], [address] . tel:[phone] [facility], [address] [place] [address], [id number], tel:[phone] [facility] No Information [address], [place], [place], [id number], . tel:[phone] [facility], [address] [place] [address], [id number], tel:[phone] [facility] No Information Apr-1 5- 1 Jimmy Blanco [address], [place], [place], [id number], . tel:[phone] Referring Provider: Steven Galvez, [address], [place], [address] . tel:[phone] [facility], [address] [place] [address], [id number], tel:[phone] [facility] No Information Apr-0 8-201 1 Jimmy Blanco [address], [place], [place], [id number], . tel:[phone] Office/outpat ient visit,[facility], [facility], [address] [place] [address], [id number], tel:[phone] [facility] No Information Mar-1 0- 1 Jimmy Blanco [address], [place], [place], [id number], [place]. tel:[phone] Referring Provider: Tanya [address], [place], [address]. tel:[phone] Office/outpat ient visit,[facility], [address] [place] [address], [id number], tel:[phone] [facility] No Information Mar-0 3-201 1 Alice Bowman. [address] [place], [place], [id number], [place]. tel:[phone] Referring Provider: T[address], [place], [address]. tel:[phone] [facility], [address] [place] [address], [id number], tel:[phone] [facility] No Information Mar-0 3-201 1 Jeffrey De. [address] [place] [address], [id number], . tel:[phone] Referring Provider: Santino Yan, [address] [place] [address], [address] . tel:[phone] [facility], [address] [place] [address], [id number], tel:[phone] [facility] No Information 1 Sandra Miller. [address] [place] [address], [id number], . tel:[phone] Referring Provider: Lelia Mitchell, [address], [place], [address]. tel:[phone] Office/outpat ient visit,est, [facility], [address] [place] [address], [id number], tel:[phone] [facility] No Information 1 [facility]. [facility] [address], [place], [place], [id number], . tel:[phone] Referring Provider: Lelia Mitchell, [address], [place], [address]. tel:[phone] Office/outpat ient visit,est, [facility], [address] [place] [address], [id number], tel:[phone] [facility] No Information 1 Jeffrey De. [address] [place] [address], [id number], . tel:[phone] Referring Provider: Lelia Mitchell, [address], [place], [address]. tel:[phone] [facility], [address] [place] [address], [id number], tel:[phone] [facility] No Information 0 Jeffrey De. [address] [place] [address], [id number], . tel:[phone] [facility], [address] [place] [address], [id number], tel:[phone] [facility] No Information Dec-1 0-201 0 Jeffrey Santino. [address] [place] [address], [id number], . tel:[phone] Office/outpat ient visit,[facility], [facility], [address] [place] [address], [id number], tel:[phone] [facility] No Information Dec-0 8-201 0 Alice Bowman. [address], [place], [id number], [place]. tel:[phone] Referring Provider: Tanya [address], [place], [address]. tel:[phone] Office/outpat ient visit,[facility], [facility], [address] [place] [address], [id number], tel:[phone] [facility] No Information Nov-0 7-200 9 Nichol Wise. [address] [place] [address], [id number], [place]. tel:[phone] Referring Provider: Tanya [address], [place], [address]. tel:[phone] Office/outpat ient visit,[facility], [facility], [address] [place] [address], [id number], tel:[phone] [facility] No Information Oct-0 9-200 9 Nicholbrenton Wise. [address] [place] [address], [id number], . tel:[phone] Referring Provider: Tanya [address], [place], [address]. tel:[phone] [facility], [address] [place] [address], [id number], tel:[phone] [facility] No Information Sep-2 7-200 9 Melyssa Garner. [address] [place] [address], [id number], . tel:[phone] [facility], [address] [place] [address], [id number], tel:[phone] [facility] No Information 9 Melyssa Garner. [address] [place] [address], [id number], . tel:[phone] [facility], [address] [place] [address], [id number], tel:[phone] [facility] No Information 0 200 9 Melyssa Garner. [address] [place] [address], [id number], . tel:[phone] [facility], [address] [place] [address], [id number], tel:[phone] [facility] No Information 9 Melyssa Garner. [address] [place] [address], [id number], . tel:[phone] Office/outpat ient visit,est, mod [facility], [address] [place] [address], [id number], tel:[phone] [facility] No Information 9 Nichol Wise. [address] [place] [address], [id number], . tel:[phone] Referring Provider: Lelia Mitchell, [address], [place], [address]. tel:[phone] [facility], [address] [place] [address], [id number], tel:[phone] [facility] No Information 9 Cipriano Acevedo. [address], [place], [address], [place]. tel:[phone] Referring Provider: Lexx Cardoso, [address], [place], [address]. tel:[phone] [facility], [address] [place] [address], [id number], [place] tel:[phone] [facility] No Information 9 Cipriano Acevedo. [address] [place], [address], [place]. tel:[phone] Referring Provider: Lexx Cardoso, [address], [place], [address]. tel:[phone] [facility], [address] [place] [address], [id number], tel:[phone] [facility] No Information 9 Cipriano Acevedo. [address] [place], [address], [place]. tel:[phone] Referring Provider: Lexx Cardoso, [address] [place] [address] [address], [place], [address]. tel:[phone] [facility], [address] [place] [address], [id number], tel:[phone] [facility] No Information Sep-2 200 8 Melyssa Garner. [address] [place] [address], [id number], [place]. tel:[phone] [facility], [address] [place] [address], [id number], tel:[phone] [facility] No Information Oct-1 200 8 Melyssa Garner. [address] [place] [address], [id number], . tel:[phone] [facility], [address] [place] [address], [id number], tel:[phone] [facility] No Information Sep-0 3200 8 Cota Curtis. [address] [place], [address], [place]. tel:[phone] Referring Provider: Pascual Salazar, [address] [place] [address], [id number] . tel:[phone] Office/outpat ient visit,est, mod [facility], [address] [place] [address], [id number], [place] tel:[phone] [facility] No Information 7200 8 Golz Pascual. [address] [place] [address], [id number], . tel:[phone] [facility], [address] [place] [address], [id number], tel:[phone] [facility] No Information 8 Golz Pascual. [address] [place] [address], [id number], [place]. tel:[phone] [facility], [address] [place] [address], [id number], tel:[phone] [facility] No Information 8 Jesus Pammela. [address] [place] [address], [id number], . tel:[phone] Office/outpat ient visit,est, mod [facility], [address] [place] [address], [id number], tel:[phone] [facility] No Information 2200 8 Golz Pascual. [address] [place] [address], [id number], . tel:[phone] [facility], [address] [place] [address], [id number], tel:[phone] [facility] No Information 200 7 Golz Pascual. [address] [place] [address], [id number], [place]. tel:[phone] [facility], [address] [place] [address], [id number], tel:[phone] [facility] No Information 2 7 Jesus Pammela. [address] [place] [address], [id number], . tel:[phone] [facility], [address] [place] [address], [id number], tel:[phone] [facility] No Information 200 7 Melyssa Garner. [address] [place] [address], [id number], . tel:[phone] [facility], [address] [place] [address], [id number], tel:[phone] [facility] No Information Jan-0 4-200 7 Melyssa Garner. [address] [place] [address], [id number], . tel:[phone] [facility], [address] [place] [address], [id number], tel:[phone] [facility] No Information 200 7 Melyssa Garner. [address] [place] [address], [id number], . tel:[phone] [facility], [address] [place] [address], [id number], tel:[phone] [facility] No Information 0200 7 Melyssa Garner. [address] [place] [address], [id number], [place]. tel:[phone] [facility], [address] [place] [address], [id number], tel:[phone] [facility] No Information 7 Nichol Wise. [address] [place] [address], [id number], . tel:[phone] [facility], [address] [place] [address], [id number], tel:[phone] [facility] No Information 5 Jeffrey De. [address] [place] [address], [id number], . tel:[phone] Office consultation, moderate-high [facility], [address] [place] [address], [id number], tel:[phone] [facility] No Information 200 5 Narayan Schafer. [address] , [place], [address], [place]. tel:[phone] Family History Family Member Type Diagnosis Age At Onset No Information Payers Payer name Insurance type Covered constitution party ID Mark storey(s) [facility] [id number] Social History Type Description Quantity Date Captured [...]
--- OUTSIDE RECORDS SUMMARY | 2024-08-26 10:59 | XMS_ITS | Encounter Summary ---
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
--- OUTSIDE RECORDS SUMMARY | 2024-08-26 10:59 | XMS_ITS | Clinical Summary ---
Author Organization [facility] Address [facility] [place] [address] Care Team Providers Care Instant Print Operator Name Role Phone Valentin Mitchell MD Primary Care Provider [phone] Vasquez Akins MD Unavailable Unavailable Allergies Active [...] Noted Date Diagnosed Date Atrial fibrillation, persistent ([facility] ) 07/04/2016 Long-term (current) use of anticoagulants 2016 Acute on chronic diastolic c ongestive heart failure ([facility]) 06/08/2016 SVT (supraventricular tachycardia) ([facility]) Overview (06/07/2016): age 14 Obstructive sleep apnea sergo letty with bilevel positive airway pressure (BiPAP) Obesity OA (osteoarthritis) Migraines HTN (hypertension) HLD (hyperlipidemia) Depression Bleeding on Coumadin Borderline diabetes Persistent atrial fibrillation ([facility]) CHF (congestive heart failure) ([facility]) Atrial fibrillation ([facility]) Family History Medical History Relation Comments [...] Job Start Date 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 file No t on file Last Filed Vital Signs Vital Sign Reading Time Taken Comments Blood Pressure 108/68 02/23/2017 10:17 AM BLEACH PLANT OPERATOR Pulse 83 02/23/2017 10:17 AM BLEACH PLANT OPERATOR Temperature - - Respiratory Rate 18 12/26/2016 9:26 AM BLEACH PLANT OPERATOR Oxygen Saturation 97% 02/23/2017 10:17 AM BLEACH PLANT OPERATOR Inhaled Oxygen Concentration - - Weight 112.5 kg (248 lb) 02/23/2017 10:17 AM BLEACH PLANT OPERATOR Height 162.6 cm (5' 4) 02/23/2017 10:17 AM BLEACH PLANT OPERATOR Body Mass Index 42.57 02/23/2017 10:17 AM BLEACH PLANT OPERATOR Plan of Treatment Health Maintenance Due [...] patient's age to complete this topic Insurance youwho OPEN ACCESS [facility] Care Teams Instant Print Operator Relationship Specialty Start Date End Date Valentin Mitchell MD [address] [place] [address] PCP - General INTERNAL MEDICINE 06/08/16 Vasquez Akins MD [address] [place] [address] Kehinde Salt Cutter Electrophysiology 02/13/17
--- OUTSIDE RECORDS SUMMARY | 2024-08-26 10:59 | XMS_ITS ---
Author Organization [facility] [address] [place] [address] Care Team Providers Care Order Tracer Name Role Phone Thomas Antonio MD Primary Care Provider [phone] Yoselyn Nicolas DYNAMOMETER TUNER Unavailable [phone] Active Problems Problem Noted Date Diagnosed [...] 05/15/2022 Overview (12/19/2023): Updated per IMO upload [id number] Hypokalemia 05/15/2022 HLD (hyperlipidemia) 05/15/2022 Lower GI [...]
--- OUTSIDE RECORDS SUMMARY | 2024-08-26 10:59 | XMS_ITS | Clinical Summary ---
Author Organization [facility] [address] [place] [address] Care Team Providers Care Hotel Clerk Name Role Phone Thomas Antonio MD Primary Care Provider [phone] Yoselyn Nicolas DINKEY OPERATOR SLATE Unavailable [phone] Allergies Active Allergy Reactions Criticality Noted [...] 1 tablet (10 mg total) by mouth lab director before breakfast 3 Active cyanocobalamin (Vitamin B-12) [...] mg total) by mouth daily Active hansa ity-aeq-J7-Zn-c op-man-bor 250-40-125 mg-mg-unit tablet Take by mouth [...] 05/15/2022 Overview (12/19/2023): Updated per IMO upload [id number] Hypokalemia 05/15/2022 HLD (hyperlipidemia) 05/15/2022 Lower GI [...] Type Department Care Team Description 07/02/2024 Telephone [facility] [address] [facility] Advanced Medicine [address] [place] [address] [place] [address] Mallory Morelos, KELLEY 06/27/2024 12:53 PM CDT - 06/27/2024 11:59 PM CDT Hospital Encounter [facility] [place] [address] Diagnosis unknown Discharge Disposition: Discharge to home [...] on file Legal Sex Female 5:37 AM MAINTENANCE ASSOCIATE Gender Identity Not on file Sexual Orientation Not on file Obstetrics History Last Filed Vital Signs Vital Sign Reading Time Taken Comments Blood Pressure 100/62 05/19/2024 1:54 PM CDT Pulse 86 05/19/2024 1:54 PM CDT Temperature 36.2 C (97.1 F) 03/12/2024 8:31 AM MAINTENANCE ASSOCIATE Respiratory Rate - - Oxygen Saturation 97% [...] Diagnosis unknown EGFR Routine 03/12/2024 12:30 PM MAINTENANCE ASSOCIATE Liver mass Cirrhosis of liver without ascites, unspecified hepatic cirrhosis type (HCC) HEMOGLOBIN A1C Routine 12/19/2023 1:08 PM MAINTENANCE ASSOCIATE Liver mass SERUM LIPID PANEL Routine 08/01/2013 [...] images may or may not represent the [place] source data set and thus may contain [...] IMAGING STUDY STUDY INITIALLY PERFORMED: 06/21/2024 at [facility]. TYPE OF STUDY: Multiple CT images of [...] IMAGING STUDY STUDY INITIALLY PERFORMED: 06/21/2024 at [facility]. TYPE OF STUDY: Multiple CT images of [...] images may or may not represent the [place] source data set and thus may contain [...] Result * (ABNORMAL) eGFR (03/12/2024 12:30 PM MAINTENANCE ASSOCIATE) eGFR 40(L) >=60 mL/min/1. 73 m2 Comment: [...] reviewed 2020. Blood 03/12/2024 12:3 0 PM MAINTENANCE ASSOCIATE 03/12/2024 12:50 PM MAINTENANCE ASSOCIATE Neelam Morrison MD LAB BLOOD ORDERABLES Final Result Performing Organization Address [facility] [place] [address] * (ABNORMAL) Hemoglobin A1c (12/19/2023 1:08 PM MAINTENANCE ASSOCIATE) Hgb A1C 5.9(H) 4.0 - 5.6 % Estimated Average Glucose 123 mg/dL [facility] Comment: The ADA recommends reporting an estimated Average Glucose (eAG) with all Hemoglobin A1c results using the equation derived from a study of 507 normal and diabetic adults. Minority populations were underrepresented and children were not included. (Diabetes Care 2020; 43(S1): S66-S76). The eAG is not equivalent to a fasting glucose. Blood 12/19/2023 1:08 PM MAINTENANCE ASSOCIATE 12/19/2023 1:33 PM MAINTENANCE ASSOCIATE Melissa Albright MD LAB BLOOD ORDERABLES Final Resul t Performing Organization Address [facility] [place] [address] * Serum lipid panel (08/01/2013 9:43 PM [...] Most Recently Relevant to Health Maintenance Insurance [facility] Advance Directives For more information, please contact: [phone] Documents on File Type Date Recorded Patient Stick Feeder Expl anation ADVANCE DIRECTIVE 12/17/2023 7:15 PM Robbie _Nadja_Living Will.pdf Care Teams Hotel Clerk Relationship Specialty Start Date End Date Thomas Antonio MD [address] [facility] [address] [facility] [address] [place] [address] PCP - General Internal Medicine 01/11/24 Yoselyn Nicolas NP [address] [place] [address] [address] [place] [address] Family Medicine 01/11/24
[2024-08-26 11:17] LABS: Hematocrit 40.4 % (37.0-47.0); Hemoglobin 13.2 g/dL (12.0-15.0); Immature Granulocyte Percent A 0.3 % (0-0.5); Lymphocytes Absolute Auto 0.97 K/mm3 (0.9-3.2); Mean Corpuscular HGB Conc 32.7 g/dl (32-36); Mean Corpuscular Hemoglobin 30.4 pg (26-34); Mean Corpuscular Volume 93.1 fl (80-100); Nucleated Red Blood Cells Absolute Auto 0.000 K/mm3 (0.0-0.012); Nucleated Red Blood Cells Perc 0.0 % (0.0-0.2); Platelet Count Result 183 k/mm3 (150-375); Red Blood Count 4.34 M/mm3 (4.2-5.4); White Blood Count 7.0 K/mm3 (4.5-10.0)
[2024-08-26 11:41] LABS: CRP < 0.5 mg/dL (<1.0)
== END 2024-08-26 10:53 | disposition home or self-care (01) ==
PROVIDERS: PCP Internal Medicine; Visit Provider Internal Medicine
DX: M26.641 Arthritis of right temporomandibular joint (principal)
CPT/HCPCS: 36415; 70330; 85025; 85652; 86140

== ENCOUNTER 2024-11-03 11:06 | Outpatient (CLI) | payer OTHER, SELFPAY ==
--- NOTE | ~2024-11-03 | XR_ITS ---
Examination: XR chest 2V Clinical History: R06.02 - Shortness of breath, dizziness Comparison: None Technique: PA and Lateral Findings: Cardiomediastinal silhouette normal size and configuration. Lungs clear. No acute bony abnormality. IMPRESSION: 1. No acute cardiopulmonary findings. Reviewed, dictated and finalized at location R.
--- NOTE | ~2024-11-03 | CT_ITS ---
EXAMINATION: CTA brain DATE: 11/03/2024 12:14 INDICATION: Dizziness and giddiness TECHNIQUE: Computed tomographic angiography (CTA) of the head was performed without and with 100 mL Omnipaque-350 intravenous contrast. Volume-rendered and maximum intensity projection 3D reconstructions of the intracranial arteries were created by the technologist on a separate workstation. Automated exposure control and iterative reconstruction technique were employed. The dose-length product was 1115.86 mGy-cm. COMPARISON: None. FINDINGS: There is no hemodynamically significant stenosis in the vertebral, basilar and internal carotid arteries. Vertebral arteries are codominant. There are no aneurysms identified. Both A1 and P1 segments are patent. There are also patent bilateral posterior communicating arteries. Cerebral arterial arborization appears symmetric. No abnormally enhancing brain lesions identified. No acute intracranial hemorrhage, acute infarction or abnormal extra axial fluid collection. Symmetric prominence of the sulci consistent with mild age- appropriate diffuse cerebral volume loss. Ventricles are normal and symmetric. No mass/mass effect. Changes of bilateral intraocular lens replacement. The orbits, paranasal sinuses and mastoid air cells are normal. IMPRESSION: 1. Normal aging brain. No acute intracranial process. 2. Unremarkable cerebral CT angiogram with no hematoma significant stenosis, aneurysm or thrombosis. Reviewed, dictated and finalized at location A. IMPRESSION: 1. Normal aging brain. No acute intracranial process. 2. Unremarkable cerebral CT angiogram with no hematoma significant stenosis, an eurysm or thrombosis.
[2024-11-03 11:28] LABS: Hematocrit 40.5 % (37.0-47.0); Hemoglobin 13.0 g/dL (12.0-15.0); Immature Granulocyte Percent A 0.3 % (0-0.5); Lymphocytes Absolute Auto 0.83 K/mm3 (0.9-3.2); Mean Corpuscular HGB Conc 32.1 g/dl (32-36); Mean Corpuscular Hemoglobin 30.8 pg (26-34); Mean Corpuscular Volume 96.0 fl (80-100); Nucleated Red Blood Cells Absolute Auto 0.000 K/mm3 (0.0-0.012); Nucleated Red Blood Cells Perc 0.0 % (0.0-0.2); Platelet Count Result 178 k/mm3 (150-375); Red Blood Count 4.22 M/mm3 (4.2-5.4); White Blood Count 6.5 K/mm3 (4.5-10.0)
[2024-11-03 11:32] LABS: Add Urine Microscopic? YES; Appearance Urine Clear (Clear); Glucose Urine UA 2+ mg/dL (Negative); Leukocyte Esterase Ur 1+ LEU/UL (Negative); Nitrate Urine Negative (Negative); Non Pathogenic Casts 0-2; Specific Grav Ur 1.017 (1.001-1.035)
--- OUTSIDE RECORDS SUMMARY | 2024-11-03 11:46 | XMS_ITS ---
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 She was scheduled to undergo sclerotherapy for this in [place] however was cancelled due to patient moving to the area. She has not had any bleeding since that time. Otherwise she denies any discomfort to her lower extremities. Plan: No further testing required. No surgical interventions planned. - Discussed with the patient if bleeding occurs, to hold continuous pressure for 2 minutes. - Will refer patient to Dr. Putnam for further evaluation of reticular veins. Discussed with the patient if initial visit is prolonged, we can refer patient to the [facility] to see if patient can be seen sooner. Severe obesity 01/14/2024 Anxiety 12/19/2023 Chronic kidney [...] 05/15/2022 Overview (12/19/2023): Updated per IMO upload [id number] Hypokalemia 05/15/2022 HLD (hyperlipidemia) 05/15/2022 Lower GI [...] Persistent atrial fibrillation 07/08/2014 Essential hypertension 07/08/2014 Assessment & Plan (09/05/2024 10:51 AM CDT): Impression: Chronic and stable. Plan: Continue lisinopril Obesity with body mass index 30 or greater 09/05 Type 2 diabetes mellitus wit hout complication, without long-term current use of insulin 11/04/2012 Assessment & Plan (09/05/2024 10:52 AM CDT): Impression: Chronic with good glucose control. Plan: Continue metformin and Farxiga Obstructive sleep apnea syndrome 11/04/2012 Current Treatment [...]
--- OUTSIDE RECORDS SUMMARY | 2024-11-03 11:46 | XMS_ITS | Encounter Summary ---
Author Organization [facility] Address [address] [place] [address] Care Team Providers Care Iron Piler Name Role Phone Thomas Antonio MD Primary Care Provider [phone] Encounter Details Date Type Department Care Team (Late Contact Info) Description 10/20/2024 Lab Requisition [facility] - DermPath Lab [address] [facility] [place] [address] Kimberly Conley MD [address] [facility] [address] [place] [address] Neoplasm of uncertain behavior of skin Social History Tobacco Use Types Packs/Day Years Used Date Smoking Tobacco: Never Smokeless Tobacco: Never PHQ-2 Answer Date Recorded Patient Health Questionnaire-2 Score 0 10/22/2024 Comments Unknown Sex and Gender Information Value Date Recorded Sex Assigned at Not on file Legal Sex Female 7:39 AM CDT Gender Identity Not on file Sexual Orientation Not on file documented as of this encounter Functional Status * Over the past 2 weeks, how often have you been bothered by any of the following problems? Question Answer Date of Assessment Author Little interest or pleasure in doing things Not at all 10/22/2024 10:16 AM CDT Shola Arvizu MA Feeling down, depressed, or hopeless Not at all 10/22/2024 10:16 AM CDT Shola Arvizu MA Patient Health Questionnaire-2 Score 0 10/22/2024 10:16 AM CDT Nedra Arvizu MA documented as of this encounter Plan of Treatment Upcoming Encounters Date Type Department Care Team (Late st Contact Info) Description 12/05/2024 9:00 AM CDT Appointment [facility] [address] [place] [address] Roverto Umaña MD [address] [facility] [address] [place] [address] documented as of this encounter Procedures Procedure Name Priority Date/Time Associated Diagnosis Comments DERMATOPATHOLOGY Routine 10/20/2024 12:4 5 PM CDT Neoplasm of uncertain behavior of skin documented in this encounter Results * DERMATOPATHOLOGY (10/20/2024 12:45 PM CDT) Case Report Dermatopathology Report Case: [id number] Authorizing Provider: Kimberly Conley MD Collected: 10/20/2024 12:45 PM Ordering Location: [facility] - Received: 10/21/2024 06:43 AM DermPath Lab Pathologist: Kristie Berumen MD Specimens: A) - Skin, right nasal tip B) - Skin, right chest 4:53 PM CDT DERMATOPATHOLOGY LABORATORY Final Diagnosis Specimen A. SKIN, right nasal tip: HYPERPLASTIC (HYPERTROPHIC) ACTINIC KERATOSIS (L57.0) Specimen B. SKIN, right chest: VERRUCA VULGARIS, INFLAMED (B07.8) 5 4:53 PM CDT DERMATOPATHOLOGY LABORATORY at 1653 CDT Clinical History A. R/O BCC vs. Angiofibroma vs. AK B. R/O SCC vs. Verruca Vulgaris 5 4:53 PM CDT DERMATOPATHOLOGY LABORATORY Gross Description Specimen A: Received is one formalin filled container labeled with the patient's name and designated right nasal tip. The specimen consists of a shave biopsy measuring 4x4x1 mm. Jar 0. Specimen B: Received is one formalin filled container labeled with the patient's name and designated right chest. The specimen consists of a shave biopsy measuring 6x5x4 mm. Jar 0. 5 4:53 PM CDT DERMATOPATHOLOGY LABORATORY Microscopic Description Specimen A. SKIN, right nasal tip: There is hyperkeratosis alternating with parakeratosis. There is epidermal hyperplasia with disorderly maturation of keratinocytes with nuclear pleomorphism confined to the lower half of the epidermis. Specimen B. SKIN, right chest: Sections show papillomatosis. Some of the cells within the granular layer show coarsened keratohyalin granules. Within the dermis, dilated vessels and a patchy lymphocytic infiltrate are present. 5 4:53 PM CDT DERMATOPATHOLOGY LABORATORY Disclaimer An external and internal positive and negative controls are appropriate for the histochemical, immunohistochemical and immunofluorescence stain(s) in this case (if any), except where stated explicitly. The performance characteristics of the stain(s) cited in this report were developed and its performance characteristic determined by the Dermatopathology Laboratory at [facility], directed by Dr. Savanna Jensen. These tests need not be, and therefore are not, approved by the [place] Food and Drug Administration. The tests are used for clinical purposes. Billing Codes Specimen Charges Stain Charges 38049 59328 1 1 5 4:53 PM CDT DERMATOPATHOLOGY LABORATORY Embedded Images 5 4:53 PM CDT DERMATOPATHOLOGY LABORATORY Pathology/Cytology TISSUE SPECIMEN FROM SKIN / Unknown 10/20/2024 12:45 PM CDT 10/21/2024 6:43 AM CDT Miscellaneous samples (specimen) TISSUE SPECIMEN FROM SKIN / Unknown 10/20/2024 12:45 PM CDT 10/21/2024 6:43 AM CDT Kimberly Conley MD LAB - PATHOLOGY/CYTOLOGY ORD ERABLES Final Result DERMATOPATHOLOGY LABORATORY [facility] - Department of Dermatology [facility] [address] [place] [address], [address] [phone] documented in this encounter Visit Diagnoses Diagnosis Neoplasm of uncertain behavior of skin documented in this encounter Care Teams Iron Piler Relationship Specialty Start Date End Date Thomas Antonio MD [address] [place] [address] PCP - General Internal Medicine 12/06/23 documented as of this encounter
--- OUTSIDE RECORDS SUMMARY | 2024-11-03 11:46 | XMS_ITS | Clinical Summary ---
Author Organization [facility] [address] Address [facility] [place] [address] Care Team Providers Care Electrical Appliance Preparer Name Role Phone Thomas Atnonio MD Primary Care Provider [phone] Yoselyn Nicolas HOUSE VISITOR Unavailable [phone] Allergies Active Allergy Reactions Criticality Noted [...] mg total) by mouth early childhood education instructor before breakfast 3 Active cyanocobalamin (Vitamin B-12) [...] mg total) by mouth daily Active john [id number] op-man-bor 250-40-125 mg-mg-unit tablet Take by mouth [...] times a day as needed 5 Active multivitamin tabletIndicatio ns:Vitamin Deficiency Prevention Take 1 tablet by mouth Active lisinopriL (PRINIVIL,ZESTR IL) 2.5 mg tablet Take 1 tablet (2.5 mg total) by mouth daily 5 Active glucosamine sulfate 1,000 mg capsule Take by mouth Activ e omega-3 fatty acids-fish oil 300-1,000 mg capsule Take 2 capsules (2 g total) by mouth daily Active coenzyme Q10 100 mg capsule Take 1 capsule (100 mg total) by mouth daily Active doxycycline hyclate 100 mg capsule Take 1 tablet/capsule (100 mg total) by mouth 2 (two) times a day 5 Active tobramycin (TOBREX) 0.3 % ophthalmic solution INSTILL 1 DRP INTO LEFT EYE FOUR TIMES DAILY 5 Active Active Problems Problem Noted Date Diagnosed Date 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 She was scheduled to undergo sclerotherapy for this in [place] however was cancelled due to patient moving [...] prolonged, we can refer patient to the [facility] to see if patient can [...] 05/15/2022 Overview (12/19/2023): Updated per IMO upload [id number] Hypokalemia 05/15/2022 HLD (hyperlipidemia) 05/15/2022 Lower GI [...] and Farxiga Obstructive sleep apnea syndrome 11/04/2012 Resolved Problems [...] Encounters Date Type Department Care Team Description 10/13/2024 Telephone [facility] [address] [facility] [address]th [place] [address] [place] [address] Mallory Morelos CMA 09/25/2024 10:20 AM CDT Office Visit [facility] [address] [facility] 12th [place] [address] [place] [address] Neelam Morrison MD Cirrhosis of liver without ascites, unspecified hepatic cirrhosis type (HCC) (Primary Dx) 09/25/2024 7:34 AM CDT - 09/25/2024 11:59 PM CDT Hospital Encounter [facility] [address] [place] [address] Diverticulitis Discharge Disposition: Discharge to home or self care 09/25/2024 Results Follow-Up [facility] [address] [facility] 12th [place] [address] [place] [address] Neelam Morrison MD MRI Abdomen Liver W WO Contrast 09/03/2024 11:15 AM CDT Office Visit [facility] at [address] [place] [address] PoquosonHeena hannon NP Asymptomatic varicose veins of right lower extremity (Primary Dx); Essential hypertension; Type 2 diabetes mellitus without complication, without long-term current use of insulin (HCC) 09/03/2024 Orders Only [facility] at [address] [place] [address] Isai Long MD from Last 3 Months Medical History Medical History Date Comments Gout Hypertension Heart failure with preserved ejection fraction Paroxysmal A-fib (HCC) Family History Medical History [...] on file Legal Sex Female 5:37 AM HISTORICAL SITE GUIDE Gender Identity Not on file Sexual Orientation Not on file Obstetrics History Last Filed Vital Signs Vital Sign Reading Time Taken Comments Blood Pressure 100/59 09/25/2024 9:45 AM CDT Pulse 81 09/25/2024 9:45 AM CDT Temperature 36.3 C (97.4 F) 09/25/2024 9:45 AM CDT Respiratory Rate - - Oxygen Saturation 96% 09/03/2024 11:25 AM CDT Inhaled Oxygen Concentration - - Weight 90.8 kg (200 lb 3.2 oz) 09/25/2024 9:45 A M CDT Height 160 cm (5' 3) 09/25/2024 9:45 AM CDT Body Mass Index 35.46 09/25/2024 9:45 AM CDT Plan of Treatment Health Maintenance [...] Priority Date/Time Associated Diagnosis Comments MRI ABDOMEN LIVER W WO CONTRAST Schedule Routine, Read Routine (OP Routine) 09/25/2024 9:00 AM CDT Diverticulitis EGFR Routine 03/12/2024 12:30 PM HISTORICAL SITE GUIDE Liver mass Cirrhosis of liver without ascites, unspecified hepatic cirrhosis type (HCC) HEMOGLOBIN A1C Routine 12/19/2023 1:08 PM HISTORICAL SITE GUIDE Liver mass SERUM LIPID PANEL Routine 08/01/2013 9: 43 PM CDT from Last 3 Months or Most Recently Relevant to Health Maintenance Results * MRI Abdomen Liver W WO Contrast (09/25/2024 9:00 AM CDT) Anatomical Region Laterality Modality Body N/A Magnetic Resonan ce 09/25/2024 1:57 PM CDT Impressions 09/25/2024 1:57 PM CDT Unchanged arterially enhancing area in the periphery of hepatic segment 5/8, compatible with a perfusional abnormality (LR-2). No suspicious liver lesions. Dictated by: Pb Mendez MD The radiology attending physician has personally reviewed this study, and had reviewed and/or edited this written report and agrees with it. Electronically signed by: Joshua Steele M.D. Narrative 09/25/2024 1:57 PM CDT EXAMINATION: MAGNETIC RESONANCE IMAGING OF THE ABDOMEN WITH AND WITHOUT CONTRAST HISTORY: Liver lesion TECHNIQUE: Magnetic resonance imaging of the abdomen was performed prior to and following the uneventful administration of intravenous contrast. Protocol: Liver Contrast: Eovist (gadoxetate) 16 mL COMPARISON: MRI 03/12/2024 FINDINGS: Liver: Cirrhotic liver morphology. No significant steatosis or iron deposition. - Bile ducts: No biliary ductal dilatation. - Focal liver lesions: There is a geographic arterially enhancing area in hepatic segment 5/8 which is isointense to liver on all other sequences including the hepatobiliary phase. It measures approximately 29 mm, not substantially changed from the prior examination when remeasured in similar fashion. No additional focal liver lesions. - Vasculature: Patent portal and hepatic veins Gallbladder: Normal Pancreas: Normal Spleen: Normal Adrenals: Normal Kidneys: Normal. No hydronephrosis. Other Findings: Imaged small and large bowel are normal in caliber. There is colonic diverticulosis. The abdominal aorta is normal in caliber. No upper abdominal lymphadenopathy. No marrow replacing osseous lesion. Procedure Note Joshua Steele MD - 09/25/2024 EXAMINATION: MAGNETIC RESONANCE IMAGING OF THE ABDOMEN WITH AND WITHOUT CONTRAST HISTORY: Liver lesion TECHNIQUE: Magnetic resonance imaging of the abdomen was performed prior to and following the uneventful administration of intravenous contrast. Protocol: Liver Contrast: Eovist (gadoxetate) 16 mL COMPARISON: MRI 03/12/2024 FINDINGS: Liver: Cirrhotic liver morphology. No significant steatosis or iron deposition. - Bile ducts: No biliary ductal dilatation. - Focal liver lesions: There is a geographic arterially enhancing area in hepatic segment 5/8 which is isointense to liver on all other sequences including the hepatobiliary phase. It measures approximately 29 mm, not substantially changed from the prior examination when remeasured in similar fashion. No additional focal liver lesions. - Vasculature: Patent portal and hepatic veins Gallbladder: Normal Pancreas: Normal Spleen: Normal Adrenals: Normal Kidneys: Normal. No hydronephrosis. Other Findings: Imaged small and large bowel are normal in caliber. There is colonic diverticulosis. The abdominal aorta is normal in caliber. No upper abdominal lymphadenopathy. No marrow replacing osseous lesion. IMPRESSION: Unchanged arterially enhancing area in the periphery of hepatic segment 5/8, compatible with a perfusional abnormality (LR-2). No suspicious liver lesions. Dictated by: Pb Mendez MD The radiology attending physician has personally reviewed this study, and had reviewed and/or edited this written report and agrees with it. Electronically signed by: Joshua Steele M.D. us Neelam Morrison MD IMG MRI PROCEDURES F inal Result * (ABNORMAL) eGFR (03/12/2024 12:30 PM HISTORICAL SITE GUIDE) eGFR 40(L) >=60 mL/min/1. 73 m2 Comment: [...] reviewed 2020. Blood 03/12/2024 12:3 0 PM HISTORICAL SITE GUIDE 03/12/2024 12:50 PM HISTORICAL SITE GUIDE us Neelam Morrison MD LAB BLOOD ORDERABLES Final Result [facility] Department [place] [address] * (ABNORMAL) Hemoglobin A1c (12/19/2023 1:08 PM HISTORICAL SITE GUIDE) Hgb A1C 5.9(H) 4.0 - 5.6 % [...] a fasting glucose. Blood 12/19/2023 1:08 PM HISTORICAL SITE GUIDE 12/19/2023 1:33 PM HISTORICAL SITE GUIDE us Melissa Albright MD LAB BLOOD ORDERABLES Final Resul t [facility] Department [place] [address] * Serum lipid panel (08/01/2013 9:43 PM [...] Most Recently Relevant to Health Maintenance Insurance [facility] Advance Directives For more information, please contact: [phone] Documents on File Type Date Recorded Patient Rehabilitation Supervisor Expl anation ADVANCE DIRECTIVE 12/17/2023 7:15 PM Ayangie _Nadja_Living [email or web address].pdf Care Teams Electrical Appliance Preparer Relationship Specialty Start Date End Date Thomas Antonio MD [address] [facility] [address] [facility] [address] [place] [address] PCP - General Internal Medicine 01/11/24 Yoselyn Nicolas NP [address] [place] [address] Family Medicine 01/11/24
--- OUTSIDE RECORDS SUMMARY | 2024-11-03 11:46 | XMS_ITS | Clinical Summary ---
Author Organization [facility] Address [facility] [place] [address] Care Team Providers Care Spindle Repairer Name Role Phone Valentin Mitchell MD Primary Care Provider [phone] Vasquez Akins MD Unavailable Unavailable Allergies Active [...] Noted Date Diagnosed Date Atrial fibrillation, persistent ([facility] ) 07/04/2016 Long-term (current) use of anticoagulants 2016 Acute on chronic diastolic c ongestive heart failure ([facility]) 06/08/2016 SVT (supraventricular tachycardia) ([facility]) Overview (06/07/2016): age 14 Obstructive sleep apnea sergo letty with bilevel positive airway pressure (BiPAP) Obesity OA (osteoarthritis) Migraines HTN (hypertension) HLD (hyperlipidemia) Depression Bleeding on Coumadin Borderline diabetes Persistent atrial fibrillation ([facility]) CHF (congestive heart failure) ([facility] Atrial fibrillation ([facility]) Family History Medical History Relation [...] Comments Blood Pressure 108/68 02/23/2017 10:17 AM SECTION HAND HELPER Pulse 83 02/23/2017 10:17 AM SECTION HAND HELPER Temperature - - Respiratory Rate 18 12/26/2016 9:26 AM SECTION HAND HELPER Oxygen Saturation 97% 02/23/2017 10:17 AM SECTION HAND HELPER Inhaled Oxygen Concentration - - Weight 112.5 kg (248 lb) 02/23/2017 10:17 AM SECTION HAND HELPER Height 162.6 cm (5' 4) 02/23/2017 10:17 AM SECTION HAND HELPER Body Mass Index 42.57 02/23/2017 10:17 AM SECTION HAND HELPER Plan of Treatment Health Maintenance Due Date Last Done Comments DTaP, Tdap and Td Vaccines ( 1 - Tdap) 02/26/1960 Pneumococcal Vaccine: 50+ Ye ars (1 of 2 - PCV) 02/26/1960 Zoster Vaccines (1 of 2) 1991 Dexa Scan (General) 2006 RSV Immunization or 60+ Years (1 - 1-dose 75+ series) 02/26/2016 COVID-19 Vaccine (1 - 2023-2 5 season) 2024 Meningococcal B Vaccine Aged Out No l onger eligible based on patient's age to complete this topic Meningococcal Vaccine Aged Out No екатерина molina eligible based on patient's age to complete this topic RSV Immunizations Under 20 Months Aged Out No longer eligible based on patient's age to complete this topic Insurance Mgv OPEN ACCESS [facility] Care Teams Spindle Repairer Relationship Specialty Start Date End Date Valentin Mitchell MD [address] [place] [address] PCP - General INTERNAL MEDICINE 06/08/16 Vasquez Akins MD [address] [place] [address] [employer] Executive Director Electrophysiology 02/13/17
--- OUTSIDE RECORDS SUMMARY | 2024-11-03 11:46 | XMS_ITS | Clinical Summary ---
Author Organization [facility] Address [address] [place] [address] Care Team Providers Care Internal Communications Writer Name Role Phone Ugo Villa MD Primary Care Provider [phone] Source Comments PLEASE NOTE, if this patient [...] (adult) (1 - 1-dose 75+ series) 02/26/2016 Alcohol and Drug Screen 02/06/2024 [id number] (3 - 2024- season) 2024 021, 03/30/2020 Imm-Influenza (#1) 2024 11/06/2019 Insurance [employer] Care Teams Internal Communications Writer Relationship Specialty Start Date End Date Ugo Villa MD [address] [place] [address] [place] [address], [place] [address] PCP - General 07/29/23
--- OUTSIDE RECORDS SUMMARY | 2024-11-03 11:46 | XMS_ITS | Clinical Summary ---
Author Organization [facility] [employer] Address [address] [place] [address] Care Team Providers Care Electronic Tech Name Role Phone Thomas Antonio MD Primary Care Provider [phone] Source Comments [facility] [employer],non-owned Affiliates and Associated Physician Practices is amultiple site organization consisting of ambulatory clinics and hospital sitesin [place], [place], [place] and [place]. This disclosure is being madepursuant to the Care Everywhere program and may not contain all information available regarding this patient. Last updated 17.[facility] [employer] Allergies Active Allergy Reactions Criticality Noted Date Comments Meperidine Other 12/06/2023 unknown Morphine Nausea and/or Vomiting,Unknown High 06/08/2016 Other reaction(s): Nausea and vomitin - Other reaction(s): Nausea and vomitin - Penicillins Unknown High 07/16/2015 Other reaction(s): TONGUE SWELLS - Other reaction(s): TONGUE SWELLS - Rivaroxaban Swelling,Unknown Low 07/16/2015 - - Reaction: Other - - Sulfa Antibiotics Swelling,Unknown High 07/16/2015 Other [...] Active allopurinol (Zyloprim) 300 MG tablet Take 100 mg by mouth once daily Active Farxiga 10 [...] hundred) mg by mouth once daily Active ALPRAZolam (Xanax) 0.25 MG tablet Take by mouth 3 times daily as needed 03/27/2024 Active metOLazone (Zaroxolyn) 2.5 MG tablet Active DULoxetine (Cymbalta) 60 MG capsule Take 1 (one) capsule by mouth once daily 09/03/2024 Active Encounters Date Type Department Care Team Description 10/22/2024 10:15 AM CDT Office Visit [facility] Vascular Surgery [address] [place] [address], [address] [place] [address] Roverto Umaña MD Varicose veins of lower extremity without ulcer or inflammation, unspecified laterality (Primary Dx) 10/22/2024 Travel 10/20/2024 Lab Requisition [facility] - DermPath Lab [facility], [place] [address] Kimberly Conley MD Neoplasm of uncertain behavior of skin from Last 3 Months Social History Tobacco Use Types Packs/Day Years Used Date Smoking Tobacco: Never Smokeless Tobacco: Never Tobacco Cessation:Counseling Given: Not Answered PHQ-2 Answer Date Recorded Patient Health Questionnaire-2 Score 0 10/22/2024 Comments Unknown Sex and Gender Information Value Date Recorded Sex Assigned at Not on file Legal Sex Female 7:39 AM CDT Gender Identity Not on file Sexual Orientation Not on file Last Filed Vital Signs Vital Sign Reading Time Taken Comments Blood Pressure 105/68 10/22/2024 9:59 AM CDT Pulse 97 10/22/2024 9:59 AM CDT Temperature 36.9 C (98.4 F) 10/22/2024 9:59 AM CDT Respiratory Rate 16 10/22/2024 9:59 AM CDT Oxygen Saturation 96% 10/22/2024 9:59 AM CDT Inhaled Oxygen Concentration - - Weight 92.5 kg (204 lb) 10/22/2024 9:59 AM CDT Height 160 cm (5' 3) 10/22/2024 9:59 AM CDT Body Mass Index 36.14 10/22/2024 9:59 AM CDT Plan of Treatment Upcoming Encounters Date Type Department Care Team (Late st Contact Info) Description 12/05/2024 9:00 AM CDT Appointment [facility] V[facility]ULAR [address] [place] [address] Roverto Umaña MD [address] [address] Health Maintenance Due Date Last Done Comments BONE DENSITY TESTING 1941 DTAP/TDAP/TD VACCINES (1 - Tdap) 02/26/1960 PNEUMOCOCCAL VACCINE 50+ (1 of 1 - PCV) 1991 ZOSTER VACCINE (1 of 2) 1991 Respiratory Syncytial Virus (RSV) Vaccine Pt: or over 60 yrs (1 - 1-dose 75+ series) 02/26/2016 COVID-19 VACCINE ( - 2023-2 5 season) 2024 INFLUENZA VACCINE (#1) 2024 4, 11/06/2019, 11/20/2016 DEPRESSION SCREENING Completed 10/22/2024 HEPATITIS B VACCINE Aged Out No longe r eligible based on patient's age to complete this topic HIB VACCINE Aged Out No longer eligi ble based on patient's age to complete this topic HPV VACCINE Aged Out No longer eligi ble based on patient's age to complete this topic MENINGOCOCCAL (Group B) VACCINE SHARED DECISION-MAKING Aged Out No longer eligible based on patient's age to complete this topic MENINGOCOCCAL GROUPS A/C/Y/W VACCINE Aged Out No longer eligible b ased on patient's age to complete this topic Procedures Procedure Name Priority Date/Time Associated Diagnosis Comments DERMATOPATHOLOGY Routine 10/20/2024 12:4 5 PM CDT Neoplasm of uncertain behavior of skin from Last 3 Months Results * DERMATOPATHOLOGY (10/20/2024 12:45 PM CDT) Case Report Dermatopathology Report Case: [id number] Authorizing Provider: Kimberly Conley MD Collected: 10/20/2024 12:45 PM Ordering Location: [facility] - Received: 10/21/2024 06:43 AM DermPath Lab Pathologist: Kristie Berumen MD Specimens: A) - Skin, right nasal tip B) - Skin, right chest 4:53 PM CDT DERMATOPATHOLOGY LABORATORY Final Diagnosis Specimen A. SKIN, right nasal tip: HYPERPLASTIC (HYPERTROPHIC) ACTINIC KERATOSIS (L57.0) Specimen B. SKIN, right chest: VERRUCA VULGARIS, INFLAMED (B07.8) 4:53 PM CDT DERMATOPATHOLOGY LABORATORY at 1653 CDT Clinical History A. R/O BCC vs. Angiofibroma vs. AK B. R/O SCC vs. Verruca Vulgaris 4:53 PM CDT DERMATOPATHOLOGY LABORATORY Gross Description [...] shave biopsy measuring 6x5x4 mm. Jar 0. 4:53 PM CDT DERMATOPATHOLOGY LABORATORY Microscopic Description [...] characteristic determined by the Dermatopathology Laboratory at [facility], directed by Dr. Savanna Jensen. These tests need not be, and therefore are not, approved by the [place] Food and Drug Administration. The tests are used for clinical purposes. Billing Codes Specimen Charges Stain Charges 92301 71703 1 1 5 4:53 PM CDT DERMATOPATHOLOGY LABORATORY Embedded Images 5 4:53 PM CDT DERMATOPATHOLOGY LABORATORY Pathology/Cytology TISSUE SPECIMEN FROM SKIN / Unknown 10/20/2024 12:45 PM CDT 10/21/2024 6:43 AM CDT Miscellaneous samples (specimen) TISSUE SPECIMEN FROM SKIN / Unknown 10/20/2024 12:45 PM CDT 10/21/2024 6:43 AM CDT Kimberly Conley MD LAB - PATHOLOGY/CYTOLOGY ORD ERABLES Final Result DERMATOPATHOLOGY LABORATORY [facility] - Department of Dermatology [facility] Medicine [address] [place] [address], [address] [phone] from Last 3 Months Insurance [employer] Care Teams Electronic Tech Relationship Specialty Start Date End Date Thomas Antonio MD [address] [facility] [address] [place] [phone] PCP - General Internal Medicine 12/06/23
--- OUTSIDE RECORDS SUMMARY | 2024-11-03 11:46 | XMS_ITS | Encounter Summary ---
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 Not on file Not on file No t on file documented as of this encounter Plan of Treatment Not on file documented as of this encounter Visit Diagnoses Not on filedocumented in this encounter Care Teams Merchandising Manager Relationship Specialty Start Date End Date Valentin Mitchell MD [address] [place] [address] PCP - General INTERNAL MEDICINE 06/08/16 Vasquez Akins MD [facility] [place] [address] [employer] Social Worker Electrophysiology 02/13/17 documented as of this encounter
[2024-11-03 11:50] LABS: Anion Gap 5 mmol/L (4-12); Blood Urea Nitrogen 31 mg/dL (7-17); Calcium 9.5 mg/dL (8.4-10.2); Carbon Dioxide 34 mmol/L (22-30); Chloride 96 mmol/L (98-107); Estimated Glomerular Filt Rate 43; Glucose 85 mg/dL (65-110); Potassium 4.6 mmol/L (3.4-5.0); Sodium 135 mmol/L (137-145)
[2024-11-03 12:11] LABS: Estimated Glomerular Filt Rate 39
== END 2024-11-03 11:07 | disposition home or self-care (01) ==
PROVIDERS: PCP Internal Medicine; Visit Provider Internal Medicine
DX: R42 Dizziness and giddiness (principal); R06.02 Shortness of breath; Z79.899 Other long term (current) drug therapy; R30.0 Dysuria
CPT/HCPCS: 36415; 70496; 71046; 80048; 81001; 85025; 87086; 87186; Q9967

== ENCOUNTER 2024-11-20 08:30 | Observation (INO) | payer OTHER, SELFPAY ==
[2024-11-20] VITALS (19 sets, daily range): BP systolic 103–126; BP diastolic 61–72; PULSE 75–98; RESP 12–20; TEMP 36.4–36.8; O2SAT 96–100; BMI 35.9
--- NOTE | ~2024-11-20 | CT_ITS ---
CTA CHEST ABDOMEN PELVIS CLINICAL HISTORY: cp, back pain . COMPARISON: Chest x-ray today CT abdomen and pelvis 06/21/2024 CT chest 05/19/2024 TECHNIQUE: Helical CT performed from thoracic inlet to symphysis pubis IV contrast information not listed in PACS Coronal, sagittal reformats. Multiplanar MIPS CT images acquired with automatic exposure control for dose reduction DLP: 1329 mGy-cm FINDINGS: CHEST- Thoracic Aorta: No dissection. No aneurysm. Pulmonary arteries: Prominent right atrium and ventricle. Coronary artery calcifications. Lungs/Pleura: Clear. 2 small perifissural lymph nodes right lung. Unchanged 5 mm nodule left lower lobe. Heart: Unremarkable. Tracheobronchial tree: Patent. Nodes: No enlarged nodes. Left hilar calcification. Bones: No acute bony abnormality. Soft tissues: Unremarkable. ABDOMEN/PELVIS- CTA Abdominal aorta: No aneurysm or dissection. Common iliac arteries: Patent. External iliac arteries: Patent. Hypogastric arteries: Patent. CFAs: Patent. Proximal visualized SFAs and profundas: Patent. Celiac: Patent. SMA: Patent. MEKA: Patent. Renal arteries: Patent. NON-CTA Liver: Cirrhosis. Enlarged. Previously seen lesion along dome poorly seen on this exam. Enhancing ill-defined focus lateral segment 6 unchanged, with slight capsular retraction. Gallbladder: Unremarkable. Spleen: Unremarkable. Pancreas: Unremarkable. Adrenal glands: Unremarkable. Kidneys: Tiny bilateral probable cysts Right kidney- No hydronephrosis. No renal stones. Left kidney- No hydronephrosis. No renal stones. Distal esophagus/stomach: Unremarkable. Small bowel loops: Normal caliber and wall thickness. Colon: Diverticula. Normal caliber and wall thickness. Normal RLQ appendix. Nodes: No enlarged nodes. Peritoneum: No ascites. No free air. Urinary bladder: Unremarkable. Uterus: Removed. Adnexa: No masses. Bones: No acute bony abnormality. Soft tissues: Left upper thigh varicose veins likely superficial venous insufficiency. IMPRESSION: CHEST- 1. No acute cardiopulmonary findings. 2. Probable right heart strain. ABDOMEN/PELVIS- 1. No acute abdominopelvic findings. 2. Indeterminate liver lesion as before. Given background cirrhosis, worrisome for malignancy. Recommend MRI if able. Recommend AFP levels. Consider biopsy. Reviewed, dictated and finalized at location R.
--- NOTE | ~2024-11-20 | NM_ITS ---
EXAMINATION: NM ismael stress w perfusion DATE: 11/21/2024 12:00 INDICATION: Chest pain. TECHNIQUE: Rest images were obtained following intravenous administration of 10 mCi Tc99m tetrofosmin (Myoview). The patient was infused intravenously with Lexiscan (regadenoson). Then, 31.8 mCi Tc99m tetrofosmin (Myoview) was administered intravenously, and stress images were obtained. Data was recons tructed into short axis and horizontal and vertical long axis SPECT images. Gated SPECT images were also obtained. COMPARISON: None. FINDINGS: There is no definite reversible or fixed perfusion abnormality to suggest ischemia or infarction. There is no segmental wall motion abnormality. Left ventricular ejection fraction measures > 70%. IMPRESSION: 1. No definite ischemia or infarct. 2. Normal left ventricular ejection fraction measuring >70%. Reviewed, dictated and finalized at location E.
--- NOTE | ~2024-11-20 | XR_ITS ---
Examination: XR chest 2V Clinical History: chest pain Comparison: 11/03/2024 Technique: PA and Lateral Findings: Cardiomediastinal silhouette normal size and configuration. Lungs clear. No acute bony abnormality. IMPRESSION: 1. No acute cardiopulmonary findings. Reviewed, dictated and finalized at location R.
--- NOTE | 2024-11-20 08:31 | ECG_ITS ---
Test Date: 2024-11-20 08:35:33 Measurements Intervals [place] Rate: 89 P: 0 MT: 0 QRS: 60 QRSD: 93 T: 83 QT: 386 QTc: 470 Interpretive Statements ATRIAL FIBRILLATION INCOMPLETE RIGHT BUNDLE BRANCH BLOCK CANNOT R/O SEPTAL INFARCT, AGE INDETERMINATE BASELINE WANDER- I, III, AVR, AVL, AVF, V1-V6 ABNORMAL ECG Compared to ECG 11/11/2023 09:13:10 No significant changes Electronically Signed On 11-20-2024 08:41:08 CDT by Paul Samuel D.O.
--- OUTSIDE RECORDS SUMMARY | 2024-11-20 08:42 | XMS_ITS | Clinical Summary ---
Author Organization [facility] Address [address] [facility] [place] [address] Care Team Providers Care Change Of Address Clerk Name Role Phone Thomas Antonio MD Primary Care Provider [phone] Source Comments [facility],non-owned Affiliates and Associated Physician Practices is amultiple site organization consisting of ambulatory clinics and hospital sitesin [place], [place], [place] and [place]. This disclosure is being madepursuant to the Care Everywhere program and may not contain all information available regarding this patient. Last updated 17.[facility] Allergies Active Allergy Reactions Criticality Noted Date [...] Office Visit [facility] Vascular Surgery [address] [place] [address], [address] [place] [address] Roverto Umaña MD Varicose veins of lower extremity without ulcer or inflammation, unspecified laterality (Primary Dx) 10/22/2024 Travel 10/20/2024 Lab Requisition [facility] - DermPath Lab [facility] [facility], [place] [address] Kimberly Conley MD Neoplasm of uncertain behavior [...] Care Team (Late st Contact Info) Description 12/09/2024 10:00 AM BUCKLE SORTER Appointment [facility] VASCULAR [address] [place] [address] Roverto Umaña MD [address] [address] Health Maintenance Due Date Last [...] PM CDT) Case Report Dermatopathology Report Case: [id number] Authorizing Provider: Kimberly Conley MD Collected: 10/20/2024 12:45 PM Ordering Location: [facility] - Received: 10/21/2024 06:43 AM [...] characteristic determined by the Dermatopathology Laboratory at [facility], directed by Dr. Savanna Jensen. These tests need not be, and therefore are not, approved by the [place] Food and Drug Administration. The tests are used for clinical purposes. Billing Codes Specimen Charges Stain Charges 28717 [id number] 1 1 5 4:53 PM CDT DERMATOPATHOLOGY LABORATORY Embedded Images 5 4:53 PM CDT DERMATOPATHOLOGY LABORATORY Pathology/Cytology TISSUE SPECIMEN FROM SKIN / Unknown 10/20/2024 12:45 PM CDT 10/21/2024 6:43 AM CDT Miscellaneous samples (specimen) TISSUE SPECIMEN FROM SKIN / Unknown 10/20/2024 12:45 PM CDT 10/21/2024 6:43 AM CDT Kimberly Conley MD LAB - PATHOLOGY/CYTOLOGY ORD ERABLES Final Result DERMATOPATHOLOGY LABORATORY [facility] - Department of Dermatology [facility] Medicine [address] [place] [address], [address] [phone] from Last 3 Months Insurance [employer] Care Teams Change Of Address Clerk Relationship Specialty Start Date End Date Thomas Antonio MD [address] [facility] [address] [facility] [address] [place] [address] PCP - General Internal Medicine 12/06/23
--- OUTSIDE RECORDS SUMMARY | 2024-11-20 08:42 | XMS_ITS | Clinical Summary ---
Author Organization [facility] Address [address] [place] [address] Care Team Providers Care Bottle Dealer Name Role Phone Ugo Villa MD Primary Care Provider [phone] Source Comments PLEASE NOTE, if this patient [...] series) 02/26/2016 Alcohol and Drug Screen 02/06/2024 Ssm-[id number]-04 (3 - 2024- season) 2024 021, 03/30/2020 Imm-Influenza (#1) 2024 11/06/2019 Insurance [employer] Care Teams Bottle Dealer Relationship Specialty Start Date End Date Ugo Villa MD [address] [place] [address] [place] [address], [place] [address] PCP - General 07/29/23
--- OUTSIDE RECORDS SUMMARY | 2024-11-20 08:42 | XMS_ITS | Encounter Summary ---
Author Organization [facility] Address [address] [facility] [place] [address] Care Team Providers Care School Janitor Name Role Phone Thomas Antonio MD Primary Care Provider [phone] Encounter Details Date Type Department Care Team (Late st Contact Info) Description 10/20/2024 Lab Requisition [facility] - DermPath Lab [address] [facility], [place] [address] Kimberly Conley MD [address] [facility] 3 [place] [address] Neoplasm of uncertain behavior of skin Social [...] st Contact Info) Description 12/09/2024 10:00 AM 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 FOLD 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 Appointment [facility] VASCULAR US [address] [place] [address] Roverto Umaña MD [address] [facility] [address] [place] [address] documented as of this encounter Procedures Procedure Name Priority Date/Time Associated Diagnosis Comments DERMATOPATHOLOGY Routine 10/20/2024 12:4 5 PM CDT Neoplasm of uncertain behavior of skin documented in this encounter Results * DERMATOPATHOLOGY (10/20/2024 12:45 PM CDT) Case Report Dermatopathology Report Case: [id number] Authorizing Provider: Kimberly Conley MD Collected: 10/20/2024 12:45 PM Ordering Location: [facility] - Received: 10/21/2024 06:43 [...] characteristic determined by the Dermatopathology Laboratory at [facility], directed by Dr. Savanna Jensen. These tests need not be, and therefore are not, approved by the [place] Food and Drug Administration. The tests are used for clinical purposes. Billing Codes Specimen Charges Stain Charges [id number] 1 1 5 4:53 PM CDT DERMATOPATHOLOGY LABORATORY Embedded Images 5 4:53 PM CDT DERMATOPATHOLOGY LABORATORY Pathology/Cytology TISSUE SPECIMEN FROM SKIN / Unknown 10/20/2024 12:45 PM CDT 10/21/2024 6:43 AM CDT Miscellaneous samples (specimen) TISSUE SPECIMEN FROM SKIN / Unknown 10/20/2024 12:45 PM CDT 10/21/2024 6:43 AM CDT Kimberly Conley MD LAB - PATHOLOGY/CYTOLOGY ORD ERABLES Final Result DERMATOPATHOLOGY LABORATORY [facility] - Department of Dermatology [facility] [address] [place] [address], [address] [phone] documented in this encounter Visit Diagnoses Diagnosis Neoplasm of uncertain behavior of skin documented in this encounter Care Teams School Janitor Relationship Specialty Start Date End Date Thomas Antonio MD [address] [place] [address] PCP - General Internal Medicine 12/06/23 documented as of this encounter
--- OUTSIDE RECORDS SUMMARY | 2024-11-20 08:42 | XMS_ITS ---
Author Organization [facility] [address] Address [address] [place] [address] Care Team Providers Care Wig Sales Consultant Name Role Phone Thomas Antonio MD Primary Care Provider [phone] Yoselyn Nicolas POLE INSPECTOR Unavailable [phone] Active Problems Problem Noted Date Diagnosed Date Symptomatic varicose veins of right lower extrem ity 09/05/2024 Assessment & Plan (09/05/2024 10:51 AM CDT): Impression: History of stripping to bilateral lower extremities performed in the 80s in [place]. 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 She was scheduled to undergo sclerotherapy for this in [place] however was cancelled due to patient moving [...] prolonged, we can refer patient to the [facility] to see if patient can [...] 05/15/2022 Overview (12/19/2023): Updated per IMO upload [id number] Hypokalemia 05/15/2022 HLD (hyperlipidemia) 05/15/2022 Lower GI [...]
--- OUTSIDE RECORDS SUMMARY | 2024-11-20 08:42 | XMS_ITS | Clinical Summary ---
Author Organization [facility] [address] Address [facility] [place] [address] Care Team Providers Care Dietetics Director Name Role Phone Thomas Antonio MD Primary Care Provider [phone] Yoselyn Nicolas SHEET METAL WORKER SUPERVISOR Unavailable [phone] Allergies Active Allergy Reactions Criticality Noted [...] 1 tablet (10 mg total) by mouth campaign fundraiser before breakfast 3 Active cyanocobalamin (Vitamin B-12) [...] mg total) by mouth daily Active john [id number] op-man-bor 250-40-125 mg-mg-unit tablet Take by mouth [...] lower extremities performed in the s in [place]. 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 She was scheduled to undergo sclerotherapy for this in [place] however was cancelled due to patient moving [...] prolonged, we can refer patient to the [place] [facility] to see if patient can [...] 05/15/2022 Overview (12/19/2023): Updated per IMO upload [id number] Hypokalemia 05/15/2022 HLD (hyperlipidemia) 05/15/2022 Lower GI [...] Type Department Care Team Description 10/13/2024 Telephone [facility] Medicine Gastroenterology [address] [facility] 12th [place] [address] [place] [address] Mallory Morelos CMA 09/25/2024 10:20 AM CDT Office Visit [facility] Medicine Gastroenterology [address] [facility] 12th [place] [address] [place] [address] Neelam Morrison MD Cirrhosis of liver without ascites, unspecified hepatic cirrhosis type (HCC) (Primary Dx) 09/25/2024 7:34 AM CDT - 09/25/2024 11:59 PM CDT Hospital Encounter [facility] [address] [place] [address] Diverticulitis Discharge Disposition: Discharge to home or self care 09/25/2024 Results Follow-Up [facility] Medicine Gastroenterology [address] [facility] 12th [place] [address] [place] [address] Neelam Morrison MD MRI Abdomen Liver W WO Contrast 09/03/2024 11:15 AM CDT Office Visit [facility] Vascular at [address] [place] [address] ChantalHeena hannon NP Asymptomatic varicose veins of right lower extremity (Primary Dx); Essential hypertension; Type 2 diabetes mellitus without complication, without long-term current use of insulin (HCC) 09/03/2024 Orders Only [facility] V[facility] at [address] [place] [address] Isai Long MD from Last [...] on file Legal Sex Female 5:37 AM LEARNING AND DEVELOPMENT ASSISTANT Gender Identity Not on file Sexual Orientation [...] CDT Diverticulitis EGFR Routine 03/12/2024 12:30 PM LEARNING AND DEVELOPMENT ASSISTANT Liver mass Cirrhosis of liver without ascites, unspecified hepatic cirrhosis type (HCC) HEMOGLOBIN A1C Routine 12/19/2023 1:08 PM LEARNING AND DEVELOPMENT ASSISTANT Liver mass SERUM LIPID PANEL Routine 08/01/2013 [...] it. Electronically signed by: Joshua Steele M.D. Neelam Morrison MD IMG MRI PROCEDURES F inal Result * (ABNORMAL) eGFR (03/12/2024 12:30 PM LEARNING AND DEVELOPMENT ASSISTANT) eGFR 40(L) >=60 mL/min/1. 73 m2 Comment: [...] reviewed 2020. Blood 03/12/2024 12:3 0 PM LEARNING AND DEVELOPMENT ASSISTANT 03/12/2024 12:50 PM LEARNING AND DEVELOPMENT ASSISTANT us Neelam Morrison MD LAB BLOOD ORDERABLES Final Result [facility] [address] [facility] Department [place] [address] * (ABNORMAL) Hemoglobin A1c (12/19/2023 1:08 PM LEARNING AND DEVELOPMENT ASSISTANT) Hgb A1C 5.9(H) 4.0 - 5.6 % [...] a fasting glucose. Blood 12/19/2023 1:08 PM LEARNING AND DEVELOPMENT ASSISTANT 12/19/2023 1:33 PM LEARNING AND DEVELOPMENT ASSISTANT us Melissa Albright MD LAB BLOOD ORDERABLES Final Resul t [facility] Department [place] [address] * Serum lipid panel (08/01/2013 9:43 PM [...] Most Recently Relevant to Health Maintenance Insurance [facility] Advance Directives For more information, please contact: [phone] Documents on File Type Date Recorded Patient Brood Station Manager Expl anation ADVANCE DIRECTIVE 12/17/2023 7:15 PM Ayangie _[email or web address] Care Teams Dietetics Director Relationship Specialty Start Date End Date Thomas Antonio MD PCP - General Internal Medicine 01/11/24 Yoselyn Nicolas NP [address] [place] [address] Family Medicine 01/11/24
[2024-11-20] MEDS: ASPIRIN 81 MG CHEWABLE TABLET 324 MG PO (08:56)
[2024-11-20 09:04] LABS: Hematocrit 41.4 % (37.0-47.0); Hemoglobin 13.5 g/dL (12.0-15.0); Immature Granulocyte Percent A 0.2 % (0-0.5); Lymphocytes Absolute Auto 0.85 K/mm3 (0.9-3.2); Mean Corpuscular HGB Conc 32.6 g/dl (32-36); Mean Corpuscular Hemoglobin 30.3 pg (26-34); Mean Corpuscular Volume 92.8 fl (80-100); Nucleated Red Blood Cells Absolute Auto 0.000 K/mm3 (0.0-0.012); Nucleated Red Blood Cells Perc 0.0 % (0.0-0.2); Platelet Count Result 188 k/mm3 (150-375); Red Blood Count 4.46 M/mm3 (4.2-5.4); White Blood Count 5.5 K/mm3 (4.5-10.0)
[2024-11-20 09:15] LABS: Alanine Aminotransferase 19 U/L (6-35); Albumin Level 4.4 g/dL (3.5-5.1); Alkaline Phosphatase 102 U/L (38-126); Anion Gap 9 mmol/L (4-12); Aspartate Amino Transferase 25 U/L (14-36); Bilirubin,Total 0.6 mg/dL (0.2-1.3); Blood Urea Nitrogen 32 mg/dL (7-17); Calcium 9.3 mg/dL (8.4-10.2); Carbon Dioxide 30 mmol/L (22-30); Chloride 98 mmol/L (98-107); Estimated CRCL calculation 36 ml/min; Estimated Glomerular Filt Rate 45; Glucose 104 mg/dL (65-110); INR 2.4; Lipase 135 U/L (23-300); Potassium 3.9 mmol/L (3.4-5.0); Prothrombin Time 25.1 Seconds (11.1-14.7); Sodium 137 mmol/L (137-145); Total Protein 7.5 g/dL (6.3-8.2)
[2024-11-20 09:17] LABS: Partial Thromboplastin Time 38.3 Seconds (22.3-36.8)
[2024-11-20 09:27] LABS: Troponin I < 0.012 ng/mL (0.000-0.034)
--- NOTE | 2024-11-20 09:49 | ED.CHESTPAIN ---
HPI - Chest Pain General Chief Complaint: Chest Pain Stated Complaint: chest pain Time Seen by Provider: 11/20/24 09:12 Source: patient Mode of arrival: ambulatory Limitations: no limitations History of Present Illness HPI narrative: This is a 84 year old female that presents to the ER for chest pain. Ongoing since this morning. Reports radiation to the back. Reports the pain feels like pressure. The most intense pain lasted for about 20 minutes. Still reports mild discomfort. Reports mild shortness of breath. Denies abdominal pain, vomiting. Related Data Home Medications ?Medication ?Instructions ?Recorded ?Confirmed ?Last Taken ?Type CoQ10 100 mg PO HS 11/05/23 11/20/24 11/18/24 21:00 History 100 mg citracal See Rx Instructions .Route .COMPLEX 11/05/23 11/20/24 11/18/24 19:00 History 1 tablet colchicine 0.6 mg tablet 0.6 mg PO DAILY PRN gout 11/05/23 11/20/24 12/09/23 History lactobacillus combination no.9 4 4,000 mmu cells PO HS 11/05/23 11/20/24 11/19/24 19:22 History billion cell capsule (Adult 50 4,000 mmu Plus Probiotic) cells magnesium 500 mg PO BID 11/05/23 11/20/24 11/18/24 21:00 History 500 mg glucosamine sulfate 1,000 mg 1,000 mg PO BID 11/09/23 11/20/24 11/18/24 21:00 History capsule 1,000 mg Brightwaters 3 Fish Oil 1 cap PO DAILY 12/05/23 11/20/24 11/18/24 08:00 History 1 capsule multivit with minerals-iron 18 1 tablet PO DAILY 12/05/23 11/20/24 11/18/24 08:00 History mg-folic ac 400 mcg-vit K 25 mcg 1 tablet tablet (Adults Multivitamin) levomefolate Ca 3 mg-B6 35 1 cap PO BID 11/03/24 11/20/24 11/19/24 19:00 History mg-meB12 2 mg-algal oil 90.314 mg 1 cap capsule (Metanx (algal oil)) Allergies Allergy/AdvReac Type Severity Reaction Status Date / Time Penicillins Allergy Severe Swelling Verified 11/20/24 14:37 of Lip/Tongue/Throat morphine Allergy Intermediate Migraine Verified 11/20/24 14:37 Sulfa (Sulfonamide Allergy Intermediate Rash Verified 11/20/24 14:37 Antibiotics) meperidine (From Demerol) AdvReac Intermediate Gastrointestinal Verified 11/20/24 14:37 Upset Review of Systems Review of Systems: All systems reviewed & are unremarkable except as noted in HPI and below PMFSH Past Medical History Medical History Pulmonary hypertension Dizziness CKD (chronic kidney disease) Bruxism Hepatomegaly Grief Blepharitis Left-sided face pain Breast cancer, left s/p tamoxifen, radiation, and lumpectomy Encounter for routine adult health examination without abnormal findings Non-healing skin lesion of nose UTI (urinary tract infection) Follow up Frozen shoulder A-fib BMI 35.0-35.9,adult Hospital discharge follow-up Diabetes Diverticulitis HTN (hypertension) CHF (congestive heart failure) Gout Hyperlipidemia Paroxysmal A-fib BMI 37.0-37.9, adult Colon cancer screening Dry eyes Insomnia KRIS treated with BiPAP On terminal worker drug therapy Hx of skin malignancy Surgical History Surgical History History of lumpectomy of left breast Hx of breast biopsy Family History Family History (Updated 11/20/24 @ 14:36 by Colette Perdomo RN) Sibling Skin cancer Sibling Diabetes mellitus Social History Social History Smoking status: Never smoker Alcohol intake: never Substance use: never Substance use type: does not use Do You Feel Safe in your Home?: Yes Lack of Transportation: No Lack of Food: Never True Current Housing: I Have Housing Concerned About Future Housing: No Difficulty Paying Gas/Electric Bills: No Difficulty Paying for Meds: No Currently Unemployed: No Education: Master's Degree or Higher Difficulty w/ Childcare or Family Care: No Living arrangements: with family Spiritual care concerns: No Exam Narrative: GENERAL: Uncomfortable, well-nourished, and in no acute distress. HEAD: Normocephalic, atraumatic. EYES: EOMI. ENT: Nares clear, no rhinorrhea or epistaxis. Mucous membranes moist. Oropharynx without tonsillar hypertrophy exudate or other lesions. NECK: Supple. No JVD CHEST: Clear to auscultation. No respiratory distress. No wheezes rales or rhonchi HEART: Regular rate and rhythm. No murmur heard. Normal peripheral pulses. ABDOMEN: Soft, nontender, nondistended, normal active bowel sounds. EXTREMITIES: Normal range of motion. No edema. SKIN: Warm, dry, no rash. NEURO: No focal deficits. Alert and oriented x3. PSYCH: Normal mood and affect Course Consultations Consultation #1: spoke with hospitalist about patient and workup who accepts admission Date: 11/20/24 Vital Signs Vital signs: Vital Signs Temperature 97.5 F L 11/20/24 08:47 Pulse Rate 98 11/20/24 08:47 Respiratory Rate 20 11/20/24 08:47 Blood Pressure 112/66 11/20/24 08:47 Pulse Oximetry 100 11/20/24 08:47 Oxygen Delivery Room Air 11/20/24 08:47 Temperature 98.7 F 11/21/24 12:00 Pulse Rate 113 H 11/21/24 13:29 Respiratory Rate 12 11/21/24 12:00 Blood Pressure 126/68 11/21/24 12:00 Pulse Oximetry 97 11/21/24 12:00 Oxygen Delivery Room Air 11/21/24 12:00 MDM - Chest Pain MDM Narrative Medical decision making narrative: This is a 84-year-old female that presents to the emergency department for chest pain. Her vitals are stable. Cbc and metabolic panel without concerning findings. EKG without acute ST changes. Baseline troponin is negative. CTA chest/abdomen/pelvis obtained for further evaluation. No acute cardiopulmonary abnormality or intra abdominal findings. Showing known liver lesion for which she is currently following up with a GI specialist. Patient's heart score is a 6. Will be admitted for further observation/evaluation Differential Diagnosis Differential diagnosis: Likely stable angina, unstable angina pectoris, atypical chest pain, st elevation myocardial infarction, costochondritis, biliary colic and other (NSTEMI) Lab Data Attestation: I reviewed the patient's lab results. 11/21/24 03:57 11/21/24 03:57 Labs: Lab Results 11/20/24 Range/Units 08:55 WBC 5.5 (4.5-10.0) K/mm3 RBC 4.46 (4.2-5.4) M/mm3 Hgb 13.5 (12.0-15.0) g/dL Hct 41.4 (37.0-47.0) % MCV 92.8 (80-100) fl MCH 30.3 (26-34) pg MCHC 32.6 (32-36) g/dl RDW 13.8 (11.5-14.5) % Plt Count 188 (150-375) k/mm3 MPV 10.7 H (7.4-10.4) fl Immature Gran % (Auto) 0.2 (0-0.5) % Neut % (Auto) 66.8 (45.5-73.1) % Lymph % (Auto) 15.3 L (18.3-44.2) % Wise % (Auto) 11.7 H (2.6-8.5) % Eos % (Auto) 4.9 H (0-4.4) % Baso % (Auto) 1.1 (0.2-1.2) % Lymph # (Auto) 0.85 L (0.9-3.2) K/mm3 Wise # (Auto) 0.7 H (0.1-0.6) K/mm3 Eos # (Auto) 0.3 (0-0.3) K/mm3 Baso # (Auto) 0.1 (0.0-0.1) K/mm3 Abs Immat Gran (auto) 0.01 (0.00-0.031) K/mm3 Absolute Neuts (auto) 3.7 (1.3-6.7) K/mm3 Absolute Nucleated RBC 0.000 (0.0-0.012) K/mm3 Nucleated RBC % 0.0 (0.0-0.2) % PT 25.1 H (11.1-14.7) Seconds INR 2.4 APTT 38.3 H (22.3-36.8) Seconds Sodium 137 (137-145) mmol/L Potassium 3.9 (3.4-5.0) mmol/L Chloride 98 (98-107) mmol/L Carbon Dioxide 30 (22-30) mmol/L Anion Gap 9 (4-12) mmol/L BUN 32 H (7-17) mg/dL Creatinine 1.15 H (0.7-1.0) mg/dL Estim Creat Clear Calc 36 ml/min Estimated GFR 45 L (59 - ) Glucose 104 (65-110) mg/dL Calcium 9.3 (8.4-10.2) mg/dL Total Bilirubin 0.6 (0.2-1.3) mg/dL AST 25 (14-36) U/L ALT 19 (6-35) U/L Alkaline Phosphatase 102 (38-126) U/L Troponin I < 0.012 (0.000-0.034) ng/mL NT-Pro-B Natriuret Pep 1480 H (19.9-100) pg/mL Total Protein 7.5 (6.3-8.2) g/dL Albumin 4.4 (3.5-5.1) g/dL Lipase 135 (23-300) U/L Imaging Data Radiologist's impression: ITS Impressions Chest X-Ray 11/20/24 09:08 IMPRESSION: 1. No acute cardiopulmonary findings. Chest/Abdomen/Pelvis CTA 11/20/24 10:11 IMPRESSION: CHEST- 1. No acute cardiopulmonary findings. 2. Probable right heart strain. ABDOMEN/PELVIS- 1. No acute abdominopelvic findings. 2. Indeterminate liver lesion as before. Given background cirrhosis, worrisome for malignancy. Recommend MRI if able. Recommend AFP levels. Consider biopsy. Critical Care Time Critical Care Time Critical Care Time: No Discharge Plan Discharge Clinical Impression: Chest pain Qualifiers: Chest pain type: unspecified Qualified Code(s): R07.9 - Chest pain, unspecified Patient Disposition: Home Condition: Stable Quality HEART score for chest pain patients History: moderately suspicious ECG: non specific repolarization disturbance/LBTB/PM Age: > or = to 65 years Risk factors: > or = to 3 risk factors of atherosclerotic disease Troponin: < or = to 1x normal limit Heart score: 6
[2024-11-20] MEDS: PANTOPRAZOLE SODIUM IV 40 MG VIAL IV PUSH (10:13)
--- OUTSIDE RECORDS SUMMARY | 2024-11-20 10:16 | XMS_ITS ---
Author Organization [facility] [address] [place] [address] Care Team Providers Care Horseback Excavator Name Role Phone Thomas Antonio MD Primary Care Provider [phone] Yoselyn Nicolas MANUFACTURING DEVELOPMENT ENGINEER Unavailable [phone] Active Problems Problem Noted Date Diagnosed Date Symptomatic varicose veins of right lower extrem ity 09/05/2024 Assessment & Plan (09/05/2024 10:51 AM CDT): Impression: History of stripping to bilateral lower extremities performed in the 80s in [place]. 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 She was scheduled to undergo sclerotherapy for this in [place] however was cancelled due to patient moving [...] prolonged, we can refer patient to the [facility] to see if patient can [...] 05/15/2022 Overview (12/19/2023): Updated per IMO upload [id number] Hypokalemia 05/15/2022 HLD (hyperlipidemia) 05/15/2022 Lower GI [...]
--- OUTSIDE RECORDS SUMMARY | 2024-11-20 10:16 | XMS_ITS | Clinical Summary ---
Author Organization [facility] Address [address] [facility] [place] [address] Care Team Providers Care Boiling Off Winder Name Role Phone Thomas Antonio MD Primary Care Provider [phone] Source Comments [facility],non-owned Affiliates and Associated Physician Practices is amultiple site organization consisting of ambulatory clinics and hospital sitesin [place], [place], [place] and [place]. This disclosure is being madepursuant to the Care Everywhere program and may not contain all information available regarding this patient. 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, unspecified laterality (Primary Dx) 10/22/2024 Travel 10/20/2024 Lab Requisition [facility] - DermPath Lab [facility] [facility], [place] [address] Kimberly Conley MD Neoplasm of uncertain behavior [...] st Contact Info) Description 12/09/2024 10: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 Savanna Jensen. These tests need not be, and therefore are not, approved by the [place] Food and Drug Administration. The tests are used for clinical purposes. Billing Codes Specimen Charges Stain Charges 94183 37094 1 1 5 4:53 PM CDT DERMATOPATHOLOGY LABORATORY Embedded Images 5 4:53 PM CDT DERMATOPATHOLOGY LABORATORY Pathology/Cytology TISSUE SPECIMEN FROM SKIN / Unknown 10/20/2024 12:45 PM CDT 10/21/2024 6:43 AM CDT Miscellaneous samples (specimen) TISSUE SPECIMEN FROM SKIN / Unknown 10/20/2024 12:45 PM CDT 10/21/2024 6:43 AM CDT Kimberly Conley MD LAB - PATHOLOGY/CYTOLOGY ORD ERABLES Final Result DERMATOPATHOLOGY LABORATORY [facility] - Department of Dermatology [facility] Medicine [address] [place] [address], [address] [phone] from Last 3 Months Insurance [employer] Care Teams Boiling Off Winder Relationship Specialty Start Date End Date Thomas Antonio MD [address] [facility] [address] [facility] [address] [place] [address] PCP - General Internal Medicine 12/06/23
--- OUTSIDE RECORDS SUMMARY | 2024-11-20 10:16 | XMS_ITS | Encounter Summary ---
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
--- OUTSIDE RECORDS SUMMARY | 2024-11-20 10:16 | XMS_ITS | Encounter Summary ---
Author Organization [facility] Address [address] [facility] [place] [address] Care Team Providers Care Type Inspector Name Role Phone Thomas Antonio MD Primary Care Provider [phone] Encounter Details Date Type Department Care Team (Late st Contact Info) Description 10/20/2024 Lab Requisition [facility] - DermPath Lab [address] [facility], [place] [address] Kimberly Conley MD [address] [facility] [address] [place] [address] Neoplasm of uncertain behavior of skin Social [...] st Contact Info) Description 12/09/2024 10:00 AM 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 LACTATION EDUCATOR Appointment [facility] [address] [place] [address] Roverto Umaña MD [address] [facility] [address] [place] [address] documented as of this encounter Procedures Procedure Name Priority Date/Time Associated Diagnosis Comments DERMATOPATHOLOGY Routine 10/20/2024 12:4 5 PM CDT Neoplasm of uncertain behavior of skin documented in this encounter Results * DERMATOPATHOLOGY (10/20/2024 12:45 PM CDT) Case Report Dermatopathology Report Case: [id number] Authorizing Provider: Kimberly Conley MD Collected: 10/20/2024 12:45 PM Ordering Location: [facility] - Received: 10/21/2024 06:43 [...] characteristic determined by the Dermatopathology Laboratory at [facility], directed by Dr. Savanna Jensen. These tests need not be, and therefore are not, approved by the [place] Food and Drug Administration. The tests are used for clinical purposes. Billing Codes Specimen Charges Stain Charges [id number] 1 1 5 4:53 PM CDT DERMATOPATHOLOGY LABORATORY Embedded Images 5 4:53 PM CDT DERMATOPATHOLOGY LABORATORY Pathology/Cytology TISSUE SPECIMEN FROM SKIN / Unknown 10/20/2024 12:45 PM CDT 10/21/2024 6:43 AM CDT Miscellaneous samples (specimen) TISSUE SPECIMEN FROM SKIN / Unknown 10/20/2024 12:45 PM CDT 10/21/2024 6:43 AM CDT Kimberly Conley MD LAB - PATHOLOGY/CYTOLOGY ORD ERABLES Final Result DERMATOPATHOLOGY LABORATORY [facility] - Department of Dermatology [facility] [address] [place] [address], [address] [phone] documented in this encounter Visit Diagnoses Diagnosis Neoplasm of uncertain behavior of skin documented in this encounter Care Teams Type Inspector Relationship Specialty Start Date End Date Thomas Antonio MD [address] [place] [address] PCP - General Internal Medicine 12/06/23 documented as of this encounter
--- OUTSIDE RECORDS SUMMARY | 2024-11-20 10:16 | XMS_ITS | Clinical Summary ---
Author Organization [facility] [address] [facility] [place] [address] Care Team Providers Care Cell Preparer Name Role Phone Thomas Antonio MD Primary Care Provider [phone] Yoselyn Nicolas SOFTWARE ENGINEER KERNEL Unavailable [phone] Allergies Active Allergy Reactions Criticality Noted [...] 1 tablet (10 mg total) by mouth licensed mortician before breakfast 3 Active cyanocobalamin (Vitamin B-12) [...] mg total) by mouth daily Active john [id number] op-man-bor 250-40-125 mg-mg-unit tablet Take by mouth [...] lower extremities performed in the s in [place]. 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 She was scheduled to undergo sclerotherapy for this in [place] however was cancelled due to patient moving [...] prolonged, we can refer patient to the [place] [facility] to see if patient can [...] 05/15/2022 Overview (12/19/2023): Updated per IMO upload [id number] Hypokalemia 05/15/2022 HLD (hyperlipidemia) 05/15/2022 Lower GI [...] Type Department Care Team Description 10/13/2024 Telephone [facility] Medicine Gastroenterology [address] [facility] Medicine 12th [place] [address] [place] [address] Mallory Morelos CMA 09/25/2024 10:20 AM CDT Office Visit [facility] Medicine Gastroenterology [address] [facility] 12th [place] [address] [place] [address] Neelam Morrison MD Cirrhosis of liver without ascites, unspecified hepatic cirrhosis type (HCC) (Primary Dx) 09/25/2024 7:34 AM CDT - 09/25/2024 11:59 PM CDT Hospital Encounter [facility] [address] [place] [address] Diverticulitis Discharge Disposition: Discharge to home or self care 09/25/2024 Results Follow-Up [facility] Medicine Gastroenterology [address] [facility] Medicine 12th [place] [address] [place] [address] Neelam Morrison MD MRI Abdomen Liver W WO Contrast 09/03/2024 11:15 AM CDT Office Visit [facility] at [address] [place] [address] ChantalHeena hannon NP Asymptomatic varicose veins of right lower extremity (Primary Dx); Essential hypertension; Type 2 diabetes mellitus without complication, without long-term current use of insulin (HCC) 09/03/2024 Orders Only [facility] at [address] [place] [address] Isai Long MD from Last [...] file Legal Sex Female 5:37 AM MAINTENANCE MECHANIC TELEPHONE Gender Identity Not on file Sexual Orientation [...] CDT Diverticulitis EGFR Routine 03/12/2024 12:30 PM MAINTENANCE MECHANIC TELEPHONE Liver mass Cirrhosis of liver without ascites, unspecified hepatic cirrhosis type (HCC) HEMOGLOBIN A1C Routine 12/19/2023 1:08 PM MAINTENANCE MECHANIC TELEPHONE Liver mass SERUM LIPID PANEL Routine 08/01/2013 [...] * (ABNORMAL) eGFR (03/12/2024 12:30 PM MAINTENANCE MECHANIC TELEPHONE) eGFR 40(L) >=60 mL/min/1. 73 m2 Comment: [...] 2020. Blood 03/12/2024 12:3 0 PM MAINTENANCE MECHANIC TELEPHONE 03/12/2024 12:50 PM MAINTENANCE MECHANIC TELEPHONE us Neelam Morrison MD LAB BLOOD ORDERABLES Final Result [facility] Department [place] [address] * (ABNORMAL) Hemoglobin A1c (12/19/2023 1:08 PM MAINTENANCE MECHANIC TELEPHONE) Hgb A1C 5.9(H) 4.0 - 5.6 % [...] fasting glucose. Blood 12/19/2023 1:08 PM MAINTENANCE MECHANIC TELEPHONE 12/19/2023 1:33 PM MAINTENANCE MECHANIC TELEPHONE us Melissa Albright MD LAB BLOOD ORDERABLES Final Resul t [facility] Department [place] [address] * Serum lipid panel (08/01/2013 9:43 PM [...] Most Recently Relevant to Health Maintenance Insurance [facility] Advance Directives For more information, please contact: [phone] Documents on File Type Date Recorded Patient Roaster Operator Expl anation ADVANCE DIRECTIVE 12/17/2023 7:15 PM Ayangie [email or web address].pdf Care Teams Cell Preparer Relationship Specialty Start Date End Date Thomas Antonio MD PCP - General Internal Medicine 01/11/24 Yoselyn Nicolas NP [address] [place] [address] Family Medicine 01/11/24
--- OUTSIDE RECORDS SUMMARY | 2024-11-20 10:16 | XMS_ITS | Clinical Summary ---
Author Organization [facility] Address [facility] [place] [address] Care Team Providers Care Copier Technician Name Role Phone Valentin Mitchell MD Primary Care Provider [phone] Vasquez Akins MD Unavailable Unavailable Allergies Active [...] Noted Date Diagnosed Date Atrial fibrillation, persistent 07/04/2016 Long-term (current) use of anticoagulants 2016 Acute on chronic diastolic congestive heart fail ure 06/08/2016 SVT (supraventricular tachycardia) Overview (06/07/2016): age 14 Obstructive sleep apnea sergo letty with bilevel positive airway pressure (BiPAP) Obesity OA (osteoarthritis) Migraines HTN (hypertension) HLD (hyperlipidemia) Depression Bleeding on Coumadin Borderline diabetes Persistent atrial fibrillation CHF (congestive heart failure) Atrial fibrillation Family History Medical History Relation Comments Sudden [...] 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 Not on file No t on file Last Filed Vital Signs Vital Sign Reading Time Taken Comments Blood Pressure 108/68 02/23/2017 10:17 AM NOVELTY CHAIN MAKER Pulse 83 02/23/2017 10:17 AM NOVELTY CHAIN MAKER Temperature - - Respiratory Rate 18 12/26/2016 9:26 AM NOVELTY CHAIN MAKER Oxygen Saturation 97% 02/23/2017 10:17 AM NOVELTY CHAIN MAKER Inhaled Oxygen Concentration - - Weight 112.5 kg (248 lb) 02/23/2017 10:17 AM NOVELTY CHAIN MAKER Height 162.6 cm (5' 4) 02/23/2017 10:17 AM NOVELTY CHAIN MAKER Body Mass Index 42.57 02/23/2017 10:17 AM NOVELTY CHAIN MAKER Plan of Treatment Health Maintenance Due Date Last Done Comments DTaP, Tdap and Td Vaccines ( 1 - Tdap) 02/26/1960 Pneumococcal Vaccine: 50+ Ye ars (1 of 2 - PCV) 02/26/1960 Zoster Vaccines (1 of 2) 1991 Dexa Scan (General) 2006 RSV Immunization or 60+ Years (1 - 1-dose 75+ series) 02/26/2016 COVID-19 Vaccine (2023-2 5 season) 2024 Influenza Adult (#1) 2024 Hepatitis A Vaccines Aged Out No long er eligible based on patient's age to complete this topic Meningococcal B Vaccine Aged Out No l onger eligible based on patient's age to complete this topic Meningococcal Vaccine Aged Out No екатерина molina eligible based on patient's age to complete this topic RSV Immunizations Under 20 Months Aged Out No longer eligible based on patient's age to complete this topic Insurance [employer] [facility] Care Teams Copier Technician Relationship Specialty Start Date End Date Valentin Mitchell MD [address] [place] [address] PCP - General INTERNAL MEDICINE 06/08/16 Vasquez Akins MD [address] [place] [address] Kehinde Aoc Aadc Operations Staff Officer Electrophysiology 02/13/17
--- OUTSIDE RECORDS SUMMARY | 2024-11-20 10:16 | XMS_ITS | Clinical Summary ---
Author Organization [facility] Address [address] [place] [address] Care Team Providers Care Homicide Detective Name Role Phone Ugo Villa MD Primary Care Provider [phone] Source Comments PLEASE NOTE, if this patient [...] series) 02/26/2016 Alcohol and Drug Screen 02/06/2024 [id number] (3 - 2024- season) 2024 021, 03/30/2020 Imm-Influenza (#1) 2024 11/06/2019 Insurance [employer] Care Teams Homicide Detective Relationship Specialty Start Date End Date Ugo Villa MD [address] [place] [address] [place] [address], [place] [id number] PCP - General 07/29/23
[2024-11-20 12:37] LABS: NT Pro B Type Natriuretic Pept 1480 pg/mL (19.9-100)
--- NOTE | 2024-11-20 12:59 | PM.CNCAR ---
Assessment and Plan Assessment and plan (1) Chest pain: Qualifiers: Chest pain type: unspecified Qualified Code(s): R07.9 - Chest pain, unspecified Code(s): R07.9 - Chest pain, unspecified Status: Acute (2) CHF (congestive heart failure): Qualifiers: Heart failure type: unspecified Heart failure chronicity: unspecified Qualified Code(s): I50.9 - Heart failure, unspecified Code(s): I50.9 - Heart failure, unspecified Status: Acute (3) Pulmonary hypertension: Code(s): I27.20 - Pulmonary hypertension, unspecified Status: Acute Plan 83-year-old man who chronic diastolic heart failure, pulmonary hypertension, persistent atrial fibrillation on Xarelto, KRIS on CPAP and cirrhosis presents to the hospital with chest pain Chest pain -obtain 3 troponins -if she already has 3 negative troponins, would be reasonable to follow up outpatient as well -otherwise, nuclear stress test has been ordered for tomorrow morning Chronic diastolic heart failure -euvolemic and continue torsemide p.o. home dose Pulmonary hypertension -likely multifactorial -from a cardiac standpoint, will continue to maintain euvolemic state Has follow-up with Dr. Gorman on Friday 11/24 per the patient History of Present Illness History of Present Illness Consult date/time: 11/20/24 12:59 Requesting physician: Colette Conrad PA-C Consult reason: chest pain Reason For Visit: Chest Pain Narrative: 83-year-old man who chronic diastolic heart failure, pulmonary hypertension, persistent atrial fibrillation on Xarelto, KRIS on CPAP and cirrhosis presents to the hospital with chest pain. She woke up this morning not feeling well and as she tried to get up she developed substernal chest pain. She can not quite find defiant or described by a was a discomfort that lasted for about 30 minutes from 7:15 a.m. to 7:45 a.m.. It gradually resolved on its own. She has been having some rhinorrhea as well as a cough recently. She has not noted any exacerbating or relieving factors. She continues to be able to carry out activities of daily living including a ambulating outside in participating in exercise classes throughout the community. Has some mild associated shortness breath with her episode this morning. He had some also lightheadedness. Was these have since resolved. She uses a CPAP to sleep at night. Follows with Dr. Gorman in clinic. Review of Systems Cardiovascular: Cardiovascular: Reports as per HPI Respiratory: Respiratory: Reports as per HPI PMFSH Past Medical History Medical History (Updated 11/20/24 @ 13:05 by Barron Reynolds MD) Pulmonary hypertension Dizziness CKD (chronic kidney disease) Bruxism Hepatomegaly Grief Blepharitis Left-sided face pain Breast cancer, left s/p tamoxifen, radiation, and lumpectomy Encounter for routine adult health examination without abnormal findings Non-healing skin lesion of nose UTI (urinary tract infection) Follow up Frozen shoulder A-fib BMI 35.0-35.9,adult Hospital discharge follow-up Diabetes Diverticulitis HTN (hypertension) CHF (congestive heart failure) Gout Hyperlipidemia Paroxysmal A-fib BMI 37.0-37.9, adult Colon cancer screening Dry eyes Insomnia KRIS treated with BiPAP On half-way drug therapy Hx of skin malignancy Surgical History Surgical History History of lumpectomy of left breast Hx of breast biopsy Social History Social History Smoking status: Never smoker Alcohol intake: current Substance use: never Substance use type: does not use Do You Feel Safe in your Home?: Yes Lack of Transportation: No Lack of Food: Never True Current Housing: I Have Housing Concerned About Future Housing: No Difficulty Paying Gas/Electric Bills: No Difficulty Paying for Meds: No Currently Unemployed: No Education: Master's Degree or Higher Difficulty w/ Childcare or Family Care: No Living arrangements: with family Spiritual care concerns: No Meds Home Medications and Allergies Home Medications ?Medication ?Instructions ?Recorded ?Confirmed ?Type CoQ10 100 mg PO HS 11/05/23 11/03/24 History cholecalciferol (vitamin D3) 50 50 mcg PO HS 11/05/23 11/03/24 History mcg (2,000 unit) capsule citracal See Rx Instructions .Route .COMPLEX 11/05/23 11/03/24 History colchicine 0.6 mg tablet 0.6 mg PO DAILY PRN gout 11/05/23 11/03/24 History lactobacillus combination no.9 4 4,000 mmu cells PO HS 11/05/23 11/03/24 History billion cell capsule (Adult 50 Plus Probiotic) magnesium 500 mg PO BID 11/05/23 11/03/24 History prednisone 20 mg tablet 20 mg PO DAILY PRN gout 11/05/23 11/03/24 History glucosamine sulfate 1,000 mg 1,000 mg PO BID 11/09/23 11/03/24 History capsule [place] 3 Fish Oil 1 cap PO DAILY 12/05/23 11/03/24 History multivit with minerals-iron 18 1 tablet PO DAILY 12/05/23 11/03/24 History mg-folic ac 400 mcg-vit K 25 mcg tablet (Adults Multivitamin) thiamine HCl (vitamin B1) 100 mg 100 mg PO DAILY 12/05/23 11/03/24 History tablet torsemide 20 mg tablet 40 mg (2 x 20 mg) PO QAM #180 tabs 04/16/24 11/03/24 Rx loperamide 2 mg tablet (Imodium 2 mg PO Q6H PRN loose stool #14 06/21/24 11/03/24 Rx A-D) tabs metoprolol succinate 100 mg 100 mg PO DAILY #90 tabs 07/02/24 11/03/24 Rx tablet,extended release 24 hr spironolactone 25 mg tablet 25 mg PO DAILY #90 tabs 07/02/24 11/03/24 Rx alprazolam 0.25 mg tablet (Xanax) 0.25 mg PO TID PRN anxiety #30 tabs 08/27/24 11/03/24 Rx tobramycin 0.3 % eye drops 1 drp LEFT EYE QID #5 mL 08/27/24 11/03/24 Rx duloxetine 60 mg capsule,delayed 60 mg PO DAILY #90 caps 09/03/24 11/03/24 Rx release rivaroxaban 20 mg tablet (Xarelto) 20 mg PO QPM #90 tabs 09/22/24 11/03/24 Rx lisinopril 2.5 mg tablet 2.5 mg PO DAILY #90 tabs 09/30/24 11/03/24 Rx potassium chloride 10 mEq 10 meq PO DAILY #90 tabs 09/30/24 11/03/24 Rx tablet,extended release pravastatin 40 mg tablet 40 mg PO HS #90 tabs 09/30/24 11/03/24 Rx pantoprazole 40 mg tablet,delayed See Rx Instructions .Route 10/07/24 11/03/24 Rx release .COMPLEX #90 tabs levomefolate Ca 3 mg-B6 35 1 cap PO BID 11/03/24 11/03/24 History mg-meB12 2 mg-algal oil 90.314 mg capsule (Metanx (algal oil)) dapagliflozin propanediol 10 mg See Rx Instructions .Route 11/12/24 Rx tablet (Farxiga) .COMPLEX #90 tabs allopurinol 100 mg tablet 100 mg PO DAILY #90 tabs 11/13/24 Rx Allergies Allergy/AdvReac Type Severity Reaction Status Date / Time Penicillins Allergy Severe Swelling Verified 11/03/24 09:57 of Lip/Tongue/Throat morphine Allergy Intermediate Migraine Verified 11/03/24 09:57 Sulfa (Sulfonamide Allergy Intermediate Rash Verified 11/03/24 09:57 Antibiotics) meperidine (From Demerol) AdvReac Intermediate Gastrointestinal Verified 11/03/24 09:57 Upset Vital Signs Vital Signs - 24 hr 11/20/24 08:47 11/20/24 08:53 11/20/24 08:54 Temperature 36.4 C L Pulse Rate 98 84 90 Respiratory Rate 20 17 Blood Pressure 112/66 112/66 Pulse Oximetry 100 100 Oxygen Delivery Room Air 11/20/24 08:57 11/20/24 09:07 11/20/24 09:31 Temperature Pulse Rate 85 78 Respiratory Rate 19 13 Blood Pressure 116/71 104/66 Pulse Oximetry 100 100 98 Oxygen Delivery Room Air 11/20/24 09:41 11/20/24 10:07 11/20/24 10:31 Temperature Pulse Rate 83 88 75 Respiratory Rate 17 15 12 Blood Pressure 104/66 126/72 103/61 Pulse Oximetry 97 100 100 Oxygen Delivery 11/20/24 11:00 11/20/24 11:30 11/20/24 12:00 Temperature Pulse Rate 77 90 75 Respiratory Rate 18 15 17 Blood Pressure 112/71 106/66 108/61 Pulse Oximetry 99 98 99 Oxygen Delivery Exam Const: General: comfortable Other: She just completed lunch and is comfortable HENMT: Mouth: Yes moist mucous membranes Eyes: EOM: EOMs intact bilaterally Neck: Neck: no JVD Resp: Effort & Inspection: normal respiratory effort Auscultation: clear to auscultation bilaterally Cardio: Rate: regular rate Rhythm: abnormal rhythm Extrem: General: pedal edema Results Labs and Meds 11/20/24 08:55 11/20/24 08:55 Lab results: Cardiac Enzymes 11/20/24 Range/Units 08:55 AST 25 (14-36) U/L Troponin I < 0.012 (0.000-0.034) ng/mL Coagulation 11/20/24 Range/Units 08:55 PT 25.1 H (11.1-14.7) Seconds APTT 38.3 H (22.3-36.8) Seconds CBC 11/20/24 Range/Units 08:55 WBC 5.5 (4.5-10.0) K/mm3 RBC 4.46 (4.2-5.4) M/mm3 Hgb 13.5 (12.0-15.0) g/dL Hct 41.4 (37.0-47.0) % Plt Count 188 (150-375) k/mm3 Lymph # (Auto) 0.85 L (0.9-3.2) K/mm3 [place] # (Auto) 0.7 H (0.1-0.6) K/mm3 Eos # (Auto) 0.3 (0-0.3) K/mm3 Baso # (Auto) 0.1 (0.0-0.1) K/mm3 Comprehensive Metabolic Panel 11/20/24 Range/Units 08:55 Sodium 137 (137-145) mmol/L Potassium 3.9 (3.4-5.0) mmol/L Chloride 98 (98-107) mmol/L Carbon Dioxide 30 (22-30) mmol/L BUN 32 H (7-17) mg/dL Creatinine 1.15 H (0.7-1.0) mg/dL Glucose 104 (65-110) mg/dL Calcium 9.3 (8.4-10.2) mg/dL AST 25 (14-36) U/L ALT 19 (6-35) U/L Alkaline Phosphatase 102 (38-126) U/L Total Protein 7.5 (6.3-8.2) g/dL Albumin 4.4 (3.5-5.1) g/dL Patient Weight 11/20/24 23:59 Weight 93.6 kg
[2024-11-20 14:03] LABS: Troponin I < 0.012 ng/mL (0.000-0.034)
--- NOTE | 2024-11-20 14:05 | P.HP_ITS ---
H&P: HPI History of Present Illness Date/Time: 11/20/24 14:05 Chief Complaint: Chest pain Narrative: 84-year-old female who presents the hospital with chest pain. She states that radiates her back and has been going all morning feels like pressure with shortness of breath. Patient denies chest pain and shortness of breath on bedside exam. She currently has no complaints. Denies fevers chills nausea or vomiting. Lab work in the ED shows INR 2.4, creatinine 1.15, BUN of 32, GFR 45, proBNP of 1480, troponins x2 negative, chest CT shows possible right heart strain, no PE identified, and indeterminate liver lesion recommending MRI. EKG shows atrial fibrillation rate of 89. Patient was given aspirin in the emergency room. Cardiology saw the patient and recommends trending troponins and nucleolar stres s test tomorrow morning. Review of Systems Review of Systems: 12 systems were reviewed and are negativ e except for as per HPI. [facility] Past Medical History Medical History Pulmonary hypertension Dizziness CKD (chronic kidney disease) Bruxism Hepatomegaly Grief Blepharitis Left-sided face pain Breast cancer, left s/p tamoxifen, radiation, and lumpectomy Encounter for routine adult health examination without abnormal findings Non-healing skin lesion of nose UTI (urinary tract infection) Follow up Frozen shoulder A-fib BMI 35.0-35.9,adult Hospital discharge follow-up Diabetes Diverticulitis HTN (hypertension) CHF (congestive heart failure) Gout Hyperlipidemia Paroxysmal A-fib BMI 37.0-37.9, adult Colon cancer screening Dry eyes Insomnia KRIS treated with BiPAP On terminal operator drug therapy Hx of skin malignancy Surgical History Surgical History History of lumpectomy of left breast Hx of breast biopsy Family History Family History (Updated 11/20/24 @ 14:36 by Colette Perdomo RN) Sibling Skin cancer Sibling Diabetes mellitus Social History Social History Smoking status: Never smoker Alcohol intake: never Substance use: never Substance use type: does not use Do You Feel Safe in your Home?: Yes Lack of Transportation: No Lack of Food: Never True Current Housing: I Have Housing Concerned About Future Housing: No Difficulty Paying Gas/Electric Bills: No Difficulty Paying for Meds: No Currently Unemployed: No Education: Master's Degree or Higher Difficulty w/ Childcare or Family Care: No Living arrangements: with family Spiritual care concerns: No Meds Home Medications and Allergies Home Medications ?Medication ?Instructions ?Recorded ?Confirmed ?Type CoQ10 100 mg PO HS 11/05/23 History citracal See Rx Instructions .Route . COMPLEX 11/05/23 11/20/24 History colchicine 0.6 mg tablet 0.6 mg PO DAILY PRN gout 11/20/24 History lactobacillus combination no.9 4 4,000 mmu cells PO HS 11/05/23 11/20/24 History billion cell capsule (Adult 50 Plus Probiotic) magnesium 500 mg PO BID 11/05/2311/20 History glucosamine sulfate 1,000 mg 1,000 mg PO BID 11/09/23 11/20/24 History capsule [place] 3 Fish Oil 1 cap PO DAILY 12/05/2311/05 History multivit with minerals-iron 18 1 tablet PO DAILY 12/0411/20/24 History mg-folic ac 400 mcg-vit K 25 mcg tablet (Adults Multivitamin) loperamide 2 mg tablet (Imodium 2 mg PO Q6H PRN loose stool #14 06/21/24 11/20/24 Rx A-D) tabs metoprolol succinate 100 mg 100 mg PO DAILY #90 tabs 0 07/02/24 11/20/24 Rx tablet,extended release 24 hr spironolactone 25 mg tablet 25 mg PO DAILY #90 tabs 11/20/24 Rx alprazolam 0.25 mg tablet (Xanax) 0.25 mg PO TID PRN a nxiety #30 tabs 08/27/24 11/20/24 Rx duloxetine 60 mg capsule,delayed 60 mg PO DAILY #90 ca ps 09/03/24 11/20/24 Rx release rivaroxaban 20 mg tablet (Xarelto) 20 mg PO QPM #90 ta bs 09/22/24 11/20/24 Rx lisinopril 2.5 mg tablet 2.5 mg PO DAILY #90 tabs 11/20/24 Rx potassium chloride 10 mEq 10 meq PO DAILY #90 tabs 11/20/24 Rx tablet,extended release pravastatin 40 mg tablet 40 mg PO HS #90 tabs 5 11/20/24 Rx pantoprazole 40 mg tablet,delayed See Rx Instructions .Route 10/07/24 11/20/24 Rx release .COMPLEX #90 tabs levomefolate Ca 3 mg-B6 35 1 cap PO BID 11/03/2411/20 History mg-meB12 2 mg-algal oil 90.314 mg capsule (Metanx (algal oil)) dapagliflozin propanediol 10 mg See Rx Instructions .R oute 11/12/24 11/20/24 Rx tablet (Farxiga) .COMPLEX #90 tabs allopurinol 100 mg tablet 100 mg PO DAILY #90 tabs 10/3011/20/24 Rx torsemide 20 mg tablet 40 mg (2 x 20 mg) PO QAM #60 tabs 11/20/24 11/20/24 Rx Allergies Allergy/AdvReac Type Severity Reaction Status Date / Time Penicillins Allergy Severe Swelling Verified 11/20/24 14:37 of Lip/Tongue/Throat morphine Allergy Intermediate Migraine Verified 11/20/24 14:37 Sulfa (Sulfonamide Allergy Intermediate Rash Verified 11/20/24 14:37 Antibiotics) meperidine (From Demerol) AdvReac Intermediate Gastrointestinal Verified 11/20/24 14:37 Upset Vital Signs Vital Signs - 24 hr 11/20/24 08:47 11/20/24 08:53 11/20/24 08:54 Temperature 97.5 F L Pulse Rate 98 84 90 Respiratory Rate 20 17 Blood Pressure 112/66 112/66 Pulse Oximetry 100 100 Oxygen Delivery Room Air 11/20/24 08:57 11/20/24 09:07 11/20/24 09:31 Temperature Pulse Rate 85 78 Respiratory Rate 19 13 Blood Pressure 116/71 104/66 Pulse Oximetry 100 100 98 Oxygen Delivery Room Air 11/20/24 09:41 11/20/24 10:07 11/20/24 10:31 Temperature Pulse Rate 83 88 75 Respiratory Rate 17 15 12 Blood Pressure 104/66 126/72 103/61 Pulse Oximetry 97 100 100 Oxygen Delivery 11/20/24 11:00 11/20/24 11:30 11/20/24 12:00 Temperature Pulse Rate 77 90 75 Respiratory Rate 18 15 17 Blood Pressure 112/71 106/66 108/61 Pulse Oximetry 99 98 99 Oxygen Delivery Exam Narrative: General: well appearing, appears stated age. HEENT: normocephalic, atraumatic. Mucous membranes moist. EOMI, PERRLA, bilateral sclera anicteric, no conjunctival injection. Neck supple without JVD, lymphadenopathy, or bruit. Respiratory: clear to ascultation bilaterally. No rales/rhonic/wheezes. Cardiovascular: Irregular rate and rhythm, normal S1-S2 upon ascultation. No murmurs, rubs, or clicks. PMI is nondisplaced, capillary refill less than 3 second. Abdomen: Soft, round, no pulsatile masses, nondistended and nontender. No rebound, no guarding. No CVA tenderness, no hepatosplenomegaly. Bowel sounds present to all four quadrants. No high pitch or tinkling sounds, resonant to percussion. Extremities: No cyanosis, clubbing, Pulses are palpable 2/2. Active ROM to all four extremities. 3+ edema Neuro: Alert and orientated x 4. PERRLA. Cranial nerves 2-12 intact without focal deficit. Skin: Warm, dry, and intact, without rash, erythema, or lesion. Psych: pleasant, cooperative, normal speech, normal affect, no hallucinations, no dysarthia H&P: Results Labs Labs: Short CBC 11/20/24 Range/Units 08:55 WBC 5.5 (4.5-10.0) K/mm3 Hgb 13.5 (12.0-15.0) g/dL Hct 41.4 (37.0-47.0) % Plt Count 188 (150-375) k/mm3 BMP 11/20/24 08:55 Sodium 137 Potassium 3.9 Chloride 98 Carbon Dioxide 30 BUN 32 H Creatinine 1.15 H Glucose 104 Calcium 9.3 Cardiac Enzymes 11/20/24 11/20/24 Range/Units 08:55 13:16 Troponin I < 0.012 < 0.012 (0.000-0.034) ng/mL Liver Function 11/20/24 Range/Units 08:55 Total Bilirubin 0.6 (0.2-1.3) mg/dL AST 25 (14-36) U/L ALT 19 (6-35) U/L Alkaline Phosphatase 102 (38-126) U/L Albumin 4.4 (3.5-5.1) g/dL Assessment and Plan Assessment and plan (1) Chest pain: Qualifiers: Chest pain type: unspecified Qualified Code(s): R07.9 - Chest pain, unspecified Code(s): R07.9 - Chest pain, unspecified Status: Acute Assessment and Plan: Chest pressure Cardiology consulted Trend troponin negative x3 EKG p.r.n. NPO midnight stress test (2) Anxiety: Code(s): F41.9 - Anxiety disorder, unspecified Status: Acute Assessment and Plan: Continue home Xanax (3) HTN (hypertension): Qualifiers: Hypertension type: primary hypertension Qualified Code(s): I10 - Essential (primary) hypertension Code(s): I10 - Essential (primary) hypertension Status: Acute Assessment and Plan: Hold lisinopril due to soft blood pressures (4) CHF (congestive heart failure): Qualifiers: Heart failure chronicity: unspecified Heart failure type: unspecified Qualified Code(s): I50.9 - Heart failure, unspecified Code(s): I50.9 - Heart failure, unspecified Status: Acute Assessment and Plan: Lower extremity edema 2 to 3+ BNP 1400 Continue home diuretics (5) A-fib: Qualifiers: Atrial fibrillation type: unspecified chronic Qualified Code(s): I48.20 - Chronic atrial fibrillation, unspecified Code(s): I48.91 - Unspecified atrial fibrillation Status: Acute Assessment and Plan: Continue metoprolol and Xarelto (6) Diabetes: Qualifiers: Diabetes mellitus complication status: without complication Diabetes mellitus usp insulin use: without terminal operator use Diabetes mellitus type: type 2 Qualified Code(s): E11.9 - Type 2 diabetes mellitus without complications Code(s): E11.9 - Type 2 diabetes mellitus without complications Status: Acute Assessment and Plan: Holding home diabetes medication Leonidasu-Leonardo powell HS SSI (7) CKD (chronic kidney disease): Qualifiers: Chronic kidney disease stage: unspecified stage Qualified Code(s): N18.9 - Chronic kidney disease, unspecified Code(s): N18.9 - Chronic kidney disease, unspecified Status: Acute Assessment and Plan: Continue to monitor (8) Pulmonary nodule: Code(s): R91.1 - Solitary pulmonary nodule Status: Acute Assessment and Plan: Previously seen on imaging Follows pulmonology outpatient L (9) Liver lesion: Code(s): K76.9 - Liver disease, unspecified Status: Acute Assessment and Plan: Previously seen on imaging LFTs within normal range Quality VTE Prophylaxis VTE prophylaxis: mechanical ordered and pharmacologic ordered Hospitalist MIPS Advance Care Plan I have confirmed that the patient's Advanced Care Plan is present, code status is documented, or surrogate decision maker is listed in patient medical record.: Yes Medication Reconciliation I have utilized all available resources to obtain, update and review the patients current medications (includes all prescriptions, OTC, herbals, cannabis, and nutritional supplements).: Yes
[2024-11-20 15:35] LABS: Troponin I < 0.012 ng/mL (0.000-0.034)
[2024-11-20] MEDS: ACETAMINOPHEN 325 MG TABLET 650 MG PO (17:09)
--- NOTE | 2024-11-20 18:26 | PC.NURSE ---
PAtient arrived to IMU. Tele applied. Admission completed..
[2024-11-20] MEDS: RIVAROXABAN 20 MG TABLET PO (18:56)
[2024-11-20] MEDS: TORSEMIDE 20 MG TABLET 40 MG PO (18:56)
[2024-11-20] MEDS: PRAVASTATIN SODIUM 20 MG TABLET 40 MG PO (20:16)
[2024-11-20] MEDS: ALPRAZolam (*CRX) 0.25 MG TABLET PO (20:17)
[2024-11-21] VITALS (11 sets, daily range): BP systolic 96–126; BP diastolic 49–68; PULSE 83–113; RESP 12–18; TEMP 36.8–37.1; O2SAT 96–97
--- NOTE | 2024-11-21 | EST_ITS ---
Patient Info Name: Nadja Garcia Age: 84 years : 1940 Gender: Female Ht: 63 in Wt: 206 lbs BSA: 2.08 m2 HR: 95 bpm BP: 105 / 53 mmHg Exam Date: 11/21/2024 9:41 AM Patient Status: O Admit Date: 11/20/2024 Exam Type: CA stress ismael w NM A regadenoson stress test was performed. Staff Referring Physician: Barron Reynolds Attending Provider: Lynsey Irvin MD Exercise Technologist: Lisa Jeffery Exercise Physician: Caitlyn Pardo Summary 1. Baseline EKG showed atrial fibrillation. Occasional PVCs after regadenoson injection. EKG portion of the pharmacological stress test negative for ischemia by EKG criteria. Correlate with SPECT. Protocol: Lexiscan Stress ECG Details Stage: REST Duration (min): 1 min : 38 sec HR (bpm): 95 SBP (mmHg): 105 DBP (mmHg): 53 Stage: REST Duration (min): 7 min : 54 sec HR (bpm): 103 SBP (mmHg): 105 DBP (mmHg): 53 Stage: STAGE 1 Duration (min): 0 min : 59 sec HR (bpm): 108 SBP (mmHg): 95 DBP (mmHg): 61 Stage: RECOVERY Duration (min): 1 min : 0 sec HR (bpm): 108 SBP (mmHg): 95 DBP (mmHg): 61 Stage: RECOVERY Duration (min): 2 min : 0 sec HR (bpm): 108 SBP (mmHg): 95 DBP (mmHg): 61 Stage: RECOVERY Duration (min): 3 min : 0 sec HR (bpm): 105 SBP (mmHg): 146 DBP (mmHg): 55 Stage: RECOVERY Duration (min): 4 min : 0 sec HR (bpm): 106 SBP (mmHg): 146 DBP (mmHg): 55 Stage: RECOVERY Duration (min): 5 min : 0 sec HR (bpm): 97 SBP (mmHg): 146 DBP (mmHg): 55 Stage: RECOVERY Duration (min): 6 min : 0 sec HR (bpm): 107 SBP (mmHg): 146 DBP (mmHg): 55 Stage: RECOVERY Duration (min): 7 min : 0 sec HR (bpm): 102 SBP (mmHg): 126 DBP (mmHg): 53 Stage: RECOVERY Duration (min): 7 min : 19 sec HR (bpm): 107 SBP (mmHg): 126 DBP (mmHg): 53 Rest HR: 103 bpm Peak HR: 121 bpm Rest Sys BP: 105 mmHg Peak Sys BP: 146 mmHg Max Pred HR: 137 bpm % Max Pred HR: 88 % Target HR: 116 bpm Max RPP: 17,666 bpm*mmHg Total Time: 1 min : 0 sec Rest Dewey BP: 53 mmHg Peak [place] BP: 55 mmHg Total Dose: 0.4 mg Report Signatures
[2024-11-21 04:23] LABS: Hematocrit 40.5 % (37.0-47.0); Hemoglobin 13.2 g/dL (12.0-15.0); Immature Granulocyte Percent A 0.3 % (0-0.5); Lymphocytes Absolute Auto 0.75 K/mm3 (0.9-3.2); Mean Corpuscular HGB Conc 32.6 g/dl (32-36); Mean Corpuscular Hemoglobin 30.4 pg (26-34); Mean Corpuscular Volume 93.3 fl (80-100); Nucleated Red Blood Cells Absolute Auto 0.000 K/mm3 (0.0-0.012); Nucleated Red Blood Cells Perc 0.0 % (0.0-0.2); Platelet Count Result 178 k/mm3 (150-375); Red Blood Count 4.34 M/mm3 (4.2-5.4); White Blood Count 6.2 K/mm3 (4.5-10.0)
[2024-11-21 04:54] LABS: Anion Gap 7 mmol/L (4-12); Blood Urea Nitrogen 27 mg/dL (7-17); Calcium 8.9 mg/dL (8.4-10.2); Carbon Dioxide 30 mmol/L (22-30); Chloride 99 mmol/L (98-107); Estimated CRCL calculation 36 ml/min; Estimated Glomerular Filt Rate 47; Glucose 105 mg/dL (65-110); Potassium 3.5 mmol/L (3.4-5.0); Sodium 136 mmol/L (137-145)
[2024-11-21] MEDS: PANTOPRAZOLE 40 MG TABLET BY MOUTH (09:34)
[2024-11-21] MEDS: DULoxetine HCL 60 MG CAPSULE.DR PO (09:34)
[2024-11-21] MEDS: ACETAMINOPHEN 325 MG TABLET 650 MG PO (09:34)
--- NOTE | 2024-11-21 11:17 | P.PNCA_ITS ---
Progress Note: A&P Assessment and Plan (1) Chest pain: Qualifiers: Chest pain type: unspecified Qualified Code(s): R07.9 - Chest pain, unspecified Code(s): R07.9 - Chest pain, unspecified Status: Acute (2) CHF (congestive heart failure): Qualifiers: Heart failure type: unspecified Heart failure chronicity: unspecified Qualified Code(s): I50.9 - Heart failure, unspecified Code(s): I50.9 - Heart failure, unspecified Status: Acute (3) Pulmonary hypertension: Code(s): I27.20 - Pulmonary hypertension, unspecified Status: Acute Plan 83-year-old man who chronic diastolic heart failure, pulmonary hypertension, persistent atrial fibrillation on Xarelto, KRIS on CPAP and cirrhosis presents to the hospital with chest pain Chest pain -troponin negative x3 -nuclear stress test performed earlier this morning. If negative, patient can be discharged from a cardiac standpoint. Chronic diastolic heart failure -euvolemic and continue torsemide p.o. home dose Pulmonary hypertension -likely multifactorial -from a cardiac standpoint, will continue to maintain euvolemic state Has follow-up with Dr. Gorman on Friday 11/24 per the patient Subjective Date/time seen: 11/21/24 11:17 Interval history: Cardiology follow-up was a Date of service 11/21/2024: Patient feels well this morning and does not have any chest pain. Review of Systems Cardiovascular: Cardiovascular: Reports as per HPI Respiratory: Respiratory: Reports as per HPI Exam Const: General: comfortable Other: She just completed lunch and is comfortable HENMT: Mouth: Yes moist mucous membranes Eyes: EOM: EOMs intact bilaterally Neck: Neck: no JVD Resp: Effort & Inspection: normal respiratory effort Auscultation: clear to auscultation bilaterally Cardio: Rate: regular rate Rhythm: abnormal rhythm Extrem: General: pedal edema Objective Data Vital Signs Vital Signs: Vital Signs - 24 hr 11/20/24 11:30 11/20/24 12:00 11/20/24 14:00 Temperature Pulse Rate 90 75 84 Respiratory Rate 15 17 Blood Pressure 106/66 108/61 Pulse Oximetry 98 99 Oxygen Delivery 11/20/24 16:00 11/20/24 16:00 11/20/24 18:00 Temperature 36.5 C Pulse Rate 86 86 90 Respiratory Rate 17 Blood Pressure 118/62 Pulse Oximetry 99 Oxygen Delivery 11/20/24 20:00 11/20/24 20:00 11/20/24 20:19 Temperature 36.8 C Pulse Rate 81 84 Respiratory Rate 16 Blood Pressure 115/64 Pulse Oximetry 96 Oxygen Delivery Room Air 11/20/24 22:00 11/20/24 23:49 11/21/24 00:00 Temperature 36.7 C Pulse Rate 84 82 Respiratory Rate 16 Blood Pressure 120/61 Pulse Oximetry 98 Oxygen Delivery Room Air 11/21/24 00:00 11/21/24 02:00 11/21/24 04:00 Temperature Pulse Rate 106 H 89 Respiratory Rate Blood Pressure Pulse Oximetry Oxygen Delivery Room Air 11/21/24 04:00 11/21/24 04:30 11/21/24 06:00 Temperature 36.8 C Pulse Rate 83 94 89 Respiratory Rate 16 Blood Pressure 96/49 L Pulse Oximetry 96 Oxygen Delivery 11/21/24 06:37 11/21/24 07:49 Temperature 36.8 C Pulse Rate 87 Respiratory Rate 18 Blood Pressure 104/57 L 122/61 Pulse Oximetry 96 Oxygen Delivery Intake/Output Intake/Output: Intake & Output 11/18/24 11/19/24 11/20/24 11/21/24 23:59 23:59 23:59 23:59 Intake Total 1150 Balance 1150 Meds/Results Medications: Active Medications Generic Name Dose Route Start Last Admin Trade Name Freq PRN Reason Stop Dose Admin Acetaminophen 650 mg 11/20/24 14:11 11/21/24 09:34 Acetaminophen 325 Mg Tablet PO 650 mg Q4H PRN Administration Mild Pain (1-3) or Fever Allopurinol 100 mg 11/21/24 09:00 11/21/24 09:35 Allopurinol 100 Mg Tablet PO 100 mg DAILY BRITTANY Administration Alprazolam 0.25 mg 11/20/24 17:57 11/20/24 20:17 Alprazolam (*Crx) 0.25 Mg Tablet PO 0.25 mg TID PRN Administration Anxiety Dextrose 12.5 gm 11/20/24 18:05 Dextrose 50% 25 Gm/50 Ml Syringe IV PUSH PRN PRN Hypoglycemia Protocol Docusate Sodium 100 mg 11/20/24 14:11 Docusate Sodium 100 Mg Capsule PO BID PRN Constipation Duloxetine HCl 60 mg 11/21/24 09:00 11/21/24 09:34 Duloxetine Hcl 60 Mg Capsule.Dr PO 60 mg DAILY BRITTANY Administration Glucagon 1 mg 11/20/24 18:05 Glucagon For Inj 1 Mg Vial IM PRN PRN Hypoglycemia Protocol Glucose 15 gm 11/20/24 18:05 Glucose Oral Gel 15 Gm Of Glucse In 37.5 Gm Tube PO PRN PRN Hypoglycemia Protocol Dextrose 1,000 mls @ 100 mls/hr 11/20/24 18:05 Dextrose 5% 1,000 Ml IVPB PRN PRN Hypoglycemia Protocol Insulin Aspart 2 - 5 units 11/21/24 08:00 11/21/24 07:30 Insulin Aspart (*Bkc) 100 Units/Ml SUB-Q Not Given [facility] Protocol Lisinopril 2.5 mg 11/21/24 09:00 Lisinopril 2.5 Mg Tablet PO On Hold: 11/21/24 09:00 DAILY BRITTANY Metoprolol Succinate 100 mg 11/21/24 09:00 Metoprolol Succinate Ext Rel 100 Mg Tabcr PO DAILY BRITTANY Pantoprazole Sodium 40 mg 11/21/24 09:00 11/21/24 09:34 Pantoprazole 40 Mg Tablet BY MOUTH 40 mg DAILY BRITTANY Administration Pravastatin Sodium 40 mg 11/20/24 21:00 11/20/24 20:16 Pravastatin Sodium 20 Mg Tablet PO 40 mg HS BRITTANY Administration Rivaroxaban 20 mg 11/20/24 18:00 11/20/24 18:56 Rivaroxaban 20 Mg Tablet PO 20 mg QPM BRITTANY Administration Spironolactone 25 mg 11/21/24 09:00 Spironolactone 25 Mg Tablet PO DAILY BRITTANY Torsemide 40 mg 11/20/24 18:05 11/20/24 18:56 Torsemide 20 Mg Tablet PO 40 mg QAM BRITTANY Administration Radiology Results: ITS Impressions Chest X-Ray 11/20/24 09:08 IMPRESSION: 1. No acute cardiopulmonary findings. Chest/Abdomen/Pelvis CTA 11/20/24 10:11 IMPRESSION: CHEST- 1. No acute cardiopulmonary findings. 2. Probable right heart strain. ABDOMEN/PELVIS- 1. No acute abdominopelvic findings. 2. Indeterminate liver lesion as before. Given background cirrhosis, worrisome for malignancy. Recommend MRI if able. Recommend AFP levels. Consider biopsy. Labs Labs: Laboratory Results - last 24 hr 11/20/24 11/20/24 11/20/24 08:55 13:16 13:31 WBC RBC Hgb Hct MCV MCH MCHC RDW Plt Count MPV Immature Gran % (Auto) Neut % (Auto) Lymph % (Auto) [place] % (Auto) Eos % (Auto) Baso % (Auto) Lymph # (Auto) [place] # (Auto) Eos # (Auto) Baso # (Auto) Abs Immat Gran (auto) Absolute Neuts (auto) Absolute Nucleated RBC Nucleated RBC % Sodium Potassium Chloride Carbon Dioxide Anion Gap BUN Creatinine Estim Creat Clear Calc Estimated GFR Glucose POC Capillary Glucose 148 H Calcium Troponin I < 0.012 NT-Pro-B Natriuret Pep 1480 H 11/20/24 11/20/24 11/20/24 14:28 15:52 20:39 WBC RBC Hgb Hct MCV MCH MCHC RDW Plt Count MPV Immature Gran % (Auto) Neut % (Auto) Lymph % (Auto) [place] % (Auto) Eos % (Auto) Baso % (Auto) Lymph # (Auto) [place] # (Auto) Eos # (Auto) Baso # (Auto) Abs Immat Gran (auto) Absolute Neuts (auto) Absolute Nucleated RBC Nucleated RBC % Sodium Potassium Chloride Carbon Dioxide Anion Gap BUN Creatinine Estim Creat Clear Calc Estimated GFR Glucose POC Capillary Glucose 101 113 H Calcium Troponin I < 0.012 NT-Pro-B Natriuret Pep 11/21/24 11/21/24 03:57 07:20 WBC 6.2 RBC 4.34 Hgb 13.2 Hct 40.5 MCV 93.3 MCH 30.4 MCHC 32.6 RDW 13.9 Plt Count 178 MPV 10.5 H Immature Gran % (Auto) 0.3 Neut % (Auto) 68.9 Lymph % (Auto) 12.1 L [place] % (Auto) 11.3 H Eos % (Auto) 6.3 H Baso % (Auto) 1.1 Lymph # (Auto) 0.75 L [place] # (Auto) 0.7 H Eos # (Auto) 0.4 H Baso # (Auto) 0.1 Abs Immat Gran (auto) 0.02 Absolute Neuts (auto) 4.3 Absolute Nucleated RBC 0.000 Nucleated RBC % 0.0 Sodium 136 L Potassium 3.5 Chloride 99 Carbon Dioxide 30 Anion Gap 7 BUN 27 H Creatinine 1.10 H Estim Creat Clear Calc 36 Estimated GFR 47 L Glucose 105 POC Capillary Glucose 112 H Calcium 8.9 Troponin I NT-Pro-B Natriuret Pep Quality VTE Prophylaxis VTE prophylaxis: mechanical ordered and pharmacologic ordered
--- NOTE | 2024-11-21 12:07 | P.PNIM_ITS ---
Progress Note: A&P Assessment and Plan (1) Chest pain: Qualifiers: Chest pain type: unspecified Qualified Code(s): R07.9 - Chest pain, unspecified Code(s): R07.9 - Chest pain, unspecified Status: Acute Assessment and Plan: Chest pressure Cardiology consulted Trend troponin negative x3 EKG p.r.n. NPO midnight stress test (2) Anxiety: Code(s): F41.9 - Anxiety disorder, unspecified Status: Acute Assessment and Plan: Continue home Xanax (3) HTN (hypertension): Qualifiers: Hypertension type: primary hypertension Qualified Code(s): I10 - Essential (primary) hypertension Code(s): I10 - Essential (primary) hypertension Status: Acute Assessment and Plan: Hold lisinopril due to soft blood pressures (4) CHF (congestive heart failure): Qualifiers: Heart failure type: unspecified Heart failure chronicity: unspecified Qualified Code(s): I50.9 - Heart failure, unspecified Code(s): I50.9 - Heart failure, unspecified Status: Acute Assessment and Plan: Lower extremity edema 2 to 3+ BNP 1400 Continue home diuretics (5) A-fib: Qualifiers: Atrial fibrillation type: unspecified chronic Qualified Code(s): I48.20 - Chronic atrial fibrillation, unspecified Code(s): I48.91 - Unspecified atrial fibrillation Status: Acute Assessment and Plan: Continue metoprolol and Xarelto (6) Diabetes: Qualifiers: Diabetes mellitus type: type 2 Diabetes mellitus chcf insulin use: without chcf use Diabetes mellitus complication status: without complication Qualified Code(s): E11.9 - Type 2 diabetes mellitus without complications Code(s): E11.9 - Type 2 diabetes mellitus without complications Status: Acute Assessment and Plan: Holding home diabetes medication Fatimah powell HS SSI (7) CKD (chronic kidney disease): Qualifiers: Chronic kidney disease stage: unspecified stage Qualified Code(s): N18.9 - Chronic kidney disease, unspecified Code(s): N18.9 - Chronic kidney disease, unspecified Status: Acute Assessment and Plan: Continue to monitor (8) Pulmonary nodule: Code(s): R91.1 - Solitary pulmonary nodule Status: Acute Assessment and Plan: Previously seen on imaging Follows pulmonology outpatient (9) Liver lesion: Code(s): K76.9 - Liver disease, unspecified Status: Acute Assessment and Plan: Previously seen on imaging LFTs within normal range Plan 84-year-old female who presents the hospital with chest pain. She states that radiates her back and has been going all morning feels like pressure with shortness of breath. Patient denies chest pain and shortness of breath on bedside exam. Denies fevers chills nausea or vomiting. Lab work in the ED shows INR 2.4, creatinine 1.15, BUN of 32, GFR 45, proBNP of 1480, troponins x2 negative, chest CT shows possible right heart strain, no PE identified, and indeterminate liver lesion recommending MRI. EKG shows atrial fibrillation rate of 89. Patient was given aspirin in the emergency room. Cardiology saw the patient and recommends trending troponins and nucleolar stress test. Chest pain troponin negative. CTA chest abdomen pelvis with no acute cardiopulmonary findings. Probable right heart strain. Indeterminate liver lesion. Need MRI and AFP levels. Stress test per Cardiology which came back negative. No prior history of coronary artery disease. Anxiety disorder Hypertension Congestive heart failure with 2+ edema BNP 1400 Atrial fibrillation chronic on metoprolol and Xarelto Type 2 diabetes CKD stage 3 Pulmonary nodule seen on imaging Liver lesion previously seen on imaging. LFTs within normal limit. Previous MRI 11/28 with abnormal lesion within segment 6/7 measuring greater than 2 cm which demonstrate non-REM arterial phase enhancement. This lesion is designated as LIRADS 4 probably HCC. Need follow-up as an outpatient basis. See follows with Dr. Morrison at [facility]. AFP done in March 2024 was negative. MRI was recently done in March 2024 as well. Imaging compatible with LR 2 lesion. See is getting another MRI for surveillance. KRIS on CPAP Cirrhosis of liver History of breast cancer status post radiation and lumpectomy Subjective Date/time seen: 11/21/24 12:07 Interval history: Feels well. Reviewed the results with the patient. No chest pain or shortness of breath. Review of Systems Review of Systems: All systems reviewed & are unremarkable except as noted in HPI and below Exam Narrative: General: well appearing, appears stated age. HEENT: normocephalic, atraumatic. Mucous membranes moist. EOMI, PERRLA Respiratory: clear to ascultation bilaterally. No rales/rhonic/wheezes. Cardiovascular: Irregular rate and rhythm, normal S1-S2 upon ascultation. No murmurs, rubs, or clicks Abdomen: Soft, round, no pulsatile masses, nondistended and nontender. No rebound, no guarding. Extremities: No cyanosis, clubbing, Pulses are palpable 2/2. Active ROM to all four extremities. 3+ edema Neuro: Alert and orientated x 4. PERRLA. Cranial nerves 2-12 intact without focal deficit. Skin: Warm, dry, and intact, without rash, erythema, or lesion. Psych: pleasant, cooperative, normal speech, normal affect, no hallucinations, no dysarthia Objective Data Vital Signs Vital Signs: Vital Signs - 24 hr 11/20/24 14:00 11/20/24 16:00 11/20/24 16:00 Temperature 97.7 F Pulse Rate 84 86 86 Respiratory Rate 17 Blood Pressure 118/62 Pulse Oximetry 99 Oxygen Delivery 11/20/24 18:00 11/20/24 20:00 11/20/24 20:00 Temperature Pulse Rate 90 81 Respiratory Rate Blood Pressure Pulse Oximetry Oxygen Delivery Room Air 11/20/24 20:19 11/20/24 22:00 11/20/24 23:49 Temperature 98.3 F 98.1 F Pulse Rate 84 84 82 Respiratory Rate 16 16 Blood Pressure 115/64 120/61 Pulse Oximetry 96 98 Oxygen Delivery 11/21/24 00:00 11/21/24 00:00 11/21/24 02:00 Temperature Pulse Rate 106 H 89 Respiratory Rate Blood Pressure Pulse Oximetry Oxygen Delivery Room Air 11/21/24 04:00 11/21/24 04:00 11/21/24 04:30 Temperature 98.3 F Pulse Rate 83 94 Respiratory Rate 16 Blood Pressure 96/49 L Pulse Oximetry 96 Oxygen Delivery Room Air 11/21/24 06:00 11/21/24 06:37 11/21/24 07:49 Temperature 98.2 F Pulse Rate 89 87 Respiratory Rate 18 Blood Pressure 104/57 L 122/61 Pulse Oximetry 96 Oxygen Delivery Intake/Output Intake/Output: Intake & Output 11/18/24 11/19/24 11/20/24 11/21/24 23:59 23:59 23:59 23:59 Intake Total 1150 Balance 1150 Meds/Results Medications: Active Medications Generic Name Dose Route Start Last Admin Trade Name Freq PRN Reason Stop Dose Admin Acetaminophen 650 mg 11/20/24 14:11 11/21/24 09:34 Acetaminophen 325 Mg Tablet PO 650 mg Q4H PRN Administration Mild Pain (1-3) or Fever Allopurinol 100 mg 11/21/24 09:00 11/21/24 09:35 Allopurinol 100 Mg Tablet PO 100 mg DAILY BRITTANY Administration Alprazolam 0.25 mg 11/20/24 17:57 11/20/24 20:17 Alprazolam (*Crx) 0.25 Mg Tablet PO 0.25 mg TID PRN Administration Anxiety Dextrose 12.5 gm 11/20/24 18:05 Dextrose 50% 25 Gm/50 Ml Syringe IV PUSH PRN PRN Hypoglycemia Protocol Docusate Sodium 100 mg 11/20/24 14:11 Docusate Sodium 100 Mg Capsule PO BID PRN Constipation Duloxetine HCl 60 mg 11/21/24 09:00 11/21/24 09:34 Duloxetine Hcl 60 Mg Capsule.Dr PO 60 mg DAILY BRITTANY Administration Glucagon 1 mg 11/20/24 18:05 Glucagon For Inj 1 Mg Vial IM PRN PRN Hypoglycemia Protocol Glucose 15 gm 11/20/24 18:05 Glucose Oral Gel 15 Gm Of Glucse In 37.5 Gm Tube PO PRN PRN Hypoglycemia Protocol Dextrose 1,000 mls @ 100 mls/hr 11/20/24 18:05 Dextrose 5% 1,000 Ml IVPB PRN PRN Hypoglycemia Protocol Insulin Aspart 2 - 5 units 11/21/24 08:00 11/21/24 07:30 Insulin Aspart (*Bkc) 100 Units/Ml SUB-Q Not Given TIDWM BRITTANY Protocol Lisinopril 2.5 mg 11/21/24 09:00 Lisinopril 2.5 Mg Tablet PO On Hold: 11/21/24 09:00 DAILY BRITTANY Metoprolol Succinate 100 mg 11/21/24 09:00 Metoprolol Succinate Ext Rel 100 Mg Tabcr PO DAILY BRITTANY Pantoprazole Sodium 40 mg 11/21/24 09:00 11/21/24 09:34 Pantoprazole 40 Mg Tablet BY MOUTH 40 mg DAILY BRITTANY Administration Pravastatin Sodium 40 mg 11/20/24 21:00 11/20/24 20:16 Pravastatin Sodium 20 Mg Tablet PO 40 mg HS BRITTANY Administration Rivaroxaban 20 mg 11/20/24 18:00 11/20/24 18:56 Rivaroxaban 20 Mg Tablet PO 20 mg QPM BRITTANY Administration Spironolactone 25 mg 11/21/24 09:00 Spironolactone 25 Mg Tablet PO DAILY BRITTANY Torsemide 40 mg 11/20/24 18:05 11/20/24 18:56 Torsemide 20 Mg Tablet PO 40 mg QAM BRITTANY Administration Radiology Results: ITS Impressions Chest X-Ray 11/20/24 09:08 IMPRESSION: 1. No acute cardiopulmonary findings. Chest/Abdomen/Pelvis CTA 11/20/24 10:11 IMPRESSION: CHEST- 1. No acute cardiopulmonary findings. 2. Probable right heart strain. ABDOMEN/PELVIS- 1. No acute abdominopelvic findings. 2. Indeterminate liver lesion as before. Given background cirrhosis, worrisome for malignancy. Recommend MRI if able. Recommend AFP levels. Consider biopsy. Lexiscan Stress Test 11/21/24 12:04 IMPRESSION: 1. No definite ischemia or infarct. 2. Normal left ventricular ejection fraction measuring >70%. Labs Labs: Laboratory Results - last 24 hr 11/20/24 11/20/24 11/20/24 08:55 13:16 13:31 WBC RBC Hgb Hct MCV MCH MCHC RDW Plt Count MPV Immature Gran % (Auto) Neut % (Auto) Lymph % (Auto) [place] % (Auto) Eos % (Auto) Baso % (Auto) Lymph # (Auto) [place] # (Auto) Eos # (Auto) Baso # (Auto) Abs Immat Gran (auto) Absolute Neuts (auto) Absolute Nucleated RBC Nucleated RBC % Sodium Potassium Chloride Carbon Dioxide Anion Gap BUN Creatinine Estim Creat Clear Calc Estimated GFR Glucose POC Capillary Glucose 148 H Calcium Troponin I < 0.012 NT-Pro-B Natriuret Pep 1480 H 11/20/24 11/20/24 11/20/24 14:28 15:52 20:39 WBC RBC Hgb Hct MCV MCH MCHC RDW Plt Count MPV Immature Gran % (Auto) Neut % (Auto) Lymph % (Auto) [place] % (Auto) Eos % (Auto) Baso % (Auto) Lymph # (Auto) [place] # (Auto) Eos # (Auto) Baso # (Auto) Abs Immat Gran (auto) Absolute Neuts (auto) Absolute Nucleated RBC Nucleated RBC % Sodium Potassium Chloride Carbon Dioxide Anion Gap BUN Creatinine Estim Creat Clear Calc Estimated GFR Glucose POC Capillary Glucose 101 113 H Calcium Troponin I < 0.012 NT-Pro-B Natriuret Pep 11/21/24 11/21/24 03:57 07:20 WBC 6.2 RBC 4.34 Hgb 13.2 Hct 40.5 MCV 93.3 MCH 30.4 MCHC 32.6 RDW 13.9 Plt Count 178 MPV 10.5 H Immature Gran % (Auto) 0.3 Neut % (Auto) 68.9 Lymph % (Auto) 12.1 L [place] % (Auto) 11.3 H Eos % (Auto) 6.3 H Baso % (Auto) 1.1 Lymph # (Auto) 0.75 L [place] # (Auto) 0.7 H Eos # (Auto) 0.4 H Baso # (Auto) 0.1 Abs Immat Gran (auto) 0.02 Absolute Neuts (auto) 4.3 Absolute Nucleated RBC 0.000 Nucleated RBC % 0.0 Sodium 136 L Potassium 3.5 Chloride 99 Carbon Dioxide 30 Anion Gap 7 BUN 27 H Creatinine 1.10 H Estim Creat Clear Calc 36 Estimated GFR 47 L Glucose 105 POC Capillary Glucose 112 H Calcium 8.9 Troponin I NT-Pro-B Natriuret Pep
--- NOTE | 2024-11-21 12:31 | P.DS_ITS ---
DS: Admitting Diagnosis Discharge Date 11/21/2024 Admitting Diagnosis Chest pain DS: Discharge Diagnosis Discharge Diagnosis (1) Chest pain: Qualifiers: Chest pain type: unspecified Qualified Code(s): R07.9 - Chest pain, unspecified Code(s): R07.9 - Chest pain, unspecified Status: Acute (2) Anxiety: Code(s): F41.9 - Anxiety disorder, unspecified Status: Acute (3) HTN (hypertension): Qualifiers: Hypertension type: primary hypertension Qualified Code(s): I10 - Essential (primary) hypertension Code(s): I10 - Essential (primary) hypertension Status: Acute (4) CHF (congestive heart failure): Qualifiers: Heart failure type: unspecified Heart failure chronicity: unspecified Qualified Code(s): I50.9 - Heart failure, unspecified Code(s): I50.9 - Heart failure, unspecified Status: Acute (5) A-fib: Qualifiers: Atrial fibrillation type: unspecified chronic Qualified Code(s): I48.20 - Chronic atrial fibrillation, unspecified Code(s): I48.91 - Unspecified atrial fibrillation Status: Acute (6) Diabetes: Qualifiers: Diabetes mellitus type: type 2 Diabetes mellitus mcfp insulin use: without mcfp use Diabetes mellitus complication status: without complication Qualified Code(s): E11.9 - Type 2 diabetes mellitus without complications Code(s): E11.9 - Type 2 diabetes mellitus without complications Status: Acute (7) CKD (chronic kidney disease): Qualifiers: Chronic kidney disease stage: unspecified stage Qualified Code(s): N18.9 - Chronic kidney disease, unspecified Code(s): N18.9 - Chronic kidney disease, unspecified Status: Acute (8) Pulmonary nodule: Code(s): R91.1 - Solitary pulmonary nodule Status: Acute (9) Liver lesion: Code(s): K76.9 - Liver disease, unspecified Status: Acute DS: Summary Hospital Course Hospital Course: 84-year-old female who presents the hospital with chest pain. She states that radiates her back and has been going all morning feels like pressure with shortness of breath. Patient denies chest pain and shortness of breath on bedside exam. Denies fevers chills nausea or vomiting. Lab work in the ED shows INR 2.4, creatinine 1.15, BUN of 32, GFR 45, proBNP of 1480, troponins x2 negative, chest CT shows possible right heart strain, no PE identified, and indeterminate liver lesion recommending MRI. EKG shows atrial fibrillation rate of 89. Patient was given aspirin in the emergency room. Cardiology saw the patient and recommends trending troponins and nucleolar stress test. Chest pain troponin negative. CTA chest abdomen pelvis with no acute cardiopulmonary findings. Probable right heart strain. Indeterminate liver lesion. Recent MRI with stable findings noted on September 2024. Stress test per Cardiology which came back negative. No prior history of coronary artery disease. Follow-up with cardiology as an outpatient basis. Anxiety disorder Hypertension Congestive heart failure with 2+ edema BNP 1400 Atrial fibrillation chronic on metoprolol and Xarelto Type 2 diabetes CKD stage 3 Pulmonary nodule seen on imaging Liver lesion previously seen on imaging. LFTs within normal limit. Previous MRI 11/28 with abnormal lesion within segment 6/7 measuring greater than 2 cm which demonstrate non-REM arterial phase enhancement. This lesion is designated as LIRADS 4 probably HCC. Need follow-up as an outpatient basis. See follows with Dr. Morrison at [facility]. AFP done in March 2024 was negative. MRI was recently done in March 2024 as well. Follow-up MRI on 09/29 with stable findings. Imaging compatible with LR 2 lesion. See is getting another MRI for surveillance next year KRIS on CPAP Cirrhosis of liver History of breast cancer status post radiation and lumpectomy Time Spent with Patient Time attestation: Total time spent providing and/or coordinating discharge services: Exam Narrative: General: well appearing, appears stated age. HEENT: normocephalic, atraumatic. Mucous membranes moist. EOMI, PERRLA Respiratory: clear to ascultation bilaterally. No rales/rhonic/wheezes. Cardiovascular: Irregular rate and rhythm, normal S1-S2 upon ascultation. No murmurs, rubs, or clicks Abdomen: Soft, round, no pulsatile masses, nondistended and nontender. No rebound, no guarding. Extremities: No cyanosis, clubbing, Pulses are palpable 2/2. Active ROM to all four extremities. 3+ edema Neuro: Alert and orientated x 4. PERRLA. Cranial nerves 2-12 intact without focal deficit. Skin: Warm, dry, and intact, without rash, erythema, or lesion. Psych: pleasant, cooperative, normal speech, normal affect, no hallucinations, no dysarthia DS: Data Data Completed and Pending Labs on day of discharge: Labs from last 24 hours 11/21/24 11/21/24 11/21/24 11:43 07:20 03:57 WBC 6.2 RBC 4.34 Hgb 13.2 Hct 40.5 MCV 93.3 MCH 30.4 MCHC 32.6 RDW 13.9 Plt Count 178 MPV 10.5 H Immature Gran % (Auto) 0.3 Neut % (Auto) 68.9 Lymph % (Auto) 12.1 L [place] % (Auto) 11.3 H Eos % (Auto) 6.3 H Baso % (Auto) 1.1 Lymph # (Auto) 0.75 L [place] # (Auto) 0.7 H Eos # (Auto) 0.4 H Baso # (Auto) 0.1 Abs Immat Gran (auto) 0.02 Absolute Neuts (auto) 4.3 Absolute Nucleated RBC 0.000 Nucleated RBC % 0.0 Sodium 136 L Potassium 3.5 Chloride 99 Carbon Dioxide 30 Anion Gap 7 BUN 27 H Creatinine 1.10 H Estim Creat Clear Calc 36 Estimated GFR 47 L Glucose 105 POC Capillary Glucose 118 H 112 H Calcium 8.9 Troponin I NT-Pro-B Natriuret Pep 11/20/24 11/20/24 11/20/24 20:39 15:52 14:28 WBC RBC Hgb Hct MCV MCH MCHC RDW Plt Count MPV Immature Gran % (Auto) Neut % (Auto) Lymph % (Auto) [place] % (Auto) Eos % (Auto) Baso % (Auto) Lymph # (Auto) [place] # (Auto) Eos # (Auto) Baso # (Auto) Abs Immat Gran (auto) Absolute Neuts (auto) Absolute Nucleated RBC Nucleated RBC % Sodium Potassium Chloride Carbon Dioxide Anion Gap BUN Creatinine Estim Creat Clear Calc Estimated GFR Glucose POC Capillary Glucose 113 H 101 Calcium Troponin I < 0.012 NT-Pro-B Natriuret Pep 11/20/24 11/20/24 11/20/24 13:31 13:16 08:55 WBC RBC Hgb Hct MCV MCH MCHC RDW Plt Count MPV Immature Gran % (Auto) Neut % (Auto) Lymph % (Auto) [place] % (Auto) Eos % (Auto) Baso % (Auto) Lymph # (Auto) [place] # (Auto) Eos # (Auto) Baso # (Auto) Abs Immat Gran (auto) Absolute Neuts (auto) Absolute Nucleated RBC Nucleated RBC % Sodium Potassium Chloride Carbon Dioxide Anion Gap BUN Creatinine Estim Creat Clear Calc Estimated GFR Glucose POC Capillary Glucose 148 H Calcium Troponin I < 0.012 NT-Pro-B Natriuret Pep 1480 H Imaging Radiologist's impression: ITS Impressions Chest X-Ray 11/20/24 09:08 IMPRESSION: 1. No acute cardiopulmonary findings. Chest/Abdomen/Pelvis CTA 11/20/24 10:11 IMPRESSION: CHEST- 1. No acute cardiopulmonary findings. 2. Probable right heart strain. ABDOMEN/PELVIS- 1. No acute abdominopelvic findings. 2. Indeterminate liver lesion as before. Given background cirrhosis, worrisome for malignancy. Recommend MRI if able. Recommend AFP levels. Consider biopsy. Lexiscan Stress Test 11/21/24 12:04 IMPRESSION: 1. No definite ischemia or infarct. 2. Normal left ventricular ejection fraction measuring >70%. Discharge Plan Discharge Attending physician on discharge: Juan David Coreas Consulting providers: Barron Reynolds Discharging Clinician: Juan David Coreas Anticipated Discharge Date/Time: 11/21/24 12:33 Patient Disposition: Home Activity: as tolerated Diet: heart healthy Patient Instructions: Antibiotic Form Patient Language: Maori Stand Alone Forms: General Discharge Information Follow-up/Referrals: Alin Gorman MD [Physician, Cardiology] - Keep Reg. Scheduled Appt. Thomas Antonio MD [Primary Care Provider, Internal Medicine] - 1 Week Discharge Medications: Continued alprazolam [Xanax] 0.25 mg tablet 0.25 mg PO TID PRN (Reason: anxiety) Qty: 30 0RF Patient Comments: Takes occasionally due to a/d over husbands colchicine 0.6 mg tablet 0.6 mg PO DAILY PRN (Reason: gout) magnesium 500 mg PO BID Rx Instructions: Takes 500mg bid citracal See Rx Instructions .ROUTE .COMPLEX Rx Instructions: 630 MG calcium, 500 MG vitamin D, 5.5 MG zinc BID Adult 50 Plus Probiotic 4 billion cell capsule 4,000 mmu cells PO HS Rx Instructions: administer with a meal CoQ10 100 mg PO HS duloxetine 60 mg capsule,delayed release(DR/EC) 60 mg PO DAILY Qty: 90 1RF Rx Instructions: Please D/C the Duloxetine 30mg. Thank you [id number]-algal oil [Metanx (algal oil)] 3 mg-35 mg-2 mg -90.314 mg capsule 1 cap PO BID glucosamine sulfate 1,000 mg Capsule 1,000 mg PO BID Rx Instructions: administer with meals Adults Multivitamin 18 mg iron-400 mcg-25 mcg Tablet 1 tablet PO DAILY [place] 3 Fish Oil 1 cap PO DAILY loperamide [Imodium A-D] 2 mg tablet 2 mg PO Q6H PRN (Reason: loose stool) Qty: 14 0RF spironolactone 25 mg tablet 25 mg PO DAILY Qty: 90 1RF metoprolol succinate 100 mg tablet extended release 24 hr 100 mg PO DAILY Qty: 90 1RF Xarelto 20 mg tablet 20 mg PO QPM Qty: 90 0RF Rx Instructions: must administer with evening meal pravastatin 40 mg tablet 40 mg PO HS Qty: 90 1RF lisinopril 2.5 mg tablet 2.5 mg PO DAILY Qty: 90 1RF potassium chloride 10 mEq tablet extended release 10 meq PO DAILY Qty: 90 0RF Rx Instructions: TAKES EXTRA TAB IF TAKING EXTRA TORSEMIDE pantoprazole 40 mg tablet,delayed release (DR/EC) See Rx Instructions .ROUTE .COMPLEX Qty: 90 1RF Dose Instruction: TAKE 1 TABLET EVERY MORNING Rx Instructions: TAKE 1 TABLET EVERY MORNING dapagliflozin propanediol [Farxiga] 10 mg tablet See Rx Instructions .ROUTE .COMPLEX Qty: 90 0RF Dose Instruction: TAKE 1 TABLET DAILY Rx Instructions: TAKE 1 TABLET DAILY allopurinol 100 mg tablet 100 mg PO DAILY Qty: 90 1RF Rx Instructions: Please D/C the Allopurinol 300mg. Thank you torsemide 20 mg tablet 40 mg PO QAM Qty: 60 0RF Date of admission: 11/20/24 10:34 Primary Care Provider: Thomas Antonio Admitting Provider: Lynsey Irvin Attending physician on admission: Lynsey Irvin Condition: Stable
[2024-11-21] MEDS: METOPROLOL SUCCINATE EXT REL 100 MG TABCR PO (13:29)
== END 2024-11-21 14:00 | disposition home or self-care (01) ==
LOC: ANHED 09:22 → ANHIMU 15:50
PROVIDERS: Nurse Practitioner Gerontology; Preventive Medicine Aerospace Medicine; Admitting Provider Family Medicine; Emergency Provider Physician Assistant; PCP Internal Medicine; Visit Provider Internal Medicine
DX: I13.0 Hypertensive heart and chronic kidney disease with heart failure and stage 1 through stage 4 chronic kidney disease, or unspecified chronic kidney disease (principal); I50.9 Heart failure, unspecified; N18.9 Chronic kidney disease, unspecified; I27.20 Pulmonary hypertension, unspecified; I48.91 Unspecified atrial fibrillation; K74.60 Unspecified cirrhosis of liver; R93.2 Abnormal findings on diagnostic imaging of liver and biliary tract; I45.10 Unspecified right bundle-branch block; I48.0 Paroxysmal atrial fibrillation; F41.9 Anxiety disorder, unspecified; R91.1 Solitary pulmonary nodule; E78.5 Hyperlipidemia, unspecified; E11.8 Type 2 diabetes mellitus with unspecified complications; G47.33 Obstructive sleep apnea (adult) (pediatric); Z99.89 Dependence on other enabling machines and devices; M10.9 Gout, unspecified; Z79.01 Long term (current) use of anticoagulants; Z79.52 Long term (current) use of systemic steroids; Z79.2 Long term (current) use of antibiotics; Z79.84 Long term (current) use of oral hypoglycemic drugs; H01.009 Unspecified blepharitis unspecified eye, unspecified eyelid; Z92.3 Personal history of irradiation; Z79.899 Other long term (current) drug therapy; Z85.3 Personal history of malignant neoplasm of breast; Z85.828 Personal history of other malignant neoplasm of skin; H04.129 Dry eye syndrome of unspecified lacrimal gland; Z98.890 Other specified postprocedural states; Z84.0 Family history of diseases of the skin and subcutaneous tissue; Z83.3 Family history of diabetes mellitus
CPT/HCPCS: 36415; 71046; 71275; 74174; 78452; 80048; 80053; 82105; 82948; 83690; 83880; 84484; 85025; 85610; 85730; 93005; 93017; 96374; 96375; 99285; A9270; A9502; G0378; J2470; J2785; Q9967

== ENCOUNTER 2025-01-08 14:44 | Outpatient (CLI) | payer OTHER, SELFPAY ==
[2025-01-08 15:40] LABS: Alanine Aminotransferase 21 U/L (6-35); Albumin Level 4.5 g/dL (3.5-5.1); Alkaline Phosphatase 101 U/L (38-126); Anion Gap 6 mmol/L (4-12); Aspartate Amino Transferase 30 U/L (14-36); Bilirubin,Total 0.6 mg/dL (0.2-1.3); Blood Urea Nitrogen 43 mg/dL (7-17); Calcium 9.7 mg/dL (8.4-10.2); Carbon Dioxide 35 mmol/L (22-30); Chloride 97 mmol/L (98-107); Cholesterol 178 mg/dL (0-200); Estimated Glomerular Filt Rate 39; Glucose 75 mg/dL (65-110); HDL Direct 72 mg/dL; Potassium 4.2 mmol/L (3.4-5.0); Sodium 138 mmol/L (137-145); Total Protein 7.7 g/dL (6.3-8.2); Triglycerides 115 mg/dL (<150); Uric Acid 6.9 mg/dL (2.5-7.5)
[2025-01-08 16:13] LABS: Free T4 Free Thyroxine 1.08 ng/dL (0.78-2.19)
[2025-01-08 16:17] LABS: Hemoglobin A1C 5.9 % (<5.7); Thyroid Stimulating Hormone 1.820 uIU/mL (0.465-4.680)
== END 2025-01-08 14:45 | disposition home or self-care (01) ==
PROVIDERS: PCP Internal Medicine; Visit Provider Internal Medicine
DX: E78.5 Hyperlipidemia, unspecified (principal); I10 Essential (primary) hypertension; E11.9 Type 2 diabetes mellitus without complications; M10.9 Gout, unspecified; Z79.899 Other long term (current) drug therapy; Z13.29 Encounter for screening for other suspected endocrine disorder
CPT/HCPCS: 36415; 80053; 80061; 83036; 84439; 84443; 84550